=== PATIENT | female | born 1960 ===

== ENCOUNTER 2016-07-25 13:39 | Emergency (ER) | payer MEDICAID ==
[2016-07-25 13:39] VITALS: BMI 49.0
[2016-07-25 13:49] VITALS: BP 131/86; PULSE 85; RESP 24; TEMP 97.7
[2016-07-25] MEDS ORDERED: Albuterol-Ipratrop 3 mg / 0.5 (3 ml) UD INH STA ×3 (14:03→14:06)
--- NOTE | 2016-07-25 14:08 | ED PDOC ---
HPI: SOB/CHF/COPD Time Seen by Provider: 07/25/16 13:51 Chief Complaint (Nursing): Shortness Of Breath Chief Complaint (Provider): Shortness Of Breath History Per: Patient History/Exam Limitations: no limitations Onset/Duration Of Symptoms: Days (2), Worse Since (this morning) Current Symptoms Are (Timing): Still Present Initiating Event: Other (exposure to chemicals) Exacerbating Factor(s): Laying Flat Current Respiratory Medications: Albuterol, Steroid Inhaler Associated Symptoms: denies: Fever, Chills, Sweating, Chest Pain, Bloody Cough, Productive Cough, Heart Racing, Leg/Calf Pain, Ankle/Leg Swelling, Dizziness, Light-headedness, Anxiety, Tingling In Hands Or Face, Musle Spasms In Hands Or Feet Similar Symptoms Previously: Yes Additional Complaint(s): 56 year old morbid obese female with medical history of COPD, IDDM with shortness of breath x 2 days, worsened this AM. Patient states has been doing very well with her COPD management, without an ED visit in approx 1 year. Patient states that however she was exposed to some chemical 2 days ago that began to worsen her breathing with increasingly dyspnea which prompted ED visit today. Patient denies cough, fever, headache, palpitations, chest tightness, chest pain, numbness, tingling, recent travel, calf tenderness, or chills. PMD: [facility] Past Medical History Reviewed: Historical Data, Nursing Documentation, Vital Signs Vital Signs: Last Vital Signs Temp 97.7 F 07/25/16 13:47 Pulse 85 07/25/16 13:47 Resp 24 07/25/16 13:47 BP 131/86 07/25/16 13:47 Pulse Ox 94 L 07/25/16 15:30 - Medical History PMH: Arthritis, COPD, Diabetes, Fractures (ribs), HTN, Hypercholesterolemia Denies: HIV, Chronic Kidney Disease - Surgical History Surgical History: Hernia Repair, Tonsillectomy - Family History Family History: States: Unknown Family Hx, Diabetes, Hypertension - Social History Current smoker - smoking cessation education provided: No Ex-Smoker (has not smoked in the last 12 months): Yes Alcohol: None Drugs: Denies - Immunization History Hx Tetanus Toxoid Vaccination: No Hx Influenza Vaccination: No Hx Pneumococcal Vaccination: No - Home Medications Home Medications: Ambulatory Orders Medication Instructions Recorded Losartan [Cozaar] 100 mg PO DAILY #0 tab 12/28/15 Aspirin [Ecotrin] 81 mg PO DAILY 01/14/16 Insulin Human (NPH)/Regular 50 units SC BID 02/20/16 [Novolin 70/30 (70/30 units/ml) 10 ml] Ciprofloxacin [Cipro] 500 mg PO BID #16 tab 02/22/16 Metronidazole [Flagyl] 500 mg PO Q8H #36 tablet 02/22/16 Albuterol 0.083% [Albuterol 0.083% 2.5 mg IH Q4H PRN #1 neb 07/25/16 Inhal Katrina (2.5 mg/3 ml) UD] Prednisone 50 mg PO DAILY #4 tablet 07/25/16 - Allergies Allergies/Adverse Reactions: Allergies Allergy/AdvReac Type Severity Reaction Status Date / Time crab Allergy ANGIOEDEMA Verified 04/29/16 08:14 zolpidem tartrate Allergy RASH Verified 04/29/16 08:14 [From Jessi] Wells Criteria for PE - Wells Criteria for Pulmonary Embolism Clinical Signs and Symptoms of DVT: No P.E is #1 Diagnosis, or Equally Likely: No Heart Rate >100: No Immobilization at least 3 days;Surgery previous 4 weeks: No Previous, objectively diagnosed PE or DVT: No Hemoptysis: No Malignancy w/treatment within 6 months, or palliative: No Total Score: 0 Review of Systems ROS Statement: Except As Marked, All Systems Reviewed And Found Negative Respiratory: Positive for: Shortness of Breath, Wheezing Physical Exam - Reviewed Nursing Documentation Reviewed: Yes Vital Signs Reviewed: Yes - Physical Exam Appears: Positive for: Well, Non-toxic Head Exam: Positive for: ATRAUMATIC, NORMAL INSPECTION, NORMOCEPHALIC Skin: Positive for: Normal Color, Warm, Dry Eye Exam: Positive for: Normal appearance, EOMI ENT: Positive for: Normal ENT Inspection Neck: Positive for: Normal, Painless ROM, Supple Cardiovascular/Chest: Positive for: Regular Rate, Rhythm Respiratory: Positive for: Decreased Breath Sounds (bilateral bases), Wheezing ( diffuse). Negative for: Accessory Muscle Use, Rales, Rhonchi, Respiratory Distress Gastrointestinal/Abdominal: Positive for: Normal Exam, Bowel Sounds (present), Soft, Other (morbid obesity). Negative for: Tenderness Back: Positive for: Normal Inspection Extremity: Positive for: Normal ROM. Negative for: Tenderness, Pedal Edema, Calf Tenderness Neurologic/Psych: Positive for: Alert, dredge or barge shore hand II-XII, Oriented - ECG O2 Sat by Pulse Oximetry: 97 Pulse Ox Interpretation: Normal - Radiology X-Ray: Interpreted by Me, Viewed By Me, Read By Radiologist X-Ray Interpretation: No Acute Disease - Progress ED Course And Treament: Time: 1400 Initial impression: 56 year old morbid obese female with medical history of COPD , IDDM with shortness of breath x 2 days, worsened this AM. VSS. Pulse ox 94-95% . Afebrile. Likely COPD exacerbation 2ndary to chemical exposure Plan: * DUONEBS X 3 * SOLUMEDROL 125MG IVP * CXR * EKG * CONTINUOUS MONITORING * REEVAL Time: 1530 Patient re-examined, improved symptoms. CXR: NAD Patient eager to go home. Breath sounds improved bilaterally. Patient to be discharged home with Prednisone and Albuterol. ED precautions and information regarding discharge discussed. Disposition - Clinical Impression Clinical Impression: COPD (chronic obstructive pulmonary disease) - Disposition Referrals: Mario Dey MD [Staff Provider] - Disposition: Routine/Home Disposition Time: 16:00 Condition: IMPROVED Additional Instructions: Follow up with PMD within 7 days. Take medications as prescribed. Return to ED for worsening symptoms. Prescriptions: Albuterol 0.083% [Albuterol 0.083% Inhal Katrina (2.5 mg/3 ml) UD] 2.5 mg IH Q4H PRN #1 neb PRN Reason: Shortness Of Breath Prednisone 50 mg PO DAILY #4 tablet Instructions: COPD (Chronic Obstructive Pulmonary Disease) (ED) Print Language: MARSHALLESE
--- NOTE | 2016-07-25 14:56 | RAD ---
HISTORY: Shortness of breath. COMPARISON: 02/20/2016 TECHNIQUE: Chest PA and lateral FINDINGS: LUNGS: No active pulmonary disease. PLEURA: No significant pleural effusion identified. No pneumothorax apparent. CARDIOVASCULAR: No radiographic findings to suggest acute or significant cardiovascular disease. OSSEOUS STRUCTURES: No significant abnormalities. VISUALIZED UPPER ABDOMEN: Normal. OTHER FINDINGS: None. IMPRESSION: No active disease. No significant interval change compared to the prior examination(s).
[2016-07-25 16:29] VITALS: O2SAT 97
--- NOTE | 2016-07-26 11:36 | CARD ---
APPROVED REPORT EKG Measurement Heart [id number] VT [id number] <Conclusion> Normal sinus rhythm Normal ECG
== END 2016-07-25 16:27 | disposition home or self-care (01) ==
LOC: H.ER 13:39
DX: J44.9 Chronic obstructive pulmonary disease, unspecified (principal); E11.9 Type 2 diabetes mellitus without complications; E66.01 Morbid (severe) obesity due to excess calories; E78.00 Pure hypercholesterolemia, unspecified; I10 Essential (primary) hypertension; R06.02 Shortness of breath; Z79.4 Long term (current) use of insulin; Z79.82 Long term (current) use of aspirin

== ENCOUNTER 2016-08-06 12:26 | Inpatient (IN) | payer MEDICAID ==
--- NOTE | 2016-08-06 12:55 | ED PDOC ---
HPI: SOB/CHF/COPD Time Seen by Provider: 08/06/16 12:50 Chief Complaint (Nursing): Shortness Of Breath Chief Complaint (Provider): SOB History Per: Patient Additional Complaint(s): 56-year-old female with history of hypertension, diabetes and COPD presents to emergency department with shortness of breath that started 2 days ago. Patient thinks SOB was triggered by being out in the rain 2 days ago. Advair and albuterol have not helped her symptoms. Patient denies recent travel, no coughing, no sick contacts. She denies any fever or chills, no associated throat discomfort or difficulty swallowing. She also denies any chest pain. Past Medical History Reviewed: Historical Data, Nursing Documentation, Vital Signs Vital Signs: Last Vital Signs Temp 98.0 F 08/06/16 16:49 Pulse 120 H 08/06/16 16:49 Resp 20 08/06/16 16:49 BP 150/82 08/06/16 16:49 Pulse Ox 98 08/06/16 16:49 - Medical History PMH: Arthritis, COPD, Diabetes, Fractures (ribs), HTN, Hypercholesterolemia - Surgical History Surgical History: Hernia Repair, Tonsillectomy - Family History Family History: States: Unknown Family Hx, Diabetes, Hypertension - Living Arrangements Living Arrangements: With Family - Social History Current smoker - smoking cessation education provided: No Ex-Smoker (has not smoked in the last 12 months): Yes (quit 6 years ago) Alcohol: None Drugs: Denies - Home Medications Home Medications: Ambulatory Orders Medication Instructions Recorded Losartan [Cozaar] 100 mg PO DAILY #0 tab 12/28/15 Aspirin [Ecotrin] 81 mg PO DAILY 01/14/16 Insulin Human (NPH)/Regular 50 units SC BID 02/20/16 [Novolin 70/30 (70/30 units/ml) 10 ml] Albuterol 0.083% [Albuterol 0.083% 2.5 mg IH Q4H PRN #1 neb 07/25/16 Inhal Katrina (2.5 mg/3 ml) UD] Ascorbic Acid [Vitamin C] 1,500 mg PO DAILY 08/06/16 Folic Acid [Folic Acid] 400 mcg PO DAILY 08/06/16 Milk Thistle Seed Extract [Milk 1 cap PO DAILY 08/06/16 Thistle] Deale-3 Fatty Acids [Deale-3] 1,000 mg PO DAILY 08/06/16 Vitamin E [Vitamin E 400 Units Cap] 400 unit PO DAILY 08/06/16 - Allergies Allergies/Adverse Reactions: Allergies Allergy/AdvReac Type Severity Reaction Status Date / Time crab Allergy ANGIOEDEMA Verified 08/06/16 12:34 zolpidem tartrate Allergy RASH Verified 08/06/16 12:34 [From Rudolphien] Curb-65 Severity Score - CURB-65 Severity Score Confusion: No Respiratory Rate greater than/equal to 30: No Systolic BP <90 or Diastolic BP less than/equal 60mmHg: No Age >64: No Curb-65 Score: 0 Percentage 30-day mortality: 0.6% Wells Criteria for PE - Wells Criteria for Pulmonary Embolism Clinical Signs and Symptoms of DVT: No P.E is #1 Diagnosis, or Equally Likely: No Heart Rate >100: No Immobilization at least 3 days;Surgery previous 4 weeks: No Previous, objectively diagnosed PE or DVT: No Hemoptysis: No Malignancy w/treatment within 6 months, or palliative: No Total Score: 0 Review of Systems ROS Statement: Except As Marked, All Systems Reviewed And Found Negative Constitutional: Negative for: Fever, Chills Cardiovascular: Negative for: Chest Pain Respiratory: Positive for: Shortness of Breath, SOB with Exertion, Wheezing Gastrointestinal: Negative for: Nausea, Vomiting Neurological: Negative for: Headache, Dizziness Physical Exam - Reviewed Nursing Documentation Reviewed: Yes Vital Signs Reviewed: Yes - Physical Exam Appears: Positive for: Well, Non-toxic, No Acute Distress Head Exam: Positive for: ATRAUMATIC, NORMAL INSPECTION Skin: Negative for: Rash Eye Exam: Positive for: Normal appearance, EOMI, PERRL ENT: Negative for: Pharyngeal Erythema, Tonsillar Exudate, Tonsillar Swelling Cardiovascular/Chest: Positive for: Regular Rate, Rhythm Respiratory: Positive for: Decreased Breath Sounds, Accessory Muscle Use, Respiratory Distress (mild) Gastrointestinal/Abdominal: Positive for: Other (morbidly obese non-tender abdomen). Negative for: Tenderness Extremity: Negative for: Calf Tenderness Neurologic/Psych: Positive for: Alert, Oriented - Laboratory Results Result Diagrams: 08/06/16 13:38 08/06/16 14:50 - ECG Interpretation Of ECG: A fib 105 bpm, reviewed by PA and ED attending. O2 Sat by Pulse Oximetry: 97 Pulse Ox Interpretation: Normal - Other Rad Bedside chest X-Ray: Interpreted by Me, Viewed By Me X-Ray Interpretation: poor inspiratory effort, no acute finding Medical Decision Making Medical Decision Makin56 year old with shortness of breath, history of COPD. Plan: CBC CMP Trop CXR EKG IVF IV solumedrol Duoneb x 3 EKG shows A-fib at 105 bpm. Patient denies any known history of A-fib. Dr. Barnes aware, cardizem 10 mg IV ordered along with 30 mg PO tab. PMD is Dr. Jewell at [facility]. Case was d/w Dr. Bliss, [facility] resident. Patient will be admitted to obs-tele Dr. Barnes spoke with Dr. South for cardiology consult. Patient is aware of and agrees with admission. K is elevated, sample hemolyzed, repeat CMP ordered. Repeat K is normal. Disposition - Clinical Impression Clinical Impression: COPD (chronic obstructive pulmonary disease), Atrial fibrillation, Shortness of breath - Patient ED Disposition Is Patient to be Admitted: Yes - Disposition Disposition Time: 13:57 Condition: FAIR - Pt Status Changed To: Hospital Disposition Of: Observation - POA Present On Arrival: None Results - Lab Results Lab Results: 08/06/16 08/06/16 13:38 13:38 WBC 6.2 RBC 4.43 Hgb 12.6 Hct 39.1 MCV 88.4 D MCH 28.4 MCHC 32.2 L RDW 15.3 H Plt Count 73 L MPV 9.9 Neut % (Auto) 75.5 H Lymph % (Auto) 13.0 L [place] % (Auto) 9.6 Eos % (Auto) 1.5 Baso % (Auto) 0.4 Neut # 4.7 Lymph # 0.8 L [place] # 0.6 Eos # 0.1 Baso # 0.0 Sodium 138 Potassium 5.2 H Chloride 104 Carbon Dioxide 24 Anion Gap 15 BUN 19 H Creatinine 0.6 L Est GFR ( Amer) > 60 Est GFR (Non-Af Amer) > 60 Random Glucose 235 H Calcium 9.3 Total Bilirubin 1.4 H AST 107 H D ALT 84 H Alkaline Phosphatase 278 H D Troponin I 0.0290 Total Protein 7.8 Albumin 4.2 Globulin 3.6 Albumin/Globulin Ratio 1.2 TSH 3rd Generation 0.76
[2016-08-06] MEDS ORDERED: Albuterol-Ipratrop 3 mg / 0.5 (3 ml) UD INH STA (13:00)
[2016-08-06] MEDS ORDERED: Sodium Chloride 0.9% 1,000 ML IV STA (13:00)
--- NOTE | 2016-08-06 13:25 | RAD ---
HISTORY: sob COMPARISON: Comparison chest 07/25/2016. FINDINGS: LUNGS: Poor inspiration with low lung volumes, mild crowded bronchovascular markings and mild bibasilar atelectasis. PLEURA: No significant pleural effusion identified, no pneumothorax apparent. CARDIOVASCULAR: Cardiomegaly. OSSEOUS STRUCTURES: No significant abnormalities. VISUALIZED UPPER ABDOMEN: Normal. OTHER FINDINGS: None. IMPRESSION: Poor inspiration with low lung volumes, mild crowded bronchovascular markings and mild bibasilar atelectasis. Cardiomegaly. It could
[2016-08-06 13:50] LABS: BASO % 0.4 % (0.0-2.0); EOS # 0.1 K/uL (0.0-0.7); EOS % 1.5 % (0.0-4.0); HEMATOCRIT 39.1 % (34.0-47.0); LYMPH # 0.8 K/uL (1.0-4.3); MEAN CELL VOLUME 88.4 fl (81.0-99.0); MEAN CORPUSCULAR HEMOGLOBIN 28.4 pg (27.0-31.0); MEAN CORPUSCULAR HGB CONC 32.2 g/dL (33.0-37.0); MEAN PLATELET VOLUME 9.9 fl (7.2-11.7); MONO # 0.6 K/uL (0.0-0.8); MONO % 9.6 % (0.0-10.0); NEUT # 4.7 K/uL (1.8-7.0); NEUT % 75.5 % (50.0-75.0); NRBC % 0.1 % (0.0-0.0); RED CELL DISTRIBUTION WIDTH 15.3 % (11.5-14.5); WHITE BLOOD COUNT 6.2 K/uL (4.8-10.8)
[2016-08-06 14:06] LABS: ALB/GLOB RATIO 1.2 (1.0-2.1); ALKALINE PHOSPHATASE 278 U/L (38-126); ALT/SGPT 84 U/L (9-52); AST/SGOT 107 U/L (14-36); BILIRUBIN,TOTAL 1.4 mg/dl (0.2-1.3); BLOOD UREA NITROGEN 19 mg/dl (7-17); CALCIUM 9.3 mg/dL (8.4-10.2); CARBON DIOXIDE 24 mmol/L (22-30); CHLORIDE 104 mmol/L (98-107); GFR AFRICAN-AMERICAN > 60; GLUCOSE,RANDOM 235 mg/dL (65-105); SODIUM 138 mmol/l (132-148); TOTAL PROTEIN 7.8 G/DL (6.3-8.2)
[2016-08-06 14:14] LABS: POTASSIUM 5.2 MMOL/L (3.6-5.0)
[2016-08-06 15:33] LABS: ALB/GLOB RATIO 1.2 (1.0-2.1); ALKALINE PHOSPHATASE 264 U/L (38-126); ALT/SGPT 96 U/L (9-52); AST/SGOT 78 U/L (14-36); BILIRUBIN,TOTAL 1.1 mg/dl (0.2-1.3); BLOOD UREA NITROGEN 18 mg/dl (7-17); CALCIUM 9.2 mg/dL (8.4-10.2); CARBON DIOXIDE 23 mmol/L (22-30); CHLORIDE 105 mmol/L (98-107); GFR AFRICAN-AMERICAN > 60; GLUCOSE,RANDOM 218 mg/dL (65-105); POTASSIUM 4.2 MMOL/L (3.6-5.0); SODIUM 139 mmol/l (132-148); TOTAL PROTEIN 7.5 G/DL (6.3-8.2)
--- NOTE | 2016-08-06 16:10 | CP.PCM.HP ---
History of Present Illness - History of Present Illness History of Present Illness: This is a 56 year old Morbid obese female with medical history of COPD, DM, HTN presenting to ED with a history of increasing shortness of breath since yesterday, and not getting relieved with her usual albuterol treatment, and associated with chest tightness, and morning wheezing. Patient had a recent visit to ED on 07/25/16 because worsened SOB for 2 days and was sent home in PO prednisone x 4 days. Patient states that when she is exposed to some chemical that began to worsen her breathing with increasingly dyspnea which prompted ED visit today. Patient denies cough, fever, headache, palpitations, chest pain, chills. PMD: [facility] PMHx: COPD, DM type II, HTN FHx: Father: Milka SHx: Umbilical hernia, Tonsillectomy Allergies: Ambien/Rash SocialHx: Former smoker x 30 years, stopped 6 years ago. ETOH: socially, Denies recreational drugs ED course: Present on Admission - Present on Admission Any Indicators Present on Admission: No History of DVT/PE: No History of Uncontrolled Diabetes: No Urinary Catheter: No Decubitus Ulcer Present: No Review of Systems - Constitutional Constitutional: As Per HPI - Cardiovascular Cardiovascular: As Per HPI - Respiratory Respiratory: As Per HPI - Gastrointestinal Gastrointestinal: As Per HPI Past Patient History - Infectious Disease Hx of Infectious Diseases: None - Past Medical History & Family History Past Medical History?: Yes - Past Social History Alcohol: None Drugs: Denies - CARDIAC Hx Hypercholesterolemia: Yes Hx Hypertension: Yes - PULMONARY Hx Chronic Obstructive Pulmonary Disease (COPD): Yes - NEUROLOGICAL Hx Neurological Disorder: No - HEENT Hx HEENT Problems: No - RENAL Hx Chronic Kidney Disease: No - ENDOCRINE/METABOLIC Hx Endocrine Disorders: Yes Hx Diabetes Mellitus Type 1: Yes - HEMATOLOGICAL/ONCOLOGICAL Hx Human Immunodeficiency Virus (HIV): No - INTEGUMENTARY Hx Dermatological Problems: No - MUSCULOSKELETAL/RHEUMATOLOGICAL Hx Arthritis: Yes Hx Fractures: Yes (ribs) - GASTROINTESTINAL Hx Gastrointestinal Disorders: Yes (Hernia) - GENITOURINARY/GYNECOLOGICAL Hx Urinary Tract Infection: Yes - PSYCHIATRIC Hx Psychophysiologic Disorder: No Hx Substance Use: No - SURGICAL HISTORY Hx Tonsillectomy: Yes - ANESTHESIA Hx Anesthesia: Yes Hx Anesthesia Reactions: No Hx Malignant Hyperthermia: No Meds Allergies/Adverse Reactions: Allergies Allergy/AdvReac Type Severity Reaction Status Date / Time crab Allergy ANGIOEDEMA Verified 08/06/16 12:34 zolpidem tartrate Allergy RASH Verified 08/06/16 12:34 [From Ambien] Physical Exam - Constitutional Appears: Non-toxic, No Acute Distress - Eye Exam Eye Exam: Normal appearance - ENT Exam ENT Exam: Mucous Membranes Moist - Respiratory Exam Respiratory Exam: Clear to Auscultation Bilateral, NORMAL BREATHING PATTERN. absent: Rales, Rhonchi, Wheezes, Respiratory Distress - Cardiovascular Exam Cardiovascular Exam: Irregular Rhythm, +S1, +S2. absent: Systolic Murmur - GI/Abdominal Exam GI & Abdominal Exam: Normal Bowel Sounds, Soft. absent: Rebound, Rigid, Tenderness - Extremities Exam Extremities exam: Positive for: normal inspection. Negative for: calf tenderness, pedal edema Additional comments: No edema in lower extremities. No calf tenderness, No's sign negative bilateral. - Back Exam Back exam: NORMAL INSPECTION. absent: CVA tenderness (L), CVA tenderness (R) - Neurological Exam Neurological exam: Alert, Oriented x3 - Psychiatric Exam Psychiatric exam: Normal Affect, Normal Mood - Skin Skin Exam: Dry, Intact, Normal Color - Additional Findings Additional findings: Mild tenderness to palpation of right trapezius muscle Results - Vital Signs Recent Vital Signs: Last Vital Signs Temp 98.1 F 08/06/16 14:47 Pulse 112 H 08/06/16 14:47 Resp 19 08/06/16 14:47 BP 100/57 L 08/06/16 14:47 Pulse Ox 97 08/06/16 15:16 - Labs Result Diagrams: 08/06/16 13:38 08/06/16 14:50 Assessment & Plan - Assessment and Plan (Free Text) Assessment: 56 year old Morbid obese female with medical history of COPD, HTN, DM, admitted for management of new onset Atrial Fibrillation. Plan: New onset Atrial Fibrillation -With rapid ventricular response -EKG at ED showed Atrial fibrillation with rapid ventricular response, and premature ventricular contraction -Cardizem 10 mg IVP once given at ED -Cardizem 30 mg PO once at ED -Troponin I: 0.0290 -F/U TSH pending -F/U troponin I x 3 -Consider Echocardiogram -Cardiology consult appreciated. Dr. Persaud on board. F/U recommendations Short of Breath Most likely due to A fib, but patient has H/O COPD -No wheezing , rhonchi or crackles -S/p Duoneb inh STAT once -Methylprednisolone 125 IV once STAT -Chest x ray showed poor inspiration with low lung volumes, mild croweded bronchovascular markings and mild bibasilar atelectasis. -Will continue monitoring Diabetes Mellitus type II -Being treated with insulin -Accu-chek ACHS -Corrective high dose insulin regimen -Hypoglycemic protocol -F/U HgbA1C -F/U Lipid profile -Heart health with moderate carbohydrate diet Hypertension c/w home medications Elevated liver enzymes -H/O elevated LFTs in previous CMP -Hepatitis panel was negative on 01/16/16 -Pelvic CT scan on 02/20/16 showed portal hypertension due to chronic liver disease/cirrhosis Morbid Obese BMI: 50.8 kg/m2 DVT prophylaxis -SCDs for now - Date & Time Date: 08/06/16 Time: 15:30
[2016-08-06 16:56] LABS: THYROID STIMULATING HORMONE 0.76 mIU/ML (0.46-4.68)
[2016-08-06] MEDS ORDERED: Dextrose 50% SYRINGE Inj (50 ml) IV PRN (16:59)
[2016-08-06] MEDS ORDERED: Glucagon Recombinant 1 mg Inj IM PRN (16:59)
[2016-08-06] MEDS ORDERED: Digoxin 500 mcg/2ml (0.5 mg/2ml) Inj IVP ONE (17:02)
[2016-08-06 17:32] VITALS: BMI 54.3
[2016-08-06 18:33] VITALS: PULSE 142
[2016-08-06] MEDS: Albuterol 0.083% Inhal Sol (2.5 mg/3 mL) UD IH PRN ×2 (19:05→23:34)
--- NOTE | 2016-08-06 20:31 | CON ---
DATE: 08/06/2016 CARDIOLOGY CONSULTATION REASON FOR CONSULTATION: New onset atrial fibrillation. HISTORY OF PRESENT ILLNESS: The patient is a 56-year-old female who has a history of chroni c obstructive lung disease, on nasal O2 at home, as well as home nebulizer therapy. The patient has multiple admissions for exacerbation of chronic obstructive lung disease. The most recent one was in early July. At that time, the patient's EKG on 07/25 revealed normal sinus rhythm at a rate of 84. The patient presented because of shortness of breath and palpitation and was found to be in rapid atr ial fibrillation. The patient did receive 10 mg of Cardizem IV in the Emergency Room, as well as 30 mg p.o. beside methylprednisolone. The patient has no history of being on prednisone at home; jose luisevalisson r, she has frequent steroid intravenously given during her past hospitalization. The patient denies any history of DVT or pulmonary embolism in the past. SOCIAL HISTORY: The patient is a former smoker, nondrinker. CURRENT MEDICATIONS: Albuterol inhaler 2.5 mg q. 6 hours, Cozaar 100 mg once a day, aspirin 81 mg on ce a day, normal saline at 125 mL an hour. REVIEW OF SYSTEMS: No fever or chills. No productive cough. There is mild leg swelling. PHYSICAL EXAMINATION: GENERAL: The patient is a middle-aged female who is morbidly obese and mildly tachypneic. VITAL SIGNS: Blood pressure 150/ , heart rate 120, temperature 98, respirations 20. HEENT: Normocephalic. NECK: No JVD. CHEST: Bilateral rhonchi. HEART: S1, S2 regular. ABDOMEN: Soft. There is truncal obesity. EXTREMITIES: 2+ pitting edema. LABORATORY DATA: CBC: WBC 6.2, hemoglobin 12.6, hematocrit 39.1, platelet count 73,000. SMA-7: So dium 139, potassium 4.2, chloride 105, CO2 of 23, glucose 218, BUN 18, creatinine 0.6. Initial EKG i n the Emergency Room revealed atrial fibrillation with rapid ventricular response at a rate of 135. PVC versus aberrancy. ASSESSMENT: 1. New onset atrial fibrillation. 2. Exacerbation of chronic obstructive lung disease. 3. Rule out underlying congestive heart failure as the x-ray revealed mild cardiomegaly with promine nt bronchovascular markings. 4. Thrombocytopenia. RECOMMENDATIONS: Continue Cozaar at 100 mg once a day, aspirin 81 mg once a day. Start Lasix at 40 mg intravenously daily. I will administer 1 dose of digoxin 0.25 mg IV now. Obtain an echocardiogra m, TSH level and start therapeutic subcutaneous Lovenox. Obtain venous Doppler of the lower extremit ies. Mick Pena MD cc: [id number] TT: 08/06/2016 20:30:42 Confirmation # [id number] Dictation # [id number] mn
[2016-08-06] MEDS: Enoxaparin 80 mg Syringe SC SCH (21:52)
[2016-08-06] MEDS: Insulin Regular 100 units/ml SC SCH (21:54)
[2016-08-06] MEDS: Naproxen 500 MG TAB PO SCH (23:34)
[2016-08-07] MEDS: Albuterol 0.083% Inhal Sol (2.5 mg/3 mL) UD IH PRN ×3 (05:16→23:35)
[2016-08-07 06:49] LABS: MEAN CELL VOLUME 87.6 fl (81.0-99.0); MEAN CORPUSCULAR HEMOGLOBIN 28.6 pg (27.0-31.0); MEAN CORPUSCULAR HGB CONC 32.6 g/dL (33.0-37.0); RED CELL DISTRIBUTION WIDTH 15.3 % (11.5-14.5)
[2016-08-07 07:03] LABS: ALB/GLOB RATIO 1.2 (1.0-2.1); ALKALINE PHOSPHATASE 241 U/L (38-126); ALT/SGPT 106 U/L (9-52); AST/SGOT 76 U/L (14-36); BILIRUBIN,TOTAL 1.9 mg/dl (0.2-1.3); BLOOD UREA NITROGEN 22 mg/dl (7-17); CALCIUM 9.9 mg/dL (8.4-10.2); CARBON DIOXIDE 25 mmol/L (22-30); CHLORIDE 99 mmol/L (98-107); CHOLESTEROL 235 mg/dL (0-199); GFR AFRICAN-AMERICAN > 60; GLUCOSE,RANDOM 379 mg/dL (65-105); POTASSIUM 5.2 MMOL/L (3.6-5.0); SODIUM 136 mmol/l (132-148); TOTAL PROTEIN 7.9 G/DL (6.3-8.2)
[2016-08-07] MEDS ORDERED: Potassium Chloride 20 mEq ER Tab PO SCH (09:00)
[2016-08-07] MEDS: Insulin Lispro Mix 75/25 100 units/ml (HumaLog) 10ml SC SCH ×2 (09:11→17:01)
[2016-08-07] MEDS: Insulin Regular 100 units/ml SC SCH ×4 (09:12→21:35)
[2016-08-07] MEDS: Enoxaparin 80 mg Syringe SC SCH ×2 (09:16→21:33)
[2016-08-07] MEDS: Naproxen 500 MG TAB PO SCH (09:16)
--- NOTE | 2016-08-07 10:18 | CP.PCM.PN ---
Subjective - Date & Time of Evaluation Date of Evaluation: 08/07/16 Time of Evaluation: 07:10 - Subjective Subjective: Patient was seen and examined at bedside. Patient still complaining of SOB when walking more than 20 feet. Denies cough, sputum production, chest pain, abdominal pain, N/V or other complains at this evaluation. Objective - Vital Signs/Intake and Output Vital Signs (last 24 hours): Temp Pulse Resp BP Pulse Ox 97.8 F 109 H 20 144/91 H 95 08/07/16 05:00 08/07/16 09:09 08/07/16 05:00 08/07/16 09:14 08/07/16 05:00 - Medications Medications: Current Medications Albuterol Sulfate (Albuterol 0.083% Inhal Katrina (2.5 Mg/3 Ml) Ud) 2.5 mg IH Q4H PRN PRN Reason: Shortness of Breath Last Admin: 08/07/16 05:16 Dose: 2.5 mg Aspirin (Ecotrin) 81 mg PO DAILY [facility] Last Admin: 08/07/16 09:10 Dose: 81 mg Dextrose (Dextrose 50% Inj) 0 ml IV STAT PRN; Protocol PRN Reason: Hyglycemia Protocol Dextrose (Glutose 15) 0 gm PO ONCE PRN; Protocol PRN Reason: Hypoglycemia Protocol Enoxaparin Sodium (Lovenox) 80 mg SC Q12 ELISHA PRN Reason: Protocol Last Admin: 08/07/16 09:16 Dose: 80 mg Furosemide (Lasix) 60 mg IV DAILY [facility] Last Admin: 08/07/16 09:14 Dose: 60 mg Glucagon (Glucagen Diagnostic Kit) 0 mg IM STAT PRN; Protocol PRN Reason: Hypoglycemia Protocol Insulin Human Regular (Humulin R) 0 units SC ACHS [facility] PRN Reason: Protocol Last Admin: 08/07/16 09:12 Dose: 8 units Insulin Lispro Protam/Lispro Human (Humalog Mix 75/25) 50 units SC BID [facility] Last Admin: 08/07/16 09:11 Dose: 50 units Losartan Potassium (Cozaar) 100 mg PO DAILY [facility] Last Admin: 08/07/16 09:09 Dose: 100 mg Naproxen (Naproxen) 500 mg PO Q12 [facility] Last Admin: 08/07/16 09:16 Dose: 500 mg Potassium Chloride (K-Dur 20 Meq Er Tab) 20 meq PO DAILY [facility] Last Admin: 08/07/16 09:13 Dose: 20 meq - Labs Labs: 08/07/16 06:00 08/07/16 06:00 PT 11.9 SECONDS (9.6-11.2) H 08/07/16 06:00 INR 1.14 (0.92-1.08) H 08/07/16 06:00 APTT 30.0 SECONDS (23.3-32.5) 08/07/16 06:00 - Additional Findings Additional findings: Constitutional Appears: Non-toxic, No Acute Distress - Eye Exam Eye Exam: Normal appearance - ENT Exam ENT Exam: Mucous Membranes Moist - Respiratory Exam Respiratory Exam: Clear to Auscultation Bilateral, NORMAL BREATHING PATTERN. absent: Rales, Rhonchi, Wheezes, Respiratory Distress - Cardiovascular Exam Cardiovascular Exam: Irregular Rhythm, +S1, +S2. absent: Systolic Murmur - GI/Abdominal Exam GI & Abdominal Exam: Normal Bowel Sounds, Soft. absent: Rebound, Rigid, Tenderness - Extremities Exam Extremities exam: mild lower extremities edema pitting 1 +, no calf tenderness noted, No's sign negative bilateral Additional comments: No edema in lower extremities. No calf tenderness, No's sign negative bilateral. - Back Exam Back exam: NORMAL INSPECTION. absent: CVA tenderness (L), CVA tenderness (R) - Neurological Exam Neurological exam: Alert, Oriented x3 - Psychiatric Exam Psychiatric exam: Normal Affect, Normal Mood - Skin Skin Exam: Dry, Intact, Normal Color - Additional Findings Additional findings: Mild tenderness to palpation of right trapezius muscle Assessment and Plan - Assessment and Plan (Free Text) Assessment: 56 year old Morbid obese female with medical history of COPD, HTN, DM, admitted for management of new onset Atrial Fibrillation, with mild Congestion Heart Failure. Plan: New onset Atrial Fibrillation -With rapid ventricular response -EKG at ED showed Atrial fibrillation with rapid ventricular response, and premature ventricular contraction -Cardizem 10 mg IVP once given at ED -Cardizem 30 mg PO once at ED -Troponin I: 0.0290 -F/U TSH pending -F/U troponin I x 3 -F/U Echocardiogram -Cardiology consult appreciated. Dr. Persaud on board. F/U recommendations Congestion Heart Failure Mild, SOB and mild LE edema Most likely due to A fib, but patient has H/O COPD -c/w Furosemide 60 mg IV daily as per Cardio recommendation -c/w Losartan 100 mg PO daily -F/U Echocardiogram -Cardiology consult appreciated. Dr. Persaud on board. F/U recommendations COPD in no exacerbation No wheezing , rhonchi or crackles -c/w Albuterol 0.083 % Q4 PRN -Chest x ray showed poor inspiration with low lung volumes, mild croweded bronchovascular markings and mild bibasilar atelectasis. Diabetes Mellitus type II -Being treated with insulin -Accu-chek ACHS -Corrective high dose insulin regimen -Hypoglycemic protocol -F/U HgbA1C -F/U Lipid profile -Heart health with moderate carbohydrate diet Hypertension c/w home medications Elevated liver enzymes -H/O elevated LFTs in previous CMP -Hepatitis panel was negative on 01/16/16 -Pelvic CT scan on 02/20/16 showed portal hypertension due to chronic liver disease/cirrhosis Morbid Obese BMI: 50.8 kg/m2 DVT prophylaxis -SCDs for now
--- NOTE | 2016-08-07 15:32 | US ---
PROCEDURE: Bilateral lower extremity venous duplex Doppler. HISTORY: r/o DVT COMPARISON: None available. TECHNIQUE: Bilateral common femoral, superficial femoral, popliteal and posterior tibial veins were evaluated. Flow was assessed with color Doppler, compressibility, assessment of phasic flow and augmentation response. FINDINGS: COMMON FEMORAL VEIN: Right CFV: Unremarkable. Left CFV: Unremarkable. SUPERFICIAL FEMORAL VEIN: Right SFV: Unremarkable. Left SFV: Unremarkable. POPLITEAL VEIN: Right Popliteal: Unremarkable. Left Popliteal: Unremarkable. POSTERIOR TIBIAL VEIN: Right PTV: Unremarkable. Left PTV: Unremarkable. OTHER FINDINGS: None. IMPRESSION: No evidence of deep venous thrombosis.
--- NOTE | 2016-08-07 17:01 | PN ---
DATE: 08/07/2016 SUBJECTIVE: The patient is experiencing sharp retrosternal chest pain. Shortness of breath slightly improved. PHYSICAL EXAMINATION: VITAL SIGNS: Blood pressure 136/70, heart rate 90, temperature 98.3. The heart rate was ranging fro m 103-109. HEENT: Normocephalic. NECK: No JVD. CHEST: Minimal rhonchi and scattered wheezing. HEART: S1, S2 regular. ABDOMEN: Soft. EXTREMITIES: 2+ pitting edema. LABORATORIES: Today's white count is 73,000, exactly as yesterday. White count, hemoglobin, and hem atocrit are within normal limits. Today's SMA-7: Sodium 136, potassium 5.2, chloride 99, CO2 25, gl ucose 379, BUN 22, creatinine 0.7. Total cholesterol is 235, LDL cholesterol is 138, HDL cholesterol 76. All are elevated. Two troponins are negative. Venous Doppler of lower extremities: No eviden ce of DVT. ASSESSMENT: 1. New onset atrial fibrillation. 2. Exacerbation of chronic obstructive lung disease. 3. Morbid obesity. 4. Hypertension. 5. Diabetes mellitus. 6. Thrombocytopenia. RECOMMENDATIONS: Continue subcutaneous Lovenox at 80 mg twice a day. Continue Lasix at 40 mg intrav enous once a day, K-Dur 20 mEq once a day, aspirin 81 mg once a day, Cozaar 100 mg once a day. I rec ommended to the team a Hematology consult to evaluate the patient's thrombocytopenia and for lo ngterm anticoagulation therapy. From the patient's history, she has history of fatty liver. However , the patient admits to using alcohol in the past. I recommend performing a hepatitis profile in the meantime. Mick Pena MD cc: [id number] TT: 08/07/2016 17:00:10 Confirmation # [id number] Dictation # [id number]
[2016-08-08 06:27] LABS: HEMATOCRIT 40.1 % (34.0-47.0); MEAN CELL VOLUME 88.1 fl (81.0-99.0); MEAN CORPUSCULAR HEMOGLOBIN 28.5 pg (27.0-31.0); MEAN CORPUSCULAR HGB CONC 32.4 g/dL (33.0-37.0); RED CELL DISTRIBUTION WIDTH 14.9 % (11.5-14.5); WHITE BLOOD COUNT 5.9 K/uL (4.8-10.8)
[2016-08-08 06:51] LABS: ALB/GLOB RATIO 1.1 (1.0-2.1); ALKALINE PHOSPHATASE 195 U/L (38-126); ALT/SGPT 91 U/L (9-52); AST/SGOT 69 U/L (14-36); BLOOD UREA NITROGEN 28 mg/dl (7-17); CALCIUM 9.4 mg/dL (8.4-10.2); CARBON DIOXIDE 25 mmol/L (22-30); CHLORIDE 100 mmol/L (98-107); GFR AFRICAN-AMERICAN > 60; GLUCOSE,RANDOM 178 mg/dL (65-105); POTASSIUM 3.9 MMOL/L (3.6-5.0); SODIUM 136 mmol/l (132-148); TOTAL PROTEIN 7.2 G/DL (6.3-8.2)
[2016-08-08] MEDS: Albuterol 0.083% Inhal Sol (2.5 mg/3 mL) UD IH PRN ×4 (08:06→22:04)
[2016-08-08] MEDS: Enoxaparin 80 mg Syringe SC SCH ×2 (08:31→21:42)
[2016-08-08] MEDS: Insulin Lispro Mix 75/25 100 units/ml (HumaLog) 10ml SC SCH ×2 (08:33→16:33)
[2016-08-08] MEDS: Insulin Regular 100 units/ml SC SCH ×4 (08:34→21:44)
--- NOTE | 2016-08-08 08:38 | CP.PCM.PN ---
Subjective - Date & Time of Evaluation Date of Evaluation: 08/08/16 Time of Evaluation: 07:10 - Subjective Subjective: 56 y/o F with PMHx of COPD, HTN, DM admitted with new onset of atrial fibrillation being f/u today for SOB and heart rate control. Patient was seen and examined at bedside this morning. Patient is reporting that her SOB has improved, and denies chest pain, nausea, vomiting, abdominal pain, diarrheas, dizziness, or other complains. Objective - Vital Signs/Intake and Output Vital Signs (last 24 hours): Temp Pulse Resp BP Pulse Ox 97.5 F L 104 H 18 115/78 99 08/08/16 08:11 08/08/16 08:32 08/08/16 08:11 08/08/16 08:33 08/08/16 08:11 - Medications Medications: Current Medications Acetaminophen (Tylenol 325mg Tab) 650 mg PO Q8 PRN PRN Reason: Pain, moderate (4-7) Albuterol Sulfate (Albuterol 0.083% Inhal Katrina (2.5 Mg/3 Ml) Ud) 2.5 mg IH Q4H PRN PRN Reason: Shortness of Breath Last Admin: 08/08/16 08:06 Dose: 2.5 mg Aspirin (Ecotrin) 81 mg PO DAILY [facility] Last Admin: 08/08/16 08:32 Dose: 81 mg Dextrose (Dextrose 50% Inj) 0 ml IV STAT PRN; Protocol PRN Reason: Hyglycemia Protocol Dextrose (Glutose 15) 0 gm PO ONCE PRN; Protocol PRN Reason: Hypoglycemia Protocol Diltiazem HCl (Cardizem) 30 mg PO TID [facility] Last Admin: 08/08/16 08:32 Dose: 30 mg Enoxaparin Sodium (Lovenox) 80 mg SC Q12 ELISHA PRN Reason: Protocol Last Admin: 08/08/16 08:31 Dose: 80 mg Furosemide (Lasix) 40 mg IV DAILY [facility] Last Admin: 08/08/16 08:33 Dose: 40 mg Glucagon (Glucagen Diagnostic Kit) 0 mg IM STAT PRN; Protocol PRN Reason: Hypoglycemia Protocol Insulin Human Regular (Humulin R) 0 units SC ACHS ELISHA PRN Reason: Protocol Last Admin: 08/08/16 08:34 Dose: 2 units Insulin Lispro Protam/Lispro Human (Humalog Mix 75/25) 50 units SC BID [facility] Last Admin: 08/08/16 08:33 Dose: 50 units Losartan Potassium (Cozaar) 100 mg PO DAILY [facility] Last Admin: 08/08/16 08:32 Dose: 100 mg Potassium Chloride (K-Dur 20 Meq Er Tab) 20 meq PO DAILY [facility] Last Admin: 08/07/16 09:13 Dose: 20 meq - Labs Labs: 08/08/16 06:00 08/08/16 06:00 PT 11.9 SECONDS (9.6-11.2) H 08/07/16 06:00 INR 1.14 (0.92-1.08) H 08/07/16 06:00 APTT 30.0 SECONDS (23.3-32.5) 08/07/16 06:00 - Constitutional Appears: Non-toxic, No Acute Distress - ENT Exam ENT Exam: Mucous Membranes Moist - Respiratory Exam Respiratory Exam: Clear to Ausculation Bilateral, NORMAL BREATHING PATTERN. absent: Rales, Rhonchi, Wheezes - Cardiovascular Exam Cardiovascular Exam: Irregular Rhythm, +S1, +S2 - GI/Abdominal Exam GI & Abdominal Exam: Soft, Normal Bowel Sounds. absent: Tenderness Additional comments: Protuberant abdomen secondary to obesity. - Extremities Exam Extremities Exam: absent: Calf Tenderness Additional comments: Very mild bilateral edema, pitting 1 +, improving - Neurological Exam Neurological Exam: Alert, Awake, Oriented x3 - Skin Skin Exam: Dry, Intact, Normal Color Assessment and Plan - Assessment and Plan (Free Text) Assessment: 56 year old Morbid obese female with medical history of COPD, HTN, DM, admitted for management of new onset Atrial Fibrillation, with improving SOB. Plan: New onset Atrial Fibrillation -Consider start Cardizem long acting dose 120 mg -C/w with anticoagulation therapy. Lovenox 80 mg SC Q12. -Consider to change to another anticoagulant due to low platelets -TSH 0.76/WNL -F/U Echocardiogram, f/u EF . Consider discontinue furosemide -Cardiology consult appreciated. Dr. Persaud on board. F/U recommendations Congestion Heart Failure ? Mild, SOB and mild LE edema Patient has H/O COPD, but possible some cardio component -Decreased Furosemide 40 mg IV daily as per Cardio recommendation. Consider stop furosemide after echocardiogram results -c/w Losartan 100 mg PO daily -F/U Echocardiogram -F/U BMP tomorrow: check potassium -Cardiology consult appreciated. Dr. Persaud on board. F/U recommendations H/O of COPD? in no exacerbation No wheezing , rhonchi or crackles -c/w Albuterol 0.083 % Q4 PRN -Consider PFTs as outpatient to confirm diagnosis. Diabetes Mellitus type II -Being treated with insulin -Accu-chek ACHS -Corrective high dose insulin regimen -Hypoglycemic protocol -HgbA1C: 8 -Lipid profile: Cho: 235, LDL: 138 -Heart health with moderate carbohydrate diet -Consider Statin treatment discussion as outpatient with patient's GI doctor, Dr. Torrez, due chronic liver disease/cirrhosis. Hypertension c/w home medications Elevated liver enzymes -H/O elevated LFTs in previous CMP -Hepatitis panel was negative on 01/16/16 -Pelvic CT scan on 02/20/16 showed portal hypertension due to chronic liver disease/cirrhosis Morbid Obese BMI: 50.8 kg/m2 DVT prophylaxis -SCDs -Anticoagulation therapy due A-fib with risk for stroke
--- NOTE | 2016-08-08 10:11 | PQF CHF ---
This form is a permanent part of the medical record 08/08/16 Dr. Zeb Milner, After workup please clarify the type of CHF. Admitted with sob. Noted to be in atrial fibrillation of new onset. Documentation of mild heart failure. Treated with Lasix IV and Losartan. Awaiting Echo results. Clarification of your documentation is requested to better reflect the severity of illness and intensity of treatment of your patient. PHYSICIAN'S RESPONSE Based on your medical judgment of the clinical indicators outlined above, are you treating this patient for a known or suspected: [] Acute CHF [] Systolic [] Diastolic [] Combined [] Chronic CHF [] Systolic [] Diastolic [] Combined [] Acute on Chronic CHF []Systolic [] Diastolic [] Combined [] CHF due hypertension [] Acute systolic []Chronic systolic [] Acute/ chronic systolic [] Other, please indicate: [] [] If Unable to Determine, please check the box, sign and date. Present On Admission (POA) Indicator: [] Present at the time of admission [] Not present at the time of admission [] Clinically Undetermined In responding to this query, please exercise your independent professional judgment. The fact that a question is asked does not imply that any particular answer is desired or expected. Thank you for your clarification on this documentation. If you have any questions please call:extension [phone] Medical Records Dept * Thank you, Pricilla Green RN CDMP [facility]
--- NOTE | 2016-08-08 16:21 | PN ---
DATE: 08/08/2016 SUBJECTIVE: The patient noted to be tachycardic as she goes to the bathroom. She denies any chest p ain. Shortness of breath has improved. PHYSICAL EXAMINATION: VITAL SIGNS: Blood pressure 113/57, heart rate 96, temperature 98.5, respirations 18. HEENT: Normocephalic. NECK: No JVD. CHEST: Bilateral rhonchi. HEART: S1, S2 regular. EXTREMITIES: 1+ pitting edema. LABORATORIES: Hemoglobin and hematocrit 13 and 40.1, white count and platelet count 5.9 and 67,000 r espectively. Today's BUN and creatinine are 28 and 0.7 respectively. Glucose 178. Lower extremity ultrasound: No evidence of DVT. ASSESSMENT: 1. New onset atrial fibrillation. 2. Chronic obstructive lung disease. 3. Hypertension and diabetes mellitus. 4. Thrombocytopenia. RECOMMENDATIONS: Case was discussed with Dr. Chapman. Continue current bronchodilator. It is okay to initiate Cardizem-CD at 180 mg once a day. Continue Cozaar at 100 mg once a day, aspirin 81 mg once a day, K-Dur 20 mEq once a day, Lasix 40 mg intravenous once a day, subcutaneous Lovenox at 80 mg on ce a day. I will follow up echocardiographic study report. Mick Pena MD cc: [id number] TT: 08/08/2016 16:20:47 Confirmation # [id number] Dictation # [id number] ln
[2016-08-08] MEDS: diltiaZEM 180 mg/24 Hours CD Cap PO SCH (16:33)
--- NOTE | 2016-08-08 18:37 | CARD ---
APPROVED REPORT EXAM: Two-dimensional and M-mode echocardiogram with Doppler and color Doppler. Other Information Quality : AverageRhythm : Atrial Fibrillation Technically limited study due to body habitus. INDICATION Atrial Fibrillation 2D DIMENSIONS IVSd1.47 (0.7-1.1cm)LVDd4.64 (3.9-5.9cm) LVOT Diameter2.07 (1.8-2.4cm)PWd1.39 (0.7-1.1cm) IVSs1.72 (0.8-1.2cm)LVDs3.70 (2.5-4.0cm) FS (%) 20.3 %PWs1.45 (0.8-1.2cm) M-Mode DIMENSIONS Left Atrium (MM)5.13 (2.5-4.0cm)IVSd1.29 (0.7-1.1cm) Aortic Root2.88 (2.2-3.7cm)LVDd5.23 (4.0-5.6cm) Aortic Cusp Exc.1.82 (1.5-2.0cm)PWd1.56 (0.7-1.1cm) IVSs1.65 cmFS (%) 36 % LVDs3.34 (2.0-3.8cm)PWs1.39 cm Mitral Valve E/A ratio0.0 TDI E/Lateral E'0.0E/Medial E'0.0 LEFT VENTRICLE The left ventricle is normal size. There is moderate concentric left ventricular hypertrophy. The left ventricular function is normal. The left ventricular ejection fraction is 55% There is normal LV segmental wall motion. pt in AF no tissue Doppler performed No left ventricle thrombus noted on this study. There is no ventricular septal defect visualized. There is no left ventricular aneurysm. There is no mass noted in the left ventricle. RIGHT VENTRICLE The right ventricle is normal size. There is normal right ventricular wall thickness. The right ventricular systolic function is normal. ATRIA The left atrium is moderately dilated. The right atrium is mildly dilated. The interatrial septum is intact with no evidence for an atrial septal defect. AORTIC VALVE The aortic valve is normal in structure and function. No aortic regurgitation is present. There is no aortic valvular stenosis. There is no aortic valvular vegetation. MITRAL VALVE Mitral annular calcification is severe. The mitral valve leaflets are calcified. There is no evidence of mitral valve prolapse. There is no mitral valve stenosis. Mitral regurgitation is mild.However, severity may be underestimated due to mitral annular calcification TRICUSPID VALVE The tricuspid valve is normal in structure and function. There is no tricuspid valve regurgitation noted. There is no tricuspid valve prolapse or vegetation. There is no tricuspid valve stenosis. PULMONIC VALVE The pulmonary valve is normal in structure and function. There is no pulmonic valvular regurgitation. There is no pulmonic valvular stenosis. GREAT VESSELS The aortic root is normal in size. The ascending aorta is normal in size. The IVC is normal in size and collapses >50% with inspiration. PERICARDIAL EFFUSION The pericardium appears normal. There is no pleural effusion. <Conclusion> Normal LV systolic function Concentric LVH Mild Denise Regurgitation ( see report) Mitral Annular Calcification Left Atrial Enlargement
--- NOTE | 2016-08-08 18:59 | CARD ---
APPROVED REPORT EKG Measurement Heart [id number] <Conclusion> Atrial fibrillation with rapid ventricular response with premature ventricular or aberrantly conducted complexes Nonspecific T wave abnormality Abnormal ECG
[2016-08-09] MEDS: Insulin Regular 100 units/ml SC SCH ×3 (06:44→16:20)
[2016-08-09 07:45] LABS: HEMATOCRIT 42.3 % (34.0-47.0); MEAN CELL VOLUME 89.3 fl (81.0-99.0); MEAN CORPUSCULAR HEMOGLOBIN 28.4 pg (27.0-31.0); MEAN CORPUSCULAR HGB CONC 31.8 g/dL (33.0-37.0); RED CELL DISTRIBUTION WIDTH 15.4 % (11.5-14.5); WHITE BLOOD COUNT 5.9 K/uL (4.8-10.8)
[2016-08-09] MEDS: Albuterol 0.083% Inhal Sol (2.5 mg/3 mL) UD IH PRN ×2 (08:20→13:23)
[2016-08-09 08:25] LABS: ALB/GLOB RATIO 1.1 (1.0-2.1); ALKALINE PHOSPHATASE 207 U/L (38-126); ALT/SGPT 127 U/L (9-52); AST/SGOT 89 U/L (14-36); BILIRUBIN,TOTAL 0.8 mg/dl (0.2-1.3); BLOOD UREA NITROGEN 32 mg/dl (7-17); CALCIUM 9.3 mg/dL (8.4-10.2); CARBON DIOXIDE 32 mmol/L (22-30); CHLORIDE 97 mmol/L (98-107); GFR AFRICAN-AMERICAN > 60; GLUCOSE,RANDOM 197 mg/dL (65-105); POTASSIUM 4.2 MMOL/L (3.6-5.0); SODIUM 135 mmol/l (132-148); TOTAL PROTEIN 7.1 G/DL (6.3-8.2)
[2016-08-09] MEDS: diltiaZEM 180 mg/24 Hours CD Cap PO SCH (09:03)
[2016-08-09] MEDS: Insulin Lispro Mix 75/25 100 units/ml (HumaLog) 10ml SC SCH ×2 (09:05→16:19)
[2016-08-09] MEDS: Enoxaparin 80 mg Syringe SC SCH (09:05)
--- NOTE | 2016-08-09 11:31 | CP.PCM.DIS ---
Provider - Provider Date of Admission: 08/06/16 14:00 Attending physician: Shakira Robles MD Time Spent in preparation of Discharge (in minutes): 30 Diagnosis - Discharge Diagnosis (1) New onset atrial fibrillation Status: Acute Priority: High Comment: rate control: CardizemER 180 mg PO daily. [id number] score: 3 anticoag: Coumadin 5 mg PO daily. PT/INR in 3 days. diet discussed w/ pt, avoid green vegetables. bleeding precautions. F/U with PMD at [facility] within 1 week. B/P and HR monitoring at home. (2) COPD (chronic obstructive pulmonary disease) Status: Chronic Priority: Medium Comment: c/w Albuterol PRN. consider PFT as outpatient. F/U with PMD Hospital Course - Lab Results Lab Results: Most Recent Lab Values WBC 5.9 K/uL (4.8-10.8) 08/09/16 06:30 RBC 4.74 Mil/uL (3.80-5.20) 08/09/16 06:30 Hgb 13.4 g/dL (12.0-16.0) 08/09/16 06:30 Hct 42.3 % (34.0-47.0) 08/09/16 06:30 MCV 89.3 fl (81.0-99.0) 08/09/16 06:30 MCH 28.4 pg (27.0-31.0) 08/09/16 06:30 MCHC 31.8 g/dL (33.0-37.0) L 08/09/16 06:30 RDW 15.4 % (11.5-14.5) H 08/09/16 06:30 Plt Count 71 K/uL (130-400) L 08/09/16 06:30 MPV 9.9 fl (7.2-11.7) 08/06/16 13:38 Neut % (Auto) 75.5 % (50.0-75.0) H 08/06/16 13:38 Lymph % (Auto) 13.0 % (20.0-40.0) L 08/06/16 13:38 Brooke % (Auto) 9.6 % (0.0-10.0) 08/06/16 13:38 Eos % (Auto) 1.5 % (0.0-4.0) 08/06/16 13:38 Baso % (Auto) 0.4 % (0.0-2.0) 08/06/16 13:38 Neut # 4.7 K/uL (1.8-7.0) 08/06/16 13:38 Lymph # 0.8 K/uL (1.0-4.3) L 08/06/16 13:38 Brooke # 0.6 K/uL (0.0-0.8) 08/06/16 13:38 Eos # 0.1 K/uL (0.0-0.7) 08/06/16 13:38 Baso # 0.0 K/uL (0.0-0.2) 08/06/16 13:38 PT 11.9 SECONDS (9.6-11.2) H 08/07/16 06:00 INR 1.14 (0.92-1.08) H 08/07/16 06:00 APTT 30.0 SECONDS (23.3-32.5) 08/07/16 06:00 Sodium 135 mmol/l (132-148) 08/09/16 06:30 Potassium 4.2 MMOL/L (3.6-5.0) 08/09/16 06:30 Chloride 97 mmol/L (98-107) L 08/09/16 06:30 Carbon Dioxide 32 mmol/L (22-30) H 08/09/16 06:30 Anion Gap 10 (10-20) 08/09/16 06:30 BUN 32 mg/dl (7-17) H 08/09/16 06:30 Creatinine 0.9 mg/dL (0.7-1.2) 08/09/16 06:30 Est GFR ( Amer) > 60 08/09/16 06:30 Est GFR (Non-Af Amer) > 60 08/09/16 06:30 POC Glucose (mg/dL) 205 mg/dL (65-110) H 08/09/16 05:45 Random Glucose 197 mg/dL (65-105) H 08/09/16 06:30 Hemoglobin A1c 8.0 % (4.2-6.5) H 08/07/16 06:00 Calcium 9.3 mg/dL (8.4-10.2) 08/09/16 06:30 Total Bilirubin 0.8 mg/dl (0.2-1.3) 08/09/16 06:30 AST 89 U/L (14-36) H D 08/09/16 06:30 ALT 127 U/L (9-52) H D 08/09/16 06:30 Alkaline Phosphatase 207 U/L (38-126) H 08/09/16 06:30 Troponin I 0.0200 ng/mL (0.00-0.120) 08/07/16 06:00 Total Protein 7.1 G/DL (6.3-8.2) 08/09/16 06:30 Albumin 3.8 g/dL (3.5-5.0) 08/09/16 06:30 Globulin 3.4 gm/dL (2.2-3.9) 08/09/16 06:30 Albumin/Globulin Ratio 1.1 (1.0-2.1) 08/09/16 06:30 Triglycerides 98 mg/DL (0-149) 08/07/16 06:00 Cholesterol 235 mg/dL (0-199) H 08/07/16 06:00 LDL Cholesterol Direct 138 mg/dL (0-129) H 08/07/16 06:00 HDL Cholesterol 76 MG/DL (30-70) H 08/07/16 06:00 TSH 3rd Generation 0.76 mIU/ML (0.46-4.68) 08/06/16 13:38 - Hospital Course Hospital Course: 56 year old Morbid obese female with medical history of COPD, DM, HTN admitted to Hospital with New onset of A.Fib. Uneventful hospitalization. Treated w/ Cardizem and lovenox while in hospital. Echocardiography done: normal left ventricular function. venous doppler: negative for DVT. Cardiology consulted who agrees w/ plan. Patient is feeling better, heart rate well controlled at this time, stable to be d/c home with F/U by PMD. Discharge Exam - Head Exam Head Exam: NORMAL INSPECTION Additional comments: Constitutional Appears: Non-toxic, No Acute Distress - ENT Exam ENT Exam: Mucous Membranes Moist - Respiratory Exam Respiratory Exam: Clear to Ausculation Bilateral, NORMAL BREATHING PATTERN. absent: Rales, Rhonchi, Wheezes - Cardiovascular Exam Cardiovascular Exam: Irregular Rhythm, +S1, +S2 - GI/Abdominal Exam GI & Abdominal Exam: Soft, Normal Bowel Sounds. absent: Tenderness Additional comments: Protuberant abdomen secondary to obesity. - Extremities Exam Extremities Exam: absent: Calf Tenderness, pedal edema Additional comments: - Neurological Exam Neurological Exam: Alert, Awake, Oriented x3 - Skin Skin Exam: Dry, Intact, Normal Color Discharge Plan - Discharge Medications Prescriptions: Albuterol 0.083% [Albuterol 0.083% Inhal Katrina (2.5 mg/3 ml) UD] 2.5 mg IH Q4H PRN #1 neb PRN Reason: Shortness Of Breath diltiaZEM CD [Cardizem CD] 180 mg PO DAILY #30 c24 Losartan [Cozaar] 50 mg PO DAILY #30 tab Warfarin [Coumadin] 5 mg PO 1800 #30 tab - Follow Up Plan Condition: FAIR Disposition: HOME/ ROUTINE Instructions: Atrial Fibrillation (DC), COPD (Chronic Obstructive Pulmonary Disease) (DC) Additional Instructions: F/U with primary doctor at [facility] within 1 week. ER precautions given to patient ( dyspnea, chest pain, palpitations, dizziness) Encouraged to monitor blood pressure and heart rate at home.
[2016-08-09 15:57] VITALS: RESP 20
[2016-08-09 15:58] VITALS: BP 110/72; PULSE 75; TEMP 98.4; O2SAT 97
--- NOTE | 2016-08-09 16:55 | PN ---
DATE: 08/09/2016 The patient's shortness of breath has improved. PHYSICAL EXAMINATION: VITAL SIGNS: Blood pressure 136/71, heart rate 82, temperature 98.2, respirations 18. HEENT: Normocephalic. EXTREMITIES: 1+ pitting edema. LABORATORIES: Today's SMA-7: Sodium 135, potassium 4.2, chloride 97, CO2 32, glucose 197, BUN 32, c reatinine 0.9. Today's platelet count 71,000. Official echo report: Concentric LVH, mild mitral in sufficiency, mitral annular calcification, left atrial enlargement. ASSESSMENT: 1. New onset atrial fibrillation. 2. Chronic obstructive lung disease. 3. Thrombocytopenia. 4. Diabetes mellitus. RECOMMENDATIONS: Continue Cardizem-CD at 180 mg once a day, Cozaar 100 mg daily, aspirin 81 mg once a day. We will review with the patient's pharmacist the anticoagulation choice that the patient's in surance will approve as I was informed by the patient that the pharmacy could not dispense the anticoagulant medication that was prescribed by the medical team because of insurance issue. Mick Pena MD cc: [id number] TT: 08/09/2016 16:54:26 Confirmation # [id number] Dictation # [id number] mn
== END 2016-08-09 17:18 | disposition home or self-care (01) | DRG 138 ==
LOC: H.ER 12:26 → H.ERHOLD 14:00 → H.TEL 16:33
PROVIDERS: ADMIT Family Medicine Geriatric Medicine; ATTEND Family Medicine Geriatric Medicine
DX: I48.91 Unspecified atrial fibrillation (principal); J44.9 Chronic obstructive pulmonary disease, unspecified; D69.6 Thrombocytopenia, unspecified; Z99.81 Dependence on supplemental oxygen; Z68.43 Body mass index [BMI] 50.0-59.9, adult; E66.01 Morbid (severe) obesity due to excess calories; E11.9 Type 2 diabetes mellitus without complications; E78.00 Pure hypercholesterolemia, unspecified; I10 Essential (primary) hypertension; Z91.018 Allergy to other foods; M19.90 Unspecified osteoarthritis, unspecified site; Z87.891 Personal history of nicotine dependence; R74.8 Abnormal levels of other serum enzymes

== ENCOUNTER 2016-08-25 14:16 | Emergency (ER) | payer MEDICAID ==
[2016-08-25 14:17] VITALS: PULSE 142; BMI 54.3
[2016-08-25 14:27] VITALS: BP 118/85; PULSE 77; RESP 19; O2SAT 98
[2016-08-25 14:30] VITALS: TEMP 98
[2016-08-25] MEDS ORDERED: Albuterol-Ipratrop 3 mg / 0.5 (3 ml) UD INH STA ×2 (15:01→18:20)
[2016-08-25] MEDS ORDERED: Albuterol-Ipratrop 3 mg / 0.5 (3 ml) UD ONE ×2 (15:28→18:32)
[2016-08-25] MEDS ORDERED: MethylPREDNISolone 40 mg Vial IM ONE (15:41)
--- NOTE | 2016-08-25 16:02 | ED PDOC ---
HPI: SOB/CHF/COPD Chief Complaint (Provider): Shortness of Breath History Per: Patient History/Exam Limitations: no limitations Onset/Duration Of Symptoms: Days (2) Current Symptoms Are (Timing): Still Present Exacerbating Factor(s): Exertion, Laying Flat, Coughing Current Respiratory Medications: Albuterol Severity: Severe Associated Symptoms: denies: Fever, Chills, Sweating, Chest Pain, Bloody Cough, Productive Cough, Heart Racing, Ankle/Leg Swelling, Dizziness, Light-headedness <Garo Stafford - Last Filed: 08/25/16 19:09> <Hermila Rios - Last Filed: 08/25/16 20:22> <Karen Horan - Last Filed: 08/26/16 13:40> Time Seen by Provider: 08/25/16 15:00 Chief Complaint (Nursing): Shortness Of Breath Additional Complaint(s): 56 y.o. morbidly obese diabetic Patient, A-fib, and with a reported history of COPD on Albuterol inhaler and Albuterol Nebulizer treatments at home comes to the emergency department complaining of shortness of breath worse from her baseline. Pt. reports starting 2 days ago she has been progressively getting short of breath. Pt. states just getting out of bed to do simple day to day activities causes her to get short of breath which is a new finding. Pt. also states that she also can not lie down supine because of shortness of breath, although this is not a new finding, that since yesterday it has been worse. Pt. states that despite taking Albuterol inhaler treatment at home at 11a.m. there was no relief so asked her father to drive her to the emergency room for evaluation. On ROS, pt. denies any headache, syncope, lightheadedness, palpitations, nausea, vomiting, diarrhea, fever, chills, productive cough, abdominal pain, joint pain, limb pain, or dysuria. (Garo Stafford) Supervising Attending Note - Supervising Attending Note The Documented history was done by the: Physician Pari Mutuel Ticket Seller, Attending Physician The documented physical exam was done by the: Physician Pari Mutuel Ticket Seller, Attending Physician - Attestation: I have personally seen and examined this patient.: Yes I have fully participated in the care of the patient.: Yes I have reviewed all pertinent clinical information, including history, physical exam and plan: Yes <Hermila Rios - Last Filed: 08/25/16 20:22> Past Medical History - Medical History PMH: Arthritis, Atrial Fibrillation, COPD, Diabetes, Fractures (ribs), HTN, Hypercholesterolemia Denies: HIV, Chronic Kidney Disease - Surgical History Surgical History: Carotid Endarterectomy, Hernia Repair, Tonsillectomy - Family History Family History: States: Unknown Family Hx, Diabetes, Hypertension - Social History Current smoker - smoking cessation education provided: No Ex-Smoker (has not smoked in the last 12 months): No Alcohol: None Drugs: Denies - Immunization History Hx Tetanus Toxoid Vaccination: No Hx Influenza Vaccination: No Hx Pneumococcal Vaccination: No <Garo Stafford - Last Filed: 08/25/16 19:09> <Hermila Rios J - Last Filed: 08/25/16 20:22> <Karen Horan - Last Filed: 08/26/16 13:40> Vital Signs: Last Vital Signs Temp 98 F 08/25/16 14:29 Pulse 77 08/25/16 14:22 Resp 19 08/25/16 15:38 BP 118/85 08/25/16 14:22 Pulse Ox 98 08/25/16 20:23 - Home Medications Home Medications: Ambulatory Orders Medication Instructions Recorded Aspirin [Ecotrin] 81 mg PO DAILY 01/14/16 Insulin Human (NPH)/Regular 50 units SC BID 02/20/16 [Novolin 70/30 (70/30 units/ml) 10 ml] Ascorbic Acid [Vitamin C] 1,500 mg PO DAILY 08/06/16 Folic Acid [Folic Acid] 400 mcg PO DAILY 08/06/16 Greer-3 Fatty Acids [Greer-3] 1,000 mg PO DAILY 08/06/16 Albuterol 0.083% [Albuterol 0.083% 2.5 mg IH Q4H PRN #1 neb 08/09/16 Inhal Katrina (2.5 mg/3 ml) UD] Losartan [Cozaar] 50 mg PO DAILY #30 tab 08/09/16 Warfarin [Coumadin] 5 mg PO 1800 #30 tab 08/09/16 diltiaZEM CD [Cardizem CD] 180 mg PO DAILY #30 c24 08/09/16 Albuterol 0.083% [Albuterol 3 ml IH Q4 PRN #50 neb 08/25/16 Sulfate 3 Ml] Prednisone 50 mg PO DAILY #4 tablet 08/25/16 diltiaZEM CD [Cardizem CD] 180 mg PO DAILY #10 c24 08/25/16 - Allergies Allergies/Adverse Reactions: Allergies Allergy/AdvReac Type Severity Reaction Status Date / Time crab Allergy ANGIOEDEMA Verified 08/06/16 12:34 zolpidem tartrate Allergy RASH Verified 08/06/16 12:34 [From Ambien] Curb-65 Severity Score - CURB-65 Severity Score Confusion: No Bun >19mg/dl (>7mmol/L): No Respiratory Rate greater than/equal to 30: No Systolic BP <90 or Diastolic BP less than/equal 60mmHg: No Age >64: No Curb-65 Score: 0 Percentage 30-day mortality: 0.6% <Garo Stafford - Last Filed: 08/25/16 19:09> Wells Criteria for PE - Wells Criteria for Pulmonary Embolism Clinical Signs and Symptoms of DVT: Yes (Tachypnea, Acute dyspnea, A-fib) P.E is #1 Diagnosis, or Equally Likely: No Heart Rate >100: No Immobilization at least 3 days;Surgery previous 4 weeks: No Previous, objectively diagnosed PE or DVT: No Hemoptysis: No Malignancy w/treatment within 6 months, or palliative: No Total Score: 3 <Garo Stafford - Last Filed: 08/25/16 19:09> Review of Systems Respiratory: Positive for: Shortness of Breath (See HPI above) <Garo Stafford - Last Filed: 08/25/16 19:09> Physical Exam - Reviewed Vital Signs Reviewed: Yes - Physical Exam Appears: Positive for: Non-toxic, Uncomfortable (Morbidly Obese) Neck: Positive for: Painless ROM, Supple Cardiovascular/Chest: Positive for: Regular Rate, Rhythm. Negative for: Murmur Respiratory: Positive for: Decreased Breath Sounds, Rhonchi (greater on the left than right), Wheezing (scattered wheezing bilaterally) Extremity: Positive for: Pedal Edema. Negative for: Calf Tenderness Neurologic/Psych: Positive for: Alert, Oriented (able to complete full sentences but appearrs tachypnic ) <Garo Stafford - Last Filed: 08/25/16 19:09> - Laboratory Results Result Diagrams: 08/25/16 16:37 08/25/16 16:37 - ECG ECG: Positive for: Viewed By Me (Afib with HR of 98) ECG Rhythm: Positive for: Atrial Fibrillation O2 Sat by Pulse Oximetry: 98 - Progress Re-evaluation Time: 19:09 Condition: Improved <Garo Stafford - Last Filed: 08/25/16 19:09> - Laboratory Results Result Diagrams: 08/25/16 16:37 08/25/16 16:37 <Hermila Rios - Last Filed: 08/25/16 20:22> - Laboratory Results Result Diagrams: 08/25/16 16:37 08/25/16 16:37 <Karen Horan - Last Filed: 08/26/16 13:40> - Progress ED Course And Treament: CBC, CMP I.V. Methylprednisolone 125mg Duoneb x 1 CT PE protocol chest (Garo Stafford) Medical Decision Making <Garo Stafford - Last Filed: 08/25/16 19:09> <Hermila Rios - Last Filed: 08/25/16 20:22> <Karen Hoarn - Last Filed: 08/26/16 13:40> Medical Decision Making: Pt. is a 56 y.o. morbidly obese female evaluated for shortness of breath treated for COPD exacerbation with significant improvement of symptoms found to have CT scan not consistent with Pulmonary Embolism. Patient given E.R. precautions and to be discharged with Solumedrol and Albuterol subsequently to follow up with PMD within 2 to 3 days. CTA chest PE protocol Indication: Tachypnea, SOB, Acute in onset Technique: Contiguous axial images were obtained through the chest with intravenous contrast enhancement. Sagittal and coronal reconstructions were generated and reviewed. This CT exam was performed using 1 or more of the falling dose reduction techniques: Automated exposure control, adjustment of the MAA and/or kV according to patient size, and/or use of iterative reconstruction technique. IV Contrast: 99 cc Visipaque 320 Radiation dose (DLP): 465.99 MGy-cm. Comparison: Chest x-ray performed 08/06/16 Findings: Examination limited by habitus. Visualized portions of the inferior thyroid gland appear unremarkable. The mediastinal and hilar vascular structures appear within normal limits. Cardiomegaly. Atherosclerotic calcifications of the aorta. Dense mitral annulus calcification. Sub cm prevascular and mediastinal lymph nodes, nonspecific. There is suboptimal opacification of the pulmonary arteries limiting evaluation for pulmonary embolus. Given this limitation, there are no visible intraluminal filling defects within the central pulmonary arteries to suggest central pulmonary embolism. Mild patchy nodular opacities lung base suspected infectious or inflammatory. Lingula and right lower lobe mild atelectasis. No pleural effusion. No pneumothorax. Small hiatal hernia. Limited visualized portions of the upper abdomen appear grossly unremarkable. Degenerative changes of the spine. Impression: Examination limited by habitus. There is suboptimal opacification of the pulmonary arteries limiting evaluation for pulmonary embolus. Given this limitation, there are no visible intraluminal filling defects within the central pulmonary arteries to suggest central pulmonary embolism. Cardiomegaly. Dense mitral annulus calcification. Mild patchy nodular opacities right lung base suspected infectious or inflammatory. Recommend follow-up upon completion of treatment for acute symptoms in order to exclude possibility of pulmonary nodule. Mild atelectasis involving the lingula and right lower lobe. Small hiatal hernia. Additional findings as above. (Garo Stafford) Disposition - Patient ED Disposition Is Patient to be Admitted: No Discussed With : Hermila Rios - Disposition Disposition: Routine/Home Disposition Time: 19:07 <Garo Stafford - Last Filed: 08/25/16 19:09> <Hermila Rios - Last Filed: 08/25/16 20:22> - Disposition Disposition: Transfer of Care Disposition Time: 17:00 Patient Signed Over To: Hermila Rios Handoff Comments: Pending CT. <Karen Horan - Last Filed: 08/26/16 13:40> - Clinical Impression Clinical Impression: COPD exacerbation, Dyspnea - Disposition Referrals: Frida Bonds MD [Resident] - [facility] [Outside] Condition: STABLE Prescriptions: Albuterol 0.083% [Albuterol Sulfate 3 Ml] 3 ml IH Q4 PRN #50 neb PRN Reason: asthma diltiaZEM CD [Cardizem CD] 180 mg PO DAILY #10 c24 Prednisone 50 mg PO DAILY #4 tablet Instructions: COPD (Chronic Obstructive Pulmonary Disease) (ED) Print Language: EMIRATI
[2016-08-25 16:42] LABS: BASO % 0.6 % (0.0-2.0); EOS # 0.2 K/uL (0.0-0.7); EOS % 2.5 % (0.0-4.0); HEMATOCRIT 42.6 % (34.0-47.0); LYMPH # 1.1 K/uL (1.0-4.3); LYMPH % 16.1 % (20.0-40.0); MEAN CELL VOLUME 85.9 fl (81.0-99.0); MEAN CORPUSCULAR HEMOGLOBIN 27.6 pg (27.0-31.0); MEAN CORPUSCULAR HGB CONC 32.1 g/dL (33.0-37.0); MEAN PLATELET VOLUME 9.6 fl (7.2-11.7); MONO # 0.5 K/uL (0.0-0.8); MONO % 6.9 % (0.0-10.0); NEUT % 73.9 % (50.0-75.0); NRBC % 0.1 % (0.0-0.0); RED CELL DISTRIBUTION WIDTH 14.6 % (11.5-14.5); WHITE BLOOD COUNT 6.8 K/uL (4.8-10.8)
[2016-08-25 16:57] LABS: PARTIAL THROMBOPLASTIN TIME 38.4 Seconds (25.6-37.1)
[2016-08-25 17:00] LABS: ALB/GLOB RATIO 1.1 (1.0-2.1); ALKALINE PHOSPHATASE 240 U/L (38-126); ALT/SGPT 89 U/L (9-52); AST/SGOT 45 U/L (14-36); BILIRUBIN,TOTAL 1.1 mg/dl (0.2-1.3); BLOOD UREA NITROGEN 19 mg/dl (7-17); CALCIUM 9.4 mg/dL (8.4-10.2); CARBON DIOXIDE 29 mmol/L (22-30); CHLORIDE 99 mmol/L (98-107); GFR AFRICAN-AMERICAN > 60; GLUCOSE,RANDOM 264 mg/dL (65-105); POTASSIUM 4.7 MMOL/L (3.6-5.0); SODIUM 137 mmol/l (132-148); TOTAL PROTEIN 8.1 G/DL (6.3-8.2)
--- NOTE | 2016-08-25 17:16 | ED PDOC ---
- Laboratory Results Result Diagrams: 08/25/16 16:37 08/25/16 16:37 - ECG O2 Sat by Pulse Oximetry: 98 Medical Decision Making Medical Decision Makin:00 Pt was evaluated by the resident. Pt signed out to me by Dr. Marline MD. Pending CT Chest Documented by Abdulaziz Hernandez, acting as a scribe for Hermila Rios MD. All medical record entries made by the Scribe were at my direction and personally dictated by me. I have reviewed the chart and agree that the record accurately reflects my personal performance of the history, physical exam, medical decision making, and the department course for this patient. I have also personally directed, reviewed, and agree with the discharge instructions and disposition. Disposition - Clinical Impression Clinical Impression: COPD exacerbation - POA Present On Arrival: None - Disposition Referrals: [facility] [Outside] Frida Bonds MD [Resident] - Disposition: Routine/Home Disposition Time: 18:00 Condition: IMPROVED Prescriptions: Albuterol 0.083% [Albuterol Sulfate 3 Ml] 3 ml IH Q4 PRN #50 neb PRN Reason: asthma diltiaZEM CD [Cardizem CD] 180 mg PO DAILY #10 c24 Prednisone 50 mg PO DAILY #4 tablet Instructions: COPD (Chronic Obstructive Pulmonary Disease) (ED) Print Language: ALBANIAN
[2016-08-25] MEDS ORDERED: Sodium Chloride 0.9% 50 ML IV ONE (17:28)
[2016-08-25] MEDS ORDERED: Iodixanol 320 MG/ML 100 ML BOTTLE IV ONE (17:29)
--- NOTE | 2016-08-25 18:43 | CT ---
CTA chest PE protocol Indication: Tachypnea, SOB, Acute in onset Technique: Contiguous axial images were obtained through the chest with intravenous contrast enhancement. Sagittal and coronal reconstructions were generated and reviewed. This CT exam was performed using 1 or more of the falling dose reduction techniques: Automated exposure control, adjustment of the MAA and/or kV according to patient size, and/or use of iterative reconstruction technique. IV Contrast: 99 cc Visipaque 320 Radiation dose (DLP): 465.99 MGy-cm. Comparison: Chest x-ray performed 08/06/16 Findings: Examination limited by habitus. Visualized portions of the inferior thyroid gland appear unremarkable. The mediastinal and hilar vascular structures appear within normal limits. Cardiomegaly. Atherosclerotic calcifications of the aorta. Dense mitral annulus calcification. Sub cm prevascular and mediastinal lymph nodes, nonspecific. There is suboptimal opacification of the pulmonary arteries limiting evaluation for pulmonary embolus. Given this limitation, there are no visible intraluminal filling defects within the central pulmonary arteries to suggest central pulmonary embolism. Mild patchy nodular opacities lung base suspected infectious or inflammatory. Lingula and right lower lobe mild atelectasis. No pleural effusion. No pneumothorax. Small hiatal hernia. Limited visualized portions of the upper abdomen appear grossly unremarkable. Degenerative changes of the spine. Impression: Examination limited by habitus. There is suboptimal opacification of the pulmonary arteries limiting evaluation for pulmonary embolus. Given this limitation, there are no visible intraluminal filling defects within the central pulmonary arteries to suggest central pulmonary embolism. Cardiomegaly. Dense mitral annulus calcification. Mild patchy nodular opacities right lung base suspected infectious or inflammatory. Recommend follow-up upon completion of treatment for acute symptoms in order to exclude possibility of pulmonary nodule. Mild atelectasis involving the lingula and right lower lobe. Small hiatal hernia. Additional findings as above.
== END 2016-08-25 19:49 | disposition home or self-care (01) ==
LOC: H.ER 14:16
DX: J44.9 Chronic obstructive pulmonary disease, unspecified (principal); R06.00 Dyspnea, unspecified; E11.9 Type 2 diabetes mellitus without complications

== ENCOUNTER 2016-09-04 14:26 | Emergency (ER) | payer MEDICAID ==
[2016-09-04 14:26] VITALS: PULSE 142
[2016-09-04 14:40] VITALS: BMI 29.3
--- NOTE | 2016-09-04 14:57 | ED PDOC ---
HPI: CCC, URI, Sore Throat Time Seen by Provider: 09/04/16 14:56 Chief Complaint (Nursing): Cough, Cold, Congestion Chief Complaint (Provider): cough, congestion and shortness of breath History Per: Patient Additional Complaint(s): 56 year old with history of COPD and A-fib presents to ED with cough and chest congestion for the past 2 days. She denies any fever or chills. Patient states , "I think I have bronchitis." Patient is short of breath but she denies any chest pain. Past Medical History Reviewed: Historical Data, Nursing Documentation, Vital Signs Vital Signs: Last Vital Signs Temp 97.9 F 09/04/16 18:32 Pulse 91 H 09/04/16 18:32 Resp 16 09/04/16 18:32 BP 132/69 09/04/16 18:32 Pulse Ox 96 09/04/16 18:32 - Medical History PMH: Arthritis, Atrial Fibrillation (dx first week of august), COPD, Diabetes, Fractures (ribs), HTN, Hypercholesterolemia - Surgical History Surgical History: Carotid Endarterectomy, Hernia Repair, Tonsillectomy - Family History Family History: States: Diabetes, Hypertension - Living Arrangements Living Arrangements: With Family - Social History Current smoker - smoking cessation education provided: No Alcohol: None Drugs: Denies - Home Medications Home Medications: Ambulatory Orders Medication Instructions Recorded Ascorbic Acid [Vitamin C] 1,500 mg PO DAILY 08/06/16 Losartan [Cozaar] 50 mg PO DAILY #30 tab 08/09/16 Albuterol 0.083% [Albuterol 3 ml IH Q4 PRN #50 neb 08/25/16 Sulfate 3 Ml] Prednisone [Deltasone] 20 mg PO DAILY #5 tablet 09/02/16 diltiaZEM CD [Cardizem CD] 180 mg PO DAILY #90 c24 09/02/16 Albuterol/Ipratropium [Duoneb 3 3 ml IH Q6 PRN #60 ml 09/04/16 MG/3 Ml-0.5 MG/3 Ml 3 Ml] Azithromycin [Zithromax] 250 mg PO DAILY #6 tab 09/04/16 Insulin Lispro Protamin/Lispro 50 unit SC BID 09/04/16 [Humalog Mix 75-25 Kwikpen] Milk Thistle [Milk Thistle] 1 cap PO DAILY 09/04/16 Warfarin [Coumadin] 5 mg PO DAILY 09/04/16 - Allergies Allergies/Adverse Reactions: Allergies Allergy/AdvReac Type Severity Reaction Status Date / Time zolpidem tartrate Allergy Mild RASH Verified 09/02/16 03:55 [From Ambien] crab Allergy ANGIOEDEMA Verified 09/02/16 03:55 Curb-65 Severity Score - CURB-65 Severity Score Confusion: No Bun >19mg/dl (>7mmol/L): Yes Respiratory Rate greater than/equal to 30: No Systolic BP <90 or Diastolic BP less than/equal 60mmHg: No Age >64: No Curb-65 Score: 1 Percentage 30-day mortality: 2.7% Review of Systems ROS Statement: Except As Marked, All Systems Reviewed And Found Negative Constitutional: Negative for: Fever, Chills Cardiovascular: Negative for: Chest Pain, Palpitations Respiratory: Positive for: Cough, Shortness of Breath, SOB with Exertion, Wheezing. Negative for: Hemoptysis Gastrointestinal: Negative for: Nausea, Vomiting Neurological: Negative for: Headache, Dizziness Physical Exam - Reviewed Nursing Documentation Reviewed: Yes Vital Signs Reviewed: Yes - Physical Exam Appears: Positive for: Uncomfortable Head Exam: Positive for: ATRAUMATIC, NORMAL INSPECTION Skin: Positive for: Normal Color. Negative for: Rash Eye Exam: Positive for: Normal appearance, EOMI, PERRL ENT: Positive for: Normal ENT Inspection Cardiovascular/Chest: Positive for: Regular Rate, Rhythm Respiratory: Positive for: Decreased Breath Sounds, Accessory Muscle Use, Wheezing Gastrointestinal/Abdominal: Positive for: Other (Morbidly obese nontender abdomen) Back: Negative for: L CVA Tenderness, R CVA Tenderness Extremity: Positive for: Pedal Edema Neurologic/Psych: Positive for: Alert, Oriented, Gait (steady) - Laboratory Results Result Diagrams: 09/04/16 15:44 09/04/16 15:44 - ECG Interpretation Of ECG: A fib 93 bpm, reviewed by PA and ED attending O2 Sat by Pulse Oximetry: 96 Pulse Ox Interpretation: Normal - Other Rad CXR X-Ray: Interpreted by Me, Viewed By Me X-Ray Interpretation: Atelectasis, no infiltrate Nebulizer Treatments/Peak Flow - Duonebs Number of Bronchodilator Doses given?: 1 (duoneb) - Steroid Treatment Steroid: IV (125 solumedrol) - Clinical Response Clinical Response: Improved Medical Decision Making Medical Decision Makin56 year old with shortness of breath Plan: CXR EKG Labs IVF IV solumedrol Duoneb x 1 Glucose 340, 6 units insulin SQ administered in ED Patient feels much better after medications were given in ED. respirations are less labored and patient no longer has shortness of breath. EKG demonstrates A. fib with controlled rate, which was diagnosed about one month ago. Patient has been compliant with Cardizem. Patient has rx or five- day course of prednisone that she will start today. Prescriptions given for Ventolin inhaler and Zithromax. Patient was advised to follow-up in one to 2 days with clinic and is aware she can return to ED if acutely worse at any time. Disposition - Clinical Impression Clinical Impression: COPD exacerbation, Bronchitis - Patient ED Disposition Is Patient to be Admitted: No Counseled Patient/Family Regarding: Studies Performed, Diagnosis, Need For Followup, Rx Given - Disposition Referrals: Berry Jewell MD [Staff Provider] - Disposition: Routine/Home Disposition Time: 17:35 Condition: IMPROVED Additional Instructions: Continue with prednisone as prescribed. Administer breathing treatments as directed as needed. Follow-up in one to 2 days with primary doctor or return any time if acutely worse. Prescriptions: Albuterol/Ipratropium [Duoneb 3 MG/3 Ml-0.5 MG/3 Ml 3 Ml] 3 ml IH Q6 PRN #60 ml PRN Reason: Wheezing Azithromycin [Zithromax] 250 mg PO DAILY #6 tab Instructions: Acute Bronchitis (ED), COPD (Chronic Obstructive Pulmonary Disease) (ED) Results - Lab Results Lab Results: 09/04/16 09/04/16 09/04/16 16:50 15:44 15:44 WBC 8.0 RBC 4.69 Hgb 12.9 Hct 40.4 MCV 86.1 MCH 27.6 MCHC 32.1 L RDW 15.3 H Plt Count 86 L MPV 9.5 Neut % (Auto) 82.5 H Lymph % (Auto) 10.3 L Borden % (Auto) 6.9 Eos % (Auto) 0.0 Baso % (Auto) 0.3 Neut # 6.6 Lymph # 0.8 L Borden # 0.6 Eos # 0.0 Baso # 0.0 Sodium 139 Potassium 4.3 Chloride 100 Carbon Dioxide 28 Anion Gap 15 BUN 30 H Creatinine 0.7 Est GFR ( Amer) > 60 Est GFR (Non-Af Amer) > 60 Random Glucose 340 H Calcium 9.4 Total Bilirubin 0.9 AST 50 H ALT 89 H Alkaline Phosphatase 231 H Troponin I 0.0310 NT-Pro-B Natriuret Pep 802 Cancelled Total Protein 7.8 Albumin 4.2 Globulin 3.6 Albumin/Globulin Ratio 1.2
[2016-09-04] MEDS ORDERED: Albuterol-Ipratrop 3 mg / 0.5 (3 ml) UD INH STA (15:33)
[2016-09-04 15:56] LABS: BASO % 0.3 % (0.0-2.0); HEMATOCRIT 40.4 % (34.0-47.0); LYMPH # 0.8 K/uL (1.0-4.3); LYMPH % 10.3 % (20.0-40.0); MEAN CELL VOLUME 86.1 fl (81.0-99.0); MEAN CORPUSCULAR HEMOGLOBIN 27.6 pg (27.0-31.0); MEAN CORPUSCULAR HGB CONC 32.1 g/dL (33.0-37.0); MEAN PLATELET VOLUME 9.5 fl (7.2-11.7); MONO # 0.6 K/uL (0.0-0.8); MONO % 6.9 % (0.0-10.0); NEUT # 6.6 K/uL (1.8-7.0); NEUT % 82.5 % (50.0-75.0); NRBC % 0.1 % (0.0-0.0); RED CELL DISTRIBUTION WIDTH 15.3 % (11.5-14.5)
--- NOTE | 2016-09-04 16:03 | RAD ---
HISTORY: shortness of breath COMPARISON: Chest x-ray performed 08/06/16 TECHNIQUE: Chest, one view. FINDINGS: Examination markedly limited by habitus. LUNGS: Bibasilar atelectasis. Linear atelectasis left mid lung zone. Please note that chest x-ray has limited sensitivity for the detection of pulmonary masses. PLEURA: No significant pleural effusion identified. No definite pneumothorax . CARDIOVASCULAR: Cardiomegaly. OSSEOUS STRUCTURES: No acute osseous abnormality identified. VISUALIZED UPPER ABDOMEN: Elevation of the right hemidiaphragm. OTHER FINDINGS: None. IMPRESSION: Examination markedly limited by habitus. Cardiomegaly. Bibasilar atelectasis. Linear atelectasis left mid lung zone.
[2016-09-04 16:11] LABS: ALB/GLOB RATIO 1.2 (1.0-2.1); ALKALINE PHOSPHATASE 231 U/L (38-126); ALT/SGPT 89 U/L (9-52); AST/SGOT 50 U/L (14-36); BILIRUBIN,TOTAL 0.9 mg/dl (0.2-1.3); BLOOD UREA NITROGEN 30 mg/dl (7-17); CALCIUM 9.4 mg/dL (8.4-10.2); CARBON DIOXIDE 28 mmol/L (22-30); CHLORIDE 100 mmol/L (98-107); GFR AFRICAN-AMERICAN > 60; GLUCOSE,RANDOM 340 mg/dL (65-105); POTASSIUM 4.3 MMOL/L (3.6-5.0); SODIUM 139 mmol/l (132-148); TOTAL PROTEIN 7.8 G/DL (6.3-8.2)
[2016-09-04] MEDS ORDERED: Insulin Regular 100 units/ml SC STA (17:24)
[2016-09-04 18:33] VITALS: BP 132/69; PULSE 91; RESP 16; TEMP 97.9; O2SAT 96
== END 2016-09-04 18:33 | disposition home or self-care (01) ==
LOC: H.ER 14:26
DX: J44.9 Chronic obstructive pulmonary disease, unspecified (principal); J20.9 Acute bronchitis, unspecified

== ENCOUNTER 2016-09-07 05:11 | Inpatient (IN) | payer MEDICAID ==
[2016-09-07] MEDS ORDERED: Albuterol-Ipratrop 3 mg / 0.5 (3 ml) UD INH STA ×2 (05:49→07:28)
[2016-09-07 06:17] LABS: BASO % 0.3 % (0.0-2.0); EOS # 0.1 K/uL (0.0-0.7); EOS % 0.7 % (0.0-4.0); HEMOGLOBIN 13.1 g/dL (12.0-16.0); LYMPH # 1.7 K/uL (1.0-4.3); LYMPH % 19.2 % (20.0-40.0); MEAN CELL VOLUME 86.5 fl (81.0-99.0); MEAN CORPUSCULAR HEMOGLOBIN 27.5 pg (27.0-31.0); MEAN CORPUSCULAR HGB CONC 31.8 g/dL (33.0-37.0); MEAN PLATELET VOLUME 9.1 fl (7.2-11.7); MONO # 0.7 K/uL (0.0-0.8); MONO % 7.6 % (0.0-10.0); NEUT # 6.5 K/uL (1.8-7.0); NEUT % 72.2 % (50.0-75.0); NRBC % 0.1 % (0.0-0.0); RBC 4.74 Mil/uL (3.80-5.20); RED CELL DISTRIBUTION WIDTH 15.5 % (11.5-14.5)
--- NOTE | 2016-09-07 06:18 | ED PDOC ---
HPI: SOB/CHF/COPD Time Seen by Provider: 09/07/16 05:24 Chief Complaint (Nursing): Cough, Cold, Congestion Chief Complaint (Provider): Shortness of Breath History Per: Patient History/Exam Limitations: no limitations Onset/Duration Of Symptoms: Days (1x week: on and off) Current Symptoms Are (Timing): Still Present Current Respiratory Medications: See Home Med List, Albuterol Severity: Moderate Associated Symptoms: Chest Pain (pleuritic chest pain, and congestion in chest) , Other (non productive cough). denies: Fever, Ankle/Leg Swelling Additional Complaint(s): 56 year old female presents to the ED with complaints of shortness of breath that has been on and off for the past 1x week accompanied by pleuritic chest pain, chest congestion, and a non-productive cough. She has been seen in the ED several times this week for the same complaint. She reports that she is being compliant with her albuterol pump and medications. She denies having leg swelling, fever, and chills. PMD: [facility] Past Medical History Reviewed: Historical Data, Nursing Documentation, Vital Signs Vital Signs: Last Vital Signs Temp 98.6 F 09/13/16 23:43 Pulse 107 H 09/13/16 23:43 Resp 21 09/13/16 23:43 BP 147/75 09/13/16 23:43 Pulse Ox 93 L 09/13/16 23:43 - Medical History PMH: Arthritis, Atrial Fibrillation (dx first week of august), COPD, Diabetes, Fractures (ribs), HTN, Hypercholesterolemia Denies: HIV, Chronic Kidney Disease - Surgical History Surgical History: Carotid Endarterectomy, Hernia Repair, Tonsillectomy - Family History Family History: States: Unknown Family Hx, Diabetes, Hypertension - Social History Alcohol: Other (yes) Drugs: Denies - Immunization History Hx Tetanus Toxoid Vaccination: No Hx Influenza Vaccination: No Hx Pneumococcal Vaccination: No - Home Medications Home Medications: Ambulatory Orders Medication Instructions Recorded Ascorbic Acid [Vitamin C] 1,500 mg PO DAILY 08/06/16 Losartan [Cozaar] 50 mg PO DAILY #30 tab 08/09/16 Albuterol 0.083% [Albuterol 3 ml IH Q4 PRN #50 neb 08/25/16 Sulfate 3 Ml] diltiaZEM CD [Cardizem CD] 180 mg PO DAILY #90 c24 09/02/16 Albuterol/Ipratropium [Duoneb 3 3 ml IH Q6 PRN #60 ml 09/04/16 MG/3 Ml-0.5 MG/3 Ml 3 Ml] Azithromycin [Zithromax] 250 mg PO DAILY #6 tab 09/04/16 Insulin Lispro Protamin/Lispro 50 unit SC BID 09/04/16 [Humalog Mix 75-25 Kwikpen] Milk Thistle [Milk Thistle] 1 cap PO DAILY 09/04/16 Warfarin [Coumadin] 5 mg PO DAILY 09/04/16 Budesonide/Formoterol Fumarate 1 aer IH DAILY PRN 09/07/16 [Symbicort] [id number] Ethyl Esters 1 GM 1 gm PO DAILY 09/07/16 [Lovaza] - Allergies Allergies/Adverse Reactions: Allergies Allergy/AdvReac Type Severity Reaction Status Date / Time zolpidem tartrate Allergy Mild RASH Verified 09/02/16 03:55 [From Jessi] crab Allergy ANGIOEDEMA Verified 09/02/16 03:55 Review of Systems ROS Statement: Except As Marked, All Systems Reviewed And Found Negative Constitutional: Negative for: Fever, Chills Cardiovascular: Positive for: Chest Pain (pleuritic chest pain, chest congestion ) Respiratory: Positive for: Cough (dry, non productive), Shortness of Breath Musculoskeletal: Negative for: Leg Pain (no leg swelling) Physical Exam - Reviewed Nursing Documentation Reviewed: Yes Vital Signs Reviewed: Yes - Physical Exam Appears: Positive for: Well, Non-toxic, In Acute Distress (moderate respiratory distress) Head Exam: Positive for: ATRAUMATIC, NORMOCEPHALIC Skin: Positive for: Normal Color, Warm, Dry Eye Exam: Positive for: Normal appearance, PERRL Neck: Positive for: Normal, Supple Cardiovascular/Chest: Positive for: Tachycardia, Irregularly Irregular. Negative for: Murmur Respiratory: Positive for: Accessory Muscle Use (subtle), Wheezing (expiratory wheeze), Respiratory Distress (moderate) Extremity: Positive for: Swelling (trace bilateral lower leg edema) - Laboratory Results Result Diagrams: 09/11/16 05:00 09/11/16 05:00 - ECG ECG: Positive for: Interpreted By Me, Viewed By Me ECG Rhythm: Positive for: Sinus Rhythm (rate of 116), Atrial Fibrillation (with rapid ventricular response) O2 Sat by Pulse Oximetry: 97 (RA) Pulse Ox Interpretation: Normal - Progress Re-evaluation Time: 07:00 Condition: Unchanged Nebulizer Treatments/Peak Flow - Duonebs Number of Bronchodilator Doses given?: 1 - Pre/Post Peak Flow Pre Treatment Peak Flow: 1 Post treatment Peak Flow: 1 - Clinical Response Clinical Response: Improved Medical Decision Making Medical Decision Makin:24 Initial impression: 56 year old female with COPD exacerbation Initial plan: * EKG * b type natriuretic peptide * CMP * magnesium * phosphorous * troponin I * troponin I Q8H * troponin I Q8H * udip * CBC * PT/PTT * XRay chest portable * cardizem 20mg IVP * duoneb 3ml INH * blood culture * peak flow pre post treatment * reevaluation Patient will be hospitalized pending ED workup. Scribe Attestation: Documented by Maricel Mcwilliams, acting as a scribe for Hermila Rios MD. Provider Scribe Attestation: All medical record entries made by the Scribe were at my direction and personally dictated by me. I have reviewed the chart and agree that the record accurately reflects my personal performance of the history, physical exam, medical decision making, and the department course for this patient. I have also personally directed, reviewed, and agree with the discharge instructions and disposition. Disposition - Clinical Impression Clinical Impression: COPD exacerbation, CHF (congestive heart failure) Discussed With DrViktoria: Veena Rob Comment: ALYCIA CRAWFORD resident for hospitalization Counseled Patient/Family Regarding: Studies Performed, Diagnosis - Disposition Disposition Time: 05:25 Condition: FAIR - Pt Status Changed To: Hospital Disposition Of: Observation - POA Present On Arrival: None
[2016-09-07 06:38] LABS: ALB/GLOB RATIO 1.2 (1.0-2.1); ALT/SGPT 102 U/L (9-52); AST/SGOT 56 U/L (14-36); BLOOD UREA NITROGEN 28 mg/dl (7-17); GFR AFRICAN-AMERICAN > 60; GFR NON-AFRICAN AMERICAN > 60; MAGNESIUM 2.1 MG/DL (1.6-2.3)
[2016-09-07 06:49] LABS: B-TYPE NATRIURETIC PEPTIDE 557 pg/ml (0-900); INR 2.7 (0.9-1.2); PROTHROMBIN TIME 31.4 Seconds (9.8-13.1)
[2016-09-07 06:50] LABS: PARTIAL THROMBOPLASTIN TIME 44.6 Seconds (25.6-37.1)
[2016-09-07] MEDS ORDERED: Albuterol-Ipratrop 3 mg / 0.5 (3 ml) UD ONE ×2 (07:23→07:27)
[2016-09-07] MEDS ORDERED: Glucagon Recombinant 1 mg Inj IM PRN (10:01)
[2016-09-07] MEDS ORDERED: Dextrose 50% SYRINGE Inj (50 ml) IVP PRN (10:01)
--- NOTE | 2016-09-07 10:21 | RAD ---
HISTORY: sob COMPARISON: Comparison made with prior study 09/04/2016 as well as CTA chest dated 08/25/2016. FINDINGS: LUNGS: Mild bibasilar atelectasis. PLEURA: No significant pleural effusion identified, no pneumothorax apparent. CARDIOVASCULAR: Cardiomegaly. OSSEOUS STRUCTURES: No significant abnormalities. VISUALIZED UPPER ABDOMEN: Normal. OTHER FINDINGS: None. IMPRESSION: No mild bibasilar atelectasis.
--- NOTE | 2016-09-07 12:26 | CP.PCM.HP ---
History of Present Illness - History of Present Illness History of Present Illness: 56 year old female with pmh of HTN, A fib, COPD, tobacco abuse admitted for complaints of worsened shortness of breath associated with pleuritic chest pain , chest congestion, and a non-productive cough. 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 Patient states she can walk in the house and likes to clean. Cannot quantify amount of blocks. Continues to sleep on 3 pillows at night. PMD: [facility] PMHx: COPD, DM type II, HTN, A fib FHx: Father: A-fib SHx: Umbilical hernia, Tonsillectomy Allergies: Ambien/Rash SocialHx: Former smoker x 30 years, stopped 6 years ago. ETOH: socially, Denies recreational drugs ED course: EKG * b type natriuretic peptide * CMP * magnesium * phosphorous * troponin I * troponin I Q8H * troponin I Q8H * udip * CBC * PT/PTT * cardizem 20mg IVP * duoneb 3ml INH x3 * blood culture * CXR: mild bibasilar atelactasis * soluimedrol 125 mg Present on Admission - Present on Admission Any Indicators Present on Admission: No Review of Systems - Review of Systems Review of Systems: as per hpi Past Patient History - Infectious Disease Hx of Infectious Diseases: None - Past Medical History & Family History Past Medical History?: Yes - Past Social History Smoking Status: Former Smoker - CARDIAC Hx Cardiac Disorders: Yes Hx Cardia Arrhythmia: Yes (afib) Hx Congestive Heart Failure: Yes Hx Hypertension: Yes - PULMONARY Hx Respiratory Disorders: Yes Hx Chronic Obstructive Pulmonary Disease (COPD): Yes Other/Comment: home o2 - NEUROLOGICAL Hx Neurological Disorder: No - HEENT Hx HEENT Problems: Yes Other/Comment: wears glasses - RENAL Hx Chronic Kidney Disease: No - ENDOCRINE/METABOLIC Hx Endocrine Disorders: Yes Hx Diabetes Mellitus Type 2: Yes - HEMATOLOGICAL/ONCOLOGICAL Hx Blood Disorders: No Hx Human Immunodeficiency Virus (HIV): No - INTEGUMENTARY Hx Dermatological Problems: No - MUSCULOSKELETAL/RHEUMATOLOGICAL Hx Musculoskeletal Disorders: No Hx Falls: No - GASTROINTESTINAL Hx Gastrointestinal Disorders: Yes (Hernia) - GENITOURINARY/GYNECOLOGICAL Hx Genitourinary Disorders: No - PSYCHIATRIC Hx Psychophysiologic Disorder: No Hx Substance Use: No - SURGICAL HISTORY Hx Surgeries: Yes Hx Tonsillectomy: Yes Other/Comment: hernia repair - ANESTHESIA Hx Anesthesia: Yes Hx Anesthesia Reactions: No Hx Malignant Hyperthermia: No Has any member of the family had a problem w/ anesthesia?: No Meds Allergies/Adverse Reactions: Allergies Allergy/AdvReac Type Severity Reaction Status Date / Time zolpidem tartrate Allergy Mild RASH Verified 09/02/16 03:55 [From Ambien] crab Allergy ANGIOEDEMA Verified 09/02/16 03:55 Physical Exam - Constitutional Appears: No Acute Distress - Head Exam Head Exam: ATRAUMATIC - ENT Exam ENT Exam: Mucous Membranes Moist - Neck Exam Neck exam: Positive for: Full Rom. Negative for: Lymphadenopathy, Tenderness, Thyromegaly - Respiratory Exam Respiratory Exam: Prolonged Expiratory Phase, Wheezes. absent: Accessory Muscle Use, Chest Wall Tenderness, Decreased Breath Sounds, Respiratory Distress Additional comments: diffuse expiratory wheezes - Cardiovascular Exam Cardiovascular Exam: Irregular Rhythm, +S1, +S2 - GI/Abdominal Exam GI & Abdominal Exam: Normal Bowel Sounds, Soft. absent: Guarding, Tenderness - Extremities Exam Extremities exam: Positive for: normal inspection. Negative for: calf tenderness, joint swelling, pedal edema, tenderness Results - Vital Signs Recent Vital Signs: Last Vital Signs Temp 97.5 F L 09/07/16 08:05 Pulse 106 H 09/07/16 11:57 Resp 20 09/07/16 09:35 BP 118/67 09/07/16 08:05 Pulse Ox 7 L 09/07/16 09:35 - Labs Result Diagrams: 09/07/16 05:30 09/07/16 05:30 Labs: Laboratory Results - last 24 hr 09/07/16 11:30 POC Glucose (mg/dL) 311 H Assessment & Plan - Assessment and Plan (Free Text) Assessment: 56 year old Morbid obese female with medical history of COPD, HTN, DM, admitted for management of Atrial Fibrillation and COPD exacerbation. Plan: A fib with RVR -cardizem 20 mg IVP given in ED -C/w with warfarin 5 mg. monitor INR -continue current management of home medication -consider cardiology consult if no improvement -TSH WNL COPD in no exacerbation -duonebs PRN -solumedrol 125 mg given in ED -duonebs 60 mg PRN -continue azithromycin Po regimen given in ED -Consider PFTs as outpatient to confirm diagnosis. Diabetes Mellitus type II -MDDS -Accu-chek ACHS -Hypoglycemic protocol -HgbA1C: 8 -Lipid profile: Cho: 235, LDL: 138 -Heart health with moderate carbohydrate diet -Consider Statin treatment discussion as outpatient with patient's GI doctor, Dr. Torrez, due chronic liver disease/cirrhosis. Hypertension c/w home medications Elevated liver enzymes -H/O elevated LFTs in previous visit -Hepatitis panel was negative on 01/16/16 -Pelvic CT scan on 02/20/16 showed portal hypertension due to chronic liver disease/cirrhosis Morbid Obese BMI: 50.8 kg/m2 DVT prophylaxis -SCDs -Anticoagulation therapy due A-fib with risk for stroke Decision To Admit - Pt Status Changed To: Hospital Disposition Of: Inpatient - Admit Certification Admit to Inpatient:: After my assessment, the patient will require hospitalization for at least two midnights. This is because of the severity of symptoms shown, intensity of services needed, and/or the medical risk in this patient being treated as an outpatient. - . Bed Request Type: Telemetry Admitting Physician: Yessi So
[2016-09-07] MEDS: Albuterol-Ipratrop 3 mg / 0.5 (3 ml) UD INH PRN ×3 (12:45→22:36)
[2016-09-07 12:59] LABS: SQUAMOUS EPITHIAL 3 /hpf (0-5); URINE BILIRUBIN NEGATIVE (NEGATIVE); URINE BLOOD NEGATIVE (NEGATIVE); URINE CLARITY CLEAR (Clear); URINE COLOR YELLOW (YELLOW); URINE GLUCOSE (UA) >=500 mg/dL (Normal); URINE LEUKOCYTE ESTERASE NEG Leu/uL (Negative); URINE NITRATE NEGATIVE (NEGATIVE); URINE PROTEIN 30 mg/dL (NEGATIVE)
[2016-09-07] MEDS: Insulin Regular 100 units/ml SC SCH ×3 (13:10→22:52)
[2016-09-08] MEDS ORDERED: Insulin Regular 100 units/ml SC ONE (01:04)
--- NOTE | 2016-09-08 01:13 | CARD ---
APPROVED REPORT EKG Measurement Heart [id number] <Conclusion> Atrial fibrillation with rapid ventricular response Cannot rule out Anterior infarct, age undetermined Abnormal ECG
[2016-09-08] MEDS: Albuterol-Ipratrop 3 mg / 0.5 (3 ml) UD INH PRN (05:43)
[2016-09-08 06:10] LABS: INR 2.2 (0.9-1.2); PROTHROMBIN TIME 25.3 Seconds (9.8-13.1)
[2016-09-08] MEDS: Insulin Regular 100 units/ml SC SCH ×4 (06:44→22:01)
--- NOTE | 2016-09-08 07:27 | CP.PCM.PN ---
Subjective - Date & Time of Evaluation Date of Evaluation: 09/08/16 Time of Evaluation: 09:15 - Subjective Subjective: Patient seen and examined bedside. Labored breathing, unable to speak in full sentences. Breathing treatments are mildly improving pts dyspnea but symptoms persist. She feels fatigued, even with walking to the bathroom, she must catch her breath before returning to bed. Patient still tachycardic this AM, will change duonebs to xopenex alan. Objective - Vital Signs/Intake and Output Vital Signs (last 24 hours): Temp Pulse Resp BP Pulse Ox 97.3 F L 85 20 107/72 97 09/08/16 05:00 09/08/16 05:00 09/08/16 05:00 09/08/16 05:00 09/08/16 05:00 - Medications Medications: Current Medications Albuterol/Ipratropium (Duoneb 3 Mg/0.5 Mg (3 Ml) Ud) 3 ml INH RQ4 PRN PRN Reason: Shortness of Breath Last Admin: 09/08/16 05:43 Dose: 3 ml Azithromycin (Zithromax) 250 mg PO DAILY [facility] Stop: 09/10/16 09:01 Last Admin: 09/07/16 13:09 Dose: 250 mg Dextrose (Dextrose 50% Inj) 0 ml IVP STAT PRN; Protocol PRN Reason: Hypoglycemia Protocol Diltiazem HCl (Cardizem) 180 mg PO DAILY [facility] Last Admin: 09/07/16 13:08 Dose: 180 mg Glucagon (Glucagen Diagnostic Kit) 0 mg IM STAT PRN; Protocol PRN Reason: Hypoglycemia Protocol Methylprednisolone 60 mg/ (Sodium Chloride) 50 mls @ 100 mls/hr IVPB Q12 [facility] Insulin Human Regular (Humulin R) 0 units SC ACHS ALAN PRN Reason: Protocol Last Admin: 09/08/16 06:44 Dose: 6 units Losartan Potassium (Cozaar) 50 mg PO DAILY [facility] - Labs Labs: PT 25.3 Seconds (9.8-13.1) H D 09/08/16 05:30 INR 2.2 (0.9-1.2) H D 09/08/16 05:30 APTT 44.6 Seconds (25.6-37.1) H 09/07/16 05:30 - Constitutional Appears: Non-toxic, In Acute Distress (respiratory ) - Eye Exam Eye Exam: EOMI - ENT Exam ENT Exam: Mucous Membranes Moist - Respiratory Exam Respiratory Exam: Decreased Breath Sounds, Wheezes (expiratory ), Respiratory Distress. absent: Rales, Rhonchi Additional comments: labored breathing, poor air entry - GI/Abdominal Exam GI & Abdominal Exam: Soft, Normal Bowel Sounds. absent: Distended, Tenderness - Extremities Exam Extremities Exam: absent: Calf Tenderness, Pedal Edema - Neurological Exam Neurological Exam: Alert, Awake, CN II-XII Intact - Psychiatric Exam Psychiatric exam: Normal Affect, Normal Mood - Skin Skin Exam: Dry, Intact, Normal Color Assessment and Plan - Assessment and Plan (Free Text) Assessment: 56 year old Morbid obese female with medical history of COPD, HTN, DM, admitted for management of Atrial Fibrillation and COPD exacerbation. Plan: A fib with RVR -C/w with warfarin 5 mg. monitor INR -cardizem 180mg CD -will consider cardiology consult if no improvement -TSH WNL COPD in no exacerbation -change duonebs to xopenex given pt still tachycardic -duonebs 60 mg q8 PRN -continue azithromycin Po -Consider PFTs as outpatient to confirm diagnosis. Diabetes Mellitus type II -resume home medication: Humalog 75/25; 40 unit SC BID -MDDS -Accu-chek ACHS -Hypoglycemic protocol -HgbA1C: 8 -Lipid profile: Cho: 235, LDL: 138 -Heart health with moderate carbohydrate diet -Consider Statin treatment discussion as outpatient with patient's GI doctor, Dr. Torrez, due chronic liver disease/cirrhosis. Hypertension c/w home medications Elevated liver enzymes -H/O elevated LFTs in previous visit -Hepatitis panel was negative on 01/16/16 -Pelvic CT scan on 02/20/16 showed portal hypertension due to chronic liver disease/cirrhosis Morbid Obese BMI: 50.8 kg/m2 DVT prophylaxis -SCDs -Anticoagulation therapy due A-fib with risk for stroke
[2016-09-08 08:05] LABS: LYMPH # 0.6 K/uL (1.0-4.3); LYMPH % 6.6 % (20.0-40.0); MEAN CELL VOLUME 87.6 fl (81.0-99.0); MEAN CORPUSCULAR HEMOGLOBIN 27.9 pg (27.0-31.0); MEAN CORPUSCULAR HGB CONC 31.9 g/dL (33.0-37.0); MEAN PLATELET VOLUME 9.7 fl (7.2-11.7); MONO # 0.4 K/uL (0.0-0.8); MONO % 4.4 % (0.0-10.0); NEUT # 7.6 K/uL (1.8-7.0); NRBC % 0.1 % (0.0-0.0); PLATELET COUNT 72 K/uL (130-400); RBC 4.65 Mil/uL (3.80-5.20); RED CELL DISTRIBUTION WIDTH 15.3 % (11.5-14.5); WHITE BLOOD COUNT 8.5 K/uL (4.8-10.8)
[2016-09-08 08:51] LABS: LYMPHOCYTE 7 % (20-50); MONOCYTE 3 % (0-10); NEUTROPHIL 90 % (42-75); TOTAL CELLS COUNTED 100
[2016-09-08 08:52] LABS: ANISOCYTOSIS SLIGHT; LARGE PLATELETS PRESENT; PLATELET ESTIMATE DECREASED (NORMAL)
[2016-09-08] MEDS ORDERED: methylPREDNISolone 60 MG in Sodium Chloride 0.9% 50 ML IVPB SCH (09:00)
[2016-09-08] MEDS ORDERED: diltiaZEM 180 mg/24 Hours CD Cap PO SCH (09:00)
[2016-09-08] MEDS ORDERED: Albuterol-Ipratrop 3 mg / 0.5 (3 ml) UD INH SCH (10:17)
[2016-09-08] MEDS ORDERED: Levalbuterol 1.25 MG/3 ML Inhal Soln UD INH PRN (10:44)
[2016-09-08] MEDS ORDERED: INSULIN LISPRO PROTAMIN SC SCH (10:45)
[2016-09-08] MEDS ORDERED: LISPRO SC SCH (10:45)
[2016-09-08] MEDS: Levalbuterol 1.25 MG/3 ML Inhal Soln UD INH SCH ×2 (13:21→17:11)
[2016-09-08] MEDS: methylPREDNISolone 60 MG in Sodium Chloride 0.9% 50 ML IVPB SCH (17:00)
[2016-09-08] MEDS: Insulin Lispro Mix 75/25 100 units/ml (HumaLog) 10ml SC SCH (17:58)
[2016-09-08] MEDS ORDERED: Albuterol-Ipratrop 3 mg / 0.5 (3 ml) UD INH STA (22:52)
[2016-09-09] MEDS: methylPREDNISolone 60 MG in Sodium Chloride 0.9% 50 ML IVPB SCH ×3 (00:35→16:55)
[2016-09-09] MEDS: Insulin Regular 100 units/ml SC SCH ×4 (06:45→21:22)
--- NOTE | 2016-09-09 07:12 | CP.PCM.PN ---
Subjective - Date & Time of Evaluation Date of Evaluation: 09/09/16 Time of Evaluation: 07:40 - Subjective Subjective: Overnight events: Pt started on CPAP overnight slept well with machine. Patient slept well with the CPAP machine. Patient continues to have shortness of breath, despite treatment with xopenex and O2 NC. She is speaking in full sentences, however feels short of breath even just going to the bathroom. Start atrovent, pulmicort, bipap. Objective - Vital Signs/Intake and Output Vital Signs (last 24 hours): Temp Pulse Resp BP Pulse Ox 96.6 F L 65 18 164/83 H 97 09/09/16 05:18 09/09/16 06:29 09/09/16 05:18 09/09/16 05:18 09/09/16 05:18 - Medications Medications: Current Medications Albuterol/Ipratropium (Duoneb 3 Mg/0.5 Mg (3 Ml) Ud) 3 ml INH Q4 PRN PRN Reason: Shortness of Breath Azithromycin (Zithromax) 250 mg PO DAILY [facility] Stop: 09/10/16 09:01 Last Admin: 09/08/16 08:48 Dose: 250 mg Dextrose (Dextrose 50% Inj) 0 ml IVP STAT PRN; Protocol PRN Reason: Hypoglycemia Protocol Diltiazem HCl (Cardizem Cd) 180 mg PO DAILY [facility] Glucagon (Glucagen Diagnostic Kit) 0 mg IM STAT PRN; Protocol PRN Reason: Hypoglycemia Protocol Methylprednisolone 60 mg/ (Sodium Chloride) 50 mls @ 100 mls/hr IVPB Q8 [facility] Last Admin: 09/09/16 00:35 Dose: 100 mls/hr Insulin Human Regular (Humulin R) 0 units SC ACHS ELISHA PRN Reason: Protocol Last Admin: 09/09/16 06:45 Dose: 6 units Insulin Lispro Protam/Lispro Human (Humalog Mix 75/25) 40 units SC BID [facility] Last Admin: 09/08/16 17:58 Dose: 40 units Levalbuterol HCl (Xopenex) 1.25 mg INH RQ8 [facility] Last Admin: 09/08/16 17:11 Dose: 1.25 mg Losartan Potassium (Cozaar) 50 mg PO DAILY [facility] Last Admin: 09/08/16 08:44 Dose: 50 mg - Labs Labs: PT 25.3 Seconds (9.8-13.1) H D 09/08/16 05:30 INR 2.2 (0.9-1.2) H D 09/08/16 05:30 APTT 44.6 Seconds (25.6-37.1) H 09/07/16 05:30 - Constitutional Appears: In Acute Distress (mild respiratory) - Eye Exam Eye Exam: EOMI - ENT Exam ENT Exam: Mucous Membranes Moist - Respiratory Exam Respiratory Exam: Decreased Breath Sounds, Wheezes. absent: Rales, Rhonchi, Stridor Additional comments: mildy tachypneic - Cardiovascular Exam Cardiovascular Exam: Irregular Rhythm, +S1, +S2. absent: Bradycardia Additional comments: afib - GI/Abdominal Exam GI & Abdominal Exam: Soft. absent: Distended, Tenderness - Extremities Exam Extremities Exam: Normal Inspection - Neurological Exam Neurological Exam: Alert, Awake - Psychiatric Exam Psychiatric exam: Normal Affect, Normal Mood - Skin Skin Exam: Dry, Intact. absent: Cyanosis, Pallor Assessment and Plan - Assessment and Plan (Free Text) Assessment: 56 year old Morbid obese female with medical history of COPD, HTN, DM, admitted for management of Atrial Fibrillation and COPD exacerbation. Plan: COPD exacerbation -change duonebs to xopenex -solumedrol 60mg q 8 -continue azithromycin Po -Consider PFTs as outpatient to confirm diagnosis. -pulmonology consult: abg ordered, atrovent and pulmicort started, recommend bipap A fib with RVR -C/w with warfarin 5 mg. monitor INR -cardizem 180mg CD -will consider cardiology consult if no improvement -TSH WNL Diabetes Mellitus type II -resume home medication: Humalog 75/25; d/c 40 unit SC BID; Start 50 units SC BID -MDDS -Accu-chek ACHS -Hypoglycemic protocol -HgbA1C: 8 -Lipid profile: Cho: 235, LDL: 138 -Heart health with moderate carbohydrate diet -Consider Statin treatment discussion as outpatient with patient's GI doctor, Dr. Torrez, due chronic liver disease/cirrhosis. Hypertension c/w home medications Increase losartan to 100mg Elevated liver enzymes -H/O elevated LFTs in previous visit -Hepatitis panel was negative on 01/16/16 -Pelvic CT scan on 02/20/16 showed portal hypertension due to chronic liver disease/cirrhosis Morbid Obese BMI: 50.8 kg/m2 DVT prophylaxis -SCDs -Anticoagulation therapy due A-fib with risk for stroke
[2016-09-09 07:29] LABS: INR 2.3 (0.9-1.2); PROTHROMBIN TIME 26.7 Seconds (9.8-13.1)
[2016-09-09] MEDS: Levalbuterol 1.25 MG/3 ML Inhal Soln UD INH SCH ×2 (07:37→15:27)
[2016-09-09] MEDS: diltiaZEM 180 mg/24 Hours CD Cap PO SCH (08:52)
[2016-09-09] MEDS: Insulin Lispro Mix 75/25 100 units/ml (HumaLog) 10ml SC SCH (08:53)
[2016-09-09] MEDS ORDERED: Insulin Lispro Mix 75/25 100 units/ml (HumaLog) 10ml SC SCH (09:06)
[2016-09-09 09:30] LABS: ABG ALLEN TEST YES; ARTERIAL BLOOD GAS HCO3 27.9 mmol/L (21-28); ARTERIAL BLOOD GAS HEMOGLOBIN 14.1 g/dL (11.7-17.4); ARTERIAL BLOOD GAS O2 CAPACITY 19.4 mL/dL (16-24); ARTERIAL BLOOD GAS O2 CONTENT 19.1 ML/dL (15-23); ARTERIAL BLOOD GAS O2 SAT 98.7 % (95-98); ARTERIAL BLOOD GAS PCO2 51 mm/Hg (35-45); ARTERIAL BLOOD GAS PH 7.38 (7.35-7.45); ARTERIAL BLOOD GAS PO2 111 mm/Hg (80-100); ARTERIAL BLOOD GAS TCO2 31.8 mmol/L (22-28)
[2016-09-09] MEDS: Albuterol-Ipratrop 3 mg / 0.5 (3 ml) UD INH PRN (11:22)
--- NOTE | 2016-09-09 11:45 | PQF GENQUE ---
Dr. So, Please clarify the type of atrial fibrillation: >> Chronic >> Paroxysmal >> Permanent >> Persistent >> Other (please specify type) OR : Unable to determine OR: Unknown H and P: history of Afib; addendum: Afib with RVR not rate or rhythm controlled , INR at goal, restart cardizem po if no improvement then drip, cardiology consult This form is a permanent part of the medical record Clarification of your documentation is requested to better reflect the severity of illness and intensity of treatment of your patient. Indicators present [] Specify: [] [] Specify: [] [] Specify: [] [] Specify: [] Location in the medical record that reflects the above clinical findings: [] Treatment Provided: [] PHYSICIAN'S RESPONSE Based on your medical judgment of the clinical indicators outlined above please clarify the following: [] Practitioner response : chronic afib [] If unable to determine, please check the box, sign and date. Present On Admission (POA) Indicator: [] Present at the time of admission Yes [] Not present at the time of admission [] Clinically Undetermined In responding to this query, please exercise your independent professional judgment. The fact that a question is asked does not imply that any particular answer is desired or expected. Thank you for your clarification on this documentation. If you have any questions please call. * Thank you, Stephanie Sommer RN BSN ext. #[phone] MTDD
[2016-09-09] MEDS: Ipratropium 0.02% Inhal Soln (0.5 mg/2.5 ml) UD IH SCH ×2 (13:29→19:26)
--- NOTE | 2016-09-09 14:29 | CP.PCM.CON ---
History of Present Illness - History of Present Illness History of Present Illness: Pulmonary consult for a 56 y/o F, came to [facility]. [place] on 09/07/16 c/o of moderate SOB on and off for a week [employer] worsening on DOA with no relief, associated to wheezing, cough, non productive, non bloody, chest congestion, Pleuritic chest larose, palpitation. Worsening symptoms: Pt found with A Fib RVR, Morbid Obesity ( BMI:49.4). Aggravated factor: Unable to speak in full sentences and fatigue when walking to the bathroom, Tobaccos abuse (smoker for 30 yrs) Pt denied: Fever, chills, bloody cough, n/v/d, abdominal pain, Chest pain, urinary symptoms, dizziness, syncope, numbness, LOC, sick contact, recent travel. PMHx: COPD, CHF, A Fib, HTN, DMII, Hernia, O/A, High Cholesterol, Thrombocytopenia, Ribs Fx, Hernia. EKG showed: A Fib with RVR, inferior infarct age undetermined. CXR: No infiltrate, no pulmonary effusion, no pneumothorax. Review of Systems - Constitutional Constitutional: Fatigue, Snoring - EENT Eyes: Requires Corrective Lenses Ears: Other (negative) Nose/Mouth/Throat: Other (negative) - Cardiovascular Cardiovascular: Irregular Heart Rhythm, Rapid Heart Rate - Respiratory Respiratory: Cough, Dyspnea, Dyspnea on Exertion, Snoring, Pain on Inspiration, Chest Congestion, Pain with Coughing - Gastrointestinal Gastrointestinal: Other (negative) - Genitourinary Genitourinary: Other (negative) - Musculoskeletal Musculoskeletal: Other (negative) - Integumentary Integumentary: Other (negative) - Neurological Neurological: Other (negative) - Psychiatric Psychiatric: Other (negative) - Endocrine Endocrine: Other (obese) - Hematologic/Lymphatic Hematologic: Other (negative) Past Patient History - Infectious Disease Hx of Infectious Diseases: None - Past Medical History & Family History Past Medical History?: Yes Pertinent Family History: Unknown - Past Social History Smoking Status: Former Smoker Alcohol: Social Drugs: Denies Home Situation {Lives}: With Family - CARDIAC Hx Cardiac Disorders: Yes Hx Cardia Arrhythmia: Yes (afib) Hx Congestive Heart Failure: Yes Hx Hypertension: Yes - PULMONARY Hx Respiratory Disorders: Yes Hx Chronic Obstructive Pulmonary Disease (COPD): Yes Other/Comment: home o2 - NEUROLOGICAL Hx Neurological Disorder: No - HEENT Hx HEENT Problems: Yes Other/Comment: wears glasses - RENAL Hx Chronic Kidney Disease: No - ENDOCRINE/METABOLIC Hx Endocrine Disorders: Yes Hx Diabetes Mellitus Type 2: Yes Other/Comment: Morbid Obesity - HEMATOLOGICAL/ONCOLOGICAL Hx Blood Disorders: No Hx Human Immunodeficiency Virus (HIV): No - INTEGUMENTARY Hx Dermatological Problems: No - MUSCULOSKELETAL/RHEUMATOLOGICAL Hx Musculoskeletal Disorders: No Hx Falls: No - GASTROINTESTINAL Hx Gastrointestinal Disorders: Yes (Hernia) - GENITOURINARY/GYNECOLOGICAL Hx Genitourinary Disorders: No - PSYCHIATRIC Hx Psychophysiologic Disorder: No Hx Substance Use: No - SURGICAL HISTORY Hx Surgeries: Yes Hx Tonsillectomy: Yes Other/Comment: hernia repair - ANESTHESIA Hx Anesthesia: Yes Hx Anesthesia Reactions: No Hx Malignant Hyperthermia: No Has any member of the family had a problem w/ anesthesia?: No Meds Allergies/Adverse Reactions: Allergies Allergy/AdvReac Type Severity Reaction Status Date / Time zolpidem tartrate Allergy Mild RASH Verified 09/02/16 03:55 [From Rudolphien] crab Allergy ANGIOEDEMA Verified 09/02/16 03:55 - Medications Medications: Current Medications Albuterol/Ipratropium (Duoneb 3 Mg/0.5 Mg (3 Ml) Ud) 3 ml INH Q4 PRN PRN Reason: Shortness of Breath Last Admin: 09/09/16 11:22 Dose: 3 ml Azithromycin (Zithromax) 250 mg PO DAILY [facility] Stop: 09/10/16 09:01 Last Admin: 09/09/16 08:53 Dose: 250 mg Budesonide (Pulmicort Respules) 0.25 mg INH RBID [facility] Dextrose (Dextrose 50% Inj) 0 ml IVP STAT PRN; Protocol PRN Reason: Hypoglycemia Protocol Diltiazem HCl (Cardizem Cd) 180 mg PO DAILY [facility] Last Admin: 09/09/16 08:52 Dose: 180 mg Glucagon (Glucagen Diagnostic Kit) 0 mg IM STAT PRN; Protocol PRN Reason: Hypoglycemia Protocol Methylprednisolone 60 mg/ (Sodium Chloride) 50 mls @ 100 mls/hr IVPB Q8 [facility] Last Admin: 09/09/16 08:54 Dose: 100 mls/hr Insulin Human Regular (Humulin R) 0 units SC ACHS [facility] PRN Reason: Protocol Last Admin: 09/09/16 11:12 Dose: 8 units Insulin Lispro Protam/Lispro Human (Humalog Mix 75/25) 50 units SC BID [facility] Ipratropium [place] (Atrovent) 0.5 mg IH RQ6 [facility] Last Admin: 09/09/16 13:29 Dose: 0.5 mg Levalbuterol HCl (Xopenex) 1.25 mg INH RQ8 [facility] Last Admin: 09/09/16 07:37 Dose: 1.25 mg Losartan Potassium (Cozaar) 50 mg PO DAILY [facility] Last Admin: 09/09/16 08:53 Dose: 50 mg Losartan Potassium (Cozaar) 100 mg PO DAILY [facility] Warfarin Sodium (Coumadin) 5 mg PO QD5 ONE PRN Reason: Protocol Stop: 09/09/16 17:01 Physical Exam - Constitutional Appears: No Acute Distress - Head Exam Head Exam: NORMAL INSPECTION - Eye Exam Eye Exam: PERRL - ENT Exam ENT Exam: Normal Oropharynx - Neck Exam Neck exam: Positive for: Normal Inspection - Respiratory Exam Respiratory Exam: Decreased Breath Sounds (at bases), Rhonchi (scattered) - Cardiovascular Exam Cardiovascular Exam: Irregular Rhythm - GI/Abdominal Exam GI & Abdominal Exam: Normal Bowel Sounds, Soft Additional comments: Obese - Extremities Exam Extremities exam: Positive for: normal inspection - Back Exam Back exam: NORMAL INSPECTION - Neurological Exam Neurological exam: Alert, Oriented x3 Additional comments: No motor sensory deficit. - Psychiatric Exam Psychiatric exam: Normal Mood - Skin Skin Exam: Warm Results - Vital Signs Recent Vital Signs: Last Vital Signs Temp 97.8 F 09/09/16 12:11 Pulse 117 H 09/09/16 12:11 Resp 18 09/09/16 12:11 BP 147/89 09/09/16 12:11 Pulse Ox 98 09/09/16 12:11 reviewed [email or web address] - Labs Result Diagrams: 09/11/16 05:00 09/11/16 05:00 Labs: Laboratory Results - last 24 hr 09/08/16 09/08/16 09/09/16 17:21 21:12 04:37 PT INR pCO2 pO2 HCO3 ABG pH ABG Total CO2 ABG O2 Saturation ABG O2 Content ABG Base Excess ABG Hemoglobin ABG Carboxyhemoglobin POC ABG HHb (Measured) ABG Methemoglobin ABG O2 Capacity Tuan Test A-a O2 Difference Hgb O2 Saturation FiO2 POC Glucose (mg/dL) 382 H 277 H 321 H 09/09/16 09/09/16 09/09/16 05:20 09:25 11:12 PT 26.7 H INR 2.3 H pCO2 51 H pO2 111 H HCO3 27.9 ABG pH 7.38 ABG Total CO2 31.8 H ABG O2 Saturation 98.7 H ABG O2 Content 19.1 ABG Base Excess 3.9 H ABG Hemoglobin 14.1 ABG Carboxyhemoglobin 1.9 H POC ABG HHb (Measured) 1.3 ABG Methemoglobin 1.2 ABG O2 Capacity 19.4 Tuan Test Yes A-a O2 Difference 25.0 Hgb O2 Saturation 95.7 FiO2 28.0 POC Glucose (mg/dL) 384 H obese J.P. - EKG Data EKG comments: Reviewed J.P. - Imaging and Cardiology Chest x-ray Status: Report reviewed by me ([email or web address].) Assessment & Plan (1) COPD exacerbation Status: Acute Priority: High Onset Date: 01/14/16 (2) KM (obstructive sleep apnea) Status: Acute Priority: High (3) Atrial fibrillation Status: Acute Priority: High - Assessment and Plan (Free Text) Plan: Continue O2 NC 2 L/M, BIPAP at bedtime, Zithromax, Solumedrol, Xopenex Tx, Pulmicort. - Date & Time Date: 09/09/16 Time: 12:25
[2016-09-09] MEDS: Budesonide 0.25 mg/2 ml Inhal Susp UD INH SCH (19:26)
[2016-09-09] MEDS: Benzocaine/Menthol (Cepacol) Lozenge PO PRN (21:21)
[2016-09-10] MEDS: methylPREDNISolone 60 MG in Sodium Chloride 0.9% 50 ML IVPB SCH (00:46)
[2016-09-10] MEDS: Levalbuterol 1.25 MG/3 ML Inhal Soln UD INH SCH ×3 (01:30→15:15)
[2016-09-10] MEDS: Ipratropium 0.02% Inhal Soln (0.5 mg/2.5 ml) UD IH SCH ×4 (01:30→19:05)
[2016-09-10] MEDS: Benzocaine/Menthol (Cepacol) Lozenge PO PRN (03:03)
[2016-09-10] MEDS: Insulin Regular 100 units/ml SC SCH ×4 (06:36→21:54)
--- NOTE | 2016-09-10 06:43 | CP.PCM.PN ---
Subjective - Date & Time of Evaluation Date of Evaluation: 09/10/16 Time of Evaluation: 08:16 - Subjective Subjective: No acute events overnight. Patient reports improvement of symptoms today. Continues to have non productive cough and shortness of breath, although improving. She is still short of breath with ambulating to the bathroom. Sleeping better with machine. Objective - Vital Signs/Intake and Output Vital Signs (last 24 hours): Temp Pulse Resp BP Pulse Ox 97.3 F L 90 20 135/71 97 09/10/16 05:23 09/10/16 05:23 09/10/16 05:23 09/10/16 05:23 09/10/16 05:23 Intake and Output: 09/09/16 09/10/16 18:59 06:59 Intake Total 600 Balance 600 - Medications Medications: Current Medications Albuterol/Ipratropium (Duoneb 3 Mg/0.5 Mg (3 Ml) Ud) 3 ml INH Q4 PRN PRN Reason: Shortness of Breath Last Admin: 09/09/16 11:22 Dose: 3 ml Azithromycin (Zithromax) 250 mg PO DAILY [facility] Stop: 09/10/16 09:01 Last Admin: 09/09/16 08:53 Dose: 250 mg Benzocaine/Menthol (Cepacol Sore Throat) 1 unruly PO Q2 PRN PRN Reason: Sore Throat Last Admin: 09/10/16 03:03 Dose: 1 unruly Budesonide (Pulmicort Respules) 0.25 mg INH RBID [facility] Last Admin: 09/09/16 19:26 Dose: 0.25 mg Dextrose (Dextrose 50% Inj) 0 ml IVP STAT PRN; Protocol PRN Reason: Hypoglycemia Protocol Diltiazem HCl (Cardizem Cd) 180 mg PO DAILY [facility] Last Admin: 09/09/16 08:52 Dose: 180 mg Glucagon (Glucagen Diagnostic Kit) 0 mg IM STAT PRN; Protocol PRN Reason: Hypoglycemia Protocol Methylprednisolone 60 mg/ (Sodium Chloride) 50 mls @ 100 mls/hr IVPB Q8 [facility] Last Admin: 09/10/16 00:46 Dose: 100 mls/hr Insulin Human Regular (Humulin R) 0 units SC ACHS [facility] PRN Reason: Protocol Last Admin: 09/10/16 06:36 Dose: 4 units Insulin Lispro Protam/Lispro Human (Humalog Mix 75/25) 50 units SC BID [facility] Last Admin: 09/09/16 16:54 Dose: 50 units Ipratropium [place] (Atrovent) 0.5 mg IH RQ6 [facility] Last Admin: 09/10/16 01:30 Dose: 0.5 mg Levalbuterol HCl (Xopenex) 1.25 mg INH RQ8 [facility] Last Admin: 09/10/16 01:30 Dose: 1.25 mg Losartan Potassium (Cozaar) 100 mg PO DAILY [facility] - Labs Labs: PT 26.7 Seconds (9.8-13.1) H 09/09/16 05:20 INR 2.3 (0.9-1.2) H 09/09/16 05:20 APTT 44.6 Seconds (25.6-37.1) H 09/07/16 05:30 - Constitutional Appears: Non-toxic, No Acute Distress (no respiratory distress, pleasant morbidly obese female) - Head Exam Head Exam: NORMAL INSPECTION - Eye Exam Eye Exam: EOMI - ENT Exam ENT Exam: Mucous Membranes Moist - Respiratory Exam Respiratory Exam: Decreased Breath Sounds. absent: Accessory Muscle Use, Wheezes, Respiratory Distress - Cardiovascular Exam Cardiovascular Exam: Irregular Rhythm, +S1, +S2. absent: Bradycardia, Tachycardia - GI/Abdominal Exam Additional comments: unremarkable - Extremities Exam Extremities Exam: Normal Inspection. absent: Tenderness - Neurological Exam Neurological Exam: Alert, Awake, CN II-XII Intact, Oriented x3 - Psychiatric Exam Psychiatric exam: Normal Affect, Normal Mood - Skin Skin Exam: Dry, Intact, Normal Color. absent: Cyanosis, Pallor Assessment and Plan - Assessment and Plan (Free Text) Assessment: 56 year old Morbid obese female with medical history of COPD, HTN, DM, admitted for management of Atrial Fibrillation and COPD exacerbation. Symptoms improving , continues to have shortness of breath. Patient is stable for med/surg transfer. PT evaluation pending. Plan: COPD exacerbation -improving -continue xopenex, atrovent, pulmicort -solumedrol 60mg q 8, will decrease to 40mg q8 -completed 5 days of Azithromycin -Consider PFTs as outpatient to confirm diagnosis, consider Sleep study as outpatient. -pulmonology consult appreciated: atrovent and pulmicort started, recommend bipap A fib with RVR -HR 90-110s. -consider increasing cardizem -C/w with warfarin 5 mg. monitor INR -cardizem 180mg CD -TSH WNL Diabetes Mellitus type II -Increase Insulin Lispro 75/25 mix: 54 units, monitor -MDDS -Accu-chek ACHS -Hypoglycemic protocol -HgbA1C: 8 -Lipid profile: Cho: 235, LDL: 138 -Heart health with moderate carbohydrate diet -Consider Statin treatment discussion as outpatient with patient's GI doctor, Dr. Torrez, due chronic liver disease/cirrhosis. Hypertension c/w home medications -Losartan 100mg -Dose increased on 09/09, will monitor Elevated liver enzymes -H/O elevated LFTs in previous visit -Hepatitis panel was negative on 01/16/16 -Pelvic CT scan on 02/20/16 showed portal hypertension due to chronic liver disease/cirrhosis Morbid Obesity BMI: 50.8 kg/m2 DVT prophylaxis -SCDs -on coumadin
[2016-09-10 07:08] LABS: INR 2.1 (0.9-1.2)
[2016-09-10] MEDS: Budesonide 0.25 mg/2 ml Inhal Susp UD INH SCH ×2 (07:23→19:05)
[2016-09-10] MEDS: diltiaZEM 180 mg/24 Hours CD Cap PO SCH (09:29)
[2016-09-10] MEDS: Insulin Lispro Mix 75/25 100 units/ml (HumaLog) 10ml SC SCH ×2 (09:30→20:52)
[2016-09-10] MEDS: methylPREDNISolone 40 MG in Sodium Chloride 0.9% 50 ML IVPB SCH ×2 (09:32→17:11)
[2016-09-10] MEDS: Albuterol-Ipratrop 3 mg / 0.5 (3 ml) UD INH PRN (12:24)
--- NOTE | 2016-09-10 16:25 | CP.PCM.PN ---
Subjective - Date & Time of Evaluation Date of Evaluation: 09/10/16 Time of Evaluation: 10:00 - Subjective Subjective: F/U COPD Exacerbation. Pt breathing better, occasional cough, no A/D. Objective - Vital Signs/Intake and Output Vital Signs (last 24 hours): Temp Pulse Resp BP Pulse Ox 98.1 F 110 H 18 146/79 97 09/10/16 15:46 09/10/16 15:46 09/10/16 15:46 09/10/16 15:46 09/10/16 15:46 - Medications Medications: Current Medications Albuterol/Ipratropium (Duoneb 3 Mg/0.5 Mg (3 Ml) Ud) 3 ml INH Q4 PRN PRN Reason: Shortness of Breath Last Admin: 09/10/16 12:24 Dose: 3 ml Benzocaine/Menthol (Cepacol Sore Throat) 1 unruly PO Q2 PRN PRN Reason: Sore Throat Last Admin: 09/10/16 03:03 Dose: 1 unruly Budesonide (Pulmicort Respules) 0.25 mg INH RBID [facility] Last Admin: 09/10/16 07:23 Dose: 0.25 mg Dextrose (Dextrose 50% Inj) 0 ml IVP STAT PRN; Protocol PRN Reason: Hypoglycemia Protocol Diltiazem HCl (Cardizem Cd) 180 mg PO DAILY [facility] Last Admin: 09/10/16 09:29 Dose: 180 mg Glucagon (Glucagen Diagnostic Kit) 0 mg IM STAT PRN; Protocol PRN Reason: Hypoglycemia Protocol Methylprednisolone 40 mg/ (Sodium Chloride) 50 mls @ 100 mls/hr IVPB Q8 [facility] Last Admin: 09/10/16 09:32 Dose: 100 mls/hr Insulin Human Regular (Humulin R) 0 units SC ACHS [facility] PRN Reason: Protocol Last Admin: 09/10/16 11:40 Dose: 10 units Insulin Lispro Protam/Lispro Human (Humalog Mix 75/25) 54 units SC Q12 [facility] Last Admin: 09/10/16 09:30 Dose: 54 units Ipratropium [place] (Atrovent) 0.5 mg IH RQ6 [facility] Last Admin: 09/10/16 15:15 Dose: 0.5 mg Levalbuterol HCl (Xopenex) 1.25 mg INH RQ8 [facility] Last Admin: 09/10/16 15:15 Dose: 1.25 mg Losartan Potassium (Cozaar) 100 mg PO DAILY [facility] Last Admin: 09/10/16 09:30 Dose: 100 mg Warfarin Sodium (Coumadin) 5 mg PO QD5 ONE PRN Reason: Protocol Stop: 09/10/16 17:01 - Labs Labs: PT 24.0 Seconds (9.8-13.1) H 09/10/16 05:20 INR 2.1 (0.9-1.2) H 09/10/16 05:20 APTT 44.6 Seconds (25.6-37.1) H 09/07/16 05:30 - Constitutional Appears: No Acute Distress - Head Exam Head Exam: NORMAL INSPECTION - Eye Exam Eye Exam: Normal appearance - ENT Exam ENT Exam: Normal Oropharynx - Neck Exam Neck Exam: Normal Inspection - Respiratory Exam Respiratory Exam: Decreased Breath Sounds (at bases), Rhonchi (scatterred) - Cardiovascular Exam Cardiovascular Exam: Irregular Rhythm - GI/Abdominal Exam GI & Abdominal Exam: Soft, Tenderness (mild epigastric), Normal Bowel Sounds Additional comments: Obese - Extremities Exam Extremities Exam: Normal Inspection - Back Exam Back Exam: NORMAL INSPECTION - Neurological Exam Neurological Exam: Alert, Oriented x3. absent: Motor Sensory Deficit - Psychiatric Exam Psychiatric exam: Normal Mood - Skin Skin Exam: Warm Assessment and Plan (1) COPD exacerbation Status: Acute (2) KM (obstructive sleep apnea) Status: Acute (3) Atrial fibrillation Status: Acute - Assessment and Plan (Free Text) Plan: Continue Atrovent, Solumedrol, Xopenex Tx.
[2016-09-10] MEDS ORDERED: Insulin Regular 100 units/ml SC ONE (23:38)
[2016-09-11] MEDS: methylPREDNISolone 40 MG in Sodium Chloride 0.9% 50 ML IVPB SCH ×4 (00:54→22:31)
[2016-09-11] MEDS: Levalbuterol 1.25 MG/3 ML Inhal Soln UD INH SCH ×3 (00:55→15:49)
[2016-09-11] MEDS: Ipratropium 0.02% Inhal Soln (0.5 mg/2.5 ml) UD IH SCH ×4 (01:23→19:32)
[2016-09-11] MEDS: Insulin Regular 100 units/ml SC SCH ×4 (06:38→22:30)
--- NOTE | 2016-09-11 06:41 | CP.PCM.PN ---
Subjective - Date & Time of Evaluation Date of Evaluation: 09/11/16 Time of Evaluation: 08:45 - Subjective Subjective: Overnight patient did not use BIPAP, unable to tolerate. Slept with oxygen via nasal cannula. Breathing is better but cough persists. Denies any chest pain or palpitations. Pt did not tolerate PT, very short of breath during and after. Mild respiratory distress. Objective - Vital Signs/Intake and Output Vital Signs (last 24 hours): Temp Pulse Resp BP Pulse Ox 97.2 F L 90 20 137/92 H 98 09/11/16 05:06 09/11/16 05:06 09/11/16 05:06 09/11/16 05:06 09/11/16 05:06 - Medications Medications: Current Medications Albuterol/Ipratropium (Duoneb 3 Mg/0.5 Mg (3 Ml) Ud) 3 ml INH Q4 PRN PRN Reason: Shortness of Breath Last Admin: 09/10/16 12:24 Dose: 3 ml Benzocaine/Menthol (Cepacol Sore Throat) 1 unruly PO Q2 PRN PRN Reason: Sore Throat Last Admin: 09/10/16 03:03 Dose: 1 unruly Budesonide (Pulmicort Respules) 0.25 mg INH RBID [facility] Last Admin: 09/10/16 19:05 Dose: 0.25 mg Dextrose (Dextrose 50% Inj) 0 ml IVP STAT PRN; Protocol PRN Reason: Hypoglycemia Protocol Diltiazem HCl (Cardizem Cd) 180 mg PO DAILY [facility] Last Admin: 09/10/16 09:29 Dose: 180 mg Glucagon (Glucagen Diagnostic Kit) 0 mg IM STAT PRN; Protocol PRN Reason: Hypoglycemia Protocol Methylprednisolone 40 mg/ (Sodium Chloride) 50 mls @ 100 mls/hr IVPB Q8 [facility] Last Admin: 09/11/16 00:54 Dose: 100 mls/hr Insulin Human Regular (Humulin R) 0 units SC ACHS [facility] PRN Reason: Protocol Last Admin: 09/11/16 06:38 Dose: 6 units Insulin Lispro Protam/Lispro Human (Humalog Mix 75/25) 54 units SC Q12 [facility] Last Admin: 09/10/16 20:52 Dose: 54 units Ipratropium [place] (Atrovent) 0.5 mg IH RQ6 [facility] Last Admin: 09/11/16 01:23 Dose: 0.5 mg Levalbuterol HCl (Xopenex) 1.25 mg INH RQ8 [facility] Last Admin: 09/11/16 00:55 Dose: 1.25 mg Losartan Potassium (Cozaar) 100 mg PO DAILY [facility] Last Admin: 09/10/16 09:30 Dose: 100 mg - Labs Labs: PT 24.0 Seconds (9.8-13.1) H 09/10/16 05:20 INR 2.1 (0.9-1.2) H 09/10/16 05:20 APTT 44.6 Seconds (25.6-37.1) H 09/07/16 05:30 - Constitutional Appears: In Acute Distress (respiratory distress) - ENT Exam ENT Exam: Mucous Membranes Moist - Respiratory Exam Respiratory Exam: Decreased Breath Sounds (bilaterally), Rhonchi (right middle lung field.), Respiratory Distress (mildly tachypneic). absent: Accessory Muscle Use, Chest Wall Tenderness, Rales, Wheezes - Cardiovascular Exam Cardiovascular Exam: Tachycardia (140s while speaking with patient, irregular rhythm, distant heart sounds), +S1, +S2 - GI/Abdominal Exam Additional comments: unremarkable - Extremities Exam Extremities Exam: absent: Pedal Edema, Tenderness - Neurological Exam Neurological Exam: Alert, Awake, CN II-XII Intact - Psychiatric Exam Psychiatric exam: Normal Affect, Normal Mood - Skin Skin Exam: Dry, Intact, Normal Color. absent: Pallor Assessment and Plan - Assessment and Plan (Free Text) Assessment: 56 year old Morbid obese female with medical history of COPD, HTN, DM, admitted for management of Atrial Fibrillation and COPD exacerbation. Symptoms improving. Patient remains tachycardic at times, will keep patient on telemetry. Plan: COPD exacerbation -improving -continue xopenex, atrovent, pulmicort -solumedrol 40mg q8, will decrease to q12 -completed 5 days of Azithromycin -Consider PFTs as outpatient to confirm diagnosis, consider Sleep study as outpatient. -pulmonology consult appreciated: atrovent and pulmicort started, recommend bipap A fib with RVR -HR 90-110s, episodes of HR 130-140s -d/c cardizem 180 CD -start cardizem 240mg CD -C/w with warfarin 5 mg. monitor INR -TSH WNL Diabetes Mellitus type II -Increase Insulin Lispro 75/25 mix: 54 units, monitor -MDDS -Accu-chek ACHS -Hypoglycemic protocol -HgbA1C: 8 -Lipid profile: Cho: 235, LDL: 138 -Heart health with moderate carbohydrate diet -Consider Statin treatment discussion as outpatient with patient's GI doctor, Dr. Torrez, due chronic liver disease/cirrhosis. Hypertension c/w home medications -Losartan 100mg -Dose increased on 09/09, will monitor Elevated liver enzymes -H/O elevated LFTs in previous visit -Hepatitis panel was negative on 01/16/16 -Pelvic CT scan on 02/20/16 showed portal hypertension due to chronic liver disease/cirrhosis Morbid Obesity BMI: 50.8 kg/m2 DVT prophylaxis -SCDs -on coumadin
[2016-09-11 06:59] LABS: HEMOGLOBIN 14.1 g/dL (12.0-16.0); MEAN CELL VOLUME 85.8 fl (81.0-99.0); MEAN CORPUSCULAR HEMOGLOBIN 27.6 pg (27.0-31.0); MEAN CORPUSCULAR HGB CONC 32.2 g/dL (33.0-37.0); RBC 5.1 Mil/uL (3.80-5.20); RED CELL DISTRIBUTION WIDTH 15.3 % (11.5-14.5); WHITE BLOOD COUNT 7.2 K/uL (4.8-10.8)
[2016-09-11 07:21] LABS: PROTHROMBIN TIME 26.1 Seconds (9.8-13.1)
[2016-09-11 07:22] LABS: BLOOD UREA NITROGEN 33 mg/dl (7-17); CALCIUM 9.7 mg/dL (8.4-10.2); GFR AFRICAN-AMERICAN > 60; GFR NON-AFRICAN AMERICAN > 60; INR 2.3 (0.9-1.2)
[2016-09-11] MEDS: Budesonide 0.25 mg/2 ml Inhal Susp UD INH SCH ×2 (08:23→19:32)
[2016-09-11] MEDS: diltiaZEM 180 mg/24 Hours CD Cap PO SCH (08:47)
[2016-09-11] MEDS: Insulin Lispro Mix 75/25 100 units/ml (HumaLog) 10ml SC SCH ×2 (08:50→21:25)
[2016-09-11] MEDS: Albuterol-Ipratrop 3 mg / 0.5 (3 ml) UD INH PRN (11:19)
--- NOTE | 2016-09-11 17:56 | CP.PCM.PN ---
Subjective - Date & Time of Evaluation Date of Evaluation: 09/11/16 Time of Evaluation: 09:20 - Subjective Subjective: F/U COPD Exacerbation. Pt appears depressed today due to SOB with O2 and has to stop walking with PT. Objective - Vital Signs/Intake and Output Vital Signs (last 24 hours): Temp Pulse Resp BP Pulse Ox 97.3 F L 89 18 122/74 99 09/11/16 15:38 09/11/16 15:38 09/11/16 15:38 09/11/16 15:38 09/11/16 15:38 Intake and Output: 09/11/16 09/11/16 06:59 18:59 Intake Total 1250 Balance 1250 - Medications Medications: Current Medications Albuterol/Ipratropium (Duoneb 3 Mg/0.5 Mg (3 Ml) Ud) 3 ml INH Q4 PRN PRN Reason: Shortness of Breath Last Admin: 09/11/16 11:19 Dose: 3 ml Benzocaine/Menthol (Cepacol Sore Throat) 1 unruly PO Q2 PRN PRN Reason: Sore Throat Last Admin: 09/10/16 03:03 Dose: 1 unruly Budesonide (Pulmicort Respules) 0.25 mg INH RBID [facility] Last Admin: 09/11/16 08:23 Dose: 0.25 mg Dextrose (Dextrose 50% Inj) 0 ml IVP STAT PRN; Protocol PRN Reason: Hypoglycemia Protocol Diltiazem HCl (Cardizem Cd) 240 mg PO DAILY [facility] Glucagon (Glucagen Diagnostic Kit) 0 mg IM STAT PRN; Protocol PRN Reason: Hypoglycemia Protocol Methylprednisolone 40 mg/ (Sodium Chloride) 50 mls @ 100 mls/hr IVPB Q12 [facility] Last Admin: 09/11/16 08:54 Dose: Not Given Insulin Human Regular (Humulin R) 0 units SC ACHS [facility] PRN Reason: Protocol Last Admin: 09/11/16 16:38 Dose: 8 units Insulin Lispro Protam/Lispro Human (Humalog Mix 75/25) 54 units SC Q12 [facility] Last Admin: 09/11/16 08:50 Dose: 54 units Ipratropium [place] (Atrovent) 0.5 mg IH RQ6 [facility] Last Admin: 09/11/16 13:12 Dose: 0.5 mg Levalbuterol HCl (Xopenex) 1.25 mg INH RQ8 [facility] Last Admin: 09/11/16 15:49 Dose: 1.25 mg Losartan Potassium (Cozaar) 50 mg PO DAILY [facility] - Labs Labs: 09/11/16 05:00 09/11/16 05:00 PT 26.1 Seconds (9.8-13.1) H 09/11/16 05:00 INR 2.3 (0.9-1.2) H 09/11/16 05:00 APTT 44.6 Seconds (25.6-37.1) H 09/07/16 05:30 - Constitutional Appears: No Acute Distress - Head Exam Head Exam: NORMAL INSPECTION - Eye Exam Eye Exam: PERRL - ENT Exam ENT Exam: Normal Oropharynx - Neck Exam Neck Exam: Normal Inspection - Respiratory Exam Respiratory Exam: Decreased Breath Sounds (at bases), Rhonchi (scattered), Wheezes - Cardiovascular Exam Cardiovascular Exam: Irregular Rhythm - GI/Abdominal Exam GI & Abdominal Exam: Soft, Normal Bowel Sounds Additional comments: Obese. - Extremities Exam Extremities Exam: Normal Inspection - Back Exam Back Exam: NORMAL INSPECTION - Neurological Exam Neurological Exam: Alert, Oriented x3. absent: Motor Sensory Deficit - Psychiatric Exam Psychiatric exam: Normal Mood - Skin Skin Exam: Warm Assessment and Plan (1) COPD exacerbation Status: Acute (2) KM (obstructive sleep apnea) Status: Acute (3) Atrial fibrillation Status: Acute - Assessment and Plan (Free Text) Plan: Continue Solu Medrol, Xopenex , and rest of Tx.
[2016-09-11] MEDS ORDERED: Insulin Regular 100 units/ml SC ONE (23:38)
[2016-09-12] MEDS: Levalbuterol 1.25 MG/3 ML Inhal Soln UD INH SCH ×3 (00:59→19:14)
[2016-09-12] MEDS: Ipratropium 0.02% Inhal Soln (0.5 mg/2.5 ml) UD IH SCH ×4 (01:00→19:14)
[2016-09-12] MEDS: Insulin Regular 100 units/ml SC SCH ×4 (06:49→21:39)
--- NOTE | 2016-09-12 06:49 | CP.PCM.PN ---
Subjective - Date & Time of Evaluation Date of Evaluation: 09/12/16 Time of Evaluation: 07:51 - Subjective Subjective: No acute events overnight. Patient reports she was unable to sleep well, did not use BIPAP/CPAP. Using oxygen at rest and during sleep. She does not feel symptoms have improved since yesterday. She was unable to tolerate physical therapy yesterday, HR increased to 140s. Dyspnea at rest and on exertion. Cardizem increased today. Monitor BP and HR. Objective - Vital Signs/Intake and Output Vital Signs (last 24 hours): Temp Pulse Resp BP Pulse Ox 97.3 F L 90 18 137/78 100 09/12/16 05:20 09/12/16 05:20 09/12/16 05:20 09/12/16 05:20 09/12/16 05:20 Intake and Output: 09/11/16 09/12/16 18:59 06:59 Intake Total 1250 Balance 1250 - Medications Medications: Current Medications Albuterol/Ipratropium (Duoneb 3 Mg/0.5 Mg (3 Ml) Ud) 3 ml INH Q4 PRN PRN Reason: Shortness of Breath Last Admin: 09/11/16 11:19 Dose: 3 ml Benzocaine/Menthol (Cepacol Sore Throat) 1 unruly PO Q2 PRN PRN Reason: Sore Throat Last Admin: 09/10/16 03:03 Dose: 1 unruly Budesonide (Pulmicort Respules) 0.25 mg INH RBID [facility] Last Admin: 09/11/16 19:32 Dose: 0.25 mg Dextrose (Dextrose 50% Inj) 0 ml IVP STAT PRN; Protocol PRN Reason: Hypoglycemia Protocol Diltiazem HCl (Cardizem Cd) 240 mg PO DAILY [facility] Glucagon (Glucagen Diagnostic Kit) 0 mg IM STAT PRN; Protocol PRN Reason: Hypoglycemia Protocol Methylprednisolone 40 mg/ (Sodium Chloride) 50 mls @ 100 mls/hr IVPB Q12 [facility] Last Admin: 09/11/16 22:31 Dose: 100 mls/hr Insulin Human Regular (Humulin R) 0 units SC ACHS [facility] PRN Reason: Protocol Last Admin: 09/11/16 22:30 Dose: 3 units Insulin Lispro Protam/Lispro Human (Humalog Mix 75/25) 54 units SC Q12 [facility] Last Admin: 09/11/16 21:25 Dose: 54 units Ipratropium [place] (Atrovent) 0.5 mg IH RQ6 [facility] Last Admin: 09/12/16 01:00 Dose: 0.5 mg Levalbuterol HCl (Xopenex) 1.25 mg INH RQ8 [facility] Last Admin: 09/12/16 00:59 Dose: 1.25 mg Losartan Potassium (Cozaar) 50 mg PO DAILY [facility] - Labs Labs: 09/11/16 05:00 09/11/16 05:00 PT 26.1 Seconds (9.8-13.1) H 09/11/16 05:00 INR 2.3 (0.9-1.2) H 09/11/16 05:00 APTT 44.6 Seconds (25.6-37.1) H 09/07/16 05:30 - Constitutional Appears: In Acute Distress (appears fatigued and uncomfortable. ), Other ( morbidly obese) - ENT Exam ENT Exam: Mucous Membranes Moist - Respiratory Exam Respiratory Exam: Decreased Breath Sounds (bilaterally), Rhonchi (mild, diffuse) , Respiratory Distress (mild). absent: Rales - Cardiovascular Exam Cardiovascular Exam: Tachycardia, Irregular Rhythm, +S1, +S2. absent: Bradycardia Additional comments: decreased heart sounds - GI/Abdominal Exam GI & Abdominal Exam: absent: Distended, Guarding, Tenderness - Extremities Exam Extremities Exam: absent: Pedal Edema, Tenderness - Neurological Exam Neurological Exam: Alert, Awake, CN II-XII Intact - Skin Skin Exam: Dry, Intact, Normal Color. absent: Cyanosis, Pallor Assessment and Plan - Assessment and Plan (Free Text) Assessment: 56 year old Morbid obese female with medical history of COPD, HTN, DM, admitted for management of Atrial Fibrillation and COPD exacerbation. Symptoms slowly improving, caontinues to have shortness of breath at rest and on exertion. Still tachycardic at times. Increased Cardizem, Losartan at home dose. Plan: COPD exacerbation -improving, f/u cxr -continue xopenex, atrovent, pulmicort -continue solumedrol 40 mg q12 -completed 5 days of Azithromycin -Consider PFTs as outpatient to confirm diagnosis, consider Sleep study as outpatient. -pulmonology consult appreciated: atrovent and pulmicort started, recommend bipap A fib with RVR -HR up to 120s -start cardizem 240mg CD -C/w with warfarin 5 mg. monitor INR, has been in therapeutic range -TSH WNL -cardio consult - dr. corona Diabetes Mellitus type II -Increase Insulin Lispro 75/25 mix: 54 units, monitor -MDDS -Accu-chek ACHS -Hypoglycemic protocol -HgbA1C: 8 -Lipid profile: Cho: 235, LDL: 138 -Heart health with moderate carbohydrate diet -Consider Statin treatment discussion as outpatient with patient's GI doctor, Dr. Torrez, due chronic liver disease/cirrhosis. Hypertension c/w home medications -Losartan 50mg - will monitor Elevated liver enzymes -H/O elevated LFTs in previous visit -Hepatitis panel was negative on 01/16/16 -Pelvic CT scan on 02/20/16 showed portal hypertension due to chronic liver disease/cirrhosis Morbid Obesity BMI: 50.8 kg/m2 DVT prophylaxis -SCDs -on coumadin
[2016-09-12 07:43] LABS: INR 2.5 (0.9-1.2); PROTHROMBIN TIME 29.3 Seconds (9.8-13.1)
[2016-09-12] MEDS: Budesonide 0.25 mg/2 ml Inhal Susp UD INH SCH ×2 (07:43→19:14)
[2016-09-12] MEDS: diltiaZEM 240 mg/24 Hours CD Cap PO SCH (08:33)
[2016-09-12] MEDS: methylPREDNISolone 40 MG in Sodium Chloride 0.9% 50 ML IVPB SCH ×2 (08:34→21:30)
[2016-09-12] MEDS: Insulin Lispro Mix 75/25 100 units/ml (HumaLog) 10ml SC SCH ×2 (08:34→21:33)
--- NOTE | 2016-09-12 09:58 | RAD ---
HISTORY: shortness of breath COMPARISON: 09/07/2016. TECHNIQUE: Chest PA and lateral FINDINGS: LUNGS: The lungs are well inflated and clear. PLEURA: No significant pleural effusion identified. No pneumothorax apparent. CARDIOVASCULAR: There is moderate cardiomegaly. OSSEOUS STRUCTURES: No significant abnormalities. VISUALIZED UPPER ABDOMEN: Normal. OTHER FINDINGS: None. IMPRESSION: No active pulmonary disease. Moderate cardiomegaly.
[2016-09-12] MEDS: Albuterol-Ipratrop 3 mg / 0.5 (3 ml) UD INH PRN ×2 (11:45→17:40)
[2016-09-13] MEDS: Levalbuterol 1.25 MG/3 ML Inhal Soln UD INH SCH ×3 (01:00→19:20)
[2016-09-13] MEDS: Ipratropium 0.02% Inhal Soln (0.5 mg/2.5 ml) UD IH SCH ×4 (01:00→19:20)
[2016-09-13] MEDS: Insulin Regular 100 units/ml SC SCH ×4 (06:35→23:50)
[2016-09-13] MEDS: Budesonide 0.25 mg/2 ml Inhal Susp UD INH SCH ×2 (07:18→19:20)
[2016-09-13] MEDS: diltiaZEM 240 mg/24 Hours CD Cap PO SCH (08:15)
[2016-09-13] MEDS: Insulin Lispro Mix 75/25 100 units/ml (HumaLog) 10ml SC SCH ×2 (08:16→21:50)
[2016-09-13] MEDS: methylPREDNISolone 40 MG in Sodium Chloride 0.9% 50 ML IVPB SCH (08:18)
[2016-09-13] MEDS ORDERED: Digoxin 250 mcg (0.25 mg) Tab ONE (09:00)
--- NOTE | 2016-09-13 10:00 | CP.PCM.PN ---
Subjective - Date & Time of Evaluation Date of Evaluation: 09/13/16 Time of Evaluation: 09:57 - Subjective Subjective: Patient looks improved, no complaints overnight. Patient refuses BIPAP, makes her uncomfortable. As per patient, she still feels SOB when she walks or get up to use bathroom. Overnight mildly Tachycardic (100-115), HR -in 60s now. Objective - Vital Signs/Intake and Output Vital Signs (last 24 hours): Temp Pulse Resp BP Pulse Ox 98.1 F 60 18 138/78 95 09/13/16 08:09 09/13/16 08:15 09/13/16 08:09 09/13/16 08:16 09/13/16 08:09 - Medications Medications: Current Medications Albuterol/Ipratropium (Duoneb 3 Mg/0.5 Mg (3 Ml) Ud) 3 ml INH Q4 PRN PRN Reason: Shortness of Breath Last Admin: 09/12/16 17:40 Dose: 3 ml Benzocaine/Menthol (Cepacol Sore Throat) 1 unruly PO Q2 PRN PRN Reason: Sore Throat Last Admin: 09/10/16 03:03 Dose: 1 unruly Benzonatate (Tessalon Perles) 100 mg PO TID PRN PRN Reason: Cough Budesonide (Pulmicort Respules) 0.25 mg INH RBID [facility] Last Admin: 09/13/16 07:18 Dose: 0.25 mg Dextrose (Dextrose 50% Inj) 0 ml IVP STAT PRN; Protocol PRN Reason: Hypoglycemia Protocol Diltiazem HCl (Cardizem Cd) 240 mg PO DAILY [facility] Last Admin: 09/13/16 08:15 Dose: 240 mg Furosemide (Lasix) 20 mg IVP DAILY [facility] Last Admin: 09/13/16 08:16 Dose: 20 mg Glucagon (Glucagen Diagnostic Kit) 0 mg IM STAT PRN; Protocol PRN Reason: Hypoglycemia Protocol Methylprednisolone 40 mg/ (Sodium Chloride) 50 mls @ 100 mls/hr IVPB Q12 [facility] Last Admin: 09/13/16 08:18 Dose: 100 mls/hr Insulin Human Regular (Humulin R) 0 units SC ACHS [facility] PRN Reason: Protocol Last Admin: 09/13/16 06:35 Dose: 8 units Insulin Lispro Protam/Lispro Human (Humalog Mix 75/25) 54 units SC Q12 [facility] Last Admin: 09/13/16 08:16 Dose: 54 units Ipratropium [place] (Atrovent) 0.5 mg IH RQ6 [facility] Last Admin: 09/13/16 07:18 Dose: 0.5 mg Levalbuterol HCl (Xopenex) 1.25 mg INH RQ8 [facility] Last Admin: 09/13/16 07:18 Dose: 1.25 mg Losartan Potassium (Cozaar) 50 mg PO DAILY [facility] Last Admin: 09/13/16 08:15 Dose: 50 mg - Labs Labs: 09/11/16 05:00 09/11/16 05:00 PT 29.3 Seconds (9.8-13.1) H 09/12/16 05:05 INR 2.5 (0.9-1.2) H 09/12/16 05:05 APTT 44.6 Seconds (25.6-37.1) H 09/07/16 05:30 - Constitutional Appears: Well, No Acute Distress - Head Exam Head Exam: ATRAUMATIC
[2016-09-13] MEDS ORDERED: Digoxin 0.05 mg/mL Elixir 5mL PO ONE (17:29)
[2016-09-13] MEDS: methylPREDNISolone 30 MG in Sodium Chloride 0.9% 50 ML IVPB SCH (21:30)
--- NOTE | 2016-09-13 21:51 | CP.PCM.PN ---
Subjective - Date & Time of Evaluation Date of Evaluation: 09/13/16 Time of Evaluation: 11:20 - Subjective Subjective: F/U COPD Exacerbation. Pt breathing better but still having cough with difficulty to bring up phlegms, able to walk to the bathroom without SOB but feels every 4 hrs gradually start to have chest congestion relieved with nebulizer Tx. Objective - Vital Signs/Intake and Output Vital Signs (last 24 hours): Temp Pulse Resp BP Pulse Ox 98.1 F 91 H 20 147/92 H 97 09/13/16 17:00 09/13/16 17:00 09/13/16 17:00 09/13/16 17:00 09/13/16 17:00 Intake and Output: 09/13/16 09/14/16 18:59 06:59 Intake Total 550 Balance 550 - Medications Medications: Current Medications Albuterol/Ipratropium (Duoneb 3 Mg/0.5 Mg (3 Ml) Ud) 3 ml INH Q4 PRN PRN Reason: Shortness of Breath Last Admin: 09/12/16 17:40 Dose: 3 ml Benzocaine/Menthol (Cepacol Sore Throat) 1 unruly PO Q2 PRN PRN Reason: Sore Throat Last Admin: 09/10/16 03:03 Dose: 1 unruly Benzonatate (Tessalon Perles) 100 mg PO TID PRN PRN Reason: Cough Budesonide (Pulmicort Respules) 0.25 mg INH RBID [facility] Last Admin: 09/13/16 19:20 Dose: 0.25 mg Dextrose (Dextrose 50% Inj) 0 ml IVP STAT PRN; Protocol PRN Reason: Hypoglycemia Protocol Diltiazem HCl (Cardizem Cd) 240 mg PO DAILY [facility] Last Admin: 09/13/16 08:15 Dose: 240 mg Furosemide (Lasix) 20 mg IVP DAILY [facility] Last Admin: 09/13/16 08:16 Dose: 20 mg Glucagon (Glucagen Diagnostic Kit) 0 mg IM STAT PRN; Protocol PRN Reason: Hypoglycemia Protocol Guaifenesin (Mucinex La) 600 mg PO Q12 [facility] Methylprednisolone 30 mg/ (Sodium Chloride) 50 mls @ 100 mls/hr IVPB Q12H [facility] Insulin Human Regular (Humulin R) 0 units SC ACHS [facility] PRN Reason: Protocol Last Admin: 09/13/16 16:30 Dose: 4 units Insulin Lispro Protam/Lispro Human (Humalog Mix 75/25) 54 units SC Q12 [facility] Last Admin: 09/13/16 08:16 Dose: 54 units Ipratropium [place] (Atrovent) 0.5 mg IH RQ6 [facility] Last Admin: 09/13/16 19:20 Dose: 0.5 mg Levalbuterol HCl (Xopenex) 1.25 mg INH RQ8 [facility] Last Admin: 09/13/16 19:20 Dose: 1.25 mg Losartan Potassium (Cozaar) 50 mg PO DAILY [facility] Last Admin: 09/13/16 08:15 Dose: 50 mg - Labs Labs: 09/11/16 05:00 09/11/16 05:00 PT 29.3 Seconds (9.8-13.1) H 09/12/16 05:05 INR 2.5 (0.9-1.2) H 09/12/16 05:05 APTT 44.6 Seconds (25.6-37.1) H 09/07/16 05:30 - Constitutional Appears: No Acute Distress - Head Exam Head Exam: NORMAL INSPECTION - Eye Exam Eye Exam: PERRL - ENT Exam ENT Exam: Normal Oropharynx - Neck Exam Neck Exam: Normal Inspection - Respiratory Exam Respiratory Exam: Decreased Breath Sounds (at bases) - Cardiovascular Exam Cardiovascular Exam: Irregular Rhythm - GI/Abdominal Exam GI & Abdominal Exam: Soft, Normal Bowel Sounds Additional comments: Obese - Extremities Exam Extremities Exam: Normal Inspection - Back Exam Back Exam: NORMAL INSPECTION - Neurological Exam Neurological Exam: Alert, Oriented x3 Additional comments: No motor sensory deficit. - Psychiatric Exam Psychiatric exam: Normal Mood - Skin Skin Exam: Warm Assessment and Plan (1) COPD exacerbation Status: Acute (2) KM (obstructive sleep apnea) Status: Acute (3) Atrial fibrillation Status: Acute - Assessment and Plan (Free Text) Plan: Taper Solumedrol, Xopenex and rest of current Tx.
[2016-09-13] MEDS: guaiFENesin 600 mg ER Tab PO SCH (23:00)
[2016-09-14] MEDS: Levalbuterol 1.25 MG/3 ML Inhal Soln UD INH SCH ×4 (00:40→23:42)
[2016-09-14] MEDS: Ipratropium 0.02% Inhal Soln (0.5 mg/2.5 ml) UD IH SCH ×5 (01:01→23:42)
[2016-09-14] MEDS: Budesonide 0.25 mg/2 ml Inhal Susp UD INH SCH ×2 (07:32→19:27)
[2016-09-14 08:44] LABS: INR 1.8 (0.9-1.2); PROTHROMBIN TIME 20.5 Seconds (9.8-13.1)
[2016-09-14] MEDS ORDERED: guaiFENesin 600 mg ER Tab PO SCH (09:00)
[2016-09-14] MEDS: diltiaZEM 240 mg/24 Hours CD Cap PO SCH (09:24)
[2016-09-14] MEDS: Insulin Lispro Mix 75/25 100 units/ml (HumaLog) 10ml SC SCH ×2 (09:26→21:48)
[2016-09-14] MEDS: Insulin Regular 100 units/ml SC SCH ×4 (09:29→21:49)
[2016-09-14] MEDS: guaiFENesin 600 mg ER Tab PO SCH ×2 (09:32→20:42)
[2016-09-14] MEDS: methylPREDNISolone 30 MG in Sodium Chloride 0.9% 50 ML IVPB SCH ×2 (09:40→20:40)
--- NOTE | 2016-09-14 10:20 | CP.PCM.PN ---
Subjective - Date & Time of Evaluation Date of Evaluation: 09/14/16 Time of Evaluation: 10:17 - Subjective Subjective: Patient was sitting comfortably on bed, complaints SOB when she starts walking but as per pt she is feeling much better than yesterday. As per Patient, Mucinex is helping with cough. denies fever, chills, headache, n/v. no headaches or palpitations. using O2 NC, o2 saturation 93 to 97, no Bipap use Objective - Vital Signs/Intake and Output Vital Signs (last 24 hours): Temp Pulse Resp BP Pulse Ox 97.6 F 106 H 18 162/86 H 97 09/14/16 08:00 09/14/16 09:25 09/14/16 08:00 09/14/16 09:40 09/14/16 08:00 - Medications Medications: Current Medications Albuterol/Ipratropium (Duoneb 3 Mg/0.5 Mg (3 Ml) Ud) 3 ml INH Q4 PRN PRN Reason: Shortness of Breath Last Admin: 09/12/16 17:40 Dose: 3 ml Benzocaine/Menthol (Cepacol Sore Throat) 1 unruly PO Q2 PRN PRN Reason: Sore Throat Last Admin: 09/10/16 03:03 Dose: 1 unruly Benzonatate (Tessalon Perles) 100 mg PO TID PRN PRN Reason: Cough Last Admin: 09/14/16 09:33 Dose: 100 mg Budesonide (Pulmicort Respules) 0.25 mg INH RBID [facility] Last Admin: 09/14/16 07:32 Dose: 0.25 mg Dextrose (Dextrose 50% Inj) 0 ml IVP STAT PRN; Protocol PRN Reason: Hypoglycemia Protocol Diltiazem HCl (Cardizem Cd) 240 mg PO DAILY [facility] Last Admin: 09/14/16 09:24 Dose: 240 mg Furosemide (Lasix) 20 mg IVP DAILY [facility] Last Admin: 09/14/16 09:40 Dose: 20 mg Glucagon (Glucagen Diagnostic Kit) 0 mg IM STAT PRN; Protocol PRN Reason: Hypoglycemia Protocol Guaifenesin (Mucinex [place]) 600 mg PO Q12 [facility] Last Admin: 09/14/16 09:32 Dose: 600 mg Methylprednisolone 30 mg/ (Sodium Chloride) 50 mls @ 100 mls/hr IVPB Q12H [facility] Last Admin: 09/14/16 09:40 Dose: 100 mls/hr Insulin Human Regular (Humulin R) 0 units SC ACHS [facility] PRN Reason: Protocol Last Admin: 09/14/16 09:29 Dose: 10 units Insulin Lispro Protam/Lispro Human (Humalog Mix 75/25) 54 units SC Q12 [facility] Last Admin: 09/14/16 09:26 Dose: 54 units Ipratropium [place] (Atrovent) 0.5 mg IH RQ6 [facility] Last Admin: 09/14/16 07:31 Dose: 0.5 mg Levalbuterol HCl (Xopenex) 1.25 mg INH RQ8 [facility] Last Admin: 09/14/16 07:32 Dose: 1.25 mg Losartan Potassium (Cozaar) 50 mg PO DAILY [facility] Last Admin: 09/14/16 09:25 Dose: 50 mg - Labs Labs: 09/11/16 05:00 09/11/16 05:00 PT 20.5 Seconds (9.8-13.1) H D 09/14/16 06:30 INR 1.8 (0.9-1.2) H D 09/14/16 06:30 APTT 44.6 Seconds (25.6-37.1) H 09/07/16 05:30 - Constitutional Appears: Well, No Acute Distress - Head Exam Head Exam: ATRAUMATIC - Neck Exam Neck Exam: Full ROM. absent: Lymphadenopathy - Respiratory Exam Respiratory Exam: Decreased Breath Sounds, Rhonchi (mild ). absent: Accessory Muscle Use, Chest Wall Tenderness, Wheezes - Cardiovascular Exam Cardiovascular Exam: Tachycardia (with activity ), Irregular Rhythm, +S1, +S2. absent: JVD, Rubs, Murmur - GI/Abdominal Exam GI & Abdominal Exam: Firm, Normal Bowel Sounds. absent: Bruit, Distended, Guarding, Tenderness - Back Exam Back Exam: absent: CVA tenderness (L), CVA tenderness (R) - Neurological Exam Neurological Exam: Alert, Awake, Oriented x3 - Skin Skin Exam: Normal Color Assessment and Plan - Assessment and Plan (Free Text) Assessment: 56 y/o old morbid obese female with PMH of COPD, HTN, DM, admitted for A-fib and COPD exacerbation. Symptoms slowly improving, continues to have SOB on exertion, Tachycardia with activity Plan: COPD exacerbation - Improving - continue Xopenex , Atrovent, and pulmicort - MethylPrednison 30 Q12H, will consider slowly tapering dose tomorrow A fib with RVR - resting HR stable but , tachy with activity - Cardiology consultation by Dr Pena appreciated - Will continue Lasix 20mg and Digoxin 0.25mg daily for rhythm control - continue Cardizem 240mg, - Will continue warfarin 5mg, daily for anticoagulation. INR 1.8 today subtherapeutic range but will recheck tomorrow and consider dose adjustment - TSH wnl DM type ll - Uncontrolled, likely exacerbated by current steroid treatments - Will increase Insulin Lispro 75/25 from 54 Units Q12h to 60 Units Q12h - Continue insuline sliding scale- high dose - ACCU check ACHS - Hypoglycemic protocol Hyperlipidemia - Lipid profile: Cho: 235, LDL: 138, continue Lipitor - Heart healthy with moderate carbohydrate diet HTN - Well controlled - c/w home meds - Losartan 50mg Elevated liver enzymes -H/O elevated LFTs in previous visit -Hepatitis panel was negative on 01/16/16 -Pelvic CT scan on 02/20/16 showed portal hypertension due to chronic liver disease/cirrhosis Morbid Obesity -BMI: 50.8 kg/m2 DVT prophylaxis -SCDs -on coumadin
[2016-09-14] MEDS ORDERED: Digoxin 0.05 mg/mL Elixir 5mL PO SCH (10:30)
[2016-09-14] MEDS: Digoxin 250 mcg (0.25 mg) Tab PO SCH (12:35)
--- NOTE | 2016-09-14 14:43 | CP.PCM.PN ---
Subjective - Date & Time of Evaluation Date of Evaluation: 09/14/16 Time of Evaluation: 14:41 - Subjective Subjective: No chest pain, still coughing Objective - Vital Signs/Intake and Output Vital Signs (last 24 hours): Temp Pulse Resp BP Pulse Ox 98.3 F 110 H 18 119/79 97 09/14/16 12:06 09/14/16 12:06 09/14/16 12:06 09/14/16 12:06 09/14/16 12:06 - Medications Medications: Current Medications Albuterol/Ipratropium (Duoneb 3 Mg/0.5 Mg (3 Ml) Ud) 3 ml INH Q4 PRN PRN Reason: Shortness of Breath Last Admin: 09/12/16 17:40 Dose: 3 ml Benzocaine/Menthol (Cepacol Sore Throat) 1 unruly PO Q2 PRN PRN Reason: Sore Throat Last Admin: 09/10/16 03:03 Dose: 1 unruly Benzonatate (Tessalon Perles) 100 mg PO TID PRN PRN Reason: Cough Last Admin: 09/14/16 09:33 Dose: 100 mg Budesonide (Pulmicort Respules) 0.25 mg INH RBID [facility] Last Admin: 09/14/16 07:32 Dose: 0.25 mg Dextrose (Dextrose 50% Inj) 0 ml IVP STAT PRN; Protocol PRN Reason: Hypoglycemia Protocol Digoxin (Lanoxin) 0.25 mg PO DAILY [facility] Last Admin: 09/14/16 12:35 Dose: 0.25 mg Diltiazem HCl (Cardizem Cd) 240 mg PO DAILY [facility] Last Admin: 09/14/16 09:24 Dose: 240 mg Furosemide (Lasix) 20 mg IVP DAILY [facility] Last Admin: 09/14/16 09:40 Dose: 20 mg Glucagon (Glucagen Diagnostic Kit) 0 mg IM STAT PRN; Protocol PRN Reason: Hypoglycemia Protocol Guaifenesin (Mucinex [place]) 600 mg PO Q12 [facility] Last Admin: 09/14/16 09:32 Dose: 600 mg Methylprednisolone 30 mg/ (Sodium Chloride) 50 mls @ 100 mls/hr IVPB Q12H [facility] Last Admin: 09/14/16 09:40 Dose: 100 mls/hr Insulin Human Regular (Humulin R) 0 units SC ACHS [facility] PRN Reason: Protocol Last Admin: 09/14/16 12:33 Dose: 12 units Insulin Lispro Protam/Lispro Human (Humalog Mix 75/25) 60 units SC Q12 [facility] Ipratropium [place] (Atrovent) 0.5 mg IH RQ6 [facility] Last Admin: 09/14/16 13:47 Dose: 0.5 mg Levalbuterol HCl (Xopenex) 1.25 mg INH RQ8 [facility] Last Admin: 09/14/16 07:32 Dose: 1.25 mg Losartan Potassium (Cozaar) 50 mg PO DAILY [facility] Last Admin: 09/14/16 09:25 Dose: 50 mg - Labs Labs: 09/11/16 05:00 09/11/16 05:00 PT 20.5 Seconds (9.8-13.1) H D 09/14/16 06:30 INR 1.8 (0.9-1.2) H D 09/14/16 06:30 APTT 44.6 Seconds (25.6-37.1) H 09/07/16 05:30 - Constitutional Appears: Well - Head Exam Head Exam: NORMAL INSPECTION - Eye Exam Eye Exam: Normal appearance - Neck Exam Neck Exam: Normal Inspection - Respiratory Exam Respiratory Exam: Rhonchi - Cardiovascular Exam Cardiovascular Exam: REGULAR RHYTHM - Extremities Exam Extremities Exam: Pedal Edema Assessment and Plan - Assessment and Plan (Free Text) Assessment: COPD A Fib Uncontrolled DM Plan: Cont. Albuterol/Ipratropium (Duoneb 3 Mg/0.5 Mg (3 Ml) Ud) 3 ml INH Q4 PRN PRN Reason: Shortness of Breath Last Admin: 09/12/16 17:40 Dose: 3 ml Benzocaine/Menthol (Cepacol Sore Throat) 1 unruly PO Q2 PRN PRN Reason: Sore Throat Last Admin: 09/10/16 03:03 Dose: 1 unruly Benzonatate (Tessalon Perles) 100 mg PO TID PRN PRN Reason: Cough Last Admin: 09/14/16 09:33 Dose: 100 mg Budesonide (Pulmicort Respules) 0.25 mg INH RBID [facility] Last Admin: 09/14/16 07:32 Dose: 0.25 mg Dextrose (Dextrose 50% Inj) 0 ml IVP STAT PRN; Protocol PRN Reason: Hypoglycemia Protocol Digoxin (Lanoxin) 0.25 mg PO DAILY [facility] Last Admin: 09/14/16 12:35 Dose: 0.25 mg Diltiazem HCl (Cardizem Cd) 240 mg PO DAILY [facility] Last Admin: 09/14/16 09:24 Dose: 240 mg Furosemide (Lasix) 20 mg IVP DAILY [facility] Last Admin: 09/14/16 09:40 Dose: 20 mg Glucagon (Glucagen Diagnostic Kit) 0 mg IM STAT PRN; Protocol PRN Reason: Hypoglycemia Protocol Guaifenesin (Mucinex [place]) 600 mg PO Q12 [facility] Last Admin: 09/14/16 09:32 Dose: 600 mg Methylprednisolone 30 mg/ (Sodium Chloride) 50 mls @ 100 mls/hr IVPB Q12H [facility] Last Admin: 09/14/16 09:40 Dose: 100 mls/hr Insulin Human Regular (Humulin R) 0 units SC ACHS [facility] PRN Reason: Protocol Last Admin: 09/14/16 12:33 Dose: 12 units Insulin Lispro Protam/Lispro Human (Humalog Mix 75/25) 60 units SC Q12 [facility] Ipratropium [place] (Atrovent) 0.5 mg IH RQ6 [facility] Last Admin: 09/14/16 13:47 Dose: 0.5 mg Levalbuterol HCl (Xopenex) 1.25 mg INH RQ8 [facility] Last Admin: 09/14/16 07:32 Dose: 1.25 mg Losartan Potassium (Cozaar) 50 mg PO DAILY [facility] Last Admin: 09/14/16 09:25 Dose: 50 mg Coumadin 5 mg today
--- NOTE | 2016-09-14 17:23 | CP.PCM.PN ---
Subjective - Date & Time of Evaluation Date of Evaluation: 09/14/16 Time of Evaluation: 10:20 - Subjective Subjective: No cough , no SOB , no BHATTI Objective - Vital Signs/Intake and Output Vital Signs (last 24 hours): Temp Pulse Resp BP Pulse Ox 98.4 F 108 H 20 117/76 95 09/14/16 15:52 09/14/16 15:52 09/14/16 15:52 09/14/16 15:52 09/14/16 15:52 - Medications Medications: Current Medications Albuterol/Ipratropium (Duoneb 3 Mg/0.5 Mg (3 Ml) Ud) 3 ml INH Q4 PRN PRN Reason: Shortness of Breath Last Admin: 09/12/16 17:40 Dose: 3 ml Benzocaine/Menthol (Cepacol Sore Throat) 1 unruly PO Q2 PRN PRN Reason: Sore Throat Last Admin: 09/10/16 03:03 Dose: 1 unruly Benzonatate (Tessalon Perles) 100 mg PO TID PRN PRN Reason: Cough Last Admin: 09/14/16 09:33 Dose: 100 mg Budesonide (Pulmicort Respules) 0.25 mg INH RBID [facility] Last Admin: 09/14/16 07:32 Dose: 0.25 mg Dextrose (Dextrose 50% Inj) 0 ml IVP STAT PRN; Protocol PRN Reason: Hypoglycemia Protocol Digoxin (Lanoxin) 0.25 mg PO DAILY [facility] Last Admin: 09/14/16 12:35 Dose: 0.25 mg Diltiazem HCl (Cardizem Cd) 240 mg PO DAILY [facility] Last Admin: 09/14/16 09:24 Dose: 240 mg Furosemide (Lasix) 20 mg IVP DAILY [facility] Last Admin: 09/14/16 09:40 Dose: 20 mg Glucagon (Glucagen Diagnostic Kit) 0 mg IM STAT PRN; Protocol PRN Reason: Hypoglycemia Protocol Guaifenesin (Mucinex La) 600 mg PO Q12 [facility] Last Admin: 09/14/16 09:32 Dose: 600 mg Methylprednisolone 30 mg/ (Sodium Chloride) 50 mls @ 100 mls/hr IVPB Q12H [facility] Last Admin: 09/14/16 09:40 Dose: 100 mls/hr Insulin Human Regular (Humulin R) 0 units SC ACHS [facility] PRN Reason: Protocol Last Admin: 09/14/16 17:08 Dose: 12 units Insulin Lispro Protam/Lispro Human (Humalog Mix 75/25) 60 units SC Q12 [facility] Ipratropium [place] (Atrovent) 0.5 mg IH RQ6 [facility] Last Admin: 09/14/16 13:47 Dose: 0.5 mg Levalbuterol HCl (Xopenex) 1.25 mg INH RQ8 [facility] Last Admin: 09/14/16 15:39 Dose: 1.25 mg Losartan Potassium (Cozaar) 50 mg PO DAILY [facility] Last Admin: 09/14/16 09:25 Dose: 50 mg - Labs Labs: 09/11/16 05:00 09/11/16 05:00 PT 20.5 Seconds (9.8-13.1) H D 09/14/16 06:30 INR 1.8 (0.9-1.2) H D 09/14/16 06:30 APTT 44.6 Seconds (25.6-37.1) H 09/07/16 05:30 - Constitutional Appears: No Acute Distress - Head Exam Head Exam: NORMAL INSPECTION - Eye Exam Eye Exam: PERRL - ENT Exam ENT Exam: Normal Exam - Neck Exam Neck Exam: Normal Inspection - Respiratory Exam Respiratory Exam: Decreased Breath Sounds - Cardiovascular Exam Cardiovascular Exam: Irregular Rhythm - GI/Abdominal Exam GI & Abdominal Exam: Soft, Normal Bowel Sounds - Extremities Exam Extremities Exam: Normal Inspection - Back Exam Back Exam: NORMAL INSPECTION - Neurological Exam Neurological Exam: Alert, Oriented x3. absent: Motor Sensory Deficit - Psychiatric Exam Psychiatric exam: Anxious - Skin Skin Exam: Warm Assessment and Plan (1) COPD exacerbation Status: Acute (2) KM (obstructive sleep apnea) Status: Acute (3) Atrial fibrillation Status: Acute - Assessment and Plan (Free Text) Plan: Continue Solu Medrol , Xopenex , Pulmicort , Mucinex and rest of treatment
[2016-09-15] MEDS: Benzocaine/Menthol (Cepacol) Lozenge PO PRN (00:23)
[2016-09-15 06:48] LABS: BLOOD UREA NITROGEN 37 mg/dl (7-17); CALCIUM 9.2 mg/dL (8.4-10.2); GFR AFRICAN-AMERICAN > 60; GFR NON-AFRICAN AMERICAN > 60
[2016-09-15 07:11] LABS: PROTHROMBIN TIME 22.8 Seconds (9.8-13.1)
[2016-09-15] MEDS: Ipratropium 0.02% Inhal Soln (0.5 mg/2.5 ml) UD IH SCH ×5 (07:56→23:51)
[2016-09-15] MEDS: Budesonide 0.25 mg/2 ml Inhal Susp UD INH SCH ×2 (07:56→19:12)
[2016-09-15] MEDS: Levalbuterol 1.25 MG/3 ML Inhal Soln UD INH SCH ×3 (07:57→23:51)
--- NOTE | 2016-09-15 08:04 | CP.PCM.PN ---
Subjective - Date & Time of Evaluation Date of Evaluation: 09/15/16 Time of Evaluation: 08:03 - Subjective Subjective: Patient seen and examined, sitting comfortably on bed, complaints SOB with exertion, but improved. Mucinex is helping with cough, still nothing comes up with cough. Denies fever, chills, headache, n/v. no headaches or palpitations. Patient didn't use O2 NC or Bipap overnight. Objective - Vital Signs/Intake and Output Vital Signs (last 24 hours): Temp Pulse Resp BP Pulse Ox 97.3 F L 103 H 21 144/86 96 09/15/16 05:00 09/15/16 05:00 09/15/16 05:00 09/15/16 05:00 09/15/16 05:00 - Medications Medications: Current Medications Albuterol/Ipratropium (Duoneb 3 Mg/0.5 Mg (3 Ml) Ud) 3 ml INH Q4 PRN PRN Reason: Shortness of Breath Last Admin: 09/12/16 17:40 Dose: 3 ml Benzocaine/Menthol (Cepacol Sore Throat) 1 unruly PO Q2 PRN PRN Reason: Sore Throat Last Admin: 09/15/16 00:23 Dose: 1 unruly Benzonatate (Tessalon Perles) 100 mg PO TID PRN PRN Reason: Cough Last Admin: 09/15/16 00:21 Dose: 100 mg Budesonide (Pulmicort Respules) 0.25 mg INH RBID [facility] Last Admin: 09/15/16 07:56 Dose: 0.25 mg Dextrose (Dextrose 50% Inj) 0 ml IVP STAT PRN; Protocol PRN Reason: Hypoglycemia Protocol Digoxin (Lanoxin) 0.25 mg PO DAILY [facility] Last Admin: 09/14/16 12:35 Dose: 0.25 mg Diltiazem HCl (Cardizem Cd) 240 mg PO DAILY [facility] Last Admin: 09/14/16 09:24 Dose: 240 mg Furosemide (Lasix) 20 mg IVP DAILY [facility] Last Admin: 09/14/16 09:40 Dose: 20 mg Glucagon (Glucagen Diagnostic Kit) 0 mg IM STAT PRN; Protocol PRN Reason: Hypoglycemia Protocol Guaifenesin (Mucinex La) 600 mg PO Q12 [facility] Last Admin: 09/14/16 20:42 Dose: 600 mg Methylprednisolone 30 mg/ (Sodium Chloride) 50 mls @ 100 mls/hr IVPB Q12H [facility] Last Admin: 09/14/16 20:40 Dose: 100 mls/hr Insulin Human Regular (Humulin R) 0 units SC ACHS [facility] PRN Reason: Protocol Last Admin: 09/14/16 21:49 Dose: 4 units Insulin Lispro Protam/Lispro Human (Humalog Mix 75/25) 60 units SC Q12 [facility] Last Admin: 09/14/16 21:48 Dose: 60 units Ipratropium [place] (Atrovent) 0.5 mg IH RQ6 [facility] Last Admin: 09/15/16 07:56 Dose: 0.5 mg Levalbuterol HCl (Xopenex) 1.25 mg INH RQ8 [facility] Last Admin: 09/15/16 07:57 Dose: 1.25 mg Losartan Potassium (Cozaar) 50 mg PO DAILY [facility] Last Admin: 09/14/16 09:25 Dose: 50 mg - Labs Labs: 09/11/16 05:00 09/15/16 05:00 PT 22.8 Seconds (9.8-13.1) H 09/15/16 05:00 INR 2.0 (0.9-1.2) H 09/15/16 05:00 APTT 44.6 Seconds (25.6-37.1) H 09/07/16 05:30 - Constitutional Appears: Well, No Acute Distress - Head Exam Head Exam: ATRAUMATIC, NORMAL INSPECTION, NORMOCEPHALIC - Eye Exam Eye Exam: Normal appearance - Neck Exam Neck Exam: Full ROM. absent: Lymphadenopathy - Respiratory Exam Respiratory Exam: Rhonchi. absent: Accessory Muscle Use, Chest Wall Tenderness - Cardiovascular Exam Cardiovascular Exam: Irregular Rhythm, +S1, +S2. absent: Bradycardia, Tachycardia, +S4, Murmur - GI/Abdominal Exam GI & Abdominal Exam: Soft, Normal Bowel Sounds - Extremities Exam Extremities Exam: Pedal Edema (+1). absent: Calf Tenderness - Back Exam Back Exam: NORMAL INSPECTION. absent: CVA tenderness (L), CVA tenderness (R) - Neurological Exam Neurological Exam: Alert, Awake, Oriented x3 - Psychiatric Exam Psychiatric exam: Normal Mood - Skin Skin Exam: Normal Color Assessment and Plan - Assessment and Plan (Free Text) Assessment: 56 y/o old morbid obese female with PMH of COPD, HTN, DM, admitted for A-fib and COPD exacerbation. Symptoms slowly improving, continues to have SOB on exertion, Tachycardia with activity Plan: COPD exacerbation - Improving - continue Xopenex , Atrovent, and pulmicort - MethylPrednison is changed to 60mg PO daily from 30mg IV Q12H A fib with RVR - resting HR stable but , tachy with activity - Cardiology consultation by Dr Pena appreciated - Will continue Lasix 20mg and Digoxin 0.25mg daily for rhythm control - continue Cardizem 240mg, - Will continue warfarin 5mg, daily for anticoagulation. INR is 2.0 today from 1.8 yesterday - TSH wnl DM type ll - likely exacerbated by current steroid treatments - Uncontrolled, however improved after insulin dose adjustment - Will continue Insulin Lispro 75/25: 60 Units Q12h - Continue insuline sliding scale- high dose - ACCU check ACHS - Hypoglycemic protocol Hyperlipidemia - Lipid profile: Cho: 235, LDL: 138, continue Lipitor - Heart healthy with moderate carbohydrate diet HTN - Well controlled - c/w home meds - Losartan 50mg Elevated liver enzymes -H/O elevated LFTs in previous visit -Hepatitis panel was negative on 01/16/16 -Pelvic CT scan on 02/20/16 showed portal hypertension due to chronic liver disease/cirrhosis Morbid Obesity -BMI: 50.8 kg/m2 DVT prophylaxis -SCDs -on coumadin
[2016-09-15] MEDS: diltiaZEM 240 mg/24 Hours CD Cap PO SCH (09:19)
[2016-09-15] MEDS: Insulin Lispro Mix 75/25 100 units/ml (HumaLog) 10ml SC SCH ×2 (09:20→21:49)
[2016-09-15] MEDS: Insulin Regular 100 units/ml SC SCH ×4 (09:23→21:51)
[2016-09-15] MEDS: Digoxin 250 mcg (0.25 mg) Tab PO SCH (09:25)
[2016-09-15] MEDS: methylPREDNISolone 30 MG in Sodium Chloride 0.9% 50 ML IVPB SCH ×2 (09:26→21:46)
[2016-09-15] MEDS: guaiFENesin 600 mg ER Tab PO SCH ×2 (09:26→21:45)
[2016-09-15] MEDS: Albuterol-Ipratrop 3 mg / 0.5 (3 ml) UD INH PRN (11:57)
--- NOTE | 2016-09-15 15:13 | CP.PCM.PN ---
Subjective - Date & Time of Evaluation Date of Evaluation: 09/15/16 Time of Evaluation: 15:12 - Subjective Subjective: still SOB and coughing Objective - Vital Signs/Intake and Output Vital Signs (last 24 hours): Temp Pulse Resp BP Pulse Ox 97.6 F 95 H 18 147/69 98 09/15/16 12:42 09/15/16 12:42 09/15/16 12:42 09/15/16 12:42 09/15/16 12:42 - Medications Medications: Current Medications Albuterol/Ipratropium (Duoneb 3 Mg/0.5 Mg (3 Ml) Ud) 3 ml INH Q4 PRN PRN Reason: Shortness of Breath Last Admin: 09/15/16 11:57 Dose: 3 ml Benzocaine/Menthol (Cepacol Sore Throat) 1 unruly PO Q2 PRN PRN Reason: Sore Throat Last Admin: 09/15/16 00:23 Dose: 1 unruly Benzonatate (Tessalon Perles) 100 mg PO TID PRN PRN Reason: Cough Last Admin: 09/15/16 09:27 Dose: 100 mg Budesonide (Pulmicort Respules) 0.25 mg INH RBID [facility] Last Admin: 09/15/16 07:56 Dose: 0.25 mg Dextrose (Dextrose 50% Inj) 0 ml IVP STAT PRN; Protocol PRN Reason: Hypoglycemia Protocol Digoxin (Lanoxin) 0.25 mg PO DAILY [facility] Last Admin: 09/15/16 09:25 Dose: 0.25 mg Diltiazem HCl (Cardizem Cd) 240 mg PO DAILY [facility] Last Admin: 09/15/16 09:19 Dose: 240 mg Furosemide (Lasix) 20 mg IVP DAILY [facility] Last Admin: 09/15/16 09:32 Dose: 20 mg Glucagon (Glucagen Diagnostic Kit) 0 mg IM STAT PRN; Protocol PRN Reason: Hypoglycemia Protocol Guaifenesin (Mucinex [place]) 600 mg PO Q12 [facility] Last Admin: 09/15/16 09:26 Dose: 600 mg Methylprednisolone 30 mg/ (Sodium Chloride) 50 mls @ 100 mls/hr IVPB Q12H [facility] Last Admin: 09/15/16 09:26 Dose: 100 mls/hr Insulin Human Regular (Humulin R) 0 units SC ACHS [facility] PRN Reason: Protocol Last Admin: 09/15/16 13:25 Dose: 10 units Insulin Lispro Protam/Lispro Human (Humalog Mix 75/25) 60 units SC Q12 [facility] Last Admin: 09/15/16 09:20 Dose: 60 units Ipratropium [place] (Atrovent) 0.5 mg IH RQ6 [facility] Last Admin: 09/15/16 13:40 Dose: 0.5 mg Levalbuterol HCl (Xopenex) 1.25 mg INH RQ8 [facility] Last Admin: 09/15/16 07:57 Dose: 1.25 mg Losartan Potassium (Cozaar) 50 mg PO DAILY [facility] Last Admin: 09/15/16 09:20 Dose: 50 mg - Labs Labs: 09/11/16 05:00 09/15/16 05:00 PT 22.8 Seconds (9.8-13.1) H 09/15/16 05:00 INR 2.0 (0.9-1.2) H 09/15/16 05:00 APTT 44.6 Seconds (25.6-37.1) H 09/07/16 05:30 - Head Exam Head Exam: NORMAL INSPECTION - Eye Exam Eye Exam: Normal appearance - Neck Exam Neck Exam: Normal Inspection - Respiratory Exam Respiratory Exam: Rhonchi - Extremities Exam Extremities Exam: Pedal Edema Assessment and Plan - Assessment and Plan (Free Text) Assessment: COPD A Fib HTN DM Obesity Plan: Cont Albuterol/Ipratropium (Duoneb 3 Mg/0.5 Mg (3 Ml) Ud) 3 ml INH Q4 PRN PRN Reason: Shortness of Breath Last Admin: 09/15/16 11:57 Dose: 3 ml Benzocaine/Menthol (Cepacol Sore Throat) 1 unruly PO Q2 PRN PRN Reason: Sore Throat Last Admin: 09/15/16 00:23 Dose: 1 unruly Benzonatate (Tessalon Perles) 100 mg PO TID PRN PRN Reason: Cough Last Admin: 09/15/16 09:27 Dose: 100 mg Budesonide (Pulmicort Respules) 0.25 mg INH RBID [facility] Last Admin: 09/15/16 07:56 Dose: 0.25 mg Dextrose (Dextrose 50% Inj) 0 ml IVP STAT PRN; Protocol PRN Reason: Hypoglycemia Protocol Digoxin (Lanoxin) 0.25 mg PO DAILY [facility] Last Admin: 09/15/16 09:25 Dose: 0.25 mg Diltiazem HCl (Cardizem Cd) 240 mg PO DAILY [facility] Last Admin: 09/15/16 09:19 Dose: 240 mg Furosemide (Lasix) 20 mg IVP DAILY [facility] Last Admin: 09/15/16 09:32 Dose: 20 mg Glucagon (Glucagen Diagnostic Kit) 0 mg IM STAT PRN; Protocol PRN Reason: Hypoglycemia Protocol Guaifenesin (Mucinex La) 600 mg PO Q12 [facility] Last Admin: 09/15/16 09:26 Dose: 600 mg Methylprednisolone 30 mg/ (Sodium Chloride) 50 mls @ 100 mls/hr IVPB Q12H [facility] Last Admin: 09/15/16 09:26 Dose: 100 mls/hr Insulin Human Regular (Humulin R) 0 units SC ACHS [facility] PRN Reason: Protocol Last Admin: 09/15/16 13:25 Dose: 10 units Insulin Lispro Protam/Lispro Human (Humalog Mix 75/25) 60 units SC Q12 [facility] Last Admin: 09/15/16 09:20 Dose: 60 units Ipratropium [place] (Atrovent) 0.5 mg IH RQ6 [facility] Last Admin: 09/15/16 13:40 Dose: 0.5 mg Levalbuterol HCl (Xopenex) 1.25 mg INH RQ8 [facility] Last Admin: 09/15/16 07:57 Dose: 1.25 mg Losartan Potassium (Cozaar) 50 mg PO DAILY [facility] Last Admin: 09/15/16 09:20 Dose: 50 mg
--- NOTE | 2016-09-15 16:57 | CP.PCM.PN ---
Subjective - Date & Time of Evaluation Date of Evaluation: 09/15/16 Time of Evaluation: 10:20 - Subjective Subjective: F/U COPD Exacerbation. Pt with occasional intermittent cough, no A/D, no SOB. Objective - Vital Signs/Intake and Output Vital Signs (last 24 hours): Temp Pulse Resp BP Pulse Ox 99.3 F 101 H 18 129/88 95 09/15/16 16:08 09/15/16 16:08 09/15/16 16:08 09/15/16 16:08 09/15/16 16:08 Intake and Output: 09/15/16 09/15/16 06:59 18:59 Intake Total 1050 Balance 1050 - Medications Medications: Current Medications Albuterol/Ipratropium (Duoneb 3 Mg/0.5 Mg (3 Ml) Ud) 3 ml INH Q4 PRN PRN Reason: Shortness of Breath Last Admin: 09/15/16 11:57 Dose: 3 ml Benzocaine/Menthol (Cepacol Sore Throat) 1 unruly PO Q2 PRN PRN Reason: Sore Throat Last Admin: 09/15/16 00:23 Dose: 1 unruly Benzonatate (Tessalon Perles) 100 mg PO TID PRN PRN Reason: Cough Last Admin: 09/15/16 09:27 Dose: 100 mg Budesonide (Pulmicort Respules) 0.25 mg INH RBID [facility] Last Admin: 09/15/16 07:56 Dose: 0.25 mg Dextrose (Dextrose 50% Inj) 0 ml IVP STAT PRN; Protocol PRN Reason: Hypoglycemia Protocol Digoxin (Lanoxin) 0.25 mg PO DAILY [facility] Last Admin: 09/15/16 09:25 Dose: 0.25 mg Diltiazem HCl (Cardizem Cd) 240 mg PO DAILY [facility] Last Admin: 09/15/16 09:19 Dose: 240 mg Furosemide (Lasix) 20 mg IVP DAILY [facility] Last Admin: 09/15/16 09:32 Dose: 20 mg Glucagon (Glucagen Diagnostic Kit) 0 mg IM STAT PRN; Protocol PRN Reason: Hypoglycemia Protocol Guaifenesin (Mucinex [place]) 600 mg PO Q12 [facility] Last Admin: 09/15/16 09:26 Dose: 600 mg Methylprednisolone 30 mg/ (Sodium Chloride) 50 mls @ 100 mls/hr IVPB Q12H [facility] Stop: 09/15/16 23:59 Last Admin: 09/15/16 09:26 Dose: 100 mls/hr Insulin Human Regular (Humulin R) 0 units SC ACHS [facility] PRN Reason: Protocol Last Admin: 09/15/16 16:33 Dose: 10 units Insulin Lispro Protam/Lispro Human (Humalog Mix 75/25) 60 units SC Q12 [facility] Last Admin: 09/15/16 09:20 Dose: 60 units Ipratropium [place] (Atrovent) 0.5 mg IH RQ6 [facility] Last Admin: 09/15/16 13:40 Dose: 0.5 mg Levalbuterol HCl (Xopenex) 1.25 mg INH RQ8 [facility] Last Admin: 09/15/16 16:04 Dose: 1.25 mg Losartan Potassium (Cozaar) 50 mg PO DAILY [facility] Last Admin: 09/15/16 09:20 Dose: 50 mg Prednisone (Prednisone Tab) 60 mg PO DAILY [facility] - Labs Labs: 09/11/16 05:00 09/15/16 05:00 PT 22.8 Seconds (9.8-13.1) H 09/15/16 05:00 INR 2.0 (0.9-1.2) H 09/15/16 05:00 APTT 44.6 Seconds (25.6-37.1) H 09/07/16 05:30 - Constitutional Appears: No Acute Distress - Head Exam Head Exam: NORMAL INSPECTION - Eye Exam Eye Exam: PERRL - ENT Exam ENT Exam: Normal Oropharynx - Neck Exam Neck Exam: Normal Inspection - Respiratory Exam Respiratory Exam: Decreased Breath Sounds - Cardiovascular Exam Cardiovascular Exam: Irregular Rhythm - GI/Abdominal Exam GI & Abdominal Exam: Soft, Normal Bowel Sounds - Extremities Exam Extremities Exam: Normal Inspection - Back Exam Back Exam: NORMAL INSPECTION - Neurological Exam Neurological Exam: Alert, Oriented x3. absent: Motor Sensory Deficit - Psychiatric Exam Psychiatric exam: Anxious - Skin Skin Exam: Warm Assessment and Plan (1) COPD exacerbation Status: Acute (2) KM (obstructive sleep apnea) Status: Acute (3) Atrial fibrillation Status: Acute - Assessment and Plan (Free Text) Plan: Continue Duoneb, Solumedrol and rest of Tx.
[2016-09-16] MEDS: Ipratropium 0.02% Inhal Soln (0.5 mg/2.5 ml) UD IH SCH ×3 (01:00→13:53)
[2016-09-16] MEDS: Albuterol-Ipratrop 3 mg / 0.5 (3 ml) UD INH PRN (04:23)
[2016-09-16 06:22] LABS: INR 2.1 (0.9-1.2); PROTHROMBIN TIME 23.5 Seconds (9.8-13.1)
[2016-09-16] MEDS: Insulin Regular 100 units/ml SC SCH ×3 (07:00→16:18)
[2016-09-16] MEDS: Budesonide 0.25 mg/2 ml Inhal Susp UD INH SCH (07:37)
[2016-09-16] MEDS: Levalbuterol 1.25 MG/3 ML Inhal Soln UD INH SCH ×2 (07:37→15:21)
[2016-09-16] MEDS: guaiFENesin 600 mg ER Tab PO SCH (08:20)
[2016-09-16] MEDS: diltiaZEM 240 mg/24 Hours CD Cap PO SCH (08:20)
[2016-09-16] MEDS: Digoxin 250 mcg (0.25 mg) Tab PO SCH (08:21)
[2016-09-16 08:22] VITALS: PULSE 88
[2016-09-16] MEDS: Insulin Lispro Mix 75/25 100 units/ml (HumaLog) 10ml SC SCH (08:22)
--- NOTE | 2016-09-16 09:00 | CP.PCM.PN ---
Subjective - Date & Time of Evaluation Date of Evaluation: 09/16/16 Time of Evaluation: 08:55 - Subjective Subjective: Patient seen and examined, comfortably on bed, complaints mild SOB with exertion , but improved, used O2 NC last night for few hours, saturating 95% on room air. No palpitations or headache but gets tachycardic, this morning HR up to 120s and 140s without any symptomes. Mucinex is helping with cough, still nothing comes up with cough. Denies fever, chills, headache, n/v. no headaches or palpitations. Objective - Vital Signs/Intake and Output Vital Signs (last 24 hours): Temp Pulse Resp BP Pulse Ox 97.6 F 88 20 135/81 99 09/16/16 08:15 09/16/16 08:21 09/16/16 08:15 09/16/16 08:26 09/16/16 08:15 Intake and Output: 09/16/16 09/16/16 06:59 18:59 Intake Total 650 Balance 650 - Medications Medications: Current Medications Albuterol/Ipratropium (Duoneb 3 Mg/0.5 Mg (3 Ml) Ud) 3 ml INH Q4 PRN PRN Reason: Shortness of Breath Last Admin: 09/16/16 04:23 Dose: 3 ml Benzocaine/Menthol (Cepacol Sore Throat) 1 unruly PO Q2 PRN PRN Reason: Sore Throat Last Admin: 09/15/16 00:23 Dose: 1 unruly Benzonatate (Tessalon Perles) 100 mg PO TID PRN PRN Reason: Cough Last Admin: 09/15/16 09:27 Dose: 100 mg Budesonide (Pulmicort Respules) 0.25 mg INH RBID [facility] Last Admin: 09/16/16 07:37 Dose: 0.25 mg Dextrose (Dextrose 50% Inj) 0 ml IVP STAT PRN; Protocol PRN Reason: Hypoglycemia Protocol Digoxin (Lanoxin) 0.25 mg PO DAILY [facility] Last Admin: 09/16/16 08:21 Dose: 0.25 mg Diltiazem HCl (Cardizem Cd) 240 mg PO DAILY [facility] Last Admin: 09/16/16 08:20 Dose: 240 mg Furosemide (Lasix) 20 mg IVP DAILY [facility] Last Admin: 09/16/16 08:26 Dose: 20 mg Glucagon (Glucagen Diagnostic Kit) 0 mg IM STAT PRN; Protocol PRN Reason: Hypoglycemia Protocol Guaifenesin (Mucinex [place]) 600 mg PO Q12 [facility] Last Admin: 09/16/16 08:20 Dose: 600 mg Insulin Human Regular (Humulin R) 0 units SC ACHS [facility] PRN Reason: Protocol Last Admin: 09/16/16 07:00 Dose: 8 units Insulin Lispro Protam/Lispro Human (Humalog Mix 75/25) 60 units SC Q12 [facility] Last Admin: 09/16/16 08:22 Dose: 60 units Ipratropium [place] (Atrovent) 0.5 mg IH RQ6 [facility] Last Admin: 09/16/16 07:38 Dose: 0.5 mg Levalbuterol HCl (Xopenex) 1.25 mg INH RQ8 [facility] Last Admin: 09/16/16 07:37 Dose: 1.25 mg Losartan Potassium (Cozaar) 50 mg PO DAILY [facility] Last Admin: 09/16/16 08:21 Dose: 50 mg Prednisone (Prednisone Tab) 60 mg PO DAILY [facility] Last Admin: 09/16/16 08:20 Dose: 60 mg - Labs Labs: 09/11/16 05:00 09/15/16 05:00 PT 23.5 Seconds (9.8-13.1) H 09/16/16 05:00 INR 2.1 (0.9-1.2) H 09/16/16 05:00 APTT 44.6 Seconds (25.6-37.1) H 09/07/16 05:30 - Constitutional Appears: Well, No Acute Distress - Head Exam Head Exam: ATRAUMATIC, NORMAL INSPECTION, NORMOCEPHALIC - Eye Exam Eye Exam: Normal appearance - Neck Exam Neck Exam: Full ROM. absent: Lymphadenopathy - Respiratory Exam Respiratory Exam: Decreased Breath Sounds (But improved air entery B/L), Rhonchi. absent: Accessory Muscle Use, Chest Wall Tenderness, Wheezes - Cardiovascular Exam Cardiovascular Exam: Irregular Rhythm, +S1, +S2. absent: Gallop, JVD, Rubs, +S4 , Murmur - GI/Abdominal Exam GI & Abdominal Exam: Soft, Normal Bowel Sounds - Extremities Exam Extremities Exam: Pedal Edema (+1). absent: Calf Tenderness, Joint Swelling - Back Exam Back Exam: absent: CVA tenderness (L), CVA tenderness (R) - Neurological Exam Neurological Exam: Alert, Awake, CN II-XII Intact, Oriented x3 - Skin Skin Exam: Normal Color Assessment and Plan - Assessment and Plan (Free Text) Assessment: 56 y/o old morbid obese female with PMH of COPD, HTN, DM, admitted for A-fib and COPD exacerbation. Symptoms slowly improving, continues to have SOB on exertion, Tachycardia with activity Plan: COPD exacerbation - Improving - continue Xopenex , Atrovent, and pulmicort - will get MethylPrednison 60mg PO today, will taper slowly A fib with RVR - resting HR ranging fron 100-110 today, gets more tachy with activities, will get input from cardiology - Cardiology consultation by Dr Pena appreciated - Will continue Lasix 20mg and Digoxin 0.25mg daily for rhythm control - continue Cardizem 240mg, - Will continue warfarin 5mg, daily for anticoagulation. INR is 2.1 today from 2.0 yesterday - TSH wnl DM type ll - Uncontrolled, likely exacerbated by current steroid treatments - Will change Insulin Lispro 75/25: 60 Units Q12h to 65 Units Q12h starting with evening dose today. - Continue insuline sliding scale- high dose - ACCU check ACHS - Hypoglycemic protocol Hyperlipidemia - Lipid profile: Cho: 235, LDL: 138, continue Lipitor - Heart healthy with moderate carbohydrate diet HTN - Well controlled - c/w home meds - Losartan 50mg Elevated liver enzymes -H/O elevated LFTs in previous visit -Hepatitis panel was negative on 01/16/16 -Pelvic CT scan on 02/20/16 showed portal hypertension due to chronic liver disease/cirrhosis Morbid Obesity -BMI: 50.8 kg/m2 DVT prophylaxis -SCDs -on coumadin
[2016-09-16] MEDS ORDERED: Insulin Lispro Mix 75/25 100 units/ml (HumaLog) 10ml SC SCH (11:07)
[2016-09-16 15:27] VITALS: BMI 49.4
--- NOTE | 2016-09-16 15:42 | CP.PCM.DIS ---
<She Padilla - Last Filed: 09/16/16 16:06> Provider - Provider Date of Admission: 09/08/16 10:32 Attending physician: Yessi So MD Diagnosis - Discharge Diagnosis (1) Acute exacerbation of chronic obstructive pulmonary disease (COPD) Status: Acute (2) Atrial fibrillation with RVR Status: Acute (3) HTN (hypertension) Status: Chronic (4) IDDM (insulin dependent diabetes mellitus) Status: Chronic (5) Morbid obesity with BMI of 45.0-49.9, adult Status: Chronic Hospital Course - Lab Results Lab Results: Most Recent Lab Values WBC 7.2 K/uL (4.8-10.8) 09/11/16 05:00 RBC 5.10 Mil/uL (3.80-5.20) 09/11/16 05:00 Hgb 14.1 g/dL (12.0-16.0) 09/11/16 05:00 Hct 43.7 % (34.0-47.0) 09/11/16 05:00 MCV 85.8 fl (81.0-99.0) 09/11/16 05:00 MCH 27.6 pg (27.0-31.0) 09/11/16 05:00 MCHC 32.2 g/dL (33.0-37.0) L 09/11/16 05:00 RDW 15.3 % (11.5-14.5) H 09/11/16 05:00 Plt Count 68 K/uL (130-400) L 09/11/16 05:00 MPV 9.7 fl (7.2-11.7) 09/08/16 07:45 Neut % (Auto) 89.0 % (50.0-75.0) H 09/08/16 07:45 Lymph % (Auto) 6.6 % (20.0-40.0) L 09/08/16 07:45 [place] % (Auto) 4.4 % (0.0-10.0) 09/08/16 07:45 Eos % (Auto) 0.0 % (0.0-4.0) 09/08/16 07:45 Baso % (Auto) 0.0 % (0.0-2.0) 09/08/16 07:45 Neut # 7.6 K/uL (1.8-7.0) H 09/08/16 07:45 Lymph # 0.6 K/uL (1.0-4.3) L 09/08/16 07:45 [place] # 0.4 K/uL (0.0-0.8) 09/08/16 07:45 Eos # 0.0 K/uL (0.0-0.7) 09/08/16 07:45 Baso # 0.0 K/uL (0.0-0.2) 09/08/16 07:45 Neutrophils % (Manual) 90 % (42-75) H 09/08/16 07:45 Lymphocytes % (Manual) 7 % (20-50) L 09/08/16 07:45 Monocytes % (Manual) 3 % (0-10) 09/08/16 07:45 Platelet Estimate Decreased (NORMAL) L 09/08/16 07:45 Large Platelets Present 09/08/16 07:45 Anisocytosis (manual) Slight 09/08/16 07:45 PT 23.5 Seconds (9.8-13.1) H 09/16/16 05:00 INR 2.1 (0.9-1.2) H 09/16/16 05:00 APTT 44.6 Seconds (25.6-37.1) H 09/07/16 05:30 pCO2 51 mm/Hg (35-45) H 09/09/16 09:25 pO2 111 mm/Hg (80-100) H 09/09/16 09:25 HCO3 27.9 mmol/L (21-28) 09/09/16 09:25 ABG pH 7.38 (7.35-7.45) 09/09/16 09:25 ABG Total CO2 31.8 mmol/L (22-28) H 09/09/16 09:25 ABG O2 Saturation 98.7 % (95-98) H 09/09/16 09:25 ABG O2 Content 19.1 ML/dL (15-23) 09/09/16 09:25 ABG Base Excess 3.9 mmol/L (-2.0-3.0) H 09/09/16 09:25 ABG Hemoglobin 14.1 g/dL (11.7-17.4) 09/09/16 09:25 ABG Carboxyhemoglobin 1.9 % (0.5-1.5) H 09/09/16 09:25 POC ABG HHb (Measured) 1.3 % (0.0-5.0) 09/09/16 09:25 ABG Methemoglobin 1.2 % (0.0-3.0) 09/09/16 09:25 ABG O2 Capacity 19.4 mL/dL (16-24) 09/09/16 09:25 Tuan Test Yes 09/09/16 09:25 A-a O2 Difference 25.0 mm/Hg 09/09/16 09:25 Hgb O2 Saturation 95.7 % (95.0-98.0) 09/09/16 09:25 FiO2 28.0 % 09/09/16 09:25 Sodium 134 mmol/l (132-148) 09/15/16 05:00 Potassium 4.9 MMOL/L (3.6-5.0) 09/15/16 05:00 Chloride 93 mmol/L (98-107) L 09/15/16 05:00 Carbon Dioxide 36 mmol/L (22-30) H 09/15/16 05:00 Anion Gap 10 (10-20) 09/15/16 05:00 BUN 37 mg/dl (7-17) H 09/15/16 05:00 Creatinine 0.8 mg/dL (0.7-1.2) 09/15/16 05:00 Est GFR ( Amer) > 60 09/15/16 05:00 Est GFR (Non-Af Amer) > 60 09/15/16 05:00 POC Glucose (mg/dL) 340 mg/dL (65-110) H 09/16/16 15:39 Random Glucose 235 mg/dL (65-105) H 09/15/16 05:00 Calcium 9.2 mg/dL (8.4-10.2) 09/15/16 05:00 Phosphorus 3.8 mg/dl (2.5-4.5) 09/07/16 05:30 Magnesium 2.1 MG/DL (1.6-2.3) 09/07/16 05:30 Total Bilirubin 0.8 mg/dl (0.2-1.3) 09/07/16 05:30 AST 56 U/L (14-36) H 09/07/16 05:30 ALT 102 U/L (9-52) H 09/07/16 05:30 Alkaline Phosphatase 209 U/L (38-126) H 09/07/16 05:30 Troponin I 0.0190 ng/mL (0.00-0.120) 09/07/16 21:28 NT-Pro-B Natriuret Pep 557 pg/ml (0-900) 09/07/16 05:30 Total Protein 7.2 G/DL (6.3-8.2) 09/07/16 05:30 Albumin 4.0 g/dL (3.5-5.0) 09/07/16 05:30 Globulin 3.3 gm/dL (2.2-3.9) 09/07/16 05:30 Albumin/Globulin Ratio 1.2 (1.0-2.1) 09/07/16 05:30 Urine Color Yellow (YELLOW) 09/07/16 12:30 Urine Clarity Clear (Clear) 09/07/16 12:30 Urine pH 6.0 (5.0-8.0) 09/07/16 12:30 Ur Specific [place] 1.025 (1.003-1.030) 09/07/16 12:30 Urine Protein 30 mg/dL (NEGATIVE) 09/07/16 12:30 Urine Glucose (UA) >=500 mg/dL (Normal) 09/07/16 12:30 Urine Ketones Negative mg/dL (NEGATIVE) 09/07/16 12:30 Urine Blood Negative (NEGATIVE) 09/07/16 12:30 Urine Nitrate Negative (NEGATIVE) 09/07/16 12:30 Urine Bilirubin Negative (NEGATIVE) 09/07/16 12:30 Urine Urobilinogen 2.0 mg/dL (0.2-1.0) H 09/07/16 12:30 Ur Leukocyte Esterase Neg Kirill/uL (Negative) 09/07/16 12:30 Urine RBC (Auto) 2 /hpf (0-3) 09/07/16 12:30 Urine Microscopic WBC 1 /hpf (0-5) 09/07/16 12:30 Ur Squamous Epith Cells 3 /hpf (0-5) 09/07/16 12:30 Discharge Plan - Discharge Medications Prescriptions: Digoxin [Lanoxin] 0.25 mg PO DAILY #30 tab diltiaZEM CD [Cardizem CD] 240 mg PO DAILY #30 cap predniSONE [predniSONE Tab] 20 mg PO DAILY #10 tab Warfarin [Coumadin] 5 mg PO DAILY #30 - Follow Up Plan Condition: FAIR Disposition: HOME/ ROUTINE Instructions: Atrial Fibrillation (DC), COPD (Chronic Obstructive Pulmonary Disease) (DC) Referrals: Hakan Velasco MD [Staff Provider] - Kiran Small MD [Medical Doctor] - <June Mcgee - Last Filed: 09/16/16 16:08> Provider - Provider Date of Admission: 09/08/16 10:32 Attending physician: Yessi So MD Consults: Cardiology, Dr. Pena Pulmonology, Dr. Dao Time Spent in preparation of Discharge (in minutes): 30 Hospital Course - Lab Results Lab Results: Most Recent Lab Values WBC 7.2 K/uL (4.8-10.8) 09/11/16 05:00 RBC 5.10 Mil/uL (3.80-5.20) 09/11/16 05:00 Hgb 14.1 g/dL (12.0-16.0) 09/11/16 05:00 Hct 43.7 % (34.0-47.0) 09/11/16 05:00 MCV 85.8 fl (81.0-99.0) 09/11/16 05:00 MCH 27.6 pg (27.0-31.0) 09/11/16 05:00 MCHC 32.2 g/dL (33.0-37.0) L 09/11/16 05:00 RDW 15.3 % (11.5-14.5) H 09/11/16 05:00 Plt Count 68 K/uL (130-400) L 09/11/16 05:00 MPV 9.7 fl (7.2-11.7) 09/08/16 07:45 Neut % (Auto) 89.0 % (50.0-75.0) H 09/08/16 07:45 Lymph % (Auto) 6.6 % (20.0-40.0) L 09/08/16 07:45 [place] % (Auto) 4.4 % (0.0-10.0) 09/08/16 07:45 Eos % (Auto) 0.0 % (0.0-4.0) 09/08/16 07:45 Baso % (Auto) 0.0 % (0.0-2.0) 09/08/16 07:45 Neut # 7.6 K/uL (1.8-7.0) H 09/08/16 07:45 Lymph # 0.6 K/uL (1.0-4.3) L 09/08/16 07:45 [place] # 0.4 K/uL (0.0-0.8) 09/08/16 07:45 Eos # 0.0 K/uL (0.0-0.7) 09/08/16 07:45 Baso # 0.0 K/uL (0.0-0.2) 09/08/16 07:45 Neutrophils % (Manual) 90 % (42-75) H 09/08/16 07:45 Lymphocytes % (Manual) 7 % (20-50) L 09/08/16 07:45 Monocytes % (Manual) 3 % (0-10) 09/08/16 07:45 Platelet Estimate Decreased (NORMAL) L 09/08/16 07:45 Large Platelets Present 09/08/16 07:45 Anisocytosis (manual) Slight 09/08/16 07:45 PT 23.5 Seconds (9.8-13.1) H 09/16/16 05:00 INR 2.1 (0.9-1.2) H 09/16/16 05:00 APTT 44.6 Seconds (25.6-37.1) H 09/07/16 05:30 pCO2 51 mm/Hg (35-45) H 09/09/16 09:25 pO2 111 mm/Hg (80-100) H 09/09/16 09:25 HCO3 27.9 mmol/L (21-28) 09/09/16 09:25 ABG pH 7.38 (7.35-7.45) 09/09/16 09:25 ABG Total CO2 31.8 mmol/L (22-28) H 09/09/16 09:25 ABG O2 Saturation 98.7 % (95-98) H 09/09/16 09:25 ABG O2 Content 19.1 ML/dL (15-23) 09/09/16 09:25 ABG Base Excess 3.9 mmol/L (-2.0-3.0) H 09/09/16 09:25 ABG Hemoglobin 14.1 g/dL (11.7-17.4) 09/09/16 09:25 ABG Carboxyhemoglobin 1.9 % (0.5-1.5) H 09/09/16 09:25 POC ABG HHb (Measured) 1.3 % (0.0-5.0) 09/09/16 09:25 ABG Methemoglobin 1.2 % (0.0-3.0) 09/09/16 09:25 ABG O2 Capacity 19.4 mL/dL (16-24) 09/09/16 09:25 Tuan Test Yes 09/09/16 09:25 A-a O2 Difference 25.0 mm/Hg 09/09/16 09:25 Hgb O2 Saturation 95.7 % (95.0-98.0) 09/09/16 09:25 FiO2 28.0 % 09/09/16 09:25 Sodium 134 mmol/l (132-148) 09/15/16 05:00 Potassium 4.9 MMOL/L (3.6-5.0) 09/15/16 05:00 Chloride 93 mmol/L (98-107) L 09/15/16 05:00 Carbon Dioxide 36 mmol/L (22-30) H 09/15/16 05:00 Anion Gap 10 (10-20) 09/15/16 05:00 BUN 37 mg/dl (7-17) H 09/15/16 05:00 Creatinine 0.8 mg/dL (0.7-1.2) 09/15/16 05:00 Est GFR ( Amer) > 60 09/15/16 05:00 Est GFR (Non-Af Amer) > 60 09/15/16 05:00 POC Glucose (mg/dL) 432 mg/dL (65-110) H* 09/16/16 10:51 Random Glucose 235 mg/dL (65-105) H 09/15/16 05:00 Calcium 9.2 mg/dL (8.4-10.2) 09/15/16 05:00 Phosphorus 3.8 mg/dl (2.5-4.5) 09/07/16 05:30 Magnesium 2.1 MG/DL (1.6-2.3) 09/07/16 05:30 Total Bilirubin 0.8 mg/dl (0.2-1.3) 09/07/16 05:30 AST 56 U/L (14-36) H 09/07/16 05:30 ALT 102 U/L (9-52) H 09/07/16 05:30 Alkaline Phosphatase 209 U/L (38-126) H 09/07/16 05:30 Troponin I 0.0190 ng/mL (0.00-0.120) 09/07/16 21:28 NT-Pro-B Natriuret Pep 557 pg/ml (0-900) 09/07/16 05:30 Total Protein 7.2 G/DL (6.3-8.2) 09/07/16 05:30 Albumin 4.0 g/dL (3.5-5.0) 09/07/16 05:30 Globulin 3.3 gm/dL (2.2-3.9) 09/07/16 05:30 Albumin/Globulin Ratio 1.2 (1.0-2.1) 09/07/16 05:30 Urine Color Yellow (YELLOW) 09/07/16 12:30 Urine Clarity Clear (Clear) 09/07/16 12:30 Urine pH 6.0 (5.0-8.0) 09/07/16 12:30 Ur Specific [place] 1.025 (1.003-1.030) 09/07/16 12:30 Urine Protein 30 mg/dL (NEGATIVE) 09/07/16 12:30 Urine Glucose (UA) >=500 mg/dL (Normal) 09/07/16 12:30 Urine Ketones Negative mg/dL (NEGATIVE) 09/07/16 12:30 Urine Blood Negative (NEGATIVE) 09/07/16 12:30 Urine Nitrate Negative (NEGATIVE) 09/07/16 12:30 Urine Bilirubin Negative (NEGATIVE) 09/07/16 12:30 Urine Urobilinogen 2.0 mg/dL (0.2-1.0) H 09/07/16 12:30 Ur Leukocyte Esterase Neg Kirill/uL (Negative) 09/07/16 12:30 Urine RBC (Auto) 2 /hpf (0-3) 09/07/16 12:30 Urine Microscopic WBC 1 /hpf (0-5) 09/07/16 12:30 Ur Squamous Epith Cells 3 /hpf (0-5) 09/07/16 12:30 - Hospital Course Hospital Course: 56 y/o old morbid obese female with PMH of COPD (on home O2), A-fib, HTN, IDDM2 , admitted for A-fib and COPD exacerbation. [facility] and [facility] were consulted. she received Azithromycin for 5 days while inpatient, IV steroids gradually tapered. she was also started on Advair. Her COPD symptoms slowly improved on steroids and patient was able to walk and move with out any SOB. Cardiology initiated Digoxin 0.25mg daily and her cardizem was increased from 180 to 240 daily. she received her regular dose of warfarin 5mg and remained in therapeutic INR. despite persistent heart rates in 120s, aggravated by exertion , patient denied any palpitations or heart racing. Patient remained stable and decision made to discharge with f/u to [facility] (Dr. Small)and [facility] (Dr. Vanegas) as outpatient after discharge. - Date & Time of H&P Date of H&P: 09/07/16 Time of H&P: 12:25 Discharge Exam - Head Exam Head Exam: ATRAUMATIC, NORMAL INSPECTION, NORMOCEPHALIC - Eye Exam Eye Exam: Normal appearance - Neck Exam Neck exam: Full Rom - Respiratory Exam Respiratory Exam: Decreased Breath Sounds. absent: Accessory Muscle Use, Chest Wall Tenderness Additional comments: but improved air entery b/l significantly - Cardiovascular Exam Cardiovascular Exam: Irregular Rhythm (A-fib), +S1, +S2. absent: +S4, Systolic Murmur - GI/Abdominal Exam GI & Abdominal Exam: Normal Bowel Sounds. absent: Bruit - Extremities Exam Extremities exam: full ROM (no tenderness, has mild pedal edema ), pedal edema ( +1) - Back Exam Back exam: absent: CVA tenderness (L), CVA tenderness (R), muscle spasm - Neurological Exam Neurological exam: Alert, CN II-XII Intact, Normal Gait, Oriented x3 - Psychiatric Exam Psychiatric exam: Normal Mood - Skin Skin Exam: Normal Color
[2016-09-16 16:02] VITALS: BP 145/79; PULSE 91; RESP 18; TEMP 98.2; O2SAT 98
--- NOTE | 2016-09-16 17:08 | CP.PCM.PN ---
Subjective - Date & Time of Evaluation Date of Evaluation: 09/16/16 Time of Evaluation: 11:00 - Subjective Subjective: F/U COPD Exacerbation. Pt with no SOB, no cough, no chest congestion. episode of HR in 140 while walking through the vora, Pt was seated and HR decreased to normal, eventually able to return to her room. Objective - Vital Signs/Intake and Output Vital Signs (last 24 hours): Temp Pulse Resp BP Pulse Ox 98.2 F 91 H 18 145/79 98 09/16/16 16:01 09/16/16 16:01 09/16/16 16:01 09/16/16 16:01 09/16/16 16:01 Intake and Output: 09/16/16 09/16/16 06:59 18:59 Intake Total 650 Balance 650 - Medications Medications: Current Medications Albuterol/Ipratropium (Duoneb 3 Mg/0.5 Mg (3 Ml) Ud) 3 ml INH Q4 PRN PRN Reason: Shortness of Breath Last Admin: 09/16/16 04:23 Dose: 3 ml Benzocaine/Menthol (Cepacol Sore Throat) 1 unruly PO Q2 PRN PRN Reason: Sore Throat Last Admin: 09/15/16 00:23 Dose: 1 unruly Benzonatate (Tessalon Perles) 100 mg PO TID PRN PRN Reason: Cough Last Admin: 09/16/16 09:05 Dose: 100 mg Budesonide (Pulmicort Respules) 0.25 mg INH RBID [facility] Last Admin: 09/16/16 07:37 Dose: 0.25 mg Dextrose (Dextrose 50% Inj) 0 ml IVP STAT PRN; Protocol PRN Reason: Hypoglycemia Protocol Digoxin (Lanoxin) 0.25 mg PO DAILY [facility] Last Admin: 09/16/16 08:21 Dose: 0.25 mg Diltiazem HCl (Cardizem Cd) 240 mg PO DAILY [facility] Last Admin: 09/16/16 08:20 Dose: 240 mg Furosemide (Lasix) 20 mg IVP DAILY [facility] Last Admin: 09/16/16 08:26 Dose: 20 mg Glucagon (Glucagen Diagnostic Kit) 0 mg IM STAT PRN; Protocol PRN Reason: Hypoglycemia Protocol Guaifenesin (Mucinex [place]) 600 mg PO Q12 [facility] Last Admin: 07/04/17 08:20 Dose: 600 mg Insulin Human Regular (Humulin R) 0 units SC ACHS [facility] PRN Reason: Protocol Last Admin: 09/16/16 16:18 Dose: 8 units Insulin Lispro Protam/Lispro Human (Humalog Mix 75/25) 65 units SC Q12 [facility] Ipratropium [place] (Atrovent) 0.5 mg IH RQ6 [facility] Last Admin: 09/16/16 13:53 Dose: 0.5 mg Levalbuterol HCl (Xopenex) 1.25 mg INH RQ8 [facility] Last Admin: 09/16/16 15:21 Dose: 1.25 mg Losartan Potassium (Cozaar) 50 mg PO DAILY [facility] Last Admin: 09/16/16 08:21 Dose: 50 mg Metformin HCl (Glucophage) 500 mg PO BIDWM [facility] Last Admin: 09/16/16 16:17 Dose: 500 mg Prednisone (Prednisone Tab) 50 mg PO DAILY [facility] Stop: 09/19/16 09:00 Prednisone (Prednisone Tab) 40 mg PO DAILY [facility] Stop: 09/22/16 09:00 Prednisone (Prednisone Tab) 30 mg PO DAILY [facility] Stop: 09/24/16 09:00 - Labs Labs: 09/11/16 05:00 09/15/16 05:00 PT 23.5 Seconds (9.8-13.1) H 09/16/16 05:00 INR 2.1 (0.9-1.2) H 09/16/16 05:00 APTT 44.6 Seconds (25.6-37.1) H 09/07/16 05:30 - Constitutional Appears: No Acute Distress - Head Exam Head Exam: NORMAL INSPECTION - Eye Exam Eye Exam: PERRL - ENT Exam ENT Exam: Normal Oropharynx - Neck Exam Neck Exam: Normal Inspection - Respiratory Exam Respiratory Exam: Decreased Breath Sounds - Cardiovascular Exam Cardiovascular Exam: Irregular Rhythm - GI/Abdominal Exam GI & Abdominal Exam: Soft, Normal Bowel Sounds - Extremities Exam Extremities Exam: Normal Inspection - Back Exam Back Exam: NORMAL INSPECTION - Neurological Exam Neurological Exam: Alert, Oriented x3. absent: Motor Sensory Deficit - Psychiatric Exam Psychiatric exam: Normal Mood - Skin Skin Exam: Warm Assessment and Plan (1) COPD exacerbation Status: Acute (2) KM (obstructive sleep apnea) Status: Acute (3) Atrial fibrillation Status: Acute - Assessment and Plan (Free Text) Plan: Pt improved, taper Prednisone
--- NOTE | 2016-09-16 17:36 | CP.PCM.PN ---
Subjective - Date & Time of Evaluation Date of Evaluation: 09/16/16 Time of Evaluation: 17:34 - Subjective Subjective: No chest pain Rapid A Fib upon exertion Objective - Vital Signs/Intake and Output Vital Signs (last 24 hours): Temp Pulse Resp BP Pulse Ox 98.2 F 91 H 18 145/79 98 09/16/16 16:01 09/16/16 16:01 09/16/16 16:01 09/16/16 16:01 09/16/16 16:01 Intake and Output: 09/16/16 09/16/16 06:59 18:59 Intake Total 650 Balance 650 - Medications Medications: Current Medications Albuterol/Ipratropium (Duoneb 3 Mg/0.5 Mg (3 Ml) Ud) 3 ml INH Q4 PRN PRN Reason: Shortness of Breath Last Admin: 09/16/16 04:23 Dose: 3 ml Benzocaine/Menthol (Cepacol Sore Throat) 1 unruly PO Q2 PRN PRN Reason: Sore Throat Last Admin: 09/15/16 00:23 Dose: 1 unruly Benzonatate (Tessalon Perles) 100 mg PO TID PRN PRN Reason: Cough Last Admin: 09/16/16 09:05 Dose: 100 mg Budesonide (Pulmicort Respules) 0.25 mg INH RBID [facility] Last Admin: 09/16/16 07:37 Dose: 0.25 mg Dextrose (Dextrose 50% Inj) 0 ml IVP STAT PRN; Protocol PRN Reason: Hypoglycemia Protocol Digoxin (Lanoxin) 0.25 mg PO DAILY [facility] Last Admin: 09/16/16 08:21 Dose: 0.25 mg Diltiazem HCl (Cardizem Cd) 240 mg PO DAILY [facility] Last Admin: 09/16/16 08:20 Dose: 240 mg Furosemide (Lasix) 20 mg IVP DAILY [facility] Last Admin: 09/16/16 08:26 Dose: 20 mg Glucagon (Glucagen Diagnostic Kit) 0 mg IM STAT PRN; Protocol PRN Reason: Hypoglycemia Protocol Guaifenesin (Mucinex La) 600 mg PO Q12 [facility] Last Admin: 09/16/16 08:20 Dose: 600 mg Insulin Human Regular (Humulin R) 0 units SC ACHS [facility] PRN Reason: Protocol Last Admin: 09/16/16 16:18 Dose: 8 units Insulin Lispro Protam/Lispro Human (Humalog Mix 75/25) 65 units SC Q12 [facility] Ipratropium [place] (Atrovent) 0.5 mg IH RQ6 [facility] Last Admin: 09/16/16 13:53 Dose: 0.5 mg Levalbuterol HCl (Xopenex) 1.25 mg INH RQ8 [facility] Last Admin: 09/16/16 15:21 Dose: 1.25 mg Losartan Potassium (Cozaar) 50 mg PO DAILY [facility] Last Admin: 09/16/16 08:21 Dose: 50 mg Metformin HCl (Glucophage) 500 mg PO BIDWM [facility] Last Admin: 09/16/16 16:17 Dose: 500 mg Prednisone (Prednisone Tab) 50 mg PO DAILY [facility] Stop: 09/19/16 09:00 Prednisone (Prednisone Tab) 40 mg PO DAILY [facility] Stop: 09/22/16 09:00 Prednisone (Prednisone Tab) 30 mg PO DAILY [facility] Stop: 09/24/16 09:00 - Labs Labs: 09/11/16 05:00 09/15/16 05:00 PT 23.5 Seconds (9.8-13.1) H 09/16/16 05:00 INR 2.1 (0.9-1.2) H 09/16/16 05:00 APTT 44.6 Seconds (25.6-37.1) H 09/07/16 05:30 - Head Exam Head Exam: NORMAL INSPECTION - Neck Exam Neck Exam: Normal Inspection - Respiratory Exam Respiratory Exam: Rhonchi - Extremities Exam Extremities Exam: Pedal Edema Assessment and Plan - Assessment and Plan (Free Text) Assessment: A Fib COPD Plan: Cont Albuterol/Ipratropium (Duoneb 3 Mg/0.5 Mg (3 Ml) Ud) 3 ml INH Q4 PRN PRN Reason: Shortness of Breath Last Admin: 09/16/16 04:23 Dose: 3 ml Benzocaine/Menthol (Cepacol Sore Throat) 1 unruly PO Q2 PRN PRN Reason: Sore Throat Last Admin: 09/15/16 00:23 Dose: 1 unruly Benzonatate (Tessalon Perles) 100 mg PO TID PRN PRN Reason: Cough Last Admin: 09/16/16 09:05 Dose: 100 mg Budesonide (Pulmicort Respules) 0.25 mg INH RBID [facility] Last Admin: 09/16/16 07:37 Dose: 0.25 mg Dextrose (Dextrose 50% Inj) 0 ml IVP STAT PRN; Protocol PRN Reason: Hypoglycemia Protocol Digoxin (Lanoxin) 0.25 mg PO DAILY [facility] Last Admin: 09/16/16 08:21 Dose: 0.25 mg Diltiazem HCl (Cardizem Cd) 240 mg PO DAILY [facility] Last Admin: 09/16/16 08:20 Dose: 240 mg Furosemide (Lasix) 20 mg IVP DAILY [facility] Last Admin: 09/16/16 08:26 Dose: 20 mg Glucagon (Glucagen Diagnostic Kit) 0 mg IM STAT PRN; Protocol PRN Reason: Hypoglycemia Protocol Guaifenesin (Mucinex La) 600 mg PO Q12 [facility] Last Admin: 09/16/16 08:20 Dose: 600 mg Insulin Human Regular (Humulin R) 0 units SC ACHS [facility] PRN Reason: Protocol Last Admin: 09/16/16 16:18 Dose: 8 units Insulin Lispro Protam/Lispro Human (Humalog Mix 75/25) 65 units SC Q12 [facility] Ipratropium [place] (Atrovent) 0.5 mg IH RQ6 [facility] Last Admin: 09/16/16 13:53 Dose: 0.5 mg Levalbuterol HCl (Xopenex) 1.25 mg INH RQ8 [facility] Last Admin: 09/16/16 15:21 Dose: 1.25 mg Losartan Potassium (Cozaar) 50 mg PO DAILY [facility] Last Admin: 09/16/16 08:21 Dose: 50 mg Metformin HCl (Glucophage) 500 mg PO BIDWM [facility] Last Admin: 09/16/16 16:17 Dose: 500 mg Prednisone (Prednisone Tab) 50 mg PO DAILY [facility] Stop: 09/19/16 09:00 Prednisone (Prednisone Tab) 40 mg PO DAILY [facility] Stop: 09/22/16 09:00 Prednisone (Prednisone Tab) 30 mg PO DAILY [facility] Stop: 09/24/16 09:00 Discussed with medical team may change Cardizem to 90 mg TID
[2016-09-17] MEDS: Ipratropium 0.02% Inhal Soln (0.5 mg/2.5 ml) UD IH SCH (01:04)
== END 2016-09-16 18:10 | disposition home or self-care (01) | DRG 138 ==
LOC: H.ER 05:11 → H.ERHOLD 07:10 → H.TEL 09:27 → OBSVTOIN 09-08 10:32
PROVIDERS: ADMIT Family Medicine; ATTEND Family Medicine
PROC: 3E0F73Z Introduction of Anti-inflammatory into Respiratory Tract, Via Natural or Artificial Opening (ICD-10-PCS; principal; 2016-09-08)
DX: I48.2 Chronic atrial fibrillation (principal); J44.1 Chronic obstructive pulmonary disease with (acute) exacerbation; Z99.81 Dependence on supplemental oxygen; E11.65 Type 2 diabetes mellitus with hyperglycemia; Z68.42 Body mass index [BMI] 45.0-49.9, adult; E66.01 Morbid (severe) obesity due to excess calories; I10 Essential (primary) hypertension; G47.33 Obstructive sleep apnea (adult) (pediatric); E78.00 Pure hypercholesterolemia, unspecified; M19.90 Unspecified osteoarthritis, unspecified site; Z79.01 Long term (current) use of anticoagulants; K42.9 Umbilical hernia without obstruction or gangrene; Z87.891 Personal history of nicotine dependence; Z79.4 Long term (current) use of insulin

== ENCOUNTER 2016-12-01 14:15 | Emergency (ER) | payer MEDICAID ==
[2016-12-01 14:15] VITALS: PULSE 88; BMI 49.4
[2016-12-01] MEDS ORDERED: Albuterol-Ipratrop 3 mg / 0.5 (3 ml) UD ONE (15:32)
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
[2016-12-01 16:16] LABS: BASO % 0.5 % (0.0-2.0); EOS # 0.2 K/uL (0.0-0.7); EOS % 2.9 % (0.0-4.0); HEMATOCRIT 43.1 % (34.0-47.0); LYMPH # 0.9 K/uL (1.0-4.3); LYMPH % 15.7 % (20.0-40.0); MEAN CELL VOLUME 83.5 fl (81.0-99.0); MEAN CORPUSCULAR HEMOGLOBIN 26.4 pg (27.0-31.0); MEAN CORPUSCULAR HGB CONC 31.6 g/dL (33.0-37.0); MEAN PLATELET VOLUME 10.5 fl (7.2-11.7); MONO # 0.4 K/uL (0.0-0.8); MONO % 7.2 % (0.0-10.0); NEUT # 4.2 K/uL (1.8-7.0); NEUT % 73.7 % (50.0-75.0); NRBC % 0.1 % (0.0-0.0); RED CELL DISTRIBUTION WIDTH 15.2 % (11.5-14.5); WHITE BLOOD COUNT 5.7 K/uL (4.8-10.8)
[2016-12-01] MEDS: Albuterol-Ipratrop 3 mg / 0.5 (3 ml) UD INH STA ×2 (16:16→18:43)
--- NOTE | 2016-12-01 16:19 | US ---
HISTORY: LLE swelling . PRIORS: Comparison made with prior bilateral lower extremity venous Doppler study dated 08/07/2016 FINDINGS: 2-D, color and duplex Doppler analysis of the lower extremity venous circulation using routine protocol from the femoral veins through the popliteal veins. Venous compressibility: Normal. Flow and augmentation patterns: Normal. Visualized veins upper third of calf: Normal. Gayle cyst: None. IMPRESSION: No sonographic or Doppler evidence for DVT in left lower extremity.
[2016-12-01 16:28] LABS: ALB/GLOB RATIO 1.1 (1.0-2.1); ALKALINE PHOSPHATASE 258 U/L (38-126); ALT/SGPT 54 U/L (9-52); AST/SGOT 46 U/L (14-36); BLOOD UREA NITROGEN 16 mg/dl (7-17); CALCIUM 9.7 mg/dL (8.4-10.2); CARBON DIOXIDE 26 mmol/L (22-30); CHLORIDE 99 mmol/L (98-107); GFR AFRICAN-AMERICAN > 60; GLUCOSE,RANDOM 352 mg/dL (65-105); POTASSIUM 4.3 MMOL/L (3.6-5.0); SODIUM 136 mmol/l (132-148)
[2016-12-01 16:52] LABS: RBC URINE 6 /hpf (0-3); URINE BACTERIA RARE (<OCC); URINE BILIRUBIN NEGATIVE (NEGATIVE); URINE BLOOD NEGATIVE (NEGATIVE); URINE COLOR YELLOW (YELLOW); URINE GLUCOSE (UA) >=500 mg/dL (Normal); URINE KETONE NEGATIVE (NEGATIVE); URINE LEUKOCYTE ESTERASE SMALL Leu/uL (Negative); URINE PROTEIN NEGATIVE (NEGATIVE); URINE UROBILINOGEN 0.2-1.0 mg/dL (0.2-1.0)
[2016-12-01 16:59] LABS: WBC URINE 15 /hpf (0-5)
[2016-12-01] MEDS: Sodium Chloride 0.9% 1,000 ML IV STA (17:14)
[2016-12-01] MEDS ORDERED: Iodixanol 320 MG/ML 100 ML BOTTLE IV ONE (17:27)
[2016-12-01] MEDS ORDERED: Sodium Chloride 0.9% 50 ML IV ONE (17:27)
[2016-12-01 17:31] LABS: VENOUS BLOOD GAS BASE EXCESS 6.7 mmol/L (0.0-2.0); VENOUS BLOOD GAS PCO2 59 mmHg (40-60); VENOUS BLOOD PH 7.37 (7.32-7.43)
[2016-12-01 18:36] VITALS: RESP 17; TEMP 98.1
[2016-12-01] MEDS: Insulin Regular 100 units/ml IV STA (19:21)
[2016-12-01 19:24] VITALS: O2SAT 93
--- NOTE | 2016-12-01 19:28 | ED PDOC ---
- Laboratory Results Result Diagrams: 12/01/16 15:30 12/01/16 16:00 - ECG O2 Sat by Pulse Oximetry: 93 (RA) Medical Decision Making Medical Decision Makin:00 Patient signed over to me by Dr. Karen Horan MD pending CT Scan. 823: IMPRESSION: Limited by patient motion, no aortic aneurysm or pulmonary embolus; mild cardiomegaly, atherosclerotic disease and dilated main pulmonary artery, unchanged; persistent/stable 3 mm peripheral right lower lobe nodule PT. states she's feeling much better, not wheezing anymore. Sitting in chair and speaking in full sentences, states she has followup with her her primary doctor and specialists soon. Scribe Attestation: Documented by Shelly Platt, acting as a scribe for Jelani Carmichael MD. Provider Scribe Attestation: All medical record entries made by the Scribe were at my direction and personally dictated by me. I have reviewed the chart and agree that the record accurately reflects my personal performance of the history, physical exam, medical decision making, and the department course for this patient. I have also personally directed, reviewed, and agree with the discharge instructions and disposition. Disposition - Clinical Impression Clinical Impression: COPD exacerbation - POA Present On Arrival: None - Disposition Disposition: Routine/Home Disposition Time: 20:30 Condition: FAIR Prescriptions: Prednisone 50 mg PO DAILY #4 tab Forms: [employer] (Turkish)
--- NOTE | 2016-12-01 19:48 | CT ---
EXAM: CT Angiography Chest With Intravenous Contrast EXAM DATE/TIME: 12/01/2016 5:05 PM CLINICAL HISTORY: 56 years old, female; Signs and symptoms; Shortness of breath; Additional info: SOB TECHNIQUE: Axial computed tomographic angiography images of the chest with intravenous contrast using pulmonary embolism protocol. All CT scans at this facility use one or more dose reduction techniques, viz.: automated exposure control; ma/kV adjustment per patient size (including targeted exams where dose is matched to indication; i.e. head); or iterative reconstruction technique. MIP reconstructed images were created and reviewed. Coronal and sagittal reformatted images were created and reviewed. CONTRAST: 90 mL of [id number] administered intravenously. COMPARISON: CT - ANGIO CHEST PE PROTOCOL 08/25/2016 5:14:42 PM FINDINGS: Artifacts: Motion artifact degrades image quality. Heart, aorta and Pulmonary arteries: The heart is mildly enlarged. There are coronary artery calcifications. There is calcification of mitral anulus.There is fluid in the pericardial recesses. Aorta is normal in caliber. There are vascular calcifications. Main pulmonary artery is dilated, 4 cm in diameter. There are no central pulmonary emboli. Allowing for patient motion, no peripheral emboli are identified. Lungs and pleural spaces: Trachea and main bronchi are patent. There is no focal consolidation. There is a 3.2 mm peripheral right lower lobe nodule, unchanged compared to the prior study. There is minimal atelectasis/scarring in the lingula and right middle lobe. There are no effusions. There is minimal nodular pleural thickening in the inferior right middle lobe. Mediastinum: Esophagus is unremarkable. There are shotty mediastinal nodes. There is no hilar adenopathy. Thyroid: Thyroid is not optimally demonstrated. Bones/joints: There are degenerative changes in the osseus structures. Soft tissues: unremarkable Upper abdomen: The spleen is enlarged. IMPRESSION: Limited by patient motion, no aortic aneurysm or pulmonary embolus; mild cardiomegaly, atherosclerotic disease and dilated main pulmonary artery, unchanged; persistent/stable 3 mm peripheral right lower lobe nodule Footer: As per Fleischner Society guidelines for follow-up and management of pulmonary nodules: For patients at low risk (minimal or absent history of smoking and of other known risk factors), no follow-up needed. For patient at high risk (history of smoking or of other known risk factors), recommend follow-up chest CT at 12 months; if unchanged, no further follow-up needed.
[2016-12-01 22:51] VITALS: BP 127/90; PULSE 89
--- NOTE | 2016-12-02 07:32 | CARD ---
APPROVED REPORT EKG Measurement Heart [id number] <Conclusion> Atrial fibrillation Nonspecific ST and T wave abnormality Abnormal ECG
--- NOTE | 2016-12-02 12:04 | RAD ---
HISTORY: Shortness of breath. COMPARISON: 09/12/2016 two-view chest. December 01, 2016. CT pulmonary angiogram. TECHNIQUE: Chest PA and lateral FINDINGS: LUNGS: Pulmonary vascular congestion similar to that seen previously. No discrete infiltrates.Hyperinflation, manifestations of COPD. No active pulmonary disease. PLEURA: No significant pleural effusion identified. No pneumothorax apparent. CARDIOVASCULAR: Cardiomegaly. No evidence of acute, significant cardiovascular disease. OSSEOUS STRUCTURES: No significant abnormalities. VISUALIZED UPPER ABDOMEN: Normal. OTHER FINDINGS: None. IMPRESSION: No active pulmonary disease. No significant interval change compared to the prior examination(s).
== END 2016-12-01 20:50 | disposition home or self-care (01) ==
LOC: H.ER 14:15
DX: J44.1 Chronic obstructive pulmonary disease with (acute) exacerbation (principal); I48.91 Unspecified atrial fibrillation
CPT/HCPCS: 71020; 71275; 80053; 81003; 82803; 85025; 85378; 93005; 93971; 94150; 94640; 96374; 99285; J2270; J2930; J7040; Q9967

== ENCOUNTER 2016-12-23 14:14 | Emergency (ER) | payer MEDICAID ==
[2016-12-23 14:14] VITALS: PULSE 88; BMI 49.4
[2016-12-23 14:29] VITALS: O2SAT 96
[2016-12-23] MEDS ORDERED: Albuterol-Ipratrop 3 mg / 0.5 (3 ml) UD INH STA (14:51)
--- NOTE | 2016-12-23 15:00 | ED PDOC ---
HPI: SOB/CHF/COPD Time Seen by Provider: 12/23/16 14:32 Chief Complaint (Nursing): Shortness Of Breath Chief Complaint (Provider): bilateral knee pain and shortness of breath History Per: Patient History/Exam Limitations: no limitations Onset/Duration Of Symptoms: Days (x2) Associated Symptoms: denies: Fever, Chills, Chest Pain, Ankle/Leg Swelling Additional Complaint(s): Desi Genao is a 56 year old female, with a past medical history of COPD, who presents to the emergency department complaining of chronic bilateral knee pain and shortness of breath onset 2 days ago. Patient reports she is supposed to get bilateral knee replacement but hasn't scheduled. She states that her shortness of breath is consistent with copd exacerbation and is requesting albuterol treatment and steroids. Patient denies any leg swelling, chest pain, fever or chills. No further medical complaints. PMD: Mario Dey Past Medical History Reviewed: Historical Data, Nursing Documentation, Vital Signs Vital Signs: Last Vital Signs Temp 98.1 F 12/23/16 16:19 Pulse 91 H 12/23/16 16:19 Resp 17 12/23/16 16:19 BP 154/78 H 12/23/16 16:19 Pulse Ox 96 12/23/16 16:19 - Medical History PMH: Arthritis, Atrial Fibrillation (dx first week of august), Cardia Arrhythmia ( afib), CHF, COPD, Diabetes, Fractures (ribs), HTN, Hypercholesterolemia Denies: HIV, Chronic Kidney Disease - Surgical History Surgical History: Carotid Endarterectomy, Hernia Repair, Tonsillectomy - Family History Family History: States: Unknown Family Hx, Diabetes, Hypertension - Immunization History Hx Tetanus Toxoid Vaccination: No Hx Influenza Vaccination: No Hx Pneumococcal Vaccination: No - Home Medications Home Medications: Ambulatory Orders Medication Instructions Recorded Ascorbic Acid [Vitamin C] 1,500 mg PO DAILY 08/06/16 Losartan [Cozaar] 50 mg PO DAILY #30 tab 08/09/16 Albuterol 0.083% [Albuterol 0.083% 3 ml IH Q4 PRN #50 neb 08/25/16 Inhal Katrina (2.5 mg/3 ml) UD] Albuterol/Ipratropium [Duoneb 3 3 ml IH Q6 PRN #60 ml 09/04/16 mg/0.5 mg (3 ml) UD] Insulin Lispro Protamin/Lispro 50 unit SC BID 09/04/16 [Humalog Mix 75-25 Kwikpen] Futkq-7-Wfom Ethyl Esters 1 GM 1 gm PO DAILY 09/07/16 [Lovaza] Digoxin [Lanoxin] 0.25 mg PO DAILY #30 tab 09/16/16 Losartan [Cozaar] 50 mg PO DAILY tab 09/16/16 Warfarin [Coumadin] 5 mg PO DAILY #30 09/16/16 diltiaZEM CD [Cardizem CD] 240 mg PO DAILY #30 cap 09/16/16 predniSONE [predniSONE Tab] 20 mg PO DAILY #10 tab 09/16/16 Albuterol 0.083% [Albuterol 3 ml IH PRN PRN #1 packet 12/01/16 Sulfate 3 Ml] Furosemide [Lasix] 40 mg PO DAILY #20 tab 12/01/16 Naproxen 500 mg PO TID #30 ect 12/01/16 predniSONE [predniSONE Tab] 20 mg PO DAILY 3 Days tab 12/01/16 Prednisone 50 mg PO DAILY #3 tablet 12/23/16 - Allergies Allergies/Adverse Reactions: Allergies Allergy/AdvReac Type Severity Reaction Status Date / Time zolpidem tartrate Allergy Mild RASH Verified 12/01/16 14:26 [From Jessi] Review of Systems ROS Statement: Except As Marked, All Systems Reviewed And Found Negative Constitutional: Negative for: Fever, Chills Cardiovascular: Negative for: Chest Pain Respiratory: Positive for: Shortness of Breath Musculoskeletal: Positive for: Leg Pain (Chronic bilateral knee pain. No swelling) Physical Exam - Reviewed Nursing Documentation Reviewed: Yes Vital Signs Reviewed: Yes - Physical Exam Appears: Positive for: Well, Non-toxic, No Acute Distress Head Exam: Positive for: ATRAUMATIC, NORMAL INSPECTION, NORMOCEPHALIC Skin: Positive for: Normal Color, Warm, Dry Eye Exam: Positive for: EOMI, Normal appearance, PERRL Neck: Positive for: Normal, Painless ROM, Supple Cardiovascular/Chest: Positive for: Irregularly Irregular. Negative for: Murmur Respiratory: Positive for: Wheezing. Negative for: Respiratory Distress Gastrointestinal/Abdominal: Positive for: Normal Exam, Bowel Sounds, Soft. Negative for: Tenderness, Guarding, Rebound Back: Positive for: Normal Inspection (No midline tenderness). Negative for: L CVA Tenderness, R CVA Tenderness Extremity: Positive for: Normal ROM (to lower extremities. ), Other ( Ambulating with walker. ). Negative for: Pedal Edema, Deformity, Swelling Neurologic/Psych: Positive for: Alert, Oriented. Negative for: Motor/Sensory Deficits - ECG O2 Sat by Pulse Oximetry: 96 (RA) Pulse Ox Interpretation: Normal Medical Decision Making Medical Decision Making: Initial Impression: Chronic knee pain and asthma exacerbation. Initial Plan: --Duoneb 3 ml INH --SOLU-medrol 125 mg IVP --Morphine 2 mg IVP --reevaluation Scribe Attestation: Documented by Clarence Hsieh, acting as a scribe for Petra Tavares MD Provider Scribe Attestation: All medical record entries made by the Scribe were at my direction and personally dictated by me. I have reviewed the chart and agree that the record accurately reflects my personal performance of the history, physical exam, medical decision making, and the department course for this patient. I have also personally directed, reviewed, and agree with the discharge instructions and disposition. EKG shows atrial fibrillation at 77bpm with normal intervals and no st change 4:08PM Pain resolved. Patient has no wheezing on reevaluation and wants to go home. Will dc Disposition - Clinical Impression Clinical Impression: Knee pain, COPD exacerbation - Disposition Disposition: Routine/Home Disposition Time: 16:09 Condition: GOOD Additional Instructions: Follow-up with PMD within 2 days. Return to ED if condition worsens. Use albuterol as needed. Follow-up with PMD for chronic knee pain. Take full course of steroids. Prescriptions: Prednisone 50 mg PO DAILY #3 tablet Instructions: COPD (Chronic Obstructive Pulmonary Disease) (ED), Knee Pain (ED) Forms: [employer] (Tajik)
[2016-12-23 16:21] VITALS: BP 154/78; PULSE 91; RESP 17; TEMP 98.1
== END 2016-12-23 16:21 | disposition home or self-care (01) ==
LOC: H.ER 14:14
DX: J44.1 Chronic obstructive pulmonary disease with (acute) exacerbation (principal); M25.569 Pain in unspecified knee; I10 Essential (primary) hypertension; Z96.651 Presence of right artificial knee joint
CPT/HCPCS: 94640; 96374; 96375; 99283; J2270; J2930

== ENCOUNTER 2017-02-19 14:20 | Emergency (ER) | payer MEDICAID ==
[2017-02-19 14:21] VITALS: PULSE 88; BMI 49.4
[2017-02-19 14:33] VITALS: BP 123/87; PULSE 87; TEMP 98.6; O2SAT 97
[2017-02-19] MEDS ORDERED: Albuterol-Ipratrop 3 mg / 0.5 (3 ml) UD IH STA (14:53)
--- NOTE | 2017-02-19 14:59 | ED PDOC ---
HPI: SOB/CHF/COPD Time Seen by Provider: 02/19/17 14:43 Chief Complaint (Nursing): Shortness Of Breath Chief Complaint (Provider): Shortness Of Breath History Per: Patient History/Exam Limitations: no limitations Onset/Duration Of Symptoms: Days (x 2) Current Symptoms Are (Timing): Still Present Additional Complaint(s): Desi Genao is a 56 year old female with a past medical history of COPD who presents complaining of shortness of breath, which is chronic but worsening over the past 2 days. Patient with scant non-productive cough. No fever or chest pain. Also complaining of left knee pain, scheduled for knee replacement. No trauma or injury associated. PMD: Dr. Mario Dey MD Past Medical History Reviewed: Historical Data, Nursing Documentation, Vital Signs Vital Signs: Last Vital Signs Temp 98.6 F 02/19/17 14:30 Pulse 87 02/19/17 14:30 Resp 16 02/19/17 14:30 BP 123/87 02/19/17 14:30 Pulse Ox 97 02/19/17 14:59 - Medical History PMH: Arthritis, Atrial Fibrillation (dx first week of august), Cardia Arrhythmia ( afib), CHF, COPD, Diabetes, Fractures (ribs), HTN, Hypercholesterolemia Denies: HIV, Chronic Kidney Disease - Surgical History Surgical History: Carotid Endarterectomy, Hernia Repair, Tonsillectomy - Family History Family History: States: Unknown Family Hx, Diabetes, Hypertension - Immunization History Hx Tetanus Toxoid Vaccination: No Hx Influenza Vaccination: No Hx Pneumococcal Vaccination: No - Home Medications Home Medications: Ambulatory Orders Medication Instructions Recorded Insulin Lispro Protamin/Lispro 60 unit SC BID 09/04/16 [Humalog Mix 75-25 Kwikpen] Arluo-7-Cpsy Ethyl Esters 1 GM 1 gm PO DAILY 09/07/16 [Lovaza] Digoxin [Lanoxin] 0.25 mg PO DAILY #30 tab 09/16/16 diltiaZEM CD [Cardizem CD] 240 mg PO DAILY #30 cap 09/16/16 Albuterol 0.083% [Albuterol 0.083% 2.5 mg IH Q8 #1 neb 02/19/17 Inhal Katrina (2.5 mg/3 ml) UD] Albuterol 0.083% [Albuterol 3 ml IH Q6H PRN 02/19/17 Sulfate 3 Ml] Furosemide [Lasix] 20 mg PO DAILY 02/19/17 Metoclopramide [Reglan] 10 mg PO DAILY 02/19/17 Milk Thistle [Milk Thistle] 1 cap PO DAILY 02/19/17 Warfarin [Coumadin] 5 mg PO QPM 02/19/17 - Allergies Allergies/Adverse Reactions: Allergies Allergy/AdvReac Type Severity Reaction Status Date / Time zolpidem tartrate Allergy Mild RASH Verified 02/19/17 14:29 [From Jessi] Review of Systems ROS Statement: Except As Marked, All Systems Reviewed And Found Negative Constitutional: Negative for: Fever Cardiovascular: Negative for: Chest Pain Respiratory: Positive for: Cough, Shortness of Breath. Negative for: Sputum Musculoskeletal: Positive for: Leg Pain (Left knee) Physical Exam - Reviewed Nursing Documentation Reviewed: Yes Vital Signs Reviewed: Yes - Physical Exam Appears: Positive for: Non-toxic, No Acute Distress Head Exam: Positive for: ATRAUMATIC, NORMOCEPHALIC Skin: Positive for: Normal Color, Warm, Dry Eye Exam: Positive for: EOMI, Normal appearance, PERRL Neck: Positive for: Normal, Painless ROM, Supple Cardiovascular/Chest: Positive for: Regular Rate, Rhythm. Negative for: Murmur Respiratory: Positive for: Decreased Breath Sounds. Negative for: Wheezing, Respiratory Distress Back: Positive for: Normal Inspection. Negative for: Vertebral Tenderness Extremity: Positive for: Capillary Refill (< 2 sec). Negative for: Deformity ( to left knee), Other (Crepitus) Neurologic/Psych: Positive for: Alert, Oriented (x 3). Negative for: Motor/ Sensory Deficits (focal) - ECG O2 Sat by Pulse Oximetry: 97 (RA) Pulse Ox Interpretation: Normal - Progress Re-evaluation Time: 16:27 Condition: Improved Medical Decision Making Medical Decision Making: Time: 14:53 Initial Plan: * Morphine 2 mg IV * Solu-medrol 125 mg IV * Duoneb 3 ml INH * Peak Flow pre/post treatment * Reevaluation Scribe Attestation: Documented by Sallie Song, acting as a scribe for Luisito Best MD Provider Scribe Attestation: All medical record entries made by the Scribe were at my direction and personally dictated by me. I have reviewed the chart and agree that the record accurately reflects my personal performance of the history, physical exam, medical decision making, and the department course for this patient. I have also personally directed, reviewed, and agree with the discharge instructions and disposition. Disposition - Clinical Impression Clinical Impression: COPD (chronic obstructive pulmonary disease) - Patient ED Disposition Is Patient to be Admitted: No - Disposition Disposition: Routine/Home Disposition Time: 16:28 Condition: FAIR Prescriptions: Albuterol 0.083% [Albuterol 0.083% Inhal Katrina (2.5 mg/3 ml) UD] 2.5 mg IH Q8 #1 neb Instructions: COPD (Chronic Obstructive Pulmonary Disease) (ED) Forms: [employer] (Belizean)
[2017-02-19] MEDS ORDERED: Albuterol-Ipratrop 3 mg / 0.5 (3 ml) UD ONE (15:42)
[2017-02-19 16:48] VITALS: RESP 21
--- NOTE | 2017-02-20 09:01 | CARD ---
APPROVED REPORT EKG Measurement Heart [id number] <Conclusion> Atrial fibrillation Possible septal infarct, age undetermined ST & T wave abnormality, consider inferior ischemia Abnormal ECG
== END 2017-02-19 16:49 | disposition home or self-care (01) ==
LOC: H.ER 14:20
DX: J44.9 Chronic obstructive pulmonary disease, unspecified (principal); E11.9 Type 2 diabetes mellitus without complications; E78.00 Pure hypercholesterolemia, unspecified; I11.0 Hypertensive heart disease with heart failure; I48.91 Unspecified atrial fibrillation; I50.9 Heart failure, unspecified; Z79.01 Long term (current) use of anticoagulants; Z79.4 Long term (current) use of insulin
CPT/HCPCS: 93005; 94640; 96374; 96375; 99283; J2270; J2930

== ENCOUNTER 2017-04-29 15:36 | Emergency (ER) | payer MEDICAID ==
[2017-04-29 15:36] VITALS: PULSE 88; BMI 49.4
[2017-04-29 15:49] VITALS: BP 158/70; PULSE 81; RESP 16; TEMP 98.3; O2SAT 96
[2017-04-29 18:15] LABS: BASO % 0.4 % (0.0-2.0); EOS # 0.1 K/uL (0.0-0.7); EOS % 1.2 % (0.0-4.0); HEMOGLOBIN 15.4 g/dL (12.0-16.0); LYMPH % 9.2 % (20.0-40.0); MEAN CELL VOLUME 85.1 fl (81.0-99.0); MEAN CORPUSCULAR HEMOGLOBIN 26.6 pg (27.0-31.0); MEAN CORPUSCULAR HGB CONC 31.3 g/dL (33.0-37.0); MEAN PLATELET VOLUME 9.6 fl (7.2-11.7); MONO # 0.8 K/uL (0.0-0.8); MONO % 7.7 % (0.0-10.0); NEUT # 8.5 K/uL (1.8-7.0); NEUT % 81.5 % (50.0-75.0); NRBC % 0.1 % (0.0-0.0); PLATELET COUNT 80 K/uL (130-400); RBC 5.78 Mil/uL (3.80-5.20); RED CELL DISTRIBUTION WIDTH 18.1 % (11.5-14.5); WHITE BLOOD COUNT 10.4 K/uL (4.8-10.8)
[2017-04-29 18:36] LABS: ALBUMIN 4.1 g/dL (3.5-5.0); ALT/SGPT 82 U/L (9-52); AST/SGOT 78 U/L (14-36); BLOOD UREA NITROGEN 15 mg/dl (7-17); CALCIUM 9.5 mg/dL (8.4-10.2); GFR AFRICAN-AMERICAN > 60; GFR NON-AFRICAN AMERICAN > 60
[2017-04-29 18:45] LABS: SQUAMOUS EPITHIAL 7 /hpf (0-5); URINE BACTERIA RARE (<OCC); URINE BILIRUBIN NEGATIVE (NEGATIVE); URINE BLOOD NEGATIVE (NEGATIVE); URINE CLARITY CLOUDY (Clear); URINE COLOR YELLOW (YELLOW); URINE GLUCOSE (UA) NEG (Normal); URINE LEUKOCYTE ESTERASE TRACE Leu/uL (Negative); URINE NITRATE NEGATIVE (NEGATIVE); URINE PROTEIN 100 mg/dL (NEGATIVE)
--- NOTE | 2017-04-29 18:45 | CT ---
PROCEDURE: CT Abdomen and Pelvis without intravenous contrast HISTORY: Right flank pain COMPARISON: 02/20/2016. TECHNIQUE: CT scan of the abdomen and pelvis was performed without administration of intravenous contrast. Oral contrast was not administered. Coronal and sagittal reformatted images were obtained. Radiation dose: Total exam DLP = 1003.01 mGy-cm. This CT exam was performed using one or more of the following dose reduction techniques: Automated exposure control, adjustment of the mA and/or kV according to patient size, and/or use of iterative reconstruction technique. FINDINGS: LOWER THORAX: The lung bases are clear. LIVER: The liver is enlarged and cirrhotic. No intrahepatic biliary ductal dilatation. GALLBLADDER AND BILE DUCTS: There are small gallstones. PANCREAS: Normal in size. No calcifications or ductal dilatation. SPLEEN: There is severe splenomegaly. ADRENALS: No discrete nodule. KIDNEYS AND URETERS: The kidneys are normal in size without hydronephrosis or nephrolithiasis. VASCULATURE: There are advanced atherosclerotic aortoiliac calcifications. No aortic aneurysm. BOWEL: The small bowel loops are normal in caliber. There is left colonic diverticulosis without CT evidence for acute diverticulitis. There is large amount of stool in the colon. No bowel dilatation or obstruction. APPENDIX: Normal appendix. PERITONEUM: No free fluid. No free air. LYMPH NODES: No enlarged lymph nodes. BLADDER: Unremarkable. REPRODUCTIVE: Fibroid uterus. BONES: No acute fracture. Multilevel degenerative changes. OTHER FINDINGS: None. IMPRESSION: 1. No nephrolithiasis, hydronephrosis or obstructive uropathy. 2.Cirrhosis of liver and severe splenomegaly. 3. Left colonic diverticulosis without CT evidence for acute diverticulitis.
[2017-04-29 18:50] LABS: BANDS 2 % (0-2); EOSINOPHIL 2 % (0-7); LYMPHOCYTE 11 % (20-50); MONOCYTE 7 % (0-10); NEUTROPHIL 78 % (42-75); TOTAL CELLS COUNTED 100
[2017-04-29 18:51] LABS: HYPOCHROMIC SLIGHT; LARGE PLATELETS PRESENT; PLATELET ESTIMATE DECREASED (NORMAL)
[2017-04-29] MEDS ORDERED: Albuterol 0.083% Inhal Sol (2.5 mg/3 mL) UD INH ONE (19:45)
--- NOTE | 2017-04-29 20:16 | ED PDOC ---
HPI: Abdomen Time Seen by Provider: 04/29/17 16:54 Chief Complaint (Nursing): Abdominal Pain Chief Complaint (Provider): right-side abdominal pain History Per: Patient History/Exam Limitations: no limitations Onset/Duration Of Symptoms: Days (04/29/17) Current Symptoms Are (Timing): Still Present Severity: Severe Quality Of Discomfort: "Pain" Associated Symptoms: denies: Fever, Vomiting, Diarrhea Additional Complaint(s): Desi Genao, a 57 year old female with a history of COPD, diabetes, asthma, atrial fibrillation, and hypertension presents to the ED complaining of severe abdominal pain on her right side onset today morning. Reports she also has urine infection but still has not started her antibiotics. States the pain radiates to her back and towards her lower extremities. Denies fever, diarrhea, vomiting, or problems urinating. PMD: Mario Dey Past Medical History Reviewed: Historical Data, Nursing Documentation, Vital Signs Vital Signs: Last Vital Signs Temp 98.3 F 04/29/17 15:44 Pulse 81 04/29/17 15:44 Resp 16 04/29/17 15:44 BP 158/70 H 04/29/17 15:44 Pulse Ox 96 05/05/17 11:25 - Medical History PMH: Arthritis, Atrial Fibrillation (dx first week of august), Cardia Arrhythmia ( afib), CHF, COPD, Diabetes, Fractures (ribs), HTN, Hypercholesterolemia Denies: HIV, Chronic Kidney Disease - Surgical History Surgical History: Carotid Endarterectomy, Hernia Repair, Tonsillectomy - Family History Family History: States: Unknown Family Hx, Diabetes, Hypertension - Social History Current smoker - smoking cessation education provided: No Alcohol: None Drugs: Denies - Immunization History Hx Tetanus Toxoid Vaccination: No Hx Influenza Vaccination: No Hx Pneumococcal Vaccination: No - Home Medications Home Medications: Ambulatory Orders Medication Instructions Recorded Insulin Lispro Protamin/Lispro 60 unit SC BID 09/04/16 [Humalog Mix 75-25 Kwikpen] Digoxin [Lanoxin] 0.25 mg PO DAILY #30 tab 09/16/16 diltiaZEM CD [Cardizem CD] 240 mg PO DAILY #30 cap 09/16/16 Albuterol 0.083% [Albuterol 0.083% 2.5 mg IH Q8 #1 neb 02/19/17 Inhal Katrina (2.5 mg/3 ml) UD] Furosemide [Lasix] 20 mg PO DAILY 02/19/17 Milk Thistle [Milk Thistle] 1 cap PO DAILY 02/19/17 Warfarin [Coumadin] 5 mg PO QPM 02/19/17 - Allergies Allergies/Adverse Reactions: Allergies Allergy/AdvReac Type Severity Reaction Status Date / Time zolpidem tartrate Allergy Mild RASH Verified 04/29/17 15:44 [From Jessi] Review of Systems ROS Statement: Except As Marked, All Systems Reviewed And Found Negative Constitutional: Negative for: Fever Gastrointestinal: Positive for: Abdominal Pain (right-side). Negative for: Vomiting, Diarrhea Physical Exam - Reviewed Nursing Documentation Reviewed: Yes Vital Signs Reviewed: Yes - Physical Exam Appears: Positive for: Well, Non-toxic, No Acute Distress Head Exam: Positive for: ATRAUMATIC, NORMAL INSPECTION, NORMOCEPHALIC Skin: Positive for: Normal Color, Warm, Dry Eye Exam: Positive for: EOMI, Normal appearance, PERRL ENT: Positive for: Normal ENT Inspection Neck: Positive for: Normal, Painless ROM, Supple. Negative for: Decreased ROM Cardiovascular/Chest: Positive for: Regular Rate, Rhythm. Negative for: Murmur , Bradycardia Respiratory: Positive for: Normal Breath Sounds. Negative for: Decreased Breath Sounds, Accessory Muscle Use, Respiratory Distress Gastrointestinal/Abdominal: Positive for: Tenderness (right flask and right lower quadrant) Back: Positive for: Normal Inspection. Negative for: L CVA Tenderness, R CVA Tenderness Extremity: Positive for: Normal ROM. Negative for: Tenderness, Pedal Edema, Deformity Neurologic/Psych: Positive for: Alert, Oriented (x3) - Laboratory Results Result Diagrams: 04/29/17 18:02 04/29/17 18:02 - ECG O2 Sat by Pulse Oximetry: 96 (RA) Pulse Ox Interpretation: Normal Medical Decision Making Medical Decision Making: Time: 17:45 Initial Plan: abdominal pain --CT Abdominal & Pelvis --CMP --CBC --Albuterol 0.083% 2.5mg --Urine C&S --Peak Flow Pre/Post treatment --urinalysis --Reevaluation pt reevaluated. feels better. tolerated po. pt aware of CT results. pt instructed to fill prior prescription for antibiotics for uti. stable for dc. Documented by Gabriel Steele acting as a scribe for Jasen Barnes MD. All medical record entries made by the Scribe were at my direction and personally dictated by me. I have reviewed the chart and agree that the record accurately reflects my personal performance of the history, physical exam, medical decision making, and the department course for this patient. I have also personally directed, reviewed, and agree with the discharge instructions and disposition. Disposition - Clinical Impression Clinical Impression: Abdominal discomfort - Patient ED Disposition Is Patient to be Admitted: No Counseled Patient/Family Regarding: Studies Performed, Diagnosis, Need For Followup - Disposition Disposition: Routine/Home Disposition Time: 18:00 Condition: IMPROVED Additional Instructions: follow up with Dr Martinez in 2 days you need to fill prescription for antibiotic you have elevated liver tests and cirrhosis of the liver so you need to follow up return to the ED with any worsening o r concerning symptoms Instructions: Abdominal Pain (ED) Forms: [employer] (Korean)
== END 2017-04-29 21:19 | disposition home or self-care (01) ==
LOC: H.ER 15:36
DX: R10.9 Unspecified abdominal pain (principal); E11.9 Type 2 diabetes mellitus without complications; E78.00 Pure hypercholesterolemia, unspecified; I11.0 Hypertensive heart disease with heart failure; I48.91 Unspecified atrial fibrillation; K74.60 Unspecified cirrhosis of liver; Z79.4 Long term (current) use of insulin; Z79.01 Long term (current) use of anticoagulants

== ENCOUNTER 2017-06-15 14:20 | Observation (INO) | payer MEDICAID ==
[2017-06-15 14:20] VITALS: BMI 49.4
[2017-06-15] MEDS ORDERED: Albuterol-Ipratrop 3 mg / 0.5 (3 ml) UD IH STA ×2 (14:50→17:28)
[2017-06-15] MEDS ORDERED: Albuterol-Ipratrop 3 mg / 0.5 (3 ml) UD INH STA (14:50)
[2017-06-15] MEDS ORDERED: Sodium Chloride 0.9% 500 ML IV STA (14:50)
[2017-06-15] MEDS ORDERED: Morphine 4 MG/ML VIAL IV ONE (14:50)
[2017-06-15] MEDS ORDERED: Albuterol-Ipratrop 3 mg / 0.5 (3 ml) UD ONE ×2 (14:58→17:32)
[2017-06-15] MEDS ORDERED: Morphine 4 MG/ML VIAL ONE (14:59)
--- NOTE | 2017-06-15 14:59 | ED PDOC ---
HPI: SOB/CHF/COPD Time Seen by Provider: 06/15/17 14:37 Chief Complaint (Nursing): Shortness Of Breath Chief Complaint (Provider): Shortness Of Breath History Per: Patient History/Exam Limitations: no limitations Onset/Duration Of Symptoms: Days (x2) Current Symptoms Are (Timing): Still Present Additional Complaint(s): 57 year old female with medical history of COPD, AFIB, DM and HCL, presents to the emergency department with a complaint of shortness of breath ongoing for 2 days. Patient reported recent use of her air conditioner at home because she has been "feeling hot due to her menopause". She denied any chest pain, palpitations, nausea, vomiting, diarrhea or headaches. Patient also stated she has been using Albuterol at home with minimal relief and has been to ED on 02/19 for similar symptoms. Similar to her copd and air conditioner triggered it. No cough, congestion. PMD: Mario Lynn MD Past Medical History Reviewed: Historical Data, Nursing Documentation, Vital Signs Vital Signs: Last Vital Signs Temp 97.8 F 06/15/17 14:27 Pulse 102 H 06/15/17 14:27 Resp 22 06/15/17 15:15 BP 150/71 06/15/17 14:27 Pulse Ox 94 L 06/15/17 16:25 - Medical History PMH: Arthritis, Atrial Fibrillation (dx first week of august), Cardia Arrhythmia ( afib), CHF, COPD, Diabetes, Fractures (ribs), HTN, Hypercholesterolemia Denies: HIV, Chronic Kidney Disease Other PMH: stage 4 liver dz - Surgical History Surgical History: Carotid Endarterectomy, Hernia Repair, Tonsillectomy - Family History Family History: States: Unknown Family Hx, Diabetes, Hypertension - Social History Current smoker - smoking cessation education provided: No Alcohol: None Drugs: Denies - Immunization History Hx Tetanus Toxoid Vaccination: No Hx Influenza Vaccination: No Hx Pneumococcal Vaccination: No - Home Medications Home Medications: Ambulatory Orders Medication Instructions Recorded Insulin Lispro Protamin/Lispro 60 unit SC BID 09/04/16 [Humalog Mix 75-25 Kwikpen] Digoxin [Lanoxin] 0.25 mg PO DAILY #30 tab 09/16/16 diltiaZEM CD [Cardizem CD] 240 mg PO DAILY #30 cap 09/16/16 Albuterol 0.083% [Albuterol 0.083% 2.5 mg IH Q8 #1 neb 02/19/17 Inhal Katrina (2.5 mg/3 ml) UD] Furosemide [Lasix] 20 mg PO DAILY 02/19/17 Milk Thistle [Milk Thistle] 1 cap PO DAILY 02/19/17 Warfarin [Coumadin] 5 mg PO QPM 02/19/17 - Allergies Allergies/Adverse Reactions: Allergies Allergy/AdvReac Type Severity Reaction Status Date / Time zolpidem tartrate Allergy Mild RASH Verified 04/29/17 15:44 [From Jessi] Review of Systems ROS Statement: Except As Marked, All Systems Reviewed And Found Negative Cardiovascular: Negative for: Chest Pain, Palpitations Respiratory: Positive for: Shortness of Breath Gastrointestinal: Negative for: Nausea, Vomiting, Diarrhea Neurological: Negative for: Headache Physical Exam - Reviewed Nursing Documentation Reviewed: Yes Vital Signs Reviewed: Yes - Physical Exam Appears: Positive for: Non-toxic, No Acute Distress Head Exam: Positive for: ATRAUMATIC, NORMAL INSPECTION, NORMOCEPHALIC Skin: Positive for: Normal Color Eye Exam: Positive for: Normal appearance, EOMI, PERRL ENT: Positive for: Normal ENT Inspection Neck: Positive for: Normal, Painless ROM, Supple Cardiovascular/Chest: Positive for: Regular Rate, Rhythm, Chest Non Tender Respiratory: Positive for: Decreased Breath Sounds, Wheezing (expiratory mildly) . Negative for: Normal Breath Sounds, Respiratory Distress Gastrointestinal/Abdominal: Positive for: Normal Exam, Soft. Negative for: Tenderness Back: Positive for: Normal Inspection. Negative for: L CVA Tenderness, R CVA Tenderness Extremity: Negative for: Normal ROM (limited secondary to pain at knees), Tenderness (lower), Pedal Edema (bilateral), Calf Tenderness (bilateral) Neurologic/Psych: Positive for: Alert, Oriented - Laboratory Results Result Diagrams: 06/15/17 15:28 06/15/17 15:28 Interpretation Of Abn Labs: 1160 probnp - ECG ECG: Positive for: Interpreted By Me, Viewed By Me ECG Rhythm: Positive for: Atrial Fibrillation (rate controlled) O2 Sat by Pulse Oximetry: 94 (RA) Pulse Ox Interpretation: Normal - Radiology X-Ray: Read By Radiologist X-Ray Interpretation: No Acute Disease - Progress ED Course And Treament: 1632: Pt. on coumadin. Will hold ASA. Pt. with chf exac. Admits to skipping last few days. Spoke with [facility] resident. Will admit. AAOx3. Feels better. Medical Decision Making Medical Decision Making: Initial Impression: COPD exacerbation Initial Plan: * EKG * BNP * CMP * Troponin I * CBC * PTT * PT * CXR * Duoneb 3ml INH * Morphine 4mg IV * NS 500ml IV per 100mls/hr * Solu-Medrol 125mg IVP * Peak flow pre/post TX Time: 1906 --CXR FINDINGS: LUNGS: No active pulmonary disease. PLEURA: No significant pleural effusion identified, no pneumothorax apparent. CARDIOVASCULAR: Cardiomegaly. No evidence of acute, significant cardiovascular disease. Prominent left heart border likely represents dilated pulmonary artery. OSSEOUS STRUCTURES: No significant abnormalities. VISUALIZED UPPER ABDOMEN: Normal. OTHER FINDINGS: None. IMPRESSION: No active disease. No significant interval change compared to the prior examination(s). Scribe Attestation: Documented by Michelle Naylor, acting as a scribe for Tang Hernandez MD. Provider Scribe Attestation: All medical record entries made by the Scribe were at my direction and personally dictated by me. I have reviewed the chart and agree that the record accurately reflects my personal performance of the history, physical exam, medical decision making, and the department course for this patient. I have also personally directed, reviewed, and agree with the discharge instructions and disposition. Disposition - Clinical Impression Clinical Impression: CHF exacerbation - Patient ED Disposition Is Patient to be Admitted: No Counseled Patient/Family Regarding: Studies Performed, Diagnosis - Disposition Disposition Time: 16:45 Condition: FAIR - Pt Status Changed To: Hospital Disposition Of: Observation - POA Present On Arrival: None
--- NOTE | 2017-06-15 15:20 | RAD ---
HISTORY: Dyspnea. COMPARISON: 12/01/2016 FINDINGS: LUNGS: No active pulmonary disease. PLEURA: No significant pleural effusion identified, no pneumothorax apparent. CARDIOVASCULAR: Cardiomegaly. No evidence of acute, significant cardiovascular disease. Prominent left heart border likely represents dilated pulmonary artery. OSSEOUS STRUCTURES: No significant abnormalities. VISUALIZED UPPER ABDOMEN: Normal. OTHER FINDINGS: None. IMPRESSION: No active disease. No significant interval change compared to the prior examination(s).
[2017-06-15 15:32] LABS: BASO % 0.5 % (0.0-2.0); EOS # 0.1 K/uL (0.0-0.7); EOS % 1.2 % (0.0-4.0); HEMOGLOBIN 14.1 g/dL (12.0-16.0); LYMPH # 0.8 K/uL (1.0-4.3); LYMPH % 11.4 % (20.0-40.0); MEAN CELL VOLUME 83.5 fl (81.0-99.0); MEAN CORPUSCULAR HEMOGLOBIN 27.2 pg (27.0-31.0); MEAN CORPUSCULAR HGB CONC 32.6 g/dL (33.0-37.0); MEAN PLATELET VOLUME 9.8 fl (7.2-11.7); MONO # 0.4 K/uL (0.0-0.8); MONO % 5.3 % (0.0-10.0); NEUT # 5.9 K/uL (1.8-7.0); NEUT % 81.6 % (50.0-75.0); RBC 5.18 Mil/uL (3.80-5.20); RED CELL DISTRIBUTION WIDTH 15.6 % (11.5-14.5); WHITE BLOOD COUNT 7.2 K/uL (4.8-10.8)
[2017-06-15 15:40] LABS: INR 1.4 (0.9-1.2); PARTIAL THROMBOPLASTIN TIME 35.5 Seconds (25.6-37.1); PROTHROMBIN TIME 15.4 Seconds (9.8-13.1)
[2017-06-15 15:46] LABS: ALBUMIN 3.8 g/dL (3.5-5.0); ALT/SGPT 61 U/L (9-52); AST/SGOT 37 U/L (14-36); BLOOD UREA NITROGEN 17 mg/dl (7-17); CALCIUM 9.1 mg/dL (8.4-10.2); GFR AFRICAN-AMERICAN > 60; GFR NON-AFRICAN AMERICAN > 60
[2017-06-15 15:57] LABS: B-TYPE NATRIURETIC PEPTIDE 1160 pg/ml (0-900)
[2017-06-15] MEDS ORDERED: Glucagon Recombinant 1 mg Inj IM PRN (18:57)
[2017-06-15] MEDS ORDERED: Dextrose 50% SYRINGE Inj (50 ml) IV PRN (18:57)
[2017-06-15] MEDS ORDERED: [UNRECOGNIZED DRUG - OTHER] SC SCH (19:00)
[2017-06-15] MEDS ORDERED: INSULIN LISPRO PROTAMINE SC SCH (19:00)
--- NOTE | 2017-06-15 19:44 | CP.PCM.HP ---
History of Present Illness - History of Present Illness History of Present Illness: 57 y/o obese F with PMHx of HTN, A fib, COPD, DM type 2, Liver Cirrhosis with severe splenomegaly presents to ED complaining of gradually increasing short of breath since yesterday. Patient reports that she has not taken her prescribed lasix of 20 mg PO for the last 2-3 days because she thinks " is making me forgetful". Denies fevers, chills, cough, nasal congestion, runny nose. Reports she has noticed mild swelling of her legs since yesterday. Denies chest pain, N/V, epigastric/abdominal pain. As per patient she has been f/u with Dr. Martinez as outpatient, who has been refilling her medications. Patient reports good adherence to the rest of her medications. PMD: Dr. Martinez. Last visit at [facility] was in 2016. Cardiology: a doctor in [place] has been managing her A fib, states she had an echo done 2-3 months ago, which was normal. Full code Allergies: Ambien: rash PMHx: HTN, COPD, Afib on coumadin, liver cirrhosis ( as per patient secondary to alcohol and pain medications abuse in the past) FHx: Father: HTN, Mother : /HTN/DM SocialHx: Former smoker/quit 8 years ago, denies current alcohol intake, denies illicit drugs. Shx: Tonsillectomy, Umbilical hernia x 2, tubal ligation meds: as per records in [facility] ER course: VS: HR: irregular/90s-100, BP: 150/70, O2 sat 95 in room air, RR:20 EKG Labs CXR treatment in ER: Duoneb x 3, furosemide 40 mg once, IV fluid, solumedrol 125 mg once, nitro SL 0.4 mg once, morphine 4 mg IV once Present on Admission - Present on Admission Any Indicators Present on Admission: No History of DVT/PE: No History of Uncontrolled Diabetes: No Urinary Catheter: No Decubitus Ulcer Present: No Review of Systems - Review of Systems All systems: reviewed and no additional remarkable complaints except (as per HPI ) Past Patient History - Infectious Disease Hx of Infectious Diseases: None - Past Medical History & Family History Past Medical History?: Yes - Past Social History Alcohol: None Drugs: Denies - CARDIAC Hx Atrial Fibrillation: Yes (dx first week of august) Hx Cardia Arrhythmia: Yes (afib) Hx Congestive Heart Failure: Yes Hx Hypercholesterolemia: Yes Hx Hypertension: Yes - PULMONARY Hx Chronic Obstructive Pulmonary Disease (COPD): Yes - NEUROLOGICAL Hx Neurological Disorder: No - HEENT Hx HEENT Problems: Yes Other/Comment: wears glasses - RENAL Hx Chronic Kidney Disease: No - ENDOCRINE/METABOLIC Hx Endocrine Disorders: Yes Hx Diabetes Mellitus Type 2: Yes Other/Comment: Morbid Obesity - HEMATOLOGICAL/ONCOLOGICAL Hx Human Immunodeficiency Virus (HIV): No - INTEGUMENTARY Hx Dermatological Problems: No - MUSCULOSKELETAL/RHEUMATOLOGICAL Hx Arthritis: Yes Hx Fractures: Yes (ribs) - GASTROINTESTINAL Hx Gastrointestinal Disorders: Yes (Hernia) - GENITOURINARY/GYNECOLOGICAL Hx Genitourinary Disorders: No - PSYCHIATRIC Hx Psychophysiologic Disorder: No Hx Substance Use: No - SURGICAL HISTORY Hx Carotid Endarterectomy: Yes Hx Tonsillectomy: Yes - ANESTHESIA Hx Anesthesia: Yes Hx Anesthesia Reactions: No Hx Malignant Hyperthermia: No Meds Allergies/Adverse Reactions: Allergies Allergy/AdvReac Type Severity Reaction Status Date / Time zolpidem tartrate Allergy Mild RASH Verified 04/29/17 15:44 [From Ambien] Physical Exam - Constitutional Appears: Non-toxic, No Acute Distress - Eye Exam Eye Exam: Normal appearance - ENT Exam ENT Exam: Mucous Membranes Moist - Respiratory Exam Respiratory Exam: Decreased Breath Sounds (both lung bases), Clear to Auscultation Bilateral (upper/middle lobes), NORMAL BREATHING PATTERN. absent: Accessory Muscle Use, Chest Wall Tenderness, Rales, Rhonchi, Wheezes, Stridor - Cardiovascular Exam Cardiovascular Exam: Tachycardia, Irregular Rhythm, +S1, +S2 - GI/Abdominal Exam GI & Abdominal Exam: Normal Bowel Sounds, Organomegaly, Soft. absent: Distended , Guarding, Rigid, Tenderness Additional comments: obese - Extremities Exam Extremities exam: Negative for: calf tenderness Additional comments: very mild bilateral edema in [place] - Neurological Exam Neurological exam: Alert, Oriented x3 - Psychiatric Exam Psychiatric exam: Normal Affect, Normal Mood - Skin Skin Exam: Dry, Intact, Normal Color Results - Vital Signs Recent Vital Signs: Last Vital Signs Temp 98.0 F 06/15/17 17:12 Pulse 94 H 06/15/17 19:22 Resp 20 06/15/17 19:22 BP 146/88 06/15/17 19:22 Pulse Ox 96 06/15/17 19:22 - Labs Result Diagrams: 06/15/17 15:28 06/15/17 15:28 Labs: Laboratory Results - last 24 hr 06/15/17 06/15/17 06/15/17 15:28 15:28 15:28 WBC 7.2 RBC 5.18 Hgb 14.1 Hct 43.2 MCV 83.5 MCH 27.2 MCHC 32.6 L RDW 15.6 H Plt Count 71 L MPV 9.8 Neut % (Auto) 81.6 H Lymph % (Auto) 11.4 L [place] % (Auto) 5.3 Eos % (Auto) 1.2 Baso % (Auto) 0.5 Neut # (Auto) 5.9 Lymph # (Auto) 0.8 L [place] # (Auto) 0.4 Eos # (Auto) 0.1 Baso # (Auto) 0.0 PT 15.4 H INR 1.4 H APTT 35.5 Sodium 141 Potassium 4.2 Chloride 102 Carbon Dioxide 27 Anion Gap 16 BUN 17 Creatinine 0.5 L Est GFR ( Amer) > 60 Est GFR (Non-Af Amer) > 60 Random Glucose 174 H Calcium 9.1 Total Bilirubin 1.1 AST 37 H D ALT 61 H D Alkaline Phosphatase 179 H Troponin I 0.0320 NT-Pro-B Natriuret Pep 1160 H Total Protein 7.8 Albumin 3.8 Globulin 3.9 Albumin/Globulin Ratio 1.0 Assessment & Plan - Assessment and Plan (Free Text) Assessment: 57 y/o obese F with PMHx of HTN, A fib, COPD, DM type 2, Liver Cirrhosis with severe splenomegaly admitted with worsening SOB, and new onset bilateral lower extremities edema. Plan: Short of breath -Telemetry unit -Continues color television console monitor -cardiology vs respiratory etiology vs a combination -associated with LE edema -risk factors for CHF -Oxygen by NC 2 LPM as needed -measure weight daily -measure I & O daily -limit fluid/sodium intake -elevated pro-BNP on admission: 1160. last tested pro-BNP on 09/07/16 was 557/WNL -repeat Echocardiogram. Last echo on 08/06/16 reported as normal systolic function, EF:55 %, and concentric LVH -normal Troponin I x 1 on admission. F/U troponin I Q8 x 2 -s/p Furosemide 40 mg IV once in ER. Give Furosemide 20 mg IV once -resume home Furosemide in AM -renal function WNL: GFR >60, BUN/Cr: wnl -EKG in ER showed rate controlled A fib/ 87 bpm -CXR showed cardiomegaly, with dilated pulmonary artery A fibrillation -EKG in ER showed rate controlled A fib/ 87 bpm -On coumadin 5 mg PO daily -c/w Cardizem 240 mg PO daily -resume home coumadin -on Digoxin 0.25 mg PO daily/will consider check levels, but no evidence of toxicity on admission -INR: 1.4/ below therapeutic range -consider increase dose, Cardiology referral -check INR in AM COPD -does not seem to be in exacerbation -denies cough, sputum production -no wheezing or rhonchi in PExam -Xopenex and Ipratropium neb Q8 PRN for SOB -start Spiriva scheduled for COPD control. Patient is not in current COPD control therapy HTN -on cardizem Diabetes Mellitus type 2 -Accucheck ACHS -resume home insulin -diabetic/heart healthy diet -hypoglycemic protocol Liver Cirrhosis with Splenomegaly -reported on abdominal CT on 04/29/17 -as per patient she was seen by GI -possible 2/2 alcohol abuse -no evidence of active GI bleeding -no evidence of gross ascitis at PExam -pt is oriented x 3, not evidence of confusion -will monitor for elevated levels of ammonia Thrombocytopenia -71 -likely 2/2 splenomegaly 2/2 liver cirrhosis -no evidence of active GI bleeding -f/u CBC in AM DVT prophylaxis -on coumadin -low platelets :71 - Date & Time Date: 06/15/17 Time: 19:30
[2017-06-15] MEDS ORDERED: Albuterol-Ipratrop 3 mg / 0.5 (3 ml) UD INH PRN (22:14)
[2017-06-15] MEDS ORDERED: Levalbuterol 0.63 MG/3 ML Inhal Soln UD INH PRN (22:27)
[2017-06-15] MEDS ORDERED: Ipratropium 0.02% Inhal Soln (0.5 mg/2.5 ml) UD IH PRN (22:27)
[2017-06-15] MEDS: Insulin Regular 100 units/ml SC SCH (23:00)
[2017-06-16] MEDS: Levalbuterol 0.63 MG/3 ML Inhal Soln UD INH SCH ×2 (00:02→07:49)
[2017-06-16] MEDS: Ipratropium 0.02% Inhal Soln (0.5 mg/2.5 ml) UD IH SCH ×2 (00:03→07:49)
[2017-06-16 00:27] VITALS: RESP 18
[2017-06-16 06:13] LABS: BASO % 0.1 % (0.0-2.0); HEMOGLOBIN 14.5 g/dL (12.0-16.0); LYMPH # 0.5 K/uL (1.0-4.3); LYMPH % 9.9 % (20.0-40.0); MEAN CELL VOLUME 83.7 fl (81.0-99.0); MEAN CORPUSCULAR HEMOGLOBIN 27.4 pg (27.0-31.0); MEAN CORPUSCULAR HGB CONC 32.7 g/dL (33.0-37.0); MEAN PLATELET VOLUME 10.4 fl (7.2-11.7); MONO # 0.1 K/uL (0.0-0.8); MONO % 1.2 % (0.0-10.0); NEUT # 4.9 K/uL (1.8-7.0); NEUT % 88.8 % (50.0-75.0); NRBC % 0.1 % (0.0-0.0); PLATELET COUNT 73 K/uL (130-400); RBC 5.28 Mil/uL (3.80-5.20); RED CELL DISTRIBUTION WIDTH 15.8 % (11.5-14.5); WHITE BLOOD COUNT 5.5 K/uL (4.8-10.8)
[2017-06-16 06:17] LABS: INR 1.3 (0.9-1.2); PARTIAL THROMBOPLASTIN TIME 32.2 Seconds (25.6-37.1); PROTHROMBIN TIME 14.9 Seconds (9.8-13.1)
[2017-06-16 06:25] LABS: BLOOD UREA NITROGEN 23 mg/dl (7-17); CALCIUM 9.2 mg/dL (8.4-10.2); GFR AFRICAN-AMERICAN > 60; GFR NON-AFRICAN AMERICAN > 60
[2017-06-16] MEDS: Insulin Regular 100 units/ml SC SCH (08:41)
[2017-06-16] MEDS ORDERED: Digoxin 250 mcg (0.25 mg) Tab PO SCH (09:00)
[2017-06-16] MEDS ORDERED: Insulin Lispro Mix 75/25 100 units/ml (HumaLog) 10ml SC SCH (09:00)
[2017-06-16] MEDS ORDERED: Tiotropium 18 mcg Cap For Inhalation INH SCH (09:00)
[2017-06-16] MEDS ORDERED: diltiaZEM 240 mg/24 Hours CD Cap PO SCH (09:00)
[2017-06-16 09:47] VITALS: PULSE 78
--- NOTE | 2017-06-16 11:45 | CARD ---
APPROVED REPORT EKG Measurement Heart [id number] <Conclusion> Atrial fibrillation Nonspecific ST and T wave abnormality Abnormal ECG
[2017-06-16 12:17] VITALS: BP 149/85; PULSE 85; TEMP 97.5; O2SAT 96
[2017-06-16 12:24] LABS: LYMPHOCYTE 6 % (20-50); MONOCYTE 1 % (0-10); NEUTROPHIL 93 % (42-75); PLATELET ESTIMATE DECREASED (NORMAL); TOTAL CELLS COUNTED 100
[2017-06-16 12:25] LABS: ANISOCYTOSIS SLIGHT; LARGE PLATELETS PRESENT
--- NOTE | 2017-06-16 16:10 | CP.PCM.DIS ---
Provider - Provider Date of Admission: 06/15/17 16:31 Attending physician: Shakira Robles MD Time Spent in preparation of Discharge (in minutes): 20 Diagnosis - Discharge Diagnosis (1) Shortness of breath Status: Acute Hospital Course - Lab Results Lab Results: Most Recent Lab Values WBC 5.5 K/uL (4.8-10.8) 06/16/17 04:20 RBC 5.28 Mil/uL (3.80-5.20) H 06/16/17 04:20 Hgb 14.5 g/dL (12.0-16.0) 06/16/17 04:20 Hct 44.1 % (34.0-47.0) 06/16/17 04:20 MCV 83.7 fl (81.0-99.0) 06/16/17 04:20 MCH 27.4 pg (27.0-31.0) 06/16/17 04:20 MCHC 32.7 g/dL (33.0-37.0) L 06/16/17 04:20 RDW 15.8 % (11.5-14.5) H 06/16/17 04:20 Plt Count 73 K/uL (130-400) L 06/16/17 04:20 MPV 10.4 fl (7.2-11.7) 06/16/17 04:20 Neut % (Auto) 88.8 % (50.0-75.0) H 06/16/17 04:20 Lymph % (Auto) 9.9 % (20.0-40.0) L 06/16/17 04:20 [place] % (Auto) 1.2 % (0.0-10.0) 06/16/17 04:20 Eos % (Auto) 0.0 % (0.0-4.0) 06/16/17 04:20 Baso % (Auto) 0.1 % (0.0-2.0) 06/16/17 04:20 Neut # (Auto) 4.9 K/uL (1.8-7.0) 06/16/17 04:20 Lymph # (Auto) 0.5 K/uL (1.0-4.3) L 06/16/17 04:20 [place] # (Auto) 0.1 K/uL (0.0-0.8) 06/16/17 04:20 Eos # (Auto) 0.0 K/uL (0.0-0.7) 06/16/17 04:20 Baso # (Auto) 0.0 K/uL (0.0-0.2) 06/16/17 04:20 Neutrophils % (Manual) 93 % (42-75) H 06/16/17 04:20 Lymphocytes % (Manual) 6 % (20-50) L 06/16/17 04:20 Monocytes % (Manual) 1 % (0-10) 06/16/17 04:20 Platelet Estimate Decreased (NORMAL) L 06/16/17 04:20 Large Platelets Present 06/16/17 04:20 Anisocytosis (manual) Slight 06/16/17 04:20 PT 14.9 Seconds (9.8-13.1) H 06/16/17 04:20 INR 1.3 (0.9-1.2) H 06/16/17 04:20 APTT 32.2 Seconds (25.6-37.1) 06/16/17 04:20 Sodium 137 mmol/l (132-148) 06/16/17 04:20 Potassium 4.2 MMOL/L (3.6-5.0) 06/16/17 04:20 Chloride 98 mmol/L (98-107) 06/16/17 04:20 Carbon Dioxide 25 mmol/L (22-30) 06/16/17 04:20 Anion Gap 18 (10-20) 06/16/17 04:20 BUN 23 mg/dl (7-17) H 06/16/17 04:20 Creatinine 0.6 mg/dl (0.7-1.2) L 06/16/17 04:20 Est GFR ( Amer) > 60 06/16/17 04:20 Est GFR (Non-Af Amer) > 60 06/16/17 04:20 POC Glucose (mg/dL) 348 mg/dL (65-110) H 06/16/17 11:03 Random Glucose 344 mg/dL (65-105) H 06/16/17 04:20 Calcium 9.2 mg/dL (8.4-10.2) 06/16/17 04:20 Total Bilirubin 1.1 mg/dl (0.2-1.3) 06/15/17 15:28 AST 37 U/L (14-36) H D 06/15/17 15:28 ALT 61 U/L (9-52) H D 06/15/17 15:28 Alkaline Phosphatase 179 U/L (38-126) H 06/15/17 15:28 Troponin I 0.0300 ng/mL (0.00-0.120) 06/16/17 04:20 NT-Pro-B Natriuret Pep 1160 pg/ml (0-900) H 06/15/17 15:28 Total Protein 7.8 G/DL (6.3-8.2) 06/15/17 15:28 Albumin 3.8 g/dL (3.5-5.0) 06/15/17 15:28 Globulin 3.9 gm/dL (2.2-3.9) 06/15/17 15:28 Albumin/Globulin Ratio 1.0 (1.0-2.1) 06/15/17 15:28 - Hospital Course Hospital Course: 57 y/o obese F with PMHx of HTN, A fib, COPD, DM type 2, Liver Cirrhosis with severe splenomegaly admitted with worsening SOB, and new onset bilateral lower extremities edema. SOB resolved. r/o acs. Stable. Follow up with form coverer on june 18 2017 at 3:45pm. Discharge Exam - Head Exam Head Exam: ATRAUMATIC, NORMAL INSPECTION, NORMOCEPHALIC Discharge Plan - Discharge Medications Prescriptions: Furosemide [Lasix] 20 mg PO DAILY #30 tab - Follow Up Plan Condition: FAIR Disposition: HOME/ ROUTINE Instructions: Heart Failure, Adult (DC), Dyspnea (GEN) Additional Instructions: follow up with form coverer on june 18 2017 at 3:45pm Referrals: Arron Martinez MD [Staff Provider] -
== END 2017-06-16 14:00 | disposition home or self-care (01) ==
LOC: H.ER 14:20 → H.ERHOLD 16:31 → H.TEL 22:38
PROVIDERS: ADMIT Family Medicine Geriatric Medicine; ATTEND Family Medicine Geriatric Medicine
DX: R06.02 Shortness of breath (principal); J44.9 Chronic obstructive pulmonary disease, unspecified; I48.91 Unspecified atrial fibrillation; E11.9 Type 2 diabetes mellitus without complications; M19.90 Unspecified osteoarthritis, unspecified site; I11.0 Hypertensive heart disease with heart failure; I50.9 Heart failure, unspecified; E78.00 Pure hypercholesterolemia, unspecified; K74.60 Unspecified cirrhosis of liver; R16.1 Splenomegaly, not elsewhere classified; E66.01 Morbid (severe) obesity due to excess calories; Z68.42 Body mass index [BMI] 45.0-49.9, adult; Z87.891 Personal history of nicotine dependence; D69.59 Other secondary thrombocytopenia; Z91.14 Patient's other noncompliance with medication regimen; Z79.01 Long term (current) use of anticoagulants
CPT/HCPCS: 36415; 71045; 80048; 80053; 82948; 83880; 84484; 85025; 85610; 85730; 93005; 94150; 94640; 96374; 99285; G0378; J1940; J2270; J2930; J7040

== ENCOUNTER 2017-08-21 17:13 | Emergency (ER) | payer MEDICAID ==
[2017-08-21 17:14] VITALS: PULSE 78; BMI 49.4
[2017-08-21] MEDS ORDERED: Albuterol-Ipratrop 3 mg / 0.5 (3 ml) UD INH STA (17:53)
[2017-08-21] MEDS ORDERED: Morphine 4 MG/ML VIAL ONE (18:06)
--- NOTE | 2017-08-21 18:12 | ED PDOC ---
HPI: SOB/CHF/COPD Time Seen by Provider: 08/21/17 17:31 Chief Complaint (Nursing): Shortness Of Breath Chief Complaint (Provider): Shortness Of Breath History Per: Patient History/Exam Limitations: no limitations Onset/Duration Of Symptoms: Days (x2) Current Symptoms Are (Timing): Still Present Current Respiratory Medications: Albuterol Additional Complaint(s): 57 year old obese female with a past medical history of HTN, COPD, AFIB , DM, and Liver cirrhosis presents to the ED with complaints of shortness of breath for two days after accidentally inhaling cleaning irritant in elevators of apartment building. Patient reports of using albuterol at home with no relief. Patient states symptoms are worsening, thus prompting today's visit. Additionally, patient is complaining of acute on chronic bilateral knee pain. Patient state she needs a bilateral knee replacement but is unable to schedule one due to difficulty to follow up with orthopedic physician. Patient is now requesting morphine for pain and states she is usually given this in ER for knee pain. Denies cough, chest pain, and leg swelling. PMD: Arron Martinez Past Medical History Reviewed: Historical Data, Nursing Documentation, Vital Signs Vital Signs: Last Vital Signs Temp 98.5 F 08/21/17 21:06 Pulse 77 08/21/17 21:06 Resp 17 08/21/17 21:06 BP 137/68 08/21/17 21:06 Pulse Ox 97 08/21/17 21:06 - Medical History PMH: Arthritis, Atrial Fibrillation (dx first week of august), Cardia Arrhythmia ( afib), CHF, COPD, Diabetes, Fractures (ribs), HTN, Hypercholesterolemia Denies: HIV, Chronic Kidney Disease - Surgical History Surgical History: Carotid Endarterectomy, Hernia Repair, Tonsillectomy - Family History Family History: States: Unknown Family Hx, Diabetes, Hypertension - Immunization History Hx Tetanus Toxoid Vaccination: No Hx Influenza Vaccination: No Hx Pneumococcal Vaccination: No - Home Medications Home Medications: Ambulatory Orders Medication Instructions Recorded Insulin Lispro Protamin/Lispro 60 unit SC BID 09/04/16 [Humalog Mix 75-25 Kwikpen] Digoxin [Lanoxin] 0.25 mg PO DAILY #30 tab 09/16/16 Warfarin [Coumadin] 5 mg PO QPM 02/19/17 Albuterol 0.083% [Albuterol 0.083% 2.5 mg IH Q6 PRN 06/15/17 Inhal Katrina (2.5 mg/3 ml) UD] Ascorbic Acid [Vitamin C 500 mg 1 tab PO DAILY 06/15/17 Tab] Chromium Amino Acid Chelate 1 tab PO DAILY 06/15/17 [Chromium] Vitamin E [Vitamin E 400 Units Cap] 1 cap PO DAILY 06/15/17 [id number] CD [Cardizem CD] 240 mg PO DAILY 06/15/17 Furosemide [Lasix] 20 mg PO DAILY #30 tab 06/16/17 Furosemide [Lasix] 40 mg IVP BID vial 06/16/17 Albuterol 0.083% [Albuterol 3 ml IH Q4 PRN #50 neb 08/21/17 Sulfate 3 Ml] Furosemide [Lasix] 40 mg PO BID #30 tab 08/21/17 - Allergies Allergies/Adverse Reactions: Allergies Allergy/AdvReac Type Severity Reaction Status Date / Time zolpidem tartrate Allergy Mild RASH Verified 08/21/17 17:22 [From Jessi] Review of Systems ROS Statement: Except As Marked, All Systems Reviewed And Found Negative (As per HPI) Cardiovascular: Negative for: Chest Pain Respiratory: Positive for: Shortness of Breath. Negative for: Cough Musculoskeletal: Positive for: Other (bilateral knee pain). Negative for: Leg Pain (no leg swelling) Physical Exam - Reviewed Nursing Documentation Reviewed: Yes Vital Signs Reviewed: Yes - Physical Exam Appears: Positive for: Non-toxic, In Acute Distress (mild respiratory distress) Head Exam: Positive for: ATRAUMATIC, NORMOCEPHALIC Skin: Positive for: Warm, Dry Eye Exam: Positive for: EOMI, PERRL ENT: Negative for: Pharyngeal Erythema, Tonsillar Exudate Neck: Positive for: Painless ROM, Supple Cardiovascular/Chest: Positive for: Irregularly Irregular. Negative for: Murmur Respiratory: Positive for: Wheezing (scattered diffuse expiratory wheezing), Respiratory Distress (mild), Other (Good air moement). Negative for: Accessory Muscle Use Gastrointestinal/Abdominal: Positive for: Soft. Negative for: Tenderness Back: Positive for: Normal Inspection. Negative for: Decreased ROM Extremity: Positive for: Normal ROM, Swelling (bilateral knee swelling, appears chronic, no pitting. Edema limited to knees). Negative for: Pedal Edema Lymphatic: Negative for: Adenopathy Neurologic/Psych: Positive for: Alert. Negative for: Motor/Sensory Deficits - Laboratory Results Result Diagrams: 08/21/17 18:00 08/21/17 18:00 - ECG ECG Rhythm: Positive for: Atrial Fibrillation (Controlled), Nonspecific Changes (T wave abnormalities) O2 Sat by Pulse Oximetry: 94 (RA) Pulse Ox Interpretation: Normal (low normal) Medical Decision Making Medical Decision Making: Time: 1800 Impression: shortness of breath Differentials include but not limited to COPD exacerbation, CHF, Pneumonia, and ACS Plan: -- Type and Screen -- EKG -- B-Type Natriuretic -- CMP -- Magnesium -- Phosphorus -- Troponin I -- ED Urine Dipstick -- CBC with differentials -- PTT -- Prothrombin Time -- CXR Portable -- Duoneb [3 mg/0.5 mg (3ml) UD] 9 ml INH -- Morphine 4 mg IVP -- SOLU-Medrol 125 mg IVP -- Blood Culture -- process control tech -- IV Insertion -- Glucose, Blood, POC -- Peak Flow Pre/Post CXR No acute findings Labs with elevated probnp (improved c/w previous). No emergently significant abnormalities. 1930 Pt feels better. No wheeze on reexamination of lungs. No respiratory distress. Stable for discharge with outpatient followup. Pt requests refills of albuterol and lasix. Scribe Attestation: Documented by Alonso Hilton, acting as a scribe for Dr. Hermila Rios. Provider Scribe Attestation: All medical record entries made by the Scribe were at my direction and personally dictated by me. I have reviewed the chart and agree that the record accurately reflects my personal performance of the history, physical exam, medical decision making, and the department course for this patient. I have also personally directed, reviewed, and agree with the discharge instructions and disposition. Disposition - Clinical Impression Clinical Impression: COPD exacerbation Counseled Patient/Family Regarding: Studies Performed, Diagnosis, Need For Followup, Rx Given - Disposition Referrals: Arron Martinez MD [Family Provider] - 08/24/17 Disposition: Routine/Home Disposition Time: 20:14 Condition: IMPROVED Prescriptions: Albuterol 0.083% [Albuterol Sulfate 3 Ml] 3 ml IH Q4 PRN #50 neb PRN Reason: asthma Furosemide [Lasix] 40 mg PO BID #30 tab Instructions: Exacerbation of COPD
[2017-08-21] MEDS ORDERED: Albuterol-Ipratrop 3 mg / 0.5 (3 ml) UD ONE (18:59)
[2017-08-21 19:12] LABS: BASO % 0.4 % (0.0-2.0); EOS # 0.1 K/uL (0.0-0.7); EOS % 1.6 % (0.0-4.0); HEMOGLOBIN 15.2 g/dL (12.0-16.0); LYMPH # 1.1 K/uL (1.0-4.3); LYMPH % 16.8 % (20.0-40.0); MEAN CELL VOLUME 82.9 fl (81.0-99.0); MEAN CORPUSCULAR HEMOGLOBIN 27.4 pg (27.0-31.0); MEAN PLATELET VOLUME 10.4 fl (7.2-11.7); MONO # 0.4 K/uL (0.0-0.8); MONO % 6.4 % (0.0-10.0); NEUT # 5.1 K/uL (1.8-7.0); NEUT % 74.8 % (50.0-75.0); NRBC % 0.1 % (0.0-0.0); RBC 5.57 Mil/uL (3.80-5.20); RED CELL DISTRIBUTION WIDTH 15.5 % (11.5-14.5); WHITE BLOOD COUNT 6.8 K/uL (4.8-10.8)
[2017-08-21 19:23] LABS: ALBUMIN 4.1 g/dL (3.5-5.0); CALCIUM 8.9 mg/dL (8.4-10.2); GFR AFRICAN-AMERICAN > 60; GFR NON-AFRICAN AMERICAN > 60
[2017-08-21 19:25] LABS: ALT/SGPT 47 U/L (9-52); AST/SGOT 47 U/L (14-36); BLOOD UREA NITROGEN 17 mg/dl (7-17)
[2017-08-21 19:26] LABS: INR 1.4 (0.9-1.2); PARTIAL THROMBOPLASTIN TIME 35.9 Seconds (25.6-37.1)
[2017-08-21 19:34] LABS: B-TYPE NATRIURETIC PEPTIDE 1030 pg/ml (0-900)
[2017-08-21 21:07] VITALS: BP 137/68; PULSE 77; RESP 17; TEMP 98.5
[2017-08-21 22:33] VITALS: O2SAT 94
--- NOTE | 2017-08-22 09:20 | RAD ---
HISTORY: sob COMPARISON: Chest radiograph 06/15/2017. FINDINGS: LUNGS: No active pulmonary disease. PLEURA: No significant pleural effusion identified, no pneumothorax apparent. CARDIOVASCULAR: Reiteration cardiomegaly and prominence of the pulmonary artery outflow tract. OSSEOUS STRUCTURES: No significant abnormalities. VISUALIZED UPPER ABDOMEN: Normal. OTHER FINDINGS: None. IMPRESSION: Stable cardiomegaly and prominence of the pulmonary artery outflow tract. No acute infiltrate, pleural effusion or pneumothorax bilaterally.
--- NOTE | 2017-08-22 15:27 | CARD ---
APPROVED REPORT EKG Measurement Heart [id number] <Conclusion> Atrial fibrillation ST & T wave abnormality, consider lateral ischemia Abnormal ECG
== END 2017-08-21 21:07 | disposition home or self-care (01) ==
LOC: H.ER 17:13
DX: J44.1 Chronic obstructive pulmonary disease with (acute) exacerbation (principal); E11.9 Type 2 diabetes mellitus without complications; E66.9 Obesity, unspecified; E78.00 Pure hypercholesterolemia, unspecified; I11.0 Hypertensive heart disease with heart failure; I50.9 Heart failure, unspecified; Z79.01 Long term (current) use of anticoagulants; Z79.4 Long term (current) use of insulin
CPT/HCPCS: 71045; 80053; 81025; 82948; 83735; 83880; 84100; 84484; 85025; 85610; 85730; 86850; 86900; 87040; 93005; 94640; 96374; 96375; 99284; J2270; J2930

== ENCOUNTER 2017-09-06 10:12 | Observation (INO) | payer MEDICAID ==
[2017-09-06 10:47] VITALS: BMI 27.5
[2017-09-06] MEDS ORDERED: Albuterol-Ipratrop 3 mg / 0.5 (3 ml) UD INH STA (10:47)
[2017-09-06] MEDS ORDERED: Albuterol-Ipratrop 3 mg / 0.5 (3 ml) UD IH STA ×2 (10:47→15:06)
[2017-09-06] MEDS ORDERED: Sodium Chloride 0.9% 500 ML IV STA (10:47)
--- NOTE | 2017-09-06 10:53 | ED PDOC ---
HPI: SOB/CHF/COPD Time Seen by Provider: 09/06/17 10:27 Chief Complaint (Nursing): Dizziness/Lightheaded Chief Complaint (Provider): Dizziness and dyspnea History Per: Patient History/Exam Limitations: no limitations Onset/Duration Of Symptoms: Days Current Symptoms Are (Timing): Still Present Additional Complaint(s): Pt. woke up and was doing well. Then she sat down and stood up again and felt dizzy. Coleman she was going to fall from the dizziness. Also has shortness of breath like her asthma. Tried her inhaler with no relief. No chest pain, headaches, leg pain, numbness, tingles, weakness, cough, congestion. No back pain. Here multiple times for the same and states last week she got steroids and albuterol which helped. Past Medical History Reviewed: Nursing Documentation, Vital Signs Vital Signs: Last Vital Signs Temp Pulse 69 09/06/17 15:00 Resp 19 09/06/17 15:00 BP 149/85 09/06/17 15:00 Pulse Ox 92 L 09/06/17 15:00 - Medical History PMH: Arthritis, Atrial Fibrillation (dx first week of august), Cardia Arrhythmia ( afib), CHF, COPD, Diabetes, Fractures (ribs), HTN, Hypercholesterolemia Denies: HIV, Chronic Kidney Disease - Surgical History Surgical History: Carotid Endarterectomy, Hernia Repair, Tonsillectomy - Family History Family History: States: Unknown Family Hx, Diabetes, Hypertension - Immunization History Hx Tetanus Toxoid Vaccination: No Hx Influenza Vaccination: No Hx Pneumococcal Vaccination: No - Home Medications Home Medications: Ambulatory Orders Medication Instructions Recorded Insulin Lispro Protamin/Lispro 60 unit SC BID 09/04/16 [Humalog Mix 75-25 Kwikpen] Digoxin [Lanoxin] 0.25 mg PO DAILY #30 tab 09/16/16 Warfarin [Coumadin] 5 mg PO QPM 02/19/17 Albuterol 0.083% [Albuterol 0.083% 2.5 mg IH Q6 PRN 06/15/17 Inhal Katrina (2.5 mg/3 ml) UD] Ascorbic Acid [Vitamin C 500 mg 1 tab PO DAILY 06/15/17 Tab] Chromium Amino Acid Chelate 1 tab PO DAILY 06/15/17 [Chromium] Vitamin E [Vitamin E 400 Units Cap] 1 cap PO DAILY 06/15/17 diltiaZEM CD [Cardizem CD] 240 mg PO DAILY 06/15/17 Furosemide [Lasix] 20 mg PO DAILY #30 tab 06/16/17 Furosemide [Lasix] 40 mg IVP BID vial 06/16/17 Albuterol 0.083% [Albuterol 3 ml IH Q4 PRN #50 neb 08/21/17 Sulfate 3 Ml] Furosemide [Lasix] 40 mg PO BID #30 tab 08/21/17 - Allergies Allergies/Adverse Reactions: Allergies Allergy/AdvReac Type Severity Reaction Status Date / Time zolpidem tartrate Allergy Mild RASH Verified 08/21/17 17:22 [From Jessi] Review of Systems ROS Statement: Except As Marked, All Systems Reviewed And Found Negative Respiratory: Positive for: Shortness of Breath, Wheezing Neurological: Positive for: Dizziness Physical Exam - Reviewed Nursing Documentation Reviewed: Yes Vital Signs Reviewed: Yes - Physical Exam Appears: Positive for: Uncomfortable Head Exam: Positive for: ATRAUMATIC, NORMAL INSPECTION, NORMOCEPHALIC Skin: Positive for: Normal Color, Warm, DRY Eye Exam: Positive for: EOMI, Normal appearance, PERRL ENT: Positive for: Normal ENT Inspection Neck: Positive for: Normal, Painless ROM Cardiovascular/Chest: Positive for: Irregularly Irregular (controlled rate). Negative for: Edema Respiratory: Positive for: Decreased Breath Sounds, Wheezing (mild end expiratory b/l) Gastrointestinal/Abdominal: Positive for: Normal Exam, Soft. Negative for: Tenderness Back: Positive for: Normal Inspection. Negative for: L CVA Tenderness, R CVA Tenderness Extremity: Positive for: Normal ROM. Negative for: Tenderness, Pedal Edema Neurologic/Psych: Positive for: Alert, Oriented - Laboratory Results Result Diagrams: 09/06/17 10:45 09/06/17 10:45 Interpretation Of Abn Labs: 356 glucose; 24 bun - ECG ECG: Positive for: Interpreted By Me, Viewed By Me (afib rate controlled and similar pattern to old) - Radiology X-Ray: Interpreted by Me, Viewed By Me X-Ray Interpretation: No Acute Disease - CT Scan/US ct Other Rad Studies (CT/US): Read By Radiologist Other Rad Interpretation: no acute - Progress ED Course And Treament: 1523: Still feels dizzy and sats 92% with oxygen. Will need admit as she failed treatment with improvement. Spoke with Dr. Bradley. Made aware that pt. PCP currently is Dr. Martinez. She reviewed history and states that since the pt. was recently with the [facility] practice team for her car, she should be admitted to their service. 1533: Stable. Spoke with Dr. Martinez. He is well aware of pt. Is noncompliant. Aware pt. needs admit. He is aware that hospitalist would like the [facility] residents to admit. He is agreeable to whatever we need to do. 1540: Spoke with [facility] resident. Will admit. Aware hospitalist would like them to admit. - Critical Care Total Time (In Min): 30 Documented Critical Care: Time excludes all time spent performint seperately billable procedures Disposition - Clinical Impression Clinical Impression: Dizziness, COPD exacerbation, Hyperglycemia - Patient ED Disposition Is Patient to be Admitted: Yes Counseled Patient/Family Regarding: Studies Performed, Diagnosis - Disposition Disposition Time: 15:35 Condition: FAIR - Pt Status Changed To: Hospital Disposition Of: Observation - POA Present On Arrival: Poor Glycemic Control
[2017-09-06] MEDS ORDERED: Albuterol-Ipratrop 3 mg / 0.5 (3 ml) UD ONE ×2 (11:00→17:05)
--- NOTE | 2017-09-06 11:16 | CARD ---
APPROVED REPORT EKG Measurement Heart [id number] <Conclusion> Atrial fibrillation with premature ventricular or aberrantly conducted complexes ST & T wave abnormality, consider inferior ischemia Abnormal ECG
[2017-09-06 11:22] LABS: BASO % 0.5 % (0.0-2.0); EOS # 0.1 K/uL (0.0-0.7); EOS % 2.1 % (0.0-4.0); HEMOGLOBIN 15.4 g/dL (12.0-16.0); LYMPH # 1.2 K/uL (1.0-4.3); LYMPH % 17.9 % (20.0-40.0); MEAN CORPUSCULAR HEMOGLOBIN 27.3 pg (27.0-31.0); MEAN CORPUSCULAR HGB CONC 32.9 g/dL (33.0-37.0); MEAN PLATELET VOLUME 10.5 fl (7.2-11.7); MONO # 0.4 K/uL (0.0-0.8); MONO % 5.7 % (0.0-10.0); NEUT % 73.8 % (50.0-75.0); NRBC % 0.1 % (0.0-0.0); RBC 5.64 Mil/uL (3.80-5.20); RED CELL DISTRIBUTION WIDTH 15.6 % (11.5-14.5); WHITE BLOOD COUNT 6.8 K/uL (4.8-10.8)
[2017-09-06 11:27] LABS: B-TYPE NATRIURETIC PEPTIDE 799 pg/ml (0-900)
[2017-09-06 11:28] LABS: ALBUMIN 3.8 g/dL (3.5-5.0); ALT/SGPT 54 U/L (9-52); AST/SGOT 42 U/L (14-36); BLOOD UREA NITROGEN 24 mg/dl (7-17); CALCIUM 9.2 mg/dL (8.4-10.2); GFR AFRICAN-AMERICAN > 60; GFR NON-AFRICAN AMERICAN > 60
[2017-09-06 11:43] LABS: INR 1.9 (0.9-1.2); PARTIAL THROMBOPLASTIN TIME 42.4 Seconds (25.6-37.1); PROTHROMBIN TIME 21.8 Seconds (9.8-13.1)
--- NOTE | 2017-09-06 12:15 | CT ---
PROCEDURE: CT HEAD WITHOUT CONTRAST. HISTORY: headache COMPARISON: Noncontrast head CT 09/16/2014. TECHNIQUE: Axial computed tomography images were obtained through the head/brain without intravenous contrast. Radiation dose: Total exam DLP = 744.31 mGy-cm. This CT exam was performed using one or more of the following dose reduction techniques: Automated exposure control, adjustment of the mA and/or kV according to patient size, and/or use of iterative reconstruction technique. FINDINGS: HEMORRHAGE: No intracranial hemorrhage. BRAIN: Good corticomedullary differentiation is seen. Proportional, diffuse expansion of the ventriculosulcal and cisternal spaces is appreciated with white matter lucency compatible with diffuse cerebral atrophy and chronic microangiopathy. No suspicious extra-axial fluid collection is identified and the midline brain anatomy appears grossly nonfocal as imaged. There is no mass effect throughout. VENTRICLES: Unremarkable. No hydrocephalus. CALVARIUM: Unremarkable. PARANASAL SINUSES: Unremarkable as visualized. No significant inflammatory changes. MASTOID AIR CELLS: Unremarkable as visualized. No inflammatory changes. OTHER FINDINGS: None. IMPRESSION: No acute intracranial findings. Age-appropriate age related neuro degenerative changes appear stable compared to prior CT 09/16/2014.
[2017-09-06] MEDS ORDERED: Magnesium Sulfate 2 gm/50 ml 2 GM/50 ML BAG IVPB ONE (15:30)
--- NOTE | 2017-09-06 16:22 | RAD ---
HISTORY: dyspnea COMPARISON: Frontal chest radiograph 08/21/2017. FINDINGS: LUNGS: No active pulmonary disease. PLEURA: No significant pleural effusion identified, no pneumothorax apparent. CARDIOVASCULAR: Stable cardiomegaly. No pulmonary vascular congestion although pulmonary artery outflow tract prominence may indicate pulmonic valvular stenosis. OSSEOUS STRUCTURES: No significant abnormalities. VISUALIZED UPPER ABDOMEN: Normal. OTHER FINDINGS: None. IMPRESSION: No acute cardiopulmonary disease. Cardiomegaly appears stable as well as prominent pulmonary artery outflow tract as discussed above.
[2017-09-06] MEDS ORDERED: Dextrose 50% SYRINGE Inj (50 ml) IV PRN (17:04)
[2017-09-06] MEDS ORDERED: Glucagon Recombinant 1 mg Inj IM PRN (17:04)
[2017-09-06] MEDS ORDERED: Magnesium Sulfate 2 gm/50 ml 2 GM/50 ML BAG ONE (17:05)
[2017-09-06] MEDS: Insulin Lispro Mix 75/25 100 units/ml (HumaLog) 10ml SC SCH (17:09)
--- NOTE | 2017-09-06 17:46 | CP.PCM.HP ---
History of Present Illness - History of Present Illness History of Present Illness: 57 y/o obese F with PMHx of HTN, A fib, COPD, DM type 2, Liver Cirrhosis with splenomegaly presents to ED complaining increased SOB for one week, which got worse after she had inhalation of a chemical which was used in her elevator at home. She had came to the ER on 08/21/17 and was given nebulizer treatments and IV steroids and discharged when she felt better. At that time her home lasix dose was increased from 20 mg to 40 mg BID. Patient states that yesterday she felt as if her breathing was getting worse. She was using her nebulizer treatment every 4 hours at home yesterday. - Patient also complains of light headedness and unsteady, however denies any falls or head trauma. Denies any cough, fever, chills nausea or vomiting. - She was admitted in June a COPD exacerbation as well and had been discharged on Spiriva. However she did not continue it afterwores. She went and saw a ball maker ( Dr. Velasco), and he did an x ray on her but she never followed up. Patients states she was recommended to get a sleep study done however she never went to get it done. She has been taking her medication and following up with her PMD and yard associate. - Her PMD also had advised her to take 4 teaspoons of lactulose daily for her increased levels of ammonia, however she has not taken it in the last 2 weeks because she ran out. PMD: Dr. Martinez. Last visit at [facility] was in 2016. Blasting Worker: Dr. Ghosh , Echo done 5 months ago as per patient and was normal Pulmonary: Dr. Velasco Allergies: Ambien: rash PMHx: HTN, COPD, Afib on coumadin, liver cirrhosis ( as per patient secondary to alcohol and pain medications abuse in the past) FHx: Father: HTN, Mother : /HTN/DM SocialHx: Former smoker: 32 pack year smoking history: (Admits to eating cig ashes and matches)/quit 8 years ago, denies current alcohol intake, denies illicit drugs. Shx: Tonsillectomy, Umbilical hernia x 2, tubal ligation FULL CODE Present on Admission - Present on Admission Any Indicators Present on Admission: Yes History of Uncontrolled Diabetes: Yes Review of Systems - Review of Systems All systems: reviewed and no additional remarkable complaints except Past Patient History - Infectious Disease Hx of Infectious Diseases: None - Past Medical History & Family History Past Medical History?: Yes - Past Social History Smoking Status: Former Smoker - CARDIAC Hx Atrial Fibrillation: Yes (dx first week of august) Hx Cardia Arrhythmia: Yes (afib) Hx Congestive Heart Failure: Yes Hx Hypercholesterolemia: Yes Hx Hypertension: Yes - PULMONARY Hx Chronic Obstructive Pulmonary Disease (COPD): Yes - NEUROLOGICAL Hx Neurological Disorder: No - HEENT Hx HEENT Problems: Yes Other/Comment: wears glasses - RENAL Hx Chronic Kidney Disease: No - ENDOCRINE/METABOLIC Hx Endocrine Disorders: Yes Hx Diabetes Mellitus Type 2: Yes Other/Comment: Morbid Obesity - HEMATOLOGICAL/ONCOLOGICAL Hx Human Immunodeficiency Virus (HIV): No - INTEGUMENTARY Hx Dermatological Problems: No - MUSCULOSKELETAL/RHEUMATOLOGICAL Hx Arthritis: Yes Hx Fractures: Yes (ribs) - GASTROINTESTINAL Hx Gastrointestinal Disorders: Yes (Hernia) - GENITOURINARY/GYNECOLOGICAL Hx Genitourinary Disorders: No - PSYCHIATRIC Hx Psychophysiologic Disorder: No Hx Substance Use: No - SURGICAL HISTORY Hx Carotid Endarterectomy: Yes Hx Tonsillectomy: Yes - ANESTHESIA Hx Anesthesia: Yes Hx Anesthesia Reactions: No Hx Malignant Hyperthermia: No Meds Allergies/Adverse Reactions: Allergies Allergy/AdvReac Type Severity Reaction Status Date / Time zolpidem tartrate Allergy Mild RASH Verified 08/21/17 17:22 [From Ambien] Physical Exam - Constitutional Appears: No Acute Distress - Head Exam Head Exam: NORMAL INSPECTION, NORMOCEPHALIC - Eye Exam Eye Exam: Normal appearance - Respiratory Exam Respiratory Exam: Decreased Breath Sounds, Wheezes (slight scattered wheezes heard) - Cardiovascular Exam Cardiovascular Exam: Irregular Rhythm, +S1, +S2 - GI/Abdominal Exam GI & Abdominal Exam: Soft. absent: Guarding, Tenderness Additional comments: obese - Extremities Exam Extremities exam: Negative for: calf tenderness, pedal edema - Neurological Exam Neurological exam: Alert, CN II-XII Intact, Normal Gait, Oriented x3 Additional comments: AAOx3 No flapping tremmers noted DTR 2+ - Skin Skin Exam: Dry, Normal Color, Warm Results - Vital Signs Recent Vital Signs: Last Vital Signs Temp 97.9 F 09/06/17 17: Pulse 79 09/06/17 17:18 Resp 21 09/06/17 17:18 BP 154/87 H 09/06/17 17:18 Pulse Ox 97 09/06/17 17:18 - Labs Result Diagrams: 09/06/17 10:45 09/06/17 10:45 Labs: Laboratory Results - last 24 hr 09/06/17 09/06/17 09/06/17 10:38 10:45 10:45 WBC 6.8 RBC 5.64 H Hgb 15.4 Hct 46.9 MCV 83.0 MCH 27.3 MCHC 32.9 L RDW 15.6 H Plt Count 68 L MPV 10.5 Neut % (Auto) 73.8 Lymph % (Auto) 17.9 L [place] % (Auto) 5.7 Eos % (Auto) 2.1 Baso % (Auto) 0.5 Neut # (Auto) 5.0 Lymph # (Auto) 1.2 [place] # (Auto) 0.4 Eos # (Auto) 0.1 Baso # (Auto) 0.0 PT INR APTT Sodium 137 Potassium 3.8 Chloride 98 Carbon Dioxide 29 Anion Gap 14 BUN 24 H Creatinine 0.8 Est GFR ( Amer) > 60 Est GFR (Non-Af Amer) > 60 POC Glucose (mg/dL) 313 H Random Glucose 356 H Calcium 9.2 Total Bilirubin 0.9 AST 42 H ALT 54 H Alkaline Phosphatase 281 H D Troponin I 0.0400 NT-Pro-B Natriuret Pep 799 Total Protein 7.6 Albumin 3.8 Globulin 3.9 Albumin/Globulin Ratio 1.0 Digoxin 09/06/17 09/06/17 10:45 10:45 WBC RBC Hgb Hct MCV MCH MCHC RDW Plt Count MPV Neut % (Auto) Lymph % (Auto) [place] % (Auto) Eos % (Auto) Baso % (Auto) Neut # (Auto) Lymph # (Auto) [place] # (Auto) Eos # (Auto) Baso # (Auto) PT 21.8 H INR 1.9 H APTT 42.4 H Sodium Potassium Chloride Carbon Dioxide Anion Gap BUN Creatinine Est GFR ( Amer) Est GFR (Non-Af Amer) POC Glucose (mg/dL) Random Glucose Calcium Total Bilirubin AST ALT Alkaline Phosphatase Troponin I NT-Pro-B Natriuret Pep Total Protein Albumin Globulin Albumin/Globulin Ratio Digoxin 1.1 Assessment & Plan - Assessment and Plan (Free Text) Assessment: 57 y/o obese F with PMHx of HTN, A fib, COPD, DM type 2, Liver Cirrhosis with severe splenomegaly admitted with worsening SOB, and new onset bilateral lower extremities edema. Plan: 1) Short of breath secondary to most likely COPD exacerbation - No antibioic indicated: Only dyspnea, no productive cough -Oxygen by NC 2 LPM as needed -measure weight daily - BNP: 799, previously was 1030 -Last echo on 08/06/16 reported as normal systolic function, EF:55 %, and concentric LVH ( As per previous note) - Patients Lasix dose was recently increased from 20 mg to 40 mg. Since patient appears dry. Will hold medication and will latter resume patients medication at original dosage of 20 mg. -CXR showed cardiomegaly, with dilated pulmonary artery: No active disease - Duoneb Q4 - Solumedrol loading dose given in ER. C/W Prednisone 40 mg BID 2) Lightheadedness - Most likely secondary to dehydration. Hold lasix for now. - BUN:24, Creatining:.8 - NS @ 75 for gentle hydration - Will Continue monitoring BUN/Creatinine - Fall precautions 3) A fibrillation -EKG in ER showed a fib similar to previous EKG -On coumadin 5 mg PO daily -c/w Cardizem 240 mg PO daily -on Digoxin 0.25 mg PO daily -INR: 1.9: Subtherapeutic. Will check am INR and possibly increase dose 4) HTN -on cardizem 5) Diabetes Mellitus type 2 -Accucheck ACHS -resume home insulin -diabetic/heart healthy diet -hypoglycemic protocol 6) Liver Cirrhosis with Splenomegaly -reported on abdominal CT on 04/29/17 -no evidence of gross ascitis at PExam - F/U with AM ammonia levels and start Lactulose - Platelet : 68 7) Thrombocytopenia -68 -likely 2/2 splenomegaly 2/2 liver cirrhosis -no evidence of active GI bleeding: Bruising on arms noted -f/u CBC in AM 8) DVT prophylaxis -on coumadin -low platelets : 68
[2017-09-06] MEDS ORDERED: Sodium Chloride 0.9% 1,000 ML IV SCH (18:45)
[2017-09-06] MEDS ORDERED: Albuterol-Ipratrop 3 mg / 0.5 (3 ml) UD INH SCH (20:00)
[2017-09-06 21:08] LABS: ABG ALLEN TEST YES; ARTERIAL BLOOD GAS HCO3 29.3 mmol/L (21-28); ARTERIAL BLOOD GAS HEMOGLOBIN 16.1 g/dL (11.7-17.4); ARTERIAL BLOOD GAS O2 CAPACITY 21.8 mL/dL (16-24); ARTERIAL BLOOD GAS O2 CONTENT 21.3 ML/dL (15-23); ARTERIAL BLOOD GAS O2 SAT 97.6 % (95-98); ARTERIAL BLOOD GAS PCO2 35 mm/Hg (35-45); ARTERIAL BLOOD GAS PH 7.52 (7.35-7.45); ARTERIAL BLOOD GAS PO2 73 mm/Hg (80-100); ARTERIAL BLOOD GAS TCO2 29.7 mmol/L (22-28)
[2017-09-06] MEDS: Insulin Regular 100 units/ml SC SCH (22:00)
[2017-09-07] MEDS: Albuterol-Ipratrop 3 mg / 0.5 (3 ml) UD INH SCH ×5 (01:00→19:29)
[2017-09-07 05:44] LABS: BASO % 0.1 % (0.0-2.0); HEMOGLOBIN 15.1 g/dL (12.0-16.0); LYMPH # 0.6 K/uL (1.0-4.3); LYMPH % 11.4 % (20.0-40.0); MEAN CELL VOLUME 83.5 fl (81.0-99.0); MEAN CORPUSCULAR HEMOGLOBIN 27.6 pg (27.0-31.0); MEAN PLATELET VOLUME 10.5 fl (7.2-11.7); MONO # 0.1 K/uL (0.0-0.8); MONO % 2.5 % (0.0-10.0); NEUT # 4.8 K/uL (1.8-7.0); NRBC % 0.2 % (0.0-0.0); RBC 5.46 Mil/uL (3.80-5.20); RED CELL DISTRIBUTION WIDTH 15.7 % (11.5-14.5); WHITE BLOOD COUNT 5.6 K/uL (4.8-10.8)
[2017-09-07 05:51] LABS: ALB/GLOB RATIO 0.9 (1.0-2.1); ALBUMIN 3.6 g/dL (3.5-5.0); ALT/SGPT 56 U/L (9-52); AST/SGOT 31 U/L (14-36); BLOOD UREA NITROGEN 21 mg/dl (7-17); CALCIUM 8.9 mg/dL (8.4-10.2); GFR AFRICAN-AMERICAN > 60; GFR NON-AFRICAN AMERICAN > 60
[2017-09-07 06:01] LABS: PROTHROMBIN TIME 22.5 Seconds (9.8-13.1)
[2017-09-07] MEDS: Insulin Regular 100 units/ml SC SCH ×4 (06:41→23:10)
[2017-09-07] MEDS: diltiaZEM 240 mg/24 Hours CD Cap PO SCH (08:57)
[2017-09-07] MEDS: Digoxin 250 mcg (0.25 mg) Tab PO SCH (09:00)
[2017-09-07] MEDS: Insulin Lispro Mix 75/25 100 units/ml (HumaLog) 10ml SC SCH (09:01)
--- NOTE | 2017-09-07 14:12 | CP.PCM.PN ---
Addendum entered and electronically signed by June Mcgee MD 09/07/17 14:39: Patient's Insulin Lispro Mix changed from 60U to 65U for better control, will adjust the dose as needed. Original Note: Subjective - Date & Time of Evaluation Date of Evaluation: 09/07/17 Time of Evaluation: 07:30 - Subjective Subjective: Patient seen and examined this morning. NAD, no acute event overnight. Patient reports improved breathing today, still breathing with NC this morning. Patient denies any dizziness, chest pain, palpitations, abdominal pain, urinary symptoms or weakness. Objective - Vital Signs/Intake and Output Vital Signs (last 24 hours): Temp Pulse Resp BP Pulse Ox 98.1 F 72 20 137/67 98 09/07/17 11:50 09/07/17 11:50 09/07/17 11:50 09/07/17 11:50 09/07/17 11:50 - Medications Medications: Current Medications Albuterol/Ipratropium (Duoneb 3 Mg/0.5 Mg (3 Ml) Ud) 3 ml INH RQ4 [facility] Last Admin: 09/07/17 13:19 Dose: 3 ml Dextrose (Dextrose 50% Inj) 0 ml IV STAT PRN; Protocol PRN Reason: Hypoglycemia Protocol Dextrose (Glutose 15) 0 gm PO ONCE PRN; Protocol PRN Reason: Hypoglycemia Protocol Digoxin (Lanoxin) 0.25 mg PO DAILY [facility] Last Admin: 09/07/17 09:00 Dose: 0.25 mg Diltiazem HCl (Cardizem Cd) 240 mg PO DAILY [facility] Last Admin: 09/07/17 08:57 Dose: 240 mg Furosemide (Lasix) 20 mg PO DAILY [facility] Glucagon (Glucagen Diagnostic Kit) 0 mg IM STAT PRN; Protocol PRN Reason: Hypoglycemia Protocol Insulin Human Regular (Humulin R) 0 units SC ACHS [facility] PRN Reason: Protocol Last Admin: 09/07/17 06:41 Dose: 4 units Insulin Lispro Protam/Lispro Human (Humalog Mix 75/25) 60 units SC BID [facility] Last Admin: 09/07/17 09:01 Dose: 60 units Lactulose (Enulose) 10 gm PO DAILY PRN PRN Reason: Constipation Prednisone (Prednisone Tab) 40 mg PO DAILY [facility] - Labs Labs: 09/07/17 04:20 09/07/17 04:20 PT 22.5 Seconds (9.8-13.1) H 09/07/17 04:20 INR 2.0 (0.9-1.2) H 09/07/17 04:20 APTT 42.4 Seconds (25.6-37.1) H 09/06/17 10:45 - Constitutional Appears: No Acute Distress - Head Exam Head Exam: NORMAL INSPECTION - Eye Exam Eye Exam: Normal appearance - ENT Exam ENT Exam: Mucous Membranes Moist - Respiratory Exam Respiratory Exam: Decreased Breath Sounds, NORMAL BREATHING PATTERN. absent: Rhonchi, Wheezes - Cardiovascular Exam Cardiovascular Exam: Irregular Rhythm, +S1, +S2. absent: JVD - GI/Abdominal Exam GI & Abdominal Exam: Soft, Normal Bowel Sounds - Extremities Exam Extremities Exam: Normal Capillary Refill, Normal Inspection - Back Exam Back Exam: NORMAL INSPECTION. absent: CVA tenderness (L), CVA tenderness (R) - Neurological Exam Neurological Exam: Alert, Awake, CN II-XII Intact, Oriented x3 - Psychiatric Exam Psychiatric exam: Normal Affect - Skin Skin Exam: Normal Color Assessment and Plan - Assessment and Plan (Free Text) Assessment: A/57 y/o obese F with PMHx of HTN, A fib, COPD, DM type 2, Liver Cirrhosis with severe splenomegaly admitted with worsening SOB, and new onset bilateral lower extremities edema. Short of breath secondary to most likely COPD exacerbation -BNP: 799, previously was 1030 -Last echo on 08/06/16 reported as normal systolic function, EF:55 %, and concentric LVH ( As per previous note) -CXR showed cardiomegaly, with dilated pulmonary artery: No active disease - Duoneb Q4 - Solumedrol loading dose given in ER. C/W Prednisone 40 mg daily - C/w Lasix 20mg daily - Consult, Pulmonary, Dr. Dao, As per prior CT and ABG; seems restrictive lung disease , will follow Dr. Carballo recos' Lightheadedness - Most likely secondary to dehydration - Lasix was changes to 20mg daily from 40mg daily - Fall precautions A fibrillation -EKG in ER showed a fib similar to previous EKG -c/w coumadin 5 mg PO daily -c/w Cardizem 240 mg PO daily -c/w Digoxin 0.25 mg PO daily -F/u PT/INR tomorrow HTN -on cardizem Diabetes Mellitus type 2 -Accucheck ACHS -resume home insulin -diabetic/heart healthy diet -hypoglycemic protocol Liver Cirrhosis with Splenomegaly -Chronic, Stable -reported on abdominal CT on 04/29/17 -Normal ammonia -C/w Lactulose 20mg daily -MELD score 16, patient is on antiCoag -Out patient follow up Thrombocytopenia -62 -likely 2/2 splenomegaly 2/2 liver cirrhosis -no evidence of active GI bleeding: Bruising on arms noted -CBC reviewed, follow up daily CBC DVT prophylaxis -on coumadin -low platelets : 62
[2017-09-07] MEDS ORDERED: Lactulose 10 gm/15 ml Syrup PO PRN (14:15)
[2017-09-07] MEDS ORDERED: Albuterol 0.083% Inhal Sol (2.5 mg/3 mL) UD IH PRN (14:35)
[2017-09-07] MEDS ORDERED: Insulin Lispro Mix 75/25 100 units/ml (HumaLog) 10ml SC SCH (17:00)
[2017-09-08] MEDS: Albuterol-Ipratrop 3 mg / 0.5 (3 ml) UD INH SCH ×4 (00:06→11:55)
[2017-09-08 05:48] LABS: BASO % 0.3 % (0.0-2.0); HEMOGLOBIN 14.5 g/dL (12.0-16.0); LYMPH # 1.2 K/uL (1.0-4.3); LYMPH % 17.6 % (20.0-40.0); MEAN CELL VOLUME 84.4 fl (81.0-99.0); MEAN CORPUSCULAR HEMOGLOBIN 27.3 pg (27.0-31.0); MEAN CORPUSCULAR HGB CONC 32.3 g/dL (33.0-37.0); MEAN PLATELET VOLUME 9.9 fl (7.2-11.7); MONO # 0.4 K/uL (0.0-0.8); MONO % 6.2 % (0.0-10.0); NEUT # 5.2 K/uL (1.8-7.0); NEUT % 75.9 % (50.0-75.0); RBC 5.31 Mil/uL (3.80-5.20); RED CELL DISTRIBUTION WIDTH 15.9 % (11.5-14.5); WHITE BLOOD COUNT 6.8 K/uL (4.8-10.8)
[2017-09-08 06:05] LABS: ALBUMIN 3.6 g/dL (3.5-5.0); ALT/SGPT 51 U/L (9-52); AST/SGOT 31 U/L (14-36); BLOOD UREA NITROGEN 27 mg/dl (7-17); CALCIUM 8.9 mg/dL (8.4-10.2); GFR AFRICAN-AMERICAN > 60; GFR NON-AFRICAN AMERICAN > 60; PROTHROMBIN TIME 25.1 Seconds (9.8-13.1)
[2017-09-08 06:06] LABS: INR 2.2 (0.9-1.2); PARTIAL THROMBOPLASTIN TIME 35.6 Seconds (25.6-37.1)
[2017-09-08] MEDS: Insulin Regular 100 units/ml SC SCH ×2 (07:00→11:50)
[2017-09-08 08:02] VITALS: TEMP 98
[2017-09-08] MEDS: diltiaZEM 240 mg/24 Hours CD Cap PO SCH (08:32)
[2017-09-08] MEDS: Insulin Lispro Mix 75/25 100 units/ml (HumaLog) 10ml SC SCH ×2 (08:34→08:36)
[2017-09-08] MEDS: Digoxin 250 mcg (0.25 mg) Tab PO SCH (08:35)
[2017-09-08 08:38] VITALS: PULSE 60
--- NOTE | 2017-09-08 09:57 | CP.PCM.PN ---
Subjective - Date & Time of Evaluation Date of Evaluation: 09/08/17 Time of Evaluation: 07:00 Objective - Vital Signs/Intake and Output Vital Signs (last 24 hours): Temp Pulse Resp BP Pulse Ox 98 F 60 18 125/82 100 09/08/17 08:00 09/08/17 08:32 09/08/17 08:00 09/08/17 08:35 09/08/17 08:00 - Medications Medications: Current Medications Albuterol Sulfate (Albuterol 0.083% Inhal Katrina (2.5 Mg/3 Ml) Ud) 2.5 mg IH Q6 PRN PRN Reason: Shortness of Breath Albuterol/Ipratropium (Duoneb 3 Mg/0.5 Mg (3 Ml) Ud) 3 ml INH RQ4 [facility] Last Admin: 09/08/17 07:31 Dose: 3 ml Dextrose (Dextrose 50% Inj) 0 ml IV STAT PRN; Protocol PRN Reason: Hypoglycemia Protocol Dextrose (Glutose 15) 0 gm PO ONCE PRN; Protocol PRN Reason: Hypoglycemia Protocol Digoxin (Lanoxin) 0.25 mg PO DAILY [facility] Last Admin: 09/08/17 08:35 Dose: 0.25 mg Diltiazem HCl (Cardizem Cd) 240 mg PO DAILY [facility] Last Admin: 09/08/17 08:32 Dose: 240 mg Furosemide (Lasix) 20 mg PO DAILY [facility] Last Admin: 09/08/17 08:35 Dose: 20 mg Glucagon (Glucagen Diagnostic Kit) 0 mg IM STAT PRN; Protocol PRN Reason: Hypoglycemia Protocol Insulin Human Regular (Humulin R) 0 units SC ACHS [facility] PRN Reason: Protocol Last Admin: 09/08/17 07:00 Dose: 3 units Insulin Lispro Protam/Lispro Human (Humalog Mix 75/25) 70 units SC BID [facility] Last Admin: 09/08/17 08:36 Dose: Not Given Lactulose (Enulose) 10 gm PO DAILY PRN PRN Reason: Constipation Last Admin: 09/08/17 08:33 Dose: 10 gm Prednisone (Prednisone Tab) 40 mg PO DAILY [facility] Last Admin: 09/08/17 08:35 Dose: 40 mg - Labs Labs: 09/08/17 04:20 09/08/17 04:20 PT 25.1 Seconds (9.8-13.1) H 09/08/17 04:20 INR 2.2 (0.9-1.2) H 09/08/17 04:20 APTT 35.6 Seconds (25.6-37.1) D 09/08/17 04:20
[2017-09-08 11:36] VITALS: BP 140/65; PULSE 70; RESP 20; O2SAT 98
--- NOTE | 2017-09-08 14:17 | CP.PCM.CON ---
History of Present Illness - History of Present Illness History of Present Illness: Pulmonary consult for 57 Y/O F, with Hx of COPD, Sleep Apnea, CHF, A Fib, brought to [facility], [place], on 09/06/17 for evaluation of moderate SOB, on and off, no cough, after she woke up on DOA, symptom associated to wheezing, dizziness on exertion, PT using Nebulizer Tx at home with no relief. Worsening symptoms: Morbid Obese (MBI 41), Former smoker also found with Hyperglycemia (BS 365). Aggravated factor: Movements/exercise. Pt denied: Fever, chills, cough, CP, palpitations, numbness, headache, back pain, n/v/d, abdominal pain, sick contact, recent travel out of [facility]. CXR showed: No cardiopulmonary disease. EKG: A Fib. Review of Systems - Constitutional Constitutional: Sleep Apnea, Other (overweight) - EENT Eyes: Requires Corrective Lenses Ears: Other (negative) Nose/Mouth/Throat: Other (negative) - Cardiovascular Cardiovascular: Irregular Heart Rhythm - Respiratory Respiratory: Dyspnea, Wheezing - Gastrointestinal Gastrointestinal: Other (negative) - Genitourinary Genitourinary: Other (negative) - Musculoskeletal Musculoskeletal: Other (negative) - Integumentary Integumentary: Other (negative) - Neurological Neurological: Dizziness - Psychiatric Psychiatric: Other (negative) - Endocrine Endocrine: Other (Morbid obesity) - Hematologic/Lymphatic Hematologic: Other (negative) Past Patient History - Infectious Disease Hx of Infectious Diseases: None - Past Medical History & Family History Past Medical History?: Yes - Past Social History Smoking Status: Former Smoker Alcohol: Social Drugs: Denies Home Situation {Lives}: With Family - CARDIAC Hx Cardiac Disorders: Yes Hx Atrial Fibrillation: Yes (dx first week of august) Hx Cardia Arrhythmia: Yes (afib) Hx Congestive Heart Failure: Yes Hx Hypercholesterolemia: Yes Hx Hypertension: Yes - PULMONARY Hx Respiratory Disorders: Yes Hx Chronic Obstructive Pulmonary Disease (COPD): Yes Hx Sleep Apnea: Yes - NEUROLOGICAL Hx Neurological Disorder: No - HEENT Hx HEENT Problems: Yes (Use eyeglasess) Other/Comment: wears glasses - RENAL Hx Chronic Kidney Disease: No - ENDOCRINE/METABOLIC Hx Endocrine Disorders: Yes Hx Diabetes Mellitus Type 2: Yes Other/Comment: Morbid Obesity - HEMATOLOGICAL/ONCOLOGICAL Hx Blood Disorders: No Hx Cirrhosis: Yes Hx Human Immunodeficiency Virus (HIV): No Other/Comment: Thrombocytopenia - INTEGUMENTARY Hx Dermatological Problems: No - MUSCULOSKELETAL/RHEUMATOLOGICAL Hx Musculoskeletal Disorders: Yes Hx Arthritis: Yes Hx Fractures: Yes (ribs) - GASTROINTESTINAL Hx Gastrointestinal Disorders: Yes (Hernia) - GENITOURINARY/GYNECOLOGICAL Hx Genitourinary Disorders: No - PSYCHIATRIC Hx Psychophysiologic Disorder: No Hx Substance Use: No - SURGICAL HISTORY Hx Surgeries: Yes Hx Carotid Endarterectomy: Yes Hx Tonsillectomy: Yes - ANESTHESIA Hx Anesthesia: Yes Hx Anesthesia Reactions: No Hx Malignant Hyperthermia: No Meds Home Medications: Home Medication List Medication Instructions Recorded Confirmed Type Tiotropium [Spiriva] 18 mcg IH DAILY #30 cap 09/08/17 Rx predniSONE [predniSONE Tab] 40 mg PO DAILY #3 tab 09/08/17 Rx Allergies/Adverse Reactions: Allergies Allergy/AdvReac Type Severity Reaction Status Date / Time zolpidem tartrate Allergy Mild RASH Verified 08/21/17 17:22 [From Ambien] - Medications Medications: Current Medications Albuterol Sulfate (Albuterol 0.083% Inhal Katrina (2.5 Mg/3 Ml) Ud) 2.5 mg IH Q6 PRN PRN Reason: Shortness of Breath Albuterol/Ipratropium (Duoneb 3 Mg/0.5 Mg (3 Ml) Ud) 3 ml INH RQ4 [facility] Last Admin: 09/08/17 11:55 Dose: 3 ml Dextrose (Dextrose 50% Inj) 0 ml IV STAT PRN; Protocol PRN Reason: Hypoglycemia Protocol Dextrose (Glutose 15) 0 gm PO ONCE PRN; Protocol PRN Reason: Hypoglycemia Protocol Digoxin (Lanoxin) 0.25 mg PO DAILY [facility] Last Admin: 09/08/17 08:35 Dose: 0.25 mg Diltiazem HCl (Cardizem Cd) 240 mg PO DAILY [facility] Last Admin: 09/08/17 08:32 Dose: 240 mg Furosemide (Lasix) 20 mg PO DAILY [facility] Last Admin: 09/08/17 08:35 Dose: 20 mg Glucagon (Glucagen Diagnostic Kit) 0 mg IM STAT PRN; Protocol PRN Reason: Hypoglycemia Protocol Insulin Human Regular (Humulin R) 0 units SC ACHS [facility] PRN Reason: Protocol Last Admin: 09/08/17 11:50 Dose: 4 units Insulin Lispro Protam/Lispro Human (Humalog Mix 75/25) 70 units SC BID [facility] Last Admin: 09/08/17 08:36 Dose: Not Given Lactulose (Enulose) 10 gm PO DAILY PRN PRN Reason: Constipation Last Admin: 09/08/17 08:33 Dose: 10 gm Prednisone (Prednisone Tab) 40 mg PO DAILY [facility] Last Admin: 09/08/17 08:35 Dose: 40 mg Physical Exam - Constitutional Appears: No Acute Distress - Head Exam Head Exam: NORMAL INSPECTION - Eye Exam Eye Exam: PERRL - ENT Exam ENT Exam: Normal Exam - Neck Exam Neck exam: Positive for: Normal Inspection - Respiratory Exam Respiratory Exam: Decreased Breath Sounds (at bases) - Cardiovascular Exam Cardiovascular Exam: Irregular Rhythm - GI/Abdominal Exam GI & Abdominal Exam: Normal Bowel Sounds, Soft Additional comments: Obese - Extremities Exam Extremities exam: Positive for: pedal edema Additional comments: L/E edema - Back Exam Back exam: NORMAL INSPECTION - Neurological Exam Neurological exam: Alert, Oriented x3 Additional comments: No motor/sensory deficit. - Psychiatric Exam Psychiatric exam: Normal Mood - Skin Skin Exam: Warm Results - Vital Signs Recent Vital Signs: Last Vital Signs Temp 98 F 09/08/17 11:35 Pulse 70 09/08/17 11:35 Resp 20 09/08/17 11:35 BP 140/65 09/08/17 11:35 Pulse Ox 98 09/08/17 11:35 reviewed Varsha - Labs Result Diagrams: 09/08/17 04:20 09/08/17 04:20 Labs: Laboratory Results - last 24 hr 09/07/17 09/07/17 09/08/17 15:51 22:37 04:20 WBC 6.8 RBC 5.31 H Hgb 14.5 Hct 44.8 MCV 84.4 MCH 27.3 MCHC 32.3 L RDW 15.9 H Plt Count 69 L MPV 9.9 Neut % (Auto) 75.9 H Lymph % (Auto) 17.6 L Marin % (Auto) 6.2 Eos % (Auto) 0.0 Baso % (Auto) 0.3 Neut # (Auto) 5.2 Lymph # (Auto) 1.2 Marin # (Auto) 0.4 Eos # (Auto) 0.0 Baso # (Auto) 0.0 PT INR APTT Sodium Potassium Chloride Carbon Dioxide Anion Gap BUN Creatinine Est GFR ( Amer) Est GFR (Non-Af Amer) POC Glucose (mg/dL) 383 H 291 H Random Glucose Calcium Total Bilirubin AST ALT Alkaline Phosphatase Total Protein Albumin Globulin Albumin/Globulin Ratio 09/08/17 09/08/17 09/08/17 04:20 04:20 05:10 WBC RBC Hgb Hct MCV MCH MCHC RDW Plt Count MPV Neut % (Auto) Lymph % (Auto) Marin % (Auto) Eos % (Auto) Baso % (Auto) Neut # (Auto) Lymph # (Auto) Marin # (Auto) Eos # (Auto) Baso # (Auto) PT 25.1 H INR 2.2 H APTT 35.6 D Sodium 135 Potassium 4.1 Chloride 98 Carbon Dioxide 27 Anion Gap 14 BUN 27 H Creatinine 0.8 Est GFR ( Amer) > 60 Est GFR (Non-Af Amer) > 60 POC Glucose (mg/dL) 248 H Random Glucose 266 H Calcium 8.9 Total Bilirubin 1.0 AST 31 ALT 51 Alkaline Phosphatase 180 H Total Protein 7.1 Albumin 3.6 Globulin 3.5 Albumin/Globulin Ratio 1.0 09/08/17 09/08/17 10:58 11:34 WBC RBC Hgb Hct MCV MCH MCHC RDW Plt Count MPV Neut % (Auto) Lymph % (Auto) Marin % (Auto) Eos % (Auto) Baso % (Auto) Neut # (Auto) Lymph # (Auto) Marin # (Auto) Eos # (Auto) Baso # (Auto) PT INR APTT Sodium Potassium Chloride Carbon Dioxide Anion Gap BUN Creatinine Est GFR ( Amer) Est GFR (Non-Af Amer) POC Glucose (mg/dL) 285 H 232 H Random Glucose Calcium Total Bilirubin AST ALT Alkaline Phosphatase Total Protein Albumin Globulin Albumin/Globulin Ratio reviewed J.P. - EKG Data EKG comments: reviewed J.P. - Imaging and Cardiology Chest x-ray Status: Report reviewed by me (FelishaP.) CT scan - head Status: Report reviewed by me (FelishaPViktoria) Assessment & Plan (1) COPD exacerbation Status: Acute Priority: High (2) KM (obstructive sleep apnea) Status: Acute Priority: High - Assessment and Plan (Free Text) Plan: Continue O2 NC 2 L/M, O2 NC, Prednisone, Duoneb and rest of Tx, Pulmonary clear for discharge, F/U with PMD , Pulmonary doctor, Sleep study as out Pt. - Date & Time Date: 09/08/17 Time: 10:00
--- NOTE | 2017-09-08 17:49 | CP.PCM.DIS ---
<McgeeElíasnyla - Last Filed: 09/08/17 17:46> Provider - Provider Date of Admission: 09/06/17 15:36 Attending physician: Nuah Goff MD Primary care physician: Arron Martinez MD Consults: PulDr. Sylwia clayton Time Spent in preparation of Discharge (in minutes): 40 Diagnosis - Discharge Diagnosis (1) COPD exacerbation Status: Acute (2) Afib Status: Chronic (3) Lightheaded Status: Acute (4) HTN (hypertension) Status: Chronic (5) Diabetes Status: Chronic (6) Liver cirrhosis Status: Chronic Hospital Course - Lab Results Lab Results: Most Recent Lab Values WBC 6.8 K/uL (4.8-10.8) 09/08/17 04:20 RBC 5.31 Mil/uL (3.80-5.20) H 09/08/17 04:20 Hgb 14.5 g/dL (12.0-16.0) 09/08/17 04:20 Hct 44.8 % (34.0-47.0) 09/08/17 04:20 MCV 84.4 fl (81.0-99.0) 09/08/17 04:20 MCH 27.3 pg (27.0-31.0) 09/08/17 04:20 MCHC 32.3 g/dL (33.0-37.0) L 09/08/17 04:20 RDW 15.9 % (11.5-14.5) H 09/08/17 04:20 Plt Count 69 K/uL (130-400) L 09/08/17 04:20 MPV 9.9 fl (7.2-11.7) 09/08/17 04:20 Neut % (Auto) 75.9 % (50.0-75.0) H 09/08/17 04:20 Lymph % (Auto) 17.6 % (20.0-40.0) L 09/08/17 04:20 Johnson % (Auto) 6.2 % (0.0-10.0) 09/08/17 04:20 Eos % (Auto) 0.0 % (0.0-4.0) 09/08/17 04:20 Baso % (Auto) 0.3 % (0.0-2.0) 09/08/17 04:20 Neut # (Auto) 5.2 K/uL (1.8-7.0) 09/08/17 04:20 Lymph # (Auto) 1.2 K/uL (1.0-4.3) 09/08/17 04:20 Johnson # (Auto) 0.4 K/uL (0.0-0.8) 09/08/17 04:20 Eos # (Auto) 0.0 K/uL (0.0-0.7) 09/08/17 04:20 Baso # (Auto) 0.0 K/uL (0.0-0.2) 09/08/17 04:20 PT 25.1 Seconds (9.8-13.1) H 09/08/17 04:20 INR 2.2 (0.9-1.2) H 09/08/17 04:20 APTT 35.6 Seconds (25.6-37.1) D 09/08/17 04:20 pCO2 35 mm/Hg (35-45) 09/06/17 21:05 pO2 73 mm/Hg (80-100) L 09/06/17 21:05 HCO3 29.3 mmol/L (21-28) H 09/06/17 21:05 ABG pH 7.52 (7.35-7.45) H 09/06/17 21:05 ABG Total CO2 29.7 mmol/L (22-28) H 09/06/17 21:05 ABG O2 Saturation 97.6 % (95-98) 09/06/17 21:05 ABG O2 Content 21.3 ML/dL (15-23) 09/06/17 21:05 ABG Base Excess 5.8 mmol/L (-2.0-3.0) H 09/06/17 21:05 ABG Hemoglobin 16.1 g/dL (11.7-17.4) 09/06/17 21:05 ABG Carboxyhemoglobin 2.1 % (0.5-1.5) H 09/06/17 21:05 POC ABG HHb (Measured) 2.3 % (0.0-5.0) 09/06/17 21:05 ABG Methemoglobin 1.4 % (0.0-3.0) 09/06/17 21:05 ABG O2 Capacity 21.8 mL/dL (16-24) 09/06/17 21:05 Tuan Test Yes 09/06/17 21:05 A-a O2 Difference 33.0 mm/Hg 09/06/17 21:05 Hgb O2 Saturation 94.2 % (95.0-98.0) L 09/06/17 21:05 FiO2 21.0 % 09/06/17 21:05 Sodium 135 mmol/l (132-148) 09/08/17 04:20 Potassium 4.1 MMOL/L (3.6-5.0) 09/08/17 04:20 Chloride 98 mmol/L (98-107) 09/08/17 04:20 Carbon Dioxide 27 mmol/L (22-30) 09/08/17 04:20 Anion Gap 14 (10-20) 09/08/17 04:20 BUN 27 mg/dl (7-17) H 09/08/17 04:20 Creatinine 0.8 mg/dl (0.7-1.2) 09/08/17 04:20 Est GFR ( Amer) > 60 09/08/17 04:20 Est GFR (Non-Af Amer) > 60 09/08/17 04:20 POC Glucose (mg/dL) 232 mg/dL (65-110) H 09/08/17 11:34 Random Glucose 266 mg/dL (65-105) H 09/08/17 04:20 Hemoglobin A1c 10.0 % (4.2-6.5) H D 09/07/17 04:20 Calcium 8.9 mg/dL (8.4-10.2) 09/08/17 04:20 Total Bilirubin 1.0 mg/dl (0.2-1.3) 09/08/17 04:20 AST 31 U/L (14-36) 09/08/17 04:20 ALT 51 U/L (9-52) 09/08/17 04:20 Alkaline Phosphatase 180 U/L (38-126) H 09/08/17 04:20 Ammonia 26 umo/L (11-51) 09/07/17 04:20 Troponin I 0.0400 ng/mL (0.00-0.120) 09/06/17 10:45 NT-Pro-B Natriuret Pep 799 pg/ml (0-900) 09/06/17 10:45 Total Protein 7.1 G/DL (6.3-8.2) 09/08/17 04:20 Albumin 3.6 g/dL (3.5-5.0) 09/08/17 04:20 Globulin 3.5 gm/dL (2.2-3.9) 09/08/17 04:20 Albumin/Globulin Ratio 1.0 (1.0-2.1) 09/08/17 04:20 TSH 3rd Generation 0.23 mIU/ML (0.46-4.68) L 09/07/17 04:20 Digoxin 1.1 ng/mL (0.8-2.0) 09/06/17 10:45 - Hospital Course Hospital Course: A/57 y/o obese F with PMHx of HTN, A fib, COPD, DM type 2, Liver Cirrhosis with severe splenomegaly admitted for COPD exacerbation. CXR showed cardiomegaly, with dilated pulmonary artery: No active disease. S/p Solumedrol and Duoneb in ER. Patient was started on Prednisone 40mg and c/w Lasix 20mg. ABG was done and Pulm Dr. Dao consulted to r/o restrictive lung diseases who recommended out patient follow up. Patient discharged home with instructions to follow up with PMD and Pulm after discharge, C/w home medications, Prednisone 40mg daily given for next 3 days with Spiriva. Instructions: Follow up with PMD in 2 to 3 days Follow up out patient Pulmonary recommendations after discharge Rx for Prednisone 40mg daily for next 3 days sent to the pharmacy Lasix was changed from 40 mg to 20mg (C/w Lasix 20mg daily) C/w home medications Discharge Exam - Head Exam Head Exam: NORMAL INSPECTION - Eye Exam Eye Exam: Normal appearance - Respiratory Exam Respiratory Exam: Clear to PA & Lateral, NORMAL BREATHING PATTERN. absent: Wheezes, Respiratory Distress - Cardiovascular Exam Cardiovascular Exam: REGULAR RHYTHM, +S1, +S2 - GI/Abdominal Exam GI & Abdominal Exam: Normal Bowel Sounds - Extremities Exam Extremities exam: normal inspection - Back Exam Back exam: NORMAL INSPECTION. absent: CVA tenderness (L), CVA tenderness (R) - Neurological Exam Neurological exam: Alert, CN II-XII Intact, Oriented x3 - Psychiatric Exam Psychiatric exam: Normal Affect - Skin Skin Exam: Dry, Intact, Normal Color, Warm Discharge Plan - Discharge Medications Prescriptions: predniSONE [predniSONE Tab] 40 mg PO DAILY #3 tab Tiotropium [Spiriva] 18 mcg IH DAILY #30 cap - Follow Up Plan Condition: FAIR Disposition: HOME/ ROUTINE Additional Instructions: Follow up with PMD in 2 to 3 days Follow up out patient Pulmonary recommendations after discharge Rx for Prednisone 40mg daily for next 3 days sent to the pharmacy Lasix was changed from 40 mg to 20mg (C/w Lasix 20mg daily) C/w home medications Referrals: Arron Martinez MD [Primary Care Provider] - <Maria A Bearden - Last Filed: 09/09/17 08:13> Provider - Provider Date of Admission: 09/06/17 15:36 Attending physician: Nuha Goff MD Primary care physician: Arron Martinez MD Hospital Course - Lab Results Lab Results: Most Recent Lab Values WBC 6.8 K/uL (4.8-10.8) 09/08/17 04:20 RBC 5.31 Mil/uL (3.80-5.20) H 09/08/17 04:20 Hgb 14.5 g/dL (12.0-16.0) 09/08/17 04:20 Hct 44.8 % (34.0-47.0) 09/08/17 04:20 MCV 84.4 fl (81.0-99.0) 09/08/17 04:20 MCH 27.3 pg (27.0-31.0) 09/08/17 04:20 MCHC 32.3 g/dL (33.0-37.0) L 09/08/17 04:20 RDW 15.9 % (11.5-14.5) H 09/08/17 04:20 Plt Count 69 K/uL (130-400) L 09/08/17 04:20 MPV 9.9 fl (7.2-11.7) 09/08/17 04:20 Neut % (Auto) 75.9 % (50.0-75.0) H 09/08/17 04:20 Lymph % (Auto) 17.6 % (20.0-40.0) L 09/08/17 04:20 Johnson % (Auto) 6.2 % (0.0-10.0) 09/08/17 04:20 Eos % (Auto) 0.0 % (0.0-4.0) 09/08/17 04:20 Baso % (Auto) 0.3 % (0.0-2.0) 09/08/17 04:20 Neut # (Auto) 5.2 K/uL (1.8-7.0) 09/08/17 04:20 Lymph # (Auto) 1.2 K/uL (1.0-4.3) 09/08/17 04:20 Johnson # (Auto) 0.4 K/uL (0.0-0.8) 09/08/17 04:20 Eos # (Auto) 0.0 K/uL (0.0-0.7) 09/08/17 04:20 Baso # (Auto) 0.0 K/uL (0.0-0.2) 09/08/17 04:20 PT 25.1 Seconds (9.8-13.1) H 09/08/17 04:20 INR 2.2 (0.9-1.2) H 09/08/17 04:20 APTT 35.6 Seconds (25.6-37.1) D 09/08/17 04:20 pCO2 35 mm/Hg (35-45) 09/06/17 21:05 pO2 73 mm/Hg (80-100) L 09/06/17 21:05 HCO3 29.3 mmol/L (21-28) H 09/06/17 21:05 ABG pH 7.52 (7.35-7.45) H 09/06/17 21:05 ABG Total CO2 29.7 mmol/L (22-28) H 09/06/17 21:05 ABG O2 Saturation 97.6 % (95-98) 09/06/17 21:05 ABG O2 Content 21.3 ML/dL (15-23) 09/06/17 21:05 ABG Base Excess 5.8 mmol/L (-2.0-3.0) H 09/06/17 21:05 ABG Hemoglobin 16.1 g/dL (11.7-17.4) 09/06/17 21:05 ABG Carboxyhemoglobin 2.1 % (0.5-1.5) H 09/06/17 21:05 POC ABG HHb (Measured) 2.3 % (0.0-5.0) 09/06/17 21:05 ABG Methemoglobin 1.4 % (0.0-3.0) 09/06/17 21:05 ABG O2 Capacity 21.8 mL/dL (16-24) 09/06/17 21:05 Tuan Test Yes 09/06/17 21:05 A-a O2 Difference 33.0 mm/Hg 09/06/17 21:05 Hgb O2 Saturation 94.2 % (95.0-98.0) L 09/06/17 21:05 FiO2 21.0 % 09/06/17 21:05 Sodium 135 mmol/l (132-148) 09/08/17 04:20 Potassium 4.1 MMOL/L (3.6-5.0) 09/08/17 04:20 Chloride 98 mmol/L (98-107) 09/08/17 04:20 Carbon Dioxide 27 mmol/L (22-30) 09/08/17 04:20 Anion Gap 14 (10-20) 09/08/17 04:20 BUN 27 mg/dl (7-17) H 09/08/17 04:20 Creatinine 0.8 mg/dl (0.7-1.2) 09/08/17 04:20 Est GFR ( Amer) > 60 09/08/17 04:20 Est GFR (Non-Af Amer) > 60 09/08/17 04:20 POC Glucose (mg/dL) 232 mg/dL (65-110) H 09/08/17 11:34 Random Glucose 266 mg/dL (65-105) H 09/08/17 04:20 Hemoglobin A1c 10.0 % (4.2-6.5) H D 09/07/17 04:20 Calcium 8.9 mg/dL (8.4-10.2) 09/08/17 04:20 Total Bilirubin 1.0 mg/dl (0.2-1.3) 09/08/17 04:20 AST 31 U/L (14-36) 09/08/17 04:20 ALT 51 U/L (9-52) 09/08/17 04:20 Alkaline Phosphatase 180 U/L (38-126) H 09/08/17 04:20 Ammonia 26 umo/L (11-51) 09/07/17 04:20 Troponin I 0.0400 ng/mL (0.00-0.120) 09/06/17 10:45 NT-Pro-B Natriuret Pep 799 pg/ml (0-900) 09/06/17 10:45 Total Protein 7.1 G/DL (6.3-8.2) 09/08/17 04:20 Albumin 3.6 g/dL (3.5-5.0) 09/08/17 04:20 Globulin 3.5 gm/dL (2.2-3.9) 09/08/17 04:20 Albumin/Globulin Ratio 1.0 (1.0-2.1) 09/08/17 04:20 TSH 3rd Generation 0.23 mIU/ML (0.46-4.68) L 09/07/17 04:20 Digoxin 1.1 ng/mL (0.8-2.0) 09/06/17 10:45 - Hospital Course Hospital Course: Attending Note - ATTESTATION. Patient seen and examined. Case discussed with resident. Agree with findings and plan. Patient will be be discharge on Rx prednisone and albuterol inhaler. She will follow up with her PMD in 3-4 days.
== END 2017-09-08 15:40 | disposition home or self-care (01) ==
LOC: SUPCPDRO 10:12 → H.ER 10:12 → H.ERHOLD 15:36 → H.TEL 17:52
PROVIDERS: ADMIT Family Medicine; ATTEND Family Medicine
DX: J44.1 Chronic obstructive pulmonary disease with (acute) exacerbation (principal); I48.2 Chronic atrial fibrillation; Z79.01 Long term (current) use of anticoagulants; I11.0 Hypertensive heart disease with heart failure; I50.9 Heart failure, unspecified; K70.30 Alcoholic cirrhosis of liver without ascites; E66.01 Morbid (severe) obesity due to excess calories; R16.1 Splenomegaly, not elsewhere classified; M19.90 Unspecified osteoarthritis, unspecified site; E11.65 Type 2 diabetes mellitus with hyperglycemia; D69.6 Thrombocytopenia, unspecified; Z68.41 Body mass index [BMI] 40.0-44.9, adult; Z87.891 Personal history of nicotine dependence; G47.33 Obstructive sleep apnea (adult) (pediatric); E78.00 Pure hypercholesterolemia, unspecified; R42 Dizziness and giddiness
CPT/HCPCS: 36415; 70450; 71045; 80053; 80162; 82140; 82803; 82948; 83036; 83880; 84443; 84484; 85025; 85610; 85730; 93005; 94640; 96372; 96374; 99285; G0378; J2930; J7030; J7040

== ENCOUNTER 2017-10-05 15:47 | Emergency (ER) | payer MEDICAID ==
[2017-10-05 15:47] VITALS: PULSE 60; BMI 49.4
[2017-10-05 16:01] VITALS: TEMP 97.6; O2SAT 95
[2017-10-05] MEDS ORDERED: Albuterol-Ipratrop 3 mg / 0.5 (3 ml) UD INH STA ×3 (16:31→16:32)
--- NOTE | 2017-10-05 16:51 | ED PDOC ---
HPI: SOB/CHF/COPD Time Seen by Provider: 10/05/17 16:15 Chief Complaint (Nursing): Cough, Cold, Congestion Chief Complaint (Provider): Shortness of breath, cold symptoms History Per: Patient History/Exam Limitations: no limitations Onset/Duration Of Symptoms: Days Current Symptoms Are (Timing): Still Present Additional History Per: Patient Additional Complaint(s): 57yo female, with history of COPD, CHF, hypertnesion, A-fib, comes to ER for evaluation of cough and cold like symptoms x 3 days and shortness of breath since this morning. Patient states she is on home oxygen, 2L via [place] and is still feeling shortness of breath; she has taken multiple nebulizer treatments with no relief of symptoms. Patient states she is on Warfarin due to her history of AFib; she also states she took her dose of lasix today. Otherwise, patient denies any fever, chills, chest pain, pedal edema. She has no other medical complaints. PMD: Dr. Martinez Past Medical History Reviewed: Historical Data, Nursing Documentation, Vital Signs Vital Signs: Last Vital Signs Temp 97.6 F 10/05/17 15:57 Pulse 79 10/05/17 19:54 Resp 18 10/05/17 19:54 BP 141/73 10/05/17 19:54 Pulse Ox 95 10/05/17 19:54 - Medical History PMH: Arthritis, Atrial Fibrillation (dx first week of august), Cardia Arrhythmia ( afib), CHF, COPD, Diabetes, Fractures (ribs), HTN, Hypercholesterolemia, Sleep Apnea Denies: HIV, Chronic Kidney Disease - Surgical History Surgical History: Carotid Endarterectomy, Hernia Repair, Tonsillectomy - Family History Family History: States: Diabetes, Hypertension - Immunization History Hx Tetanus Toxoid Vaccination: No Hx Influenza Vaccination: No Hx Pneumococcal Vaccination: No - Home Medications Home Medications: Ambulatory Orders Medication Instructions Recorded Insulin Lispro Protamin/Lispro 60 unit SC BID 09/04/16 [Humalog Mix 75-25 Kwikpen] Digoxin [Lanoxin] 0.25 mg PO DAILY #30 tab 09/16/16 Warfarin [Coumadin] 5 mg PO QPM 02/19/17 Albuterol 0.083% [Albuterol 0.083% 2.5 mg IH Q6 PRN 06/15/17 Inhal Katrina (2.5 mg/3 ml) UD] Ascorbic Acid [Vitamin C 500 mg 1 tab PO DAILY 06/15/17 Tab] Chromium Amino Acid Chelate 1 tab PO DAILY 06/15/17 [Chromium] Vitamin E [Vitamin E 400 Units Cap] 1 cap PO DAILY 06/15/17 diltiaZEM CD [Cardizem CD] 240 mg PO DAILY 06/15/17 Furosemide [Lasix] 20 mg PO DAILY #30 tab 06/16/17 Albuterol 0.083% [Albuterol 0.083% 3 ml IH Q4 PRN #50 neb 08/21/17 Inhal Katrina (2.5 mg/3 ml) UD] Tiotropium [Spiriva] 18 mcg IH DAILY #30 cap 09/08/17 predniSONE [predniSONE Tab] 40 mg PO DAILY #3 tab 09/08/17 Albuterol 0.083% [Albuterol 3 ml IH Q4 PRN #50 neb 10/05/17 Sulfate 3 Ml] Prednisone 50 mg PO DAILY #4 tablet 10/05/17 levoFLOXacin [Levaquin] 750 mg PO DAILY #5 tab 10/05/17 - Allergies Allergies/Adverse Reactions: Allergies Allergy/AdvReac Type Severity Reaction Status Date / Time zolpidem tartrate Allergy Mild RASH Verified 08/21/17 17:22 [From Jessi] Review of Systems ROS Statement: Except As Marked, All Systems Reviewed And Found Negative Constitutional: Negative for: Fever, Chills Cardiovascular: Negative for: Chest Pain Respiratory: Positive for: Cough, Shortness of Breath Musculoskeletal: Negative for: Other (leg swelling) Physical Exam - Reviewed Nursing Documentation Reviewed: Yes Vital Signs Reviewed: Yes - Physical Exam Appears: Positive for: Uncomfortable Head Exam: Positive for: ATRAUMATIC, NORMAL INSPECTION, NORMOCEPHALIC Skin: Positive for: Normal Color Eye Exam: Positive for: Normal appearance, EOMI, PERRL Cardiovascular/Chest: Positive for: Irregularly Irregular. Negative for: Murmur Respiratory: Positive for: Decreased Breath Sounds, Respiratory Distress, Other (active coughing). Negative for: Rales, Rhonchi Pulses-Radial (L): 2+ Pulses-Radial (R): 2+ Gastrointestinal/Abdominal: Positive for: Normal Exam, Soft. Negative for: Tenderness Back: Positive for: Normal Inspection Extremity: Positive for: Normal ROM. Negative for: Pedal Edema, Calf Tenderness Neurologic/Psych: Positive for: Alert, Oriented - Laboratory Results Result Diagrams: 10/05/17 17:16 10/05/17 17:16 - ECG ECG: Positive for: Interpreted By Me, Viewed By Me ECG Rhythm: Positive for: Normal QRS, Atrial Fibrillation, ST/T Changes (non specific ST wave changes) Rate: 79 O2 Sat by Pulse Oximetry: 95 (RA) Pulse Ox Interpretation: Normal Medical Decision Making Medical Decision Making: Impression: Shortness of breath Differential: COPD exacerbation, CHF exacerbation, r/o Pleural effusion, pneumonia Plan: -- Labs -- Chest x-ray -- Duoneb 3ml INH x 3 -- Solumedrol 125mg IVP Time: 1700 Patient signed out to Dr Viktoria Rios pending labs, re-evaluation. Scribe Attestation: Documented by Lary Oliveira, acting as a scribe for Kayy Meléndez MD. Provider Scribe Attestation: All medical record entries made by the Scribe were at my direction and personally dictated by me. I have reviewed the chart and agree that the record accurately reflects my personal performance of the history, physical exam, medical decision making, and the department course for this patient. I have also personally directed, reviewed, and agree with the discharge instructions and disposition. Disposition - Clinical Impression Clinical Impression: COPD exacerbation - Patient ED Disposition Is Patient to be Admitted: Transfer of Care Counseled Patient/Family Regarding: Studies Performed, Diagnosis - Disposition Referrals: Arron Martinez MD [Primary Care Provider] - (SEE DR MARTINEZ TOMORROW FOR REEVALUATION) Disposition: Transfer of Care Disposition Time: 17:00 Condition: STABLE Additional Instructions: RETURN TO ER IMMEDIATELY IF: --SEVERE SHORTNESS OF BREATH OR CHEST PAIN --FAINTING OR NEAR FAINTING --ANY OTHER WORRISOME SYMPTOMS OTHERWISE SEE DR MARTINEZ TOMORROW MORNING [facility], thank you for letting us take care of you today. Your provider was Hermila Rios MD and you were treated for SOB. The emergency medical care you received today was directed at your acute symptoms. If you were prescribed any medication, please fill it and take as directed. It may take several days for your symptoms to resolve. Return to the Emergency Department if your symptoms worsen, do not improve, or if you have any other problems. Please contact your doctor or call one of the physicians/clinics you have been referred to that are listed on the Patient Visit Information form that is included in your discharge packet. Bring any paperwork you were given at discharge with you along with any medications you are taking to your follow up visit. Our treatment cannot replace ongoing medical care by a primary care provider outside of the emergency department. Thank you for allowing the [facility] team to be part of your care today. Prescriptions: Albuterol 0.083% [Albuterol Sulfate 3 Ml] 3 ml IH Q4 PRN #50 neb PRN Reason: asthma levoFLOXacin [Levaquin] 750 mg PO DAILY #5 tab Prednisone 50 mg PO DAILY #4 tablet Instructions: Exacerbation of COPD Patient Signed Over To: Hermila Rios Handoff Comments: labs, chest x-ray, reeval
[2017-10-05 16:54] LABS: ABG ALLEN TEST YES; ARTERIAL BLOOD GAS HCO3 31.1 mmol/L (21-28); ARTERIAL BLOOD GAS HEMOGLOBIN 15.1 g/dL (11.7-17.4); ARTERIAL BLOOD GAS O2 CAPACITY 20.2 mL/dL (16-24); ARTERIAL BLOOD GAS O2 CONTENT 19.2 ML/dL (15-23); ARTERIAL BLOOD GAS O2 SAT 95.2 % (95-98); ARTERIAL BLOOD GAS PCO2 44 mm/Hg (35-45); ARTERIAL BLOOD GAS PH 7.48 (7.35-7.45); ARTERIAL BLOOD GAS PO2 64 mm/Hg (80-100); ARTERIAL BLOOD GAS TCO2 34.2 mmol/L (22-28)
--- NOTE | 2017-10-05 17:08 | RAD ---
Date of service: 10/05/2017 PROCEDURE: CHEST RADIOGRAPH, 1 VIEW HISTORY: dyspnea COMPARISON: Chest radiograph dated 09/06/2017. FINDINGS: LUNGS: Clear. PLEURA: No pneumothorax or pleural fluid seen. CARDIOVASCULAR: Atherosclerotic aortic calcifications. Cardiomediastinal silhouette stably enlarged. OSSEOUS STRUCTURES: Unchanged. VISUALIZED UPPER ABDOMEN: Normal. OTHER FINDINGS: None. IMPRESSION: No active disease.
[2017-10-05] MEDS ORDERED: Albuterol-Ipratrop 3 mg / 0.5 (3 ml) UD ONE (17:15)
[2017-10-05 17:22] VITALS: PULSE 79
[2017-10-05 17:27] LABS: BASO % 0.5 % (0.0-2.0); EOS # 0.1 K/uL (0.0-0.7); EOS % 1.8 % (0.0-4.0); HEMOGLOBIN 14.2 g/dL (12.0-16.0); LYMPH # 0.9 K/uL (1.0-4.3); LYMPH % 14.6 % (20.0-40.0); MEAN CELL VOLUME 83.9 fl (81.0-99.0); MEAN CORPUSCULAR HEMOGLOBIN 27.1 pg (27.0-31.0); MEAN CORPUSCULAR HGB CONC 32.3 g/dL (33.0-37.0); MEAN PLATELET VOLUME 9.5 fl (7.2-11.7); MONO # 0.5 K/uL (0.0-0.8); MONO % 7.6 % (0.0-10.0); NEUT # 4.7 K/uL (1.8-7.0); NEUT % 75.5 % (50.0-75.0); NRBC % 0.1 % (0.0-0.0); RBC 5.25 Mil/uL (3.80-5.20); RED CELL DISTRIBUTION WIDTH 16.7 % (11.5-14.5); WHITE BLOOD COUNT 6.2 K/uL (4.8-10.8)
[2017-10-05 17:37] LABS: INR 1.6 (0.9-1.2); PARTIAL THROMBOPLASTIN TIME 36.2 Seconds (25.6-37.1); PROTHROMBIN TIME 17.5 Seconds (9.8-13.1)
[2017-10-05 17:45] LABS: B-TYPE NATRIURETIC PEPTIDE 965 pg/ml (0-900); BLOOD UREA NITROGEN 21 mg/dl (7-17); CALCIUM 8.8 mg/dL (8.4-10.2); GFR NON-AFRICAN AMERICAN > 60
--- NOTE | 2017-10-05 17:53 | ED PDOC ---
- Laboratory Results Result Diagrams: 10/05/17 17:16 10/05/17 17:16 - ECG O2 Sat by Pulse Oximetry: 95 (RA) Pulse Ox Interpretation: Normal Medical Decision Making Medical Decision Making: Time: 1700 Patient signed out to me by Dr. Meléndez pending labs, Chest x-ray, reassessment. Accession No. : [id number] Patient Name / ID : GEOVANNY LIMON / [id number] Exam Date : 10/05/2017 16:31:40 ( Approved ) Study Comment : Sex / Age : F / 57Y Creator : [place] gu Dictator : Ben Conklin MD Weapons Specialist : Case Management Assistant : Ben Conklin MD Approver2 : Report Date : 10/05/2017 16:41:38 My Comment : Date of service: 10/05/2017 PROCEDURE: CHEST RADIOGRAPH, 1 VIEW HISTORY: dyspnea COMPARISON: Chest radiograph dated 09/06/2017. FINDINGS: LUNGS: Clear. PLEURA: No pneumothorax or pleural fluid seen. CARDIOVASCULAR: Atherosclerotic aortic calcifications. Cardiomediastinal silhouette stably enlarged. OSSEOUS STRUCTURES: Unchanged. VISUALIZED UPPER ABDOMEN: Normal. OTHER FINDINGS: None. IMPRESSION: No active disease. Pt report her breathing has gotten markedly better. No wheeze or respiratory distress on exam Eager to be discharged. Labs demonstrate hyperglycemia and thrombocytopenia and elevated probnp. Chronic c/w previous Scribe Attestation: Documented by Lary Oliveira, acting as a scribe for Hermila Rios MD. Provider Scribe Attestation: All medical record entries made by the Scribe were at my direction and personally dictated by me. I have reviewed the chart and agree that the record accurately reflects my personal performance of the history, physical exam, medical decision making, and the department course for this patient. I have also personally directed, reviewed, and agree with the discharge instructions and disposition. Disposition Counseled Patient/Family Regarding: Studies Performed, Diagnosis - Clinical Impression Clinical Impression: COPD exacerbation - POA Present On Arrival: Poor Glycemic Control - Disposition Referrals: Arron Martinez MD [Primary Care Provider] - (SEE DR MARTINEZ TOMORROW FOR REEVALUATION) Disposition: Routine/Home Disposition Time: 19:15 Condition: IMPROVED Additional Instructions: RETURN TO ER IMMEDIATELY IF: --SEVERE SHORTNESS OF BREATH OR CHEST PAIN --FAINTING OR NEAR FAINTING --ANY OTHER WORRISOME SYMPTOMS OTHERWISE SEE DR MARTINEZ TOMORROW MORNING [place], thank you for letting us take care of you today. Your provider was Hermila Rios MD and you were treated for SOB. The emergency medical care you received today was directed at your acute symptoms. If you were prescribed any medication, please fill it and take as directed. It may take several days for your symptoms to resolve. Return to the Emergency Department if your symptoms worsen, do not improve, or if you have any other problems. Please contact your doctor or call one of the physicians/clinics you have been referred to that are listed on the Patient Visit Information form that is included in your discharge packet. Bring any paperwork you were given at discharge with you along with any medications you are taking to your follow up visit. Our treatment cannot replace ongoing medical care by a primary care provider outside of the emergency department. Thank you for allowing the [facility] team to be part of your care today. Prescriptions: Albuterol 0.083% [Albuterol Sulfate 3 Ml] 3 ml IH Q4 PRN #50 neb PRN Reason: asthma levoFLOXacin [Levaquin] 750 mg PO DAILY #5 tab Prednisone 50 mg PO DAILY #4 tablet Instructions: Exacerbation of COPD
[2017-10-05 18:13] VITALS: BP 141/73; RESP 18
--- NOTE | 2017-10-06 12:39 | CARD ---
APPROVED REPORT Date of service: 10/05/2017 EKG Measurement Heart [id number] <Conclusion> Atrial fibrillation ST & T wave abnormality, consider inferior lateral ischemia Septal wall TN age undetermined Abnormal ECG
== END 2017-10-05 19:54 | disposition home or self-care (01) ==
LOC: SUPCPDRO 15:47 → H.ER 15:47
DX: J44.1 Chronic obstructive pulmonary disease with (acute) exacerbation (principal); E11.65 Type 2 diabetes mellitus with hyperglycemia; E78.00 Pure hypercholesterolemia, unspecified; Z79.01 Long term (current) use of anticoagulants; Z79.4 Long term (current) use of insulin; Z99.81 Dependence on supplemental oxygen; I11.0 Hypertensive heart disease with heart failure
CPT/HCPCS: 36600; 71045; 80048; 82803; 82948; 83880; 84484; 85025; 85610; 85730; 93005; 94640; 96374; 99283; J2930

== ENCOUNTER 2017-10-18 16:33 | Emergency (ER) | payer MEDICAID ==
[2017-10-18 16:34] VITALS: PULSE 60; BMI 49.4
[2017-10-18 16:46] VITALS: TEMP 98.1
[2017-10-18] MEDS ORDERED: Albuterol-Ipratrop 3 mg / 0.5 (3 ml) UD INH STA ×2 (17:01→18:47)
[2017-10-18] MEDS ORDERED: Albuterol-Ipratrop 3 mg / 0.5 (3 ml) UD ONE (17:06)
--- NOTE | 2017-10-18 17:11 | ED PDOC ---
HPI: SOB/CHF/COPD Time Seen by Provider: 10/18/17 16:52 Chief Complaint (Nursing): Shortness Of Breath Chief Complaint (Provider): SOB History Per: Patient History/Exam Limitations: no limitations Additional Complaint(s): Pt reports SOB X 2 days. Denies fever, CP, palpitations, cough, sputum. No h/ o intubations. Past Medical History Reviewed: Nursing Documentation, Vital Signs Vital Signs: Last Vital Signs Temp 98.1 F 10/18/17 16:45 Pulse 88 10/18/17 21:04 Resp 17 10/18/17 21:04 BP 137/82 10/18/17 21:04 Pulse Ox 95 10/19/17 02:51 - Medical History PMH: Arthritis, Atrial Fibrillation (dx first week of august), Cardia Arrhythmia ( afib), CHF, COPD, Diabetes, Fractures (ribs), HTN, Hypercholesterolemia, Sleep Apnea Denies: HIV, Chronic Kidney Disease - Surgical History Surgical History: Carotid Endarterectomy, Hernia Repair, Tonsillectomy - Family History Family History: States: Unknown Family Hx, Diabetes, Hypertension - Social History Current smoker - smoking cessation education provided: No - Immunization History Hx Tetanus Toxoid Vaccination: No Hx Influenza Vaccination: No Hx Pneumococcal Vaccination: No - Home Medications Home Medications: Ambulatory Orders Medication Instructions Recorded Insulin Lispro Protamin/Lispro 60 unit SC BID 09/04/16 [Humalog Mix 75-25 Kwikpen] Digoxin [Lanoxin] 0.25 mg PO DAILY #30 tab 09/16/16 Warfarin [Coumadin] 5 mg PO QPM 02/19/17 Albuterol 0.083% [Albuterol 0.083% 2.5 mg IH Q6 PRN 06/15/17 Inhal Katrina (2.5 mg/3 ml) UD] Ascorbic Acid [Vitamin C 500 mg 1 tab PO DAILY 06/15/17 Tab] Chromium Amino Acid Chelate 1 tab PO DAILY 06/15/17 [Chromium] Vitamin E [Vitamin E 400 Units Cap] 1 cap PO DAILY 06/15/17 diltiaZEM CD [Cardizem CD] 240 mg PO DAILY 06/15/17 Furosemide [Lasix] 20 mg PO DAILY #30 tab 06/16/17 Albuterol 0.083% [Albuterol 0.083% 3 ml IH Q4 PRN #50 neb 08/21/17 Inhal Katrina (2.5 mg/3 ml) UD] Tiotropium [Spiriva] 18 mcg IH DAILY #30 cap 09/08/17 predniSONE [predniSONE Tab] 40 mg PO DAILY #3 tab 09/08/17 Albuterol 0.083% [Albuterol 3 ml IH Q4 PRN #50 neb 10/05/17 Sulfate 3 Ml] Prednisone 50 mg PO DAILY #4 tablet 10/05/17 levoFLOXacin [Levaquin] 750 mg PO DAILY #5 tab 10/05/17 Albuterol 0.083% [Albuterol 0.083% 3 ml IH Q4H PRN #30 neb 10/18/17 Inhal Katrina (2.5 mg/3 ml) UD] predniSONE [Prednisone] 40 mg PO DAILY #8 tab 10/18/17 - Allergies Allergies/Adverse Reactions: Allergies Allergy/AdvReac Type Severity Reaction Status Date / Time zolpidem tartrate Allergy Mild RASH Verified 08/21/17 17:22 [[facility]] Review of Systems Constitutional: Negative for: Fever, Chills Cardiovascular: Negative for: Chest Pain, Palpitations Respiratory: Positive for: Shortness of Breath. Negative for: Cough, Hemoptysis Neurological: Negative for: Weakness, Headache Physical Exam - Reviewed Nursing Documentation Reviewed: Yes Vital Signs Reviewed: Yes - Physical Exam Appears: Positive for: Well, No Acute Distress (Speaking full sentences) Skin: Positive for: Normal Color, Warm, Dry Eye Exam: Positive for: Normal appearance, EOMI, PERRL Cardiovascular/Chest: Positive for: Irregularly Irregular. Negative for: Tachycardia Respiratory: Positive for: Normal Breath Sounds. Negative for: Decreased Breath Sounds, Accessory Muscle Use, Rales, Rhonchi, Wheezing, Respiratory Distress Extremity: Positive for: Normal ROM Neurologic/Psych: Positive for: Alert, Oriented - Laboratory Results Result Diagrams: 10/18/17 17:15 10/18/17 17:15 - ECG Interpretation Of ECG: A fib @ 76 (old), nonspecific ST and T wave abnormality. O2 Sat by Pulse Oximetry: 95 Pulse Ox Interpretation: Normal - Radiology X-Ray: Interpreted by Al X-Ray Interpretation: No Acute Disease Medical Decision Making Medical Decision Makin yo female with COPD. - labs - EKG - CXR - Albuterol/atrovent nebs - Solumedrol 18:45 Pt feels better but still with SOB, requesting additional nebulizer tx. CBC reviewed, chronic thrombocytopenia. Disposition - Clinical Impression Clinical Impression: Acute exacerbation of chronic obstructive pulmonary disease (COPD) - Disposition Disposition: Transfer of Care Disposition Time: 19:00 Condition: IMPROVED Additional Instructions: follow up with your primary doctor in 1-2 days for reevaluation return to the ED with any worsening or concerning symptoms Prescriptions: Albuterol 0.083% [Albuterol 0.083% Inhal Katrina (2.5 mg/3 ml) UD] 3 ml IH Q4H PRN # 30 neb PRN Reason: Wheezing predniSONE [Prednisone] 40 mg PO DAILY #8 tab Instructions: Exacerbation of COPD (DC) Forms: [employer] (Swazi) Patient Signed Over To: Jasen Barnes
[2017-10-18 17:18] LABS: BASO % 0.4 % (0.0-2.0); EOS # 0.1 K/uL (0.0-0.7); EOS % 1.3 % (0.0-4.0); HEMOGLOBIN 14.4 g/dL (12.0-16.0); LYMPH # 0.7 K/uL (1.0-4.3); LYMPH % 10.3 % (20.0-40.0); MEAN CELL VOLUME 84.9 fl (81.0-99.0); MEAN CORPUSCULAR HEMOGLOBIN 27.6 pg (27.0-31.0); MEAN CORPUSCULAR HGB CONC 32.6 g/dL (33.0-37.0); MEAN PLATELET VOLUME 10.1 fl (7.2-11.7); MONO # 0.3 K/uL (0.0-0.8); MONO % 4.4 % (0.0-10.0); NEUT # 5.9 K/uL (1.8-7.0); NEUT % 83.6 % (50.0-75.0); NRBC % 0.1 % (0.0-0.0); RBC 5.2 Mil/uL (3.80-5.20); RED CELL DISTRIBUTION WIDTH 16.8 % (11.5-14.5)
[2017-10-18 17:26] LABS: ALB/GLOB RATIO 1.2 (1.0-2.1); ALT/SGPT 53 U/L (9-52); AST/SGOT 37 U/L (14-36); BLOOD UREA NITROGEN 17 mg/dl (7-17); CALCIUM 9.1 mg/dL (8.4-10.2); GFR AFRICAN-AMERICAN > 60; GFR NON-AFRICAN AMERICAN > 60
[2017-10-18] MEDS ORDERED: Sodium Chloride 0.9% 1,000 ML IV STA (18:56)
[2017-10-18] MEDS ORDERED: Insulin Regular 100 units/ml IV STA (18:56)
[2017-10-18] MEDS ORDERED: Insulin Regular 100 units/ml ONE (19:17)
--- NOTE | 2017-10-18 20:07 | ED PDOC ---
- Laboratory Results Result Diagrams: 10/18/17 17:15 10/18/17 17:15 - ECG O2 Sat by Pulse Oximetry: 95 Medical Decision Making Medical Decision Makin:00 Patient endorsed to me by Dr. Horan pending reevaluation and disposition. 21:28 Upon provider reevaluation, patient is feeling better and is medically stable for discharge. Patient advised to follow up with PCP, Dr. Martinez, in 1-2 days. given prescriptions. Scribe Attestation: Documented by Edward Chowdary, acting as a scribe for Jasen Barnes MD. Provider Scribe Attestation: All medical record entries made by the Scribe were at my direction and personally dictated by me. I have reviewed the chart and agree that the record accurately reflects my personal performance of the history, physical exam, medical decision making, and the department course for this patient. I have also personally directed, reviewed, and agree with the discharge instructions and disposition. Disposition Counseled Patient/Family Regarding: Studies Performed, Diagnosis, Need For Followup, Rx Given - Clinical Impression Clinical Impression: Acute exacerbation of chronic obstructive pulmonary disease (COPD) - POA Present On Arrival: None - Disposition Disposition: Routine/Home Disposition Time: 21:20 Condition: IMPROVED Additional Instructions: follow up with your primary doctor in 1-2 days for reevaluation return to the ED with any worsening or concerning symptoms Prescriptions: Albuterol 0.083% [Albuterol 0.083% Inhal Katrina (2.5 mg/3 ml) UD] 3 ml IH Q4H PRN # 30 neb PRN Reason: Wheezing predniSONE [Prednisone] 40 mg PO DAILY #8 tab Instructions: Exacerbation of COPD (DC) Forms: [employer] (Uzbek)
[2017-10-18 21:04] VITALS: BP 137/82; PULSE 88; RESP 17
[2017-10-18 21:35] VITALS: O2SAT 95
--- NOTE | 2017-10-19 07:58 | CARD ---
APPROVED REPORT Date of service: 10/18/2017 <Conclusion> Atrial fibrillation Nonspecific ST and T wave abnormality Abnormal ECG
--- NOTE | 2017-10-19 08:50 | RAD ---
Date of service: 10/18/2017 HISTORY: SOB COMPARISON: Portable chest 10/05/2017. FINDINGS: LUNGS: No active pulmonary disease. PLEURA: No significant pleural effusion identified, no pneumothorax apparent. CARDIOVASCULAR: Stable cardiomegaly. No pulmonary vascular congestion appreciable. OSSEOUS STRUCTURES: No significant abnormalities. VISUALIZED UPPER ABDOMEN: Mild left hemidiaphragm elevation identified. OTHER FINDINGS: None. IMPRESSION: No acute infiltrate, pleural effusion or pneumothorax. Mild left hemidiaphragm elevation. Stable cardiomegaly. No pulmonary vascular congestion.
== END 2017-10-18 21:28 | disposition home or self-care (01) ==
LOC: H.ER 16:33
DX: J44.1 Chronic obstructive pulmonary disease with (acute) exacerbation (principal); E11.65 Type 2 diabetes mellitus with hyperglycemia; E78.00 Pure hypercholesterolemia, unspecified; I11.0 Hypertensive heart disease with heart failure; I48.91 Unspecified atrial fibrillation; I50.9 Heart failure, unspecified; Z79.01 Long term (current) use of anticoagulants; Z79.4 Long term (current) use of insulin
CPT/HCPCS: 71045; 80053; 82948; 85025; 93005; 94640; 96374; 96375; 99284; J2930; J7030

== ENCOUNTER 2018-02-03 05:21 | Emergency (ER) | payer MEDICAID ==
[2018-02-03 05:21] VITALS: PULSE 60; BMI 49.4
[2018-02-03 05:53] VITALS: TEMP 98.9
[2018-02-03] MEDS ORDERED: Albuterol-Ipratrop 3 mg / 0.5 (3 ml) UD INH STA (05:58)
[2018-02-03] MEDS ORDERED: Albuterol-Ipratrop 3 mg / 0.5 (3 ml) UD ONE (06:05)
--- NOTE | 2018-02-03 06:05 | ED PDOC ---
HPI: SOB/CHF/COPD Time Seen by Provider: 02/03/18 05:45 Chief Complaint (Nursing): Shortness Of Breath Chief Complaint (Provider): Shortness Of Breath History Per: Patient History/Exam Limitations: no limitations Onset/Duration Of Symptoms: Days (x2) Current Symptoms Are (Timing): Still Present Quality: Tightness (chest) Current Respiratory Medications: Albuterol Associated Symptoms: Other (chest tightness). denies: Fever Additional Complaint(s): 57 year old female with a history of COPD, CHF, atrial fibrillation, liver hepatic insufficiency, diabetes, and hypertension presents to the ED complaining of shortness of breath onset x2 days associated sense of chest tightness. Patient used albuterol at home with no relief. She denies any fever, vomiting, diarrhea, or leg swelling. PMD: Dr. Martinez Past Medical History Reviewed: Historical Data, Nursing Documentation, Vital Signs Vital Signs: Last Vital Signs Temp 98.9 F 02/03/18 05:50 Pulse 83 02/03/18 05:50 Resp 16 02/03/18 05:50 BP 152/69 H 02/03/18 05:50 Pulse Ox 94 L 02/03/18 05:50 - Medical History PMH: Arthritis, Atrial Fibrillation (dx first week of august), Cardia Arrhythmia (afib), CHF, COPD, Diabetes, Fractures (ribs), HTN, Hypercholesterolemia, Sleep Apnea Denies: HIV, Chronic Kidney Disease Other PMH: liver hepatic insufficiency - Surgical History Surgical History: Carotid Endarterectomy, Hernia Repair, Tonsillectomy - Family History Family History: States: Unknown Family Hx, Diabetes, Hypertension - Social History Current smoker - smoking cessation education provided: No Ex-Smoker (has not smoked in the last 12 months): No Alcohol: None Drugs: Denies - Immunization History Hx Tetanus Toxoid Vaccination: No Hx Influenza Vaccination: No Hx Pneumococcal Vaccination: No - Home Medications Home Medications: Ambulatory Orders Medication Instructions Recorded Insulin Lispro Protamin/Lispro 60 unit SC BID 09/04/16 [Humalog Mix 75-25 Kwikpen] Digoxin [Lanoxin] 0.25 mg PO DAILY #30 tab 09/16/16 Warfarin [Coumadin] 5 mg PO QPM 02/19/17 Albuterol 0.083% [Albuterol 0.083% 2.5 mg IH Q6 PRN 06/15/17 Inhal Katrina (2.5 mg/3 ml) UD] Ascorbic Acid [Vitamin C 500 mg 1 tab PO DAILY 06/15/17 Tab] Chromium Amino Acid Chelate 1 tab PO DAILY 06/15/17 [Chromium] Vitamin E [Vitamin E 400 Units Cap] 1 cap PO DAILY 06/15/17 [id number] CD [Cardizem CD] 240 mg PO DAILY 06/15/17 Furosemide [Lasix] 20 mg PO DAILY #30 tab 06/16/17 Albuterol 0.083% [Albuterol 0.083% 3 ml IH Q4 PRN #50 neb 08/21/17 Inhal Katrina (2.5 mg/3 ml) UD] Tiotropium [Spiriva] 18 mcg IH DAILY #30 cap 09/08/17 predniSONE [predniSONE Tab] 40 mg PO DAILY #3 tab 09/08/17 Albuterol 0.083% [Albuterol 3 ml IH Q4 PRN #50 neb 10/05/17 Sulfate 3 Ml] Prednisone 50 mg PO DAILY #4 tablet 10/05/17 levoFLOXacin [Levaquin] 750 mg PO DAILY #5 tab 10/05/17 Albuterol 0.083% [Albuterol 0.083% 3 ml IH Q4H PRN #30 neb 10/18/17 Inhal Katrina (2.5 mg/3 ml) UD] predniSONE [Prednisone] 40 mg PO DAILY #8 tab 10/18/17 Methylprednisolone [Medrol Dosepak] 4 mg PO ASDIR #1 pkg 02/03/18 - Allergies Allergies/Adverse Reactions: Allergies Allergy/AdvReac Type Severity Reaction Status Date / Time zolpidem tartrate Allergy Mild RASH Verified 08/21/17 17:22 [From Jessi] Review of Systems ROS Statement: Except As Marked, All Systems Reviewed And Found Negative Cardiovascular: Positive for: Other (chest tightness) Respiratory: Positive for: Shortness of Breath Physical Exam - Reviewed Nursing Documentation Reviewed: Yes Vital Signs Reviewed: Yes - Physical Exam Appears: Positive for: Non-toxic, No Acute Distress Head Exam: Positive for: ATRAUMATIC, NORMOCEPHALIC Skin: Positive for: Normal Color, Warm, Dry Eye Exam: Positive for: EOMI, Normal appearance, PERRL Neck: Positive for: Normal, Painless ROM Cardiovascular/Chest: Positive for: Regular Rate, Rhythm. Negative for: Murmur Respiratory: Positive for: Wheezing (bilateral expiratory), Respiratory Distress (mild) Gastrointestinal/Abdominal: Positive for: Normal Exam, Soft. Negative for: Te nderness Back: Positive for: Normal Inspection Extremity: Positive for: Normal ROM (upper and lower). Negative for: Pedal Edema, Deformity Neurologic/Psych: Positive for: Alert, Oriented (x3) - Laboratory Results Result Diagrams: 02/03/18 06:17 02/03/18 06:17 - ECG O2 Sat by Pulse Oximetry: 94 (RA) Pulse Ox Interpretation: Normal Medical Decision Making Medical Decision Making: Time: 555 Initial Impression: Shortness of breath in setting of known COPD and CHF Initial Plan: --EKG --Labs --CXR --Duoneb --Solu-Medrol --Accucheck 0700 Chest x-ray reviewed and significant for COPD, CHF. Patient to be discharged home, and instructed to follow up with PMD in 2-3 days. -- Scribe Attestation: Documented by Dianna Nelson, acting as a scribe for Rahul Victor MD Provider Scribe Attestation: All medical record entries made by the Scribe were at my direction and personally dictated by me. I have reviewed the chart and agree that the record accurately reflects my personal performance of the history, physical exam, medical decision making, and the department course for this patient. I have also personally directed, reviewed, and agree with the discharge instructions and disposition. Disposition - Clinical Impression Clinical Impression: Chronic congestive heart failure, COPD exacerbation - Patient ED Disposition Is Patient to be Admitted: Transfer of Care - Disposition Disposition: Routine/Home Disposition Time: 07:00 Condition: STABLE Prescriptions: Methylprednisolone [Medrol Dosepak] 4 mg PO ASDIR #1 pkg Instructions: Chronic Obstructive Pulmonary Disease (COPD), Including Emphysema, Heart Failure, Adult Forms: [employer] (French)
[2018-02-03 06:34] LABS: BASO % 0.6 % (0.0-2.0); EOS # 0.2 K/uL (0.0-0.7); HEMOGLOBIN 14.3 g/dL (12.0-16.0); LYMPH # 1.1 K/uL (1.0-4.3); LYMPH % 19.3 % (20.0-40.0); MEAN CELL VOLUME 84.9 fl (81.0-99.0); MEAN CORPUSCULAR HEMOGLOBIN 27.5 pg (27.0-31.0); MEAN CORPUSCULAR HGB CONC 32.4 g/dL (33.0-37.0); MONO # 0.3 K/uL (0.0-0.8); MONO % 5.2 % (0.0-10.0); NEUT # 3.9 K/uL (1.8-7.0); NEUT % 71.9 % (50.0-75.0); NRBC % 0.1 % (0.0-0.0); RBC 5.22 Mil/uL (3.80-5.20); WHITE BLOOD COUNT 5.5 K/uL (4.8-10.8)
[2018-02-03 06:39] LABS: INR 1.3; PROTHROMBIN TIME 14.8 Seconds (9.8-13.1)
[2018-02-03 06:42] LABS: PARTIAL THROMBOPLASTIN TIME 37.8 Seconds (25.6-37.1)
[2018-02-03 06:43] LABS: ALBUMIN 3.7 g/dL (3.5-5.0); ALT/SGPT 65 U/L (9-52); AST/SGOT 59 U/L (14-36); BLOOD UREA NITROGEN 24 mg/dl (7-17); CALCIUM 9.1 mg/dL (8.4-10.2); GFR NON-AFRICAN AMERICAN > 60
[2018-02-03 06:55] LABS: B-TYPE NATRIURETIC PEPTIDE 1050 pg/ml (0-900)
[2018-02-03] MEDS ORDERED: Morphine 4 MG/ML VIAL ONE (07:04)
[2018-02-03 07:07] VITALS: BP 152/68; PULSE 90
[2018-02-03 07:21] VITALS: RESP 17
--- NOTE | 2018-02-03 07:27 | RAD ---
Date of service: 02/03/2018 HISTORY: chest pain COMPARISON: 10/18/2017 FINDINGS: LUNGS: No active pulmonary disease. PLEURA: No significant pleural effusion identified, no pneumothorax apparent. CARDIOVASCULAR: There is presence of aortic atherosclerotic calcification on x-ray. Cardiomegaly no pulmonary vascular congestion. Main pulmonary artery contour is prominent-can be seen with pulmonary hypertension. Mitral annular calcifications suggested-similar OSSEOUS STRUCTURES: No significant abnormalities. VISUALIZED UPPER ABDOMEN: Normal. OTHER FINDINGS: None. IMPRESSION: No interval pathology noted Other findings as above.
--- NOTE | 2018-02-03 07:44 | CARD ---
APPROVED REPORT Date of service: 02/03/2018 EKG Measurement Heart [id number] <Conclusion> Atrial fibrillation Nonspecific ST and T wave abnormality Abnormal ECG
[2018-02-10 02:48] VITALS: O2SAT 94
== END 2018-02-03 07:22 | disposition home or self-care (01) ==
LOC: H.ER 05:21
DX: I50.9 Heart failure, unspecified (principal); J44.1 Chronic obstructive pulmonary disease with (acute) exacerbation; Z87.891 Personal history of nicotine dependence; E11.9 Type 2 diabetes mellitus without complications; Z79.4 Long term (current) use of insulin
CPT/HCPCS: 71045; 80053; 80162; 83880; 84484; 85025; 85610; 85730; 93005; 94640; 96374; 96375; 99283; J1940; J2270; J2930

== ENCOUNTER 2018-03-15 08:53 | Emergency (ER) | payer MEDICAID ==
[2018-03-15 08:53] VITALS: PULSE 60
[2018-03-15 08:58] VITALS: BMI 44.8
[2018-03-15 09:00] VITALS: TEMP 98.4
[2018-03-15] MEDS ORDERED: Albuterol-Ipratrop 3 mg / 0.5 (3 ml) UD IH STA (09:38)
[2018-03-15] MEDS ORDERED: Albuterol-Ipratrop 3 mg / 0.5 (3 ml) UD INH STA (09:38)
[2018-03-15] MEDS ORDERED: Sodium Chloride 0.9% 500 ML IV STA (09:38)
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
[2018-03-15] MEDS ORDERED: Albuterol-Ipratrop 3 mg / 0.5 (3 ml) UD ONE (10:04)
[2018-03-15 10:23] LABS: BASO % 0.6 % (0.0-2.0); EOS # 0.1 K/uL (0.0-0.7); EOS % 1.8 % (0.0-4.0); HEMOGLOBIN 14.4 g/dL (12.0-16.0); LYMPH % 13.1 % (20.0-40.0); MEAN CELL VOLUME 84.2 fl (81.0-99.0); MEAN CORPUSCULAR HEMOGLOBIN 27.5 pg (27.0-31.0); MEAN CORPUSCULAR HGB CONC 32.7 g/dL (33.0-37.0); MEAN PLATELET VOLUME 10.5 fl (7.2-11.7); MONO # 0.5 K/uL (0.0-0.8); NEUT # 5.9 K/uL (1.8-7.0); NEUT % 78.5 % (50.0-75.0); NRBC % 0.1 % (0.0-0.0); RBC 5.23 Mil/uL (3.80-5.20); RED CELL DISTRIBUTION WIDTH 16.1 % (11.5-14.5); WHITE BLOOD COUNT 7.5 K/uL (4.8-10.8)
[2018-03-15 10:31] LABS: INR 1.4; PROTHROMBIN TIME 16.4 Seconds (9.8-13.1)
[2018-03-15 10:34] LABS: PARTIAL THROMBOPLASTIN TIME 35.1 Seconds (25.6-37.1)
[2018-03-15 10:36] LABS: ALB/GLOB RATIO 1.1 (1.0-2.1); ALBUMIN 3.7 g/dL (3.5-5.0); ALT/SGPT 60 U/L (9-52); AST/SGOT 48 U/L (14-36); BLOOD UREA NITROGEN 22 mg/dl (7-17); CALCIUM 9.1 mg/dL (8.4-10.2); GFR NON-AFRICAN AMERICAN > 60
[2018-03-15 10:48] LABS: B-TYPE NATRIURETIC PEPTIDE 822 pg/ml (0-900)
--- NOTE | 2018-03-15 11:31 | RAD ---
Date of service: 03/15/2018 HISTORY: dyspnea COMPARISON: 02/03/2018 FINDINGS: LUNGS: No active pulmonary disease. PLEURA: No significant pleural effusion identified, no pneumothorax apparent. CARDIOVASCULAR: Atherosclerotic calcifications identified primarily aortic arch. Cardiomegaly. No evidence of acute, significant cardiovascular disease. OSSEOUS STRUCTURES: No significant abnormalities. VISUALIZED UPPER ABDOMEN: Normal. OTHER FINDINGS: None. IMPRESSION: No active disease. No significant interval change compared to the prior examination(s).
[2018-03-15 13:29] VITALS: BP 170/85; PULSE 86; RESP 18; O2SAT 96
--- NOTE | 2018-03-16 03:05 | CARD ---
APPROVED REPORT Date of service: 03/15/2018 EKG Measurement Heart [id number] <Conclusion> Atrial fibrillation ST & T wave abnormality, consider lateral ischemia Abnormal ECG
== END 2018-03-15 13:00 | disposition home or self-care (01) ==
LOC: H.ER 08:53
DX: J44.1 Chronic obstructive pulmonary disease with (acute) exacerbation (principal); E11.9 Type 2 diabetes mellitus without complications; Z79.4 Long term (current) use of insulin; I11.0 Hypertensive heart disease with heart failure; I50.9 Heart failure, unspecified; Z79.899 Other long term (current) drug therapy; Z79.01 Long term (current) use of anticoagulants
CPT/HCPCS: 71045; 80053; 82948; 83880; 84484; 85025; 85610; 85730; 93005; 96374; 99284; J2930; J7040

== ENCOUNTER 2018-03-23 02:29 | Emergency (ER) | payer MEDICAID ==
[2018-03-23 02:29] VITALS: PULSE 60; BMI 44.8
[2018-03-23 03:46] LABS: BASO % 0.6 % (0.0-2.0); EOS # 0.2 K/uL (0.0-0.7); EOS % 2.2 % (0.0-4.0); HEMOGLOBIN 15.1 g/dL (12.0-16.0); LYMPH # 1.6 K/uL (1.0-4.3); LYMPH % 19.8 % (20.0-40.0); MEAN CELL VOLUME 86.3 fl (81.0-99.0); MEAN CORPUSCULAR HEMOGLOBIN 27.2 pg (27.0-31.0); MEAN CORPUSCULAR HGB CONC 31.5 g/dL (33.0-37.0); MEAN PLATELET VOLUME 9.9 fl (7.2-11.7); MONO # 0.6 K/uL (0.0-0.8); MONO % 7.2 % (0.0-10.0); NEUT # 5.5 K/uL (1.8-7.0); NEUT % 70.2 % (50.0-75.0); NRBC % 0.1 % (0.0-0.0); RBC 5.56 Mil/uL (3.80-5.20); RED CELL DISTRIBUTION WIDTH 16.1 % (11.5-14.5); WHITE BLOOD COUNT 7.9 K/uL (4.8-10.8)
[2018-03-23 03:52] LABS: INR 1.7; PROTHROMBIN TIME 19.7 Seconds (9.8-13.1)
[2018-03-23 03:55] LABS: PARTIAL THROMBOPLASTIN TIME 45.2 Seconds (25.6-37.1)
[2018-03-23 04:06] LABS: BLOOD UREA NITROGEN 15 mg/dl (7-17); CALCIUM 9.1 mg/dL (8.4-10.2); GFR NON-AFRICAN AMERICAN > 60
[2018-03-23 04:08] LABS: B-TYPE NATRIURETIC PEPTIDE 774 pg/ml (0-900)
--- NOTE | 2018-03-23 04:08 | ED PDOC ---
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 States that she has shortness of breath with minimal exertion, but denies chest pain. No fevers, cough, chills. States her legs were swollen today from being on her feet. PMD: Dr. Martinez Past Medical History Reviewed: Historical Data, Nursing Documentation, Vital Signs Vital Signs: Last Vital Signs Temp 98.4 F 03/23/18 02:48 Pulse 83 03/23/18 02:48 Resp 24 03/23/18 03:37 BP 133/68 03/23/18 03:25 Pulse Ox 93 L 03/23/18 03:37 - Medical History PMH: Arthritis, Atrial Fibrillation (dx first week of august), Cardia Arrhythmia (afib), CHF, COPD, Diabetes, Fractures (ribs), HTN, Hypercholesterolemia, Sleep Apnea Denies: HIV, Chronic Kidney Disease - Surgical History Surgical History: Carotid Endarterectomy, Hernia Repair, Tonsillectomy - Family History Family History: States: Unknown Family Hx, Diabetes, Hypertension - Immunization History Hx Tetanus Toxoid Vaccination: No Hx Influenza Vaccination: No Hx Pneumococcal Vaccination: No - Home Medications Home Medications: Ambulatory Orders Medication Instructions Recorded Insulin Lispro Protamin/Lispro 60 unit SC BID 09/04/16 [Humalog Mix 75-25 Kwikpen] Digoxin [Lanoxin] 0.25 mg PO DAILY #30 tab 09/16/16 Warfarin [Coumadin] 5 mg PO QPM 02/19/17 Albuterol 0.083% [Albuterol 0.083% 2.5 mg IH Q6 PRN 06/15/17 Inhal Katrina (2.5 mg/3 ml) UD] Ascorbic Acid [Vitamin C 500 mg 1 tab PO DAILY 06/15/17 Tab] Chromium Amino Acid Chelate 1 tab PO DAILY 06/15/17 [Chromium] Vitamin E [Vitamin E 400 Units Cap] 1 cap PO DAILY 04/02/18 [id number] CD [Cardizem CD] 240 mg PO DAILY 06/15/17 Furosemide [Lasix] 20 mg PO DAILY #30 tab 06/16/17 Albuterol 0.083% [Albuterol 0.083% 3 ml IH Q4 PRN #50 neb 08/21/17 Inhal Katrina (2.5 mg/3 ml) UD] Tiotropium [Spiriva] 18 mcg IH DAILY #30 cap 09/08/17 predniSONE [predniSONE Tab] 40 mg PO DAILY #3 tab 09/08/17 Albuterol 0.083% [Albuterol 3 ml IH Q4 PRN #50 neb 10/05/17 Sulfate 3 Ml] Prednisone 50 mg PO DAILY #4 tablet 10/05/17 levoFLOXacin [Levaquin] 750 mg PO DAILY #5 tab 10/05/17 Albuterol 0.083% [Albuterol 0.083% 3 ml IH Q4H PRN #30 neb 10/18/17 Inhal Katrina (2.5 mg/3 ml) UD] predniSONE [Prednisone] 40 mg PO DAILY #8 tab 10/18/17 Methylprednisolone [Medrol Dosepak] 4 mg PO ASDIR #1 pkg 02/03/18 Albuterol Sulfate [Proair Hfa] 0.09 mg IH Q6H PRN #2 inh 03/15/18 Furosemide [Lasix] 20 mg PO DAILY 10 Days tab 03/15/18 predniSONE [predniSONE Tab] 20 mg PO BID 5 Days tab 03/15/18 Albuterol 0.083% [Albuterol 0.083% 3 ml IH Q4 #50 neb 03/23/18 Inhal Katrina (2.5 mg/3 ml) UD] predniSONE [predniSONE Tab] 60 mg PO DAILY #9 tab 03/23/18 - Allergies Allergies/Adverse Reactions: Allergies Allergy/AdvReac Type Severity Reaction Status Date / Time zolpidem tartrate Allergy Mild RASH Verified 03/15/18 09:11 [From Jessi] Review of Systems ROS Statement: Except As Marked, All Systems Reviewed And Found Negative Respiratory: Positive for: Shortness of Breath. Negative for: Wheezing Physical Exam - Reviewed Nursing Documentation Reviewed: Yes - Physical Exam Appears: Positive for: Well, Non-toxic, No Acute Distress Head Exam: Positive for: ATRAUMATIC, NORMAL INSPECTION, NORMOCEPHALIC Skin: Positive for: Normal Color, Warm, DRY Eye Exam: Positive for: EOMI, Normal appearance, PERRL ENT: Positive for: Normal ENT Inspection Neck: Positive for: Normal, Painless ROM Cardiovascular/Chest: Positive for: Regular Rate, Rhythm Respiratory: Positive for: Crackles, Wheezing Gastrointestinal/Abdominal: Positive for: Normal Exam, Soft Back: Positive for: Normal Inspection Extremity: Positive for: Pedal Edema (1+ Pitting edema) Neurologic/Psych: Positive for: Alert, Oriented - Laboratory Results Result Diagrams: 03/23/18 03:35 03/23/18 03:35 Lab Results: PT 19.7 Seconds (9.8-13.1) H 03/23/18 03:35 INR 1.7 03/23/18 03:35 APTT 45.2 Seconds (25.6-37.1) H 03/23/18 03:35 - ECG ECG Rhythm: Positive for: Atrial Fibrillation Rate: 83 O2 Sat by Pulse Oximetry: 93 Pulse Ox Interpretation: Abnormal Medical Decision Making Medical Decision MakinAM Patient presenting with shortness of breath --Patient wheezing, has crackles --Patient likely having acute exacerbation of CHF due to med noncompliance or p ossibly COPD --Will treat with lasix and nebs, check labs, and re-eval 6AM --PAtient is no longer wheezing, no longer short of breath --Walking around ER without difficulty --Stable for discharge Disposition - Clinical Impression Clinical Impression: COPD exacerbation - Patient ED Disposition Is Patient to be Admitted: No - Disposition Referrals: Arron Martinez MD [Staff Provider] - Disposition: Routine/Home Disposition Time: 06:19 Condition: STABLE Prescriptions: Albuterol 0.083% [Albuterol 0.083% Inhal Katrina (2.5 mg/3 ml) UD] 3 ml IH Q4 #50 neb predniSONE [predniSONE Tab] 60 mg PO DAILY #9 tab Instructions: Chronic Obstructive Pulmonary Disease (COPD), Including Emphysema Forms: [employer] (Georgian)
[2018-03-23] MEDS ORDERED: Albuterol-Ipratrop 3 mg / 0.5 (3 ml) UD INH STA ×3 (04:12→05:31)
[2018-03-23] MEDS ORDERED: Albuterol-Ipratrop 3 mg / 0.5 (3 ml) UD ONE ×2 (04:20→05:24)
[2018-03-23 06:56] VITALS: BP 138/62; PULSE 79; RESP 18; TEMP 98.3; O2SAT 97
--- NOTE | 2018-03-23 08:19 | RAD ---
Date of service: 03/23/2018 HISTORY: SOB, CHF COMPARISON: None available. FINDINGS: LUNGS: No active pulmonary disease. PLEURA: No significant pleural effusion identified, no pneumothorax apparent. CARDIOVASCULAR: Calcific atherosclerotic changes are seen related to the thoracic aorta. Stable cardiomegaly. No pulmonary vascular congestion. OSSEOUS STRUCTURES: No significant abnormalities. VISUALIZED UPPER ABDOMEN: Normal. OTHER FINDINGS: None. IMPRESSION: No interval acute cardiopulmonary disease appreciated. Cardiomegaly unchanged.
== END 2018-03-23 06:40 | disposition home or self-care (01) ==
LOC: H.ER 02:29
DX: J44.1 Chronic obstructive pulmonary disease with (acute) exacerbation (principal); I48.91 Unspecified atrial fibrillation; E11.9 Type 2 diabetes mellitus without complications; E78.00 Pure hypercholesterolemia, unspecified; I11.0 Hypertensive heart disease with heart failure; Z79.01 Long term (current) use of anticoagulants; Z79.4 Long term (current) use of insulin; I50.9 Heart failure, unspecified
CPT/HCPCS: 71045; 80048; 82948; 83880; 84484; 85025; 85610; 85730; 94640; 96374; 96375; 99283; J1940; J2930

== ENCOUNTER 2018-04-19 05:49 | Emergency (ER) | payer MEDICAID ==
[2018-04-19 05:49] VITALS: PULSE 60
[2018-04-19 06:06] VITALS: BMI 44.2
[2018-04-19] MEDS ORDERED: Albuterol-Ipratrop 3 mg / 0.5 (3 ml) UD INH STA ×3 (06:06→09:37)
--- NOTE | 2018-04-19 06:20 | ED PDOC ---
HPI: SOB/CHF/COPD Time Seen by Provider: 04/19/18 05:50 Chief Complaint (Nursing): Shortness Of Breath Chief Complaint (Provider): Shortness Of Breath History Per: Patient History/Exam Limitations: no limitations Onset/Duration Of Symptoms: Days (x2) Additional Complaint(s): 58 y/o female with history of CHF, COPD, Afib, HTN, presents to the ED complaining of shortness of breath for x2 days. Patient states that she ran out of her Lasix about x2 days ago and has had increasingly worsening shortness of breath. Patient describes orthopnea and PND. Denies associated fever or cough. Past Medical History Reviewed: Historical Data, Nursing Documentation, Vital Signs Vital Signs: Last Vital Signs Temp 98.2 F 04/19/18 06:06 Pulse 92 H 04/19/18 06:06 Resp 22 04/19/18 06:06 BP 163/100 H 04/19/18 06:06 Pulse Ox 96 04/19/18 06:06 - Medical History PMH: Arthritis, Atrial Fibrillation (dx first week of august), Cardia Arrhythmia ( afib), CHF, COPD, Diabetes, Fractures (ribs), HTN, Hypercholesterolemia, Sleep Apnea Denies: HIV, Chronic Kidney Disease - Surgical History Surgical History: Carotid Endarterectomy, Hernia Repair, Tonsillectomy - Family History Family History: States: Unknown Family Hx, Diabetes, Hypertension - Social History Current smoker - smoking cessation education provided: No Alcohol: None Drugs: Denies - Immunization History Hx Tetanus Toxoid Vaccination: No Hx Influenza Vaccination: No Hx Pneumococcal Vaccination: No - Home Medications Home Medications: Ambulatory Orders Medication Instructions Recorded RX: Insulin Lispro Protamin/Lispro 60 unit SC BID 09/04/16 [Humalog Mix 75-25 Kwikpen] RX: Digoxin [Lanoxin] 0.25 mg PO DAILY #30 tab 09/16/16 RX: Warfarin [Coumadin] 5 mg PO QPM 02/19/17 RX: Albuterol 0.083% [Albuterol 2.5 mg IH Q6 PRN 06/15/17 0.083% Inhal Katrina (2.5 mg/3 ml) UD] RX: Ascorbic Acid [Vitamin C 500 1 tab PO DAILY 06/15/17 mg Tab] RX: Chromium Amino Acid Chelate 1 tab PO DAILY 04/02/18 [Chromium] RX: Vitamin E [Vitamin E 400 Units 1 cap PO DAILY 06/15/17 Cap] RX: diltiaZEM CD [Cardizem CD] 240 mg PO DAILY 06/15/17 RX: Furosemide [Lasix] 20 mg PO DAILY #30 tab 06/16/17 RX: Albuterol 0.083% [Albuterol 3 ml IH Q4 PRN #50 neb 08/21/17 0.083% Inhal Katrian (2.5 mg/3 ml) UD] RX: predniSONE [predniSONE Tab] 40 mg PO DAILY #3 tab 09/08/17 Tiotropium [Spiriva] 18 mcg IH DAILY #30 cap 09/08/17 Albuterol 0.083% [Albuterol 3 ml IH Q4 PRN #50 neb 10/05/17 Sulfate 3 Ml] RX: Prednisone 50 mg PO DAILY #4 tablet 10/05/17 levoFLOXacin [Levaquin] 750 mg PO DAILY #5 tab 10/05/17 Albuterol 0.083% [Albuterol 0.083% 3 ml IH Q4H PRN #30 neb 10/18/17 Inhal Katrina (2.5 mg/3 ml) UD] predniSONE [Prednisone] 40 mg PO DAILY #8 tab 10/18/17 Methylprednisolone [Medrol Dosepak] 4 mg PO ASDIR #1 pkg 02/03/18 Albuterol Sulfate [Proair Hfa] 0.09 mg IH Q6H PRN #2 inh 03/15/18 Furosemide [Lasix] 20 mg PO DAILY 10 Days tab 03/15/18 RX: predniSONE [predniSONE Tab] 20 mg PO BID 5 Days tab 03/15/18 RX: Albuterol 0.083% [Albuterol 3 ml IH Q4 #50 neb 03/23/18 0.083% Inhal Katrina (2.5 mg/3 ml) UD] RX: predniSONE [predniSONE Tab] 60 mg PO DAILY #9 tab 03/23/18 Furosemide [Lasix] 20 mg PO DAILY #14 tablet 04/19/18 RX: Albuterol HFA [Ventolin HFA 90 1 - 2 puff IH Q4H PRN #1 bottle 04/19/18 mcg/actuation (8 g)] - Allergies Allergies/Adverse Reactions: Allergies Allergy/AdvReac Type Severity Reaction Status Date / Time zolpidem tartrate Allergy Mild RASH Verified 04/19/18 06:06 [From Jessi] Review of Systems ROS Statement: Except As Marked, All Systems Reviewed And Found Negative Constitutional: Negative for: Fever Cardiovascular: Positive for: Orthopnea, Paroxysmal Noc. Dyspnea Respiratory: Positive for: Shortness of Breath. Negative for: Cough Physical Exam - Reviewed Nursing Documentation Reviewed: Yes Vital Signs Reviewed: Yes - Physical Exam Appears: Positive for: Well, Non-toxic, No Acute Distress Head Exam: Positive for: ATRAUMATIC, NORMAL INSPECTION, NORMOCEPHALIC Skin: Positive for: Normal Color, Warm, DRY Eye Exam: Positive for: EOMI, Normal appearance, PERRL Neck: Positive for: Normal, Painless ROM Cardiovascular/Chest: Positive for: Regular Rate, Rhythm. Negative for: Murmur Respiratory: Positive for: Decreased Breath Sounds, Respiratory Distress (mild) Extremity: Positive for: Normal ROM. Negative for: Pedal Edema, Deformity Neurologic/Psych: Positive for: Alert, Oriented. Negative for: Motor/Sensory Deficits - Laboratory Results Result Diagrams: 04/19/18 06:28 04/19/18 06:28 - ECG O2 Sat by Pulse Oximetry: 96 (RA) Pulse Ox Interpretation: Normal Medical Decision Making Medical Decision Making: Time: 06:06 Initial Impression: 58 y/o female with dyspnea in setting of known CHF and COPD Initial Plan: * EKG * BNP * CMP * Troponin * ED Urine * CBC w/ diff * PTT * Prothrombin time * CXR * Duoneb 3 ml * Lasix 40 mg * Solumedrol 125 mg 07:00 Patient care endorsed to Dr. Barnes pending labs, CXR, and reevaluation. Scribe Attestation: Documented by Iron Kirkpatrick acting as a scribe for Rahul Victor MD. Provider Scribe Attestation: All medical record entries made by the Scribe were at my direction and pers onally dictated by me. I have reviewed the chart and agree that the record accurately reflects my personal performance of the history, physical exam, medical decision making, and the department course for this patient. I have also personally directed, reviewed, and agree with the discharge instructions and disposition. Disposition - Clinical Impression Clinical Impression: Respiratory distress, COPD exacerbation - Patient ED Disposition Is Patient to be Admitted: Transfer of Care - Disposition Disposition: Transfer of Care Disposition Time: 07:00 Condition: STABLE Additional Instructions: follow up with you doctor dr bolivar in 1-2 days return to the ED with any worsening or concerning symptoms Prescriptions: RX: Albuterol HFA [Ventolin HFA 90 mcg/actuation (8 g)] 1 - 2 puff IH Q4H PRN #1 bottle PRN Reason: Wheezing Furosemide [Lasix] 20 mg PO DAILY #14 tablet Instructions: Exacerbation of COPD (DC) Forms: [employer] (Bahraini) Patient Signed Over To: Jasen Barnes (labs and CXR)
[2018-04-19] MEDS ORDERED: Albuterol-Ipratrop 3 mg / 0.5 (3 ml) UD ONE ×2 (06:34→08:33)
--- NOTE | 2018-04-19 07:28 | ED PDOC ---
- Laboratory Results Result Diagrams: 04/19/18 06:28 04/19/18 06:28 - ECG O2 Sat by Pulse Oximetry: 96 (RA) Medical Decision Making Medical Decision Makin am pt signed out from Dr Victor pending workup and reeval. cxr and labs reviewed cxr no infiltrates however pt consistently saying she is sob. likely copd exacerbation. ordered duoneb X2. admit to hospitalist (dr bolivar) spoke with dr goff pt aware of plan, agreeable Disposition - Clinical Impression Clinical Impression: Respiratory distress, COPD exacerbation - POA Present On Arrival: None - Disposition Disposition: Hospitalized as Observation Patient Disposition Time: 09:52 Condition: STABLE Forms: [employer] (Estonian)
[2018-04-19 07:52] LABS: BASO % 0.5 % (0.0-2.0); EOS # 0.1 K/uL (0.0-0.7); EOS % 2.5 % (0.0-4.0); HEMOGLOBIN 14.7 g/dL (12.0-16.0); LYMPH # 0.9 K/uL (1.0-4.3); LYMPH % 17.3 % (20.0-40.0); MEAN CELL VOLUME 84.7 fl (81.0-99.0); MEAN CORPUSCULAR HGB CONC 31.9 g/dL (33.0-37.0); MEAN PLATELET VOLUME 10.9 fl (7.2-11.7); MONO # 0.3 K/uL (0.0-0.8); MONO % 6.2 % (0.0-10.0); NEUT % 73.5 % (50.0-75.0); NRBC % 0.2 % (0.0-0.0); RBC 5.44 Mil/uL (3.80-5.20); RED CELL DISTRIBUTION WIDTH 16.7 % (11.5-14.5); WHITE BLOOD COUNT 5.5 K/uL (4.8-10.8)
[2018-04-19 07:58] LABS: INR 1.2; PROTHROMBIN TIME 14.1 Seconds (9.8-13.1)
--- NOTE | 2018-04-19 07:58 | RAD ---
Date of service: 04/19/2018 HISTORY: chest pain COMPARISON: Frontal chest radiograph 03/23/2018. FINDINGS: LUNGS: No active pulmonary disease. PLEURA: No significant pleural effusion identified, no pneumothorax apparent. CARDIOVASCULAR: No aortic atherosclerotic calcification present. Mild cardiomegaly not excluded. No significant interval change in cardiomediastinal silhouette. No pulmonary vascular congestion. OSSEOUS STRUCTURES: No significant abnormalities. VISUALIZED UPPER ABDOMEN: Normal. OTHER FINDINGS: None. IMPRESSION: Stable prominent cardiomediastinal silhouette. No pulmonary vascular congestion evident. No infiltrates or pleural effusion bilaterally.
[2018-04-19 08:00] LABS: PARTIAL THROMBOPLASTIN TIME 39.8 Seconds (25.6-37.1)
[2018-04-19 08:14] LABS: B-TYPE NATRIURETIC PEPTIDE 836 pg/ml (0-900)
[2018-04-19 08:18] LABS: ALB/GLOB RATIO 1.1 (1.0-2.1); ALBUMIN 3.9 g/dL (3.5-5.0); ALT/SGPT 65 U/L (9-52); AST/SGOT 66 U/L (14-36); BLOOD UREA NITROGEN 24 mg/dl (7-17); CALCIUM 9.5 mg/dL (8.4-10.2); GFR NON-AFRICAN AMERICAN > 60
[2018-04-19] MEDS ORDERED: Insulin Regular 100 units/ml SC STA (08:29)
--- NOTE | 2018-04-19 10:55 | CP.PCM.CON ---
History of Present Illness - History of Present Illness History of Present Illness: Patient seen and examined. She admitted feeling better and wished to go home. She said she lives nearby and promised to come back if she got worse. Her breathing was easy and not laboured. Past Patient History - Infectious Disease Hx of Infectious Diseases: None - Past Medical History & Family History Past Medical History?: Yes - Past Social History Alcohol: None Drugs: Denies - CARDIAC Hx Atrial Fibrillation: Yes (dx first week of august) Hx Cardia Arrhythmia: Yes (afib) Hx Congestive Heart Failure: Yes Hx Hypercholesterolemia: Yes Hx Hypertension: Yes - PULMONARY Hx Chronic Obstructive Pulmonary Disease (COPD): Yes Hx Sleep Apnea: Yes - NEUROLOGICAL Hx Neurological Disorder: No - HEENT Hx HEENT Problems: Yes (Use eyeglasess) Other/Comment: wears glasses - RENAL Hx Chronic Kidney Disease: No - ENDOCRINE/METABOLIC Hx Endocrine Disorders: Yes Hx Diabetes Mellitus Type 2: Yes Other/Comment: Morbid Obesity - HEMATOLOGICAL/ONCOLOGICAL Hx Human Immunodeficiency Virus (HIV): No - INTEGUMENTARY Hx Dermatological Problems: No - MUSCULOSKELETAL/RHEUMATOLOGICAL Hx Arthritis: Yes Hx Fractures: Yes (ribs) - GASTROINTESTINAL Hx Gastrointestinal Disorders: Yes (Hernia) - GENITOURINARY/GYNECOLOGICAL Hx Genitourinary Disorders: No - PSYCHIATRIC Hx Psychophysiologic Disorder: No Hx Substance Use: No - SURGICAL HISTORY Hx Carotid Endarterectomy: Yes Hx Tonsillectomy: Yes - ANESTHESIA Hx Anesthesia: Yes Hx Anesthesia Reactions: No Hx Malignant Hyperthermia: No Meds Home Medications: Home Medication List Medication Instructions Recorded Confirmed Type Albuterol HFA [Ventolin HFA 90 1 - 2 puff IH Q4H PRN #1 bottle 04/19/18 Rx mcg/actuation (8 g)] Furosemide [Lasix] 20 mg PO DAILY #14 tablet 04/19/18 Rx Allergies/Adverse Reactions: Allergies Allergy/AdvReac Type Severity Reaction Status Date / Time zolpidem tartrate Allergy Mild RASH Verified 04/19/18 06:06 [From Ambien] Physical Exam - Constitutional Appears: No Acute Distress - Respiratory Exam Respiratory Exam: absent: Rales, Rhonchi, Wheezes, Respiratory Distress - Cardiovascular Exam Cardiovascular Exam: REGULAR RHYTHM, +S1, +S2 - GI/Abdominal Exam GI & Abdominal Exam: Distended (globularly enlarged) - Extremities Exam Extremities exam: Negative for: pedal edema - Neurological Exam Neurological exam: Alert, Oriented x3 - Psychiatric Exam Psychiatric exam: Normal Affect - Skin Skin Exam: Dry, Intact Results - Vital Signs Recent Vital Signs: Last Vital Signs Temp 98.2 F 04/19/18 06:06 Pulse 92 H 04/19/18 06:06 Resp 26 H 04/19/18 06:15 BP 132/66 04/19/18 06:10 Pulse Ox 96 04/19/18 09:52 - Labs Result Diagrams: 04/19/18 06:28 04/19/18 06:28 Labs: Laboratory Results - last 24 hr 04/19/18 04/19/18 04/19/18 06:27 06:28 06:28 WBC 5.5 RBC 5.44 H Hgb 14.7 Hct 46.1 MCV 84.7 MCH 27.0 MCHC 31.9 L RDW 16.7 H Plt Count 77 L D MPV 10.9 Neut % (Auto) 73.5 Lymph % (Auto) 17.3 L Butts % (Auto) 6.2 Eos % (Auto) 2.5 Baso % (Auto) 0.5 Neut # (Auto) 4.0 Lymph # (Auto) 0.9 L Butts # (Auto) 0.3 Eos # (Auto) 0.1 Baso # (Auto) 0.0 PT INR APTT Sodium 140 Potassium 4.0 Chloride 95 L Carbon Dioxide 29 Anion Gap 20 BUN 24 H Creatinine 0.9 Est GFR ( Amer) > 60 Est GFR (Non-Af Amer) > 60 POC Glucose (mg/dL) 345 H Random Glucose 360 H Calcium 9.5 Total Bilirubin 1.0 AST 66 H D ALT 65 H Alkaline Phosphatase 307 H Troponin I 0.0580 NT-Pro-B Natriuret Pep 836 Total Protein 7.5 Albumin 3.9 Globulin 3.6 Albumin/Globulin Ratio 1.1 04/19/18 06:28 WBC RBC Hgb Hct MCV MCH MCHC RDW Plt Count MPV Neut % (Auto) Lymph % (Auto) Butts % (Auto) Eos % (Auto) Baso % (Auto) Neut # (Auto) Lymph # (Auto) Butts # (Auto) Eos # (Auto) Baso # (Auto) PT 14.1 H INR 1.2 APTT 39.8 H Sodium Potassium Chloride Carbon Dioxide Anion Gap BUN Creatinine Est GFR ( Amer) Est GFR (Non-Af Amer) POC Glucose (mg/dL) Random Glucose Calcium Total Bilirubin AST ALT Alkaline Phosphatase Troponin I NT-Pro-B Natriuret Pep Total Protein Albumin Globulin Albumin/Globulin Ratio Assessment & Plan - Assessment and Plan (Free Text) Assessment: Patient could be discharged from the ER and do not need hospital admission.
[2018-04-19 11:04] VITALS: BP 135/80; PULSE 85; RESP 20; TEMP 98.1
--- NOTE | 2018-04-19 12:09 | CARD ---
APPROVED REPORT Date of service: 04/19/2018 EKG Measurement Heart [id number] <Conclusion> Atrial fibrillation Septal infarct, age undetermined ST & T wave abnormality, consider infero-lateral ischemia Abnormal ECG
[2018-04-20 03:41] VITALS: O2SAT 96
== END 2018-04-19 11:04 | disposition home or self-care (01) ==
LOC: H.ER 05:49 → UNDOADMOB 09:54 → H.ERHOLD 09:54 → UNDODISOB 11:30
DX: J44.1 Chronic obstructive pulmonary disease with (acute) exacerbation (principal); R06.03 Acute respiratory distress; I11.0 Hypertensive heart disease with heart failure; I48.91 Unspecified atrial fibrillation; I50.9 Heart failure, unspecified; E78.00 Pure hypercholesterolemia, unspecified; E11.9 Type 2 diabetes mellitus without complications; Z79.01 Long term (current) use of anticoagulants; Z79.4 Long term (current) use of insulin; Z88.8 Allergy status to other drugs, medicaments and biological substances
CPT/HCPCS: 71045; 80053; 82948; 83880; 84484; 85025; 85610; 85730; 93005; 94640; 96372; 96374; 99284; J1940; J2930

== ENCOUNTER 2018-05-16 09:00 | Emergency (ER) | payer MEDICAID ==
[2018-05-16 09:00] VITALS: PULSE 60; BMI 44.8
--- NOTE | 2018-05-16 09:22 | ED PDOC ---
HPI: General Adult Time Seen by Provider: 05/16/18 09:20 Chief Complaint (Nursing): Shortness Of Breath Chief Complaint (Provider): sob History Per: Patient (58 y/o female h/o Afib/chf/copd here with complaint of sob today am. Patient states she has been out of lasix x 2 days. Also notes symptoms aggravated while smelling exhaust smoke. Attempted use of nebulizer today without relief.) Additional History Per: Patient (pmd dr martinez; cardiology dr phipps) Past Medical History Reviewed: Historical Data, Nursing Documentation, Vital Signs Vital Signs: Last Vital Signs Temp 97.8 F 05/16/18 09:06 Pulse 79 05/16/18 09:06 Resp 18 05/16/18 09:06 BP 155/102 H 05/16/18 09:06 Pulse Ox 99 05/16/18 09:06 - Medical History PMH: Arthritis, Atrial Fibrillation (dx first week of august), Cardia Arrhythmia (afib), CHF, COPD, Diabetes, Fractures (ribs), HTN, Hypercholesterolemia, Sleep Apnea Denies: HIV, Chronic Kidney Disease - Surgical History Surgical History: Carotid Endarterectomy, Hernia Repair, Tonsillectomy - Family History Family History: States: Unknown Family Hx, Diabetes, Hypertension - Immunization History Hx Tetanus Toxoid Vaccination: No Hx Influenza Vaccination: No Hx Pneumococcal Vaccination: No - Home Medications Home Medications: Ambulatory Orders Medication Instructions Recorded Insulin Lispro Protamin/Lispro 60 unit SC BID 09/04/16 [Humalog Mix 75-25 Kwikpen] Digoxin [Lanoxin] 0.25 mg PO DAILY #30 tab 09/16/16 Warfarin [Coumadin] 5 mg PO QPM 02/19/17 Vitamin E [Vitamin E 400 Units Cap] 1 cap PO DAILY 06/15/17 diltiaZEM CD [Cardizem CD] 240 mg PO DAILY 06/15/17 Albuterol 0.083% [Albuterol 0.083% 3 ml IH Q4 PRN #50 neb 08/21/17 Inhal Katrina (2.5 mg/3 ml) UD] Albuterol 0.083% [Albuterol 0.083% 2.5 mg IH Q8 PRN #100 neb 05/16/18 Inhal Katrina (2.5 mg/3 ml) UD] Furosemide [Lasix] 20 mg PO BID #28 tablet 05/16/18 Furosemide [Lasix] 40 mg PO DAILY 05/16/18 predniSONE [predniSONE Tab] 3 tab PO DAILY #12 tab 05/16/18 - Allergies Allergies/Adverse Reactions: Allergies Allergy/AdvReac Type Severity Reaction Status Date / Time zolpidem tartrate Allergy Mild RASH Verified 04/19/18 06:06 [From Jessi] Review of Systems ROS Statement: Except As Marked, All Systems Reviewed And Found Negative Physical Exam - Reviewed Nursing Documentation Reviewed: Yes Vital Signs Reviewed: Yes - Physical Exam Appears: Positive for: Well, Non-toxic, No Acute Distress Head Exam: Positive for: ATRAUMATIC, NORMAL INSPECTION, NORMOCEPHALIC Skin: Positive for: Normal Color, Warm, DRY Eye Exam: Positive for: EOMI, Normal appearance, PERRL ENT: Positive for: Normal ENT Inspection Neck: Positive for: Normal, Painless ROM Cardiovascular/Chest: Positive for: Regular Rate, Rhythm Respiratory: Positive for: Decreased Breath Sounds Gastrointestinal/Abdominal: Positive for: Normal Exam, Soft Back: Positive for: Normal Inspection Extremity: Positive for: Normal ROM. Negative for: Swelling Neurologic/Psych: Positive for: Alert, Oriented - Laboratory Results Result Diagrams: 05/16/18 10:10 05/16/18 10:10 - ECG ECG Rhythm: Positive for: Atrial Fibrillation O2 Sat by Pulse Oximetry: 99 - Progress ED Course And Treament: cxr: nad solumedrol 125mg iv Duoneb x 1 dose lasix 40 mg iv nitro 1 inch with improvement of symptoms. d/w Dr. Maravilla.Patient would like to be discharged home. Will follow up with Dr. Martinez tomorrow. Disposition - Clinical Impression Clinical Impression: COPD (chronic obstructive pulmonary disease) - Patient ED Disposition Is Patient to be Admitted: No - Disposition Disposition: Routine/Home Disposition Time: 12:27 Condition: FAIR Prescriptions: Albuterol 0.083% [Albuterol 0.083% Inhal Katrina (2.5 mg/3 ml) UD] 2.5 mg IH Q8 PRN #100 neb PRN Reason: Shortness Of Breath Furosemide [Lasix] 20 mg PO BID #28 tablet predniSONE [predniSONE Tab] 3 tab PO DAILY #12 tab Instructions: Chronic Obstructive Pulmonary Disease (COPD), Including Emphysema
[2018-05-16] MEDS ORDERED: Nitroglycerin 2% Ointment Foilpak UD TOP STA (09:29)
[2018-05-16] MEDS ORDERED: Albuterol-Ipratrop 3 mg / 0.5 (3 ml) UD INH STA ×2 (09:29)
[2018-05-16] MEDS ORDERED: Albuterol-Ipratrop 3 mg / 0.5 (3 ml) UD ONE (09:40)
[2018-05-16] MEDS ORDERED: Nitroglycerin 2% Ointment Foilpak UD TOP ONE (09:41)
[2018-05-16 10:24] LABS: BASO % 0.6 % (0.0-2.0); EOS # 0.1 K/uL (0.0-0.7); LYMPH % 20.9 % (20.0-40.0); MEAN CELL VOLUME 85.1 fl (81.0-99.0); MEAN CORPUSCULAR HEMOGLOBIN 26.9 pg (27.0-31.0); MEAN CORPUSCULAR HGB CONC 31.6 g/dL (33.0-37.0); MEAN PLATELET VOLUME 10.5 fl (7.2-11.7); MONO # 0.3 K/uL (0.0-0.8); MONO % 7.1 % (0.0-10.0); NEUT # 3.2 K/uL (1.8-7.0); NEUT % 68.4 % (50.0-75.0); NRBC % 0.2 % (0.0-0.0); RBC 5.21 Mil/uL (3.80-5.20); RED CELL DISTRIBUTION WIDTH 15.6 % (11.5-14.5); WHITE BLOOD COUNT 4.7 K/uL (4.8-10.8)
[2018-05-16 10:53] LABS: B-TYPE NATRIURETIC PEPTIDE 657 pg/ml (0-900)
[2018-05-16 11:45] LABS: ALB/GLOB RATIO 1.2 (1.0-2.1); ALBUMIN 3.9 g/dL (3.5-5.0); ALT/SGPT 64 U/L (9-52); AST/SGOT 54 U/L (14-36); BLOOD UREA NITROGEN 14 mg/dl (7-17); CALCIUM 9.3 mg/dL (8.4-10.2); GFR NON-AFRICAN AMERICAN > 60
--- NOTE | 2018-05-16 11:48 | RAD ---
Date of service: 05/16/2018 HISTORY: sob COMPARISON: Chest radiograph dated 04/19/2018. FINDINGS: LUNGS: No active pulmonary disease. PLEURA: No significant pleural effusion identified, no pneumothorax apparent. CARDIOVASCULAR: Aortic atherosclerotic calcifications. Cardiomediastinal silhouette stably enlarged. OSSEOUS STRUCTURES: Unchanged. VISUALIZED UPPER ABDOMEN: Normal. OTHER FINDINGS: None. IMPRESSION: No active disease.
[2018-05-16 12:28] VITALS: BP 164/83; PULSE 78; RESP 18; TEMP 98.3; O2SAT 99
== END 2018-05-16 12:48 | disposition home or self-care (01) ==
LOC: H.ER 09:00
DX: J44.9 Chronic obstructive pulmonary disease, unspecified (principal); E11.9 Type 2 diabetes mellitus without complications; Z79.4 Long term (current) use of insulin; Z88.8 Allergy status to other drugs, medicaments and biological substances; Z79.899 Other long term (current) drug therapy; I11.0 Hypertensive heart disease with heart failure; Z79.01 Long term (current) use of anticoagulants
CPT/HCPCS: 71045; 80053; 83735; 83880; 84484; 85025; 96374; 96375; 99284; J1940; J2930

== ENCOUNTER 2018-06-18 13:56 | Emergency (ER) | payer MEDICAID ==
[2018-06-18 13:56] VITALS: PULSE 60; BMI 44.8
--- NOTE | 2018-06-18 15:02 | ED PDOC ---
HPI: SOB/CHF/COPD Time Seen by Provider: 06/18/18 14:44 Chief Complaint (Nursing): Respiratory Distress Chief Complaint (Provider): Respiratory Distress History Per: Patient History/Exam Limitations: no limitations Onset/Duration Of Symptoms: Days (x2) Current Symptoms Are (Timing): Still Present Associated Symptoms: Ankle/Leg Swelling. denies: Chest Pain Additional Complaint(s): 58 year old female who is morbidly obese with a history of COPD, CHF, heart disease, and atrial fibrillation presents to the ED with difficulty breathing and shortness of breath onset x2 days. Patient reports wheezing when walking or lying down. She states her legs are swollen for the first time. Patient is currently on Lasix, last dose was 7 am. After which she only urinated twice. Patient took medication at 1pm with no relief of symptoms. Patient has no h istory of clots, stents, or myocardial infarction. She denies cough or chest pain. PMD: Juan Nursing Unit Clerk: none at present. Patient used to see Dr. Jade in [place] Past Medical History Reviewed: Historical Data, Nursing Documentation, Vital Signs Vital Signs: Last Vital Signs Temp 98.2 F 06/18/18 14:04 Pulse 74 06/18/18 14:04 Resp 22 06/18/18 14:04 BP 138/74 06/18/18 14:04 Pulse Ox 98 06/18/18 14:04 - Medical History PMH: Arthritis, Atrial Fibrillation (dx first week of august), Cardia Arrhythmia (afib), CHF, COPD, Diabetes, Fractures (ribs), HTN, Hypercholesterolemia, Sleep Apnea Denies: HIV, Chronic Kidney Disease - Surgical History Surgical History: Carotid Endarterectomy, Hernia Repair (x3), Tonsillectomy, C- Section Other surgeries: knee replacement - Family History Family History: States: Unknown Family Hx, Diabetes, Hypertension - Immunization History Hx Tetanus Toxoid Vaccination: No Hx Influenza Vaccination: No Hx Pneumococcal Vaccination: No - Home Medications Home Medications: Ambulatory Orders Medication Instructions Recorded Insulin Lispro Protamin/Lispro 60 unit SC BID 09/04/16 [Humalog Mix 75-25 Kwikpen] Digoxin [Lanoxin] 0.25 mg PO DAILY #30 tab 09/16/16 Warfarin [Coumadin] 5 mg PO [id number] 02/19/17 Vitamin E [Vitamin E 400 Units Cap] 1 cap PO DAILY 06/15/17 diltiaZEM CD [Cardizem CD] 240 mg PO DAILY 06/15/17 Albuterol 0.083% [Albuterol 0.083% 2.5 mg IH Q8 PRN #100 neb 05/16/18 Inhal Katrina (2.5 mg/3 ml) UD] Furosemide [Lasix] 40 mg PO BID 05/16/18 Albuterol 0.5% [Albuterol 0.5% 2.5 mg NEB Q6H PRN #3 neb 06/18/18 Inhal Katrina (2.5 mg/0.5 ml) UD] Albuterol Sulfate [Ventolin Hfa] 2 puff IH Q6 PRN 06/18/18 Ascorbic Acid [Vitamin C 500 mg 1 tab PO DAILY 06/18/18 Tab] Cholecalciferol [Vitamin D 1000 IU] 1 tab PO DAILY 06/18/18 Folic Acid 1 mg PO DAILY 06/18/18 Furosemide [Lasix] 40 mg PO BID 10 Days tab 06/18/18 Insulin Glargine,Hum.rec.anlog 20 unit SC QPM 06/18/18 [Basaglar Kwikpen U-100] Rogers-3 Fatty Acids/Fish Oil 1 cap PO DAILY 06/18/18 [Rogers-3 1,000 mg Softgel] Warfarin [Coumadin] 7.5 mg PO SUSA 06/18/18 predniSONE [predniSONE Tab] 20 mg PO BID 5 Days tab 06/18/18 - Allergies Allergies/Adverse Reactions: Allergies Allergy/AdvReac Type Severity Reaction Status Date / Time zolpidem tartrate Allergy Mild RASH Verified 04/19/18 06:06 [From Jessi] Review of Systems ROS Statement: Except As Marked, All Systems Reviewed And Found Negative Cardiovascular: Positive for: Orthopnea, Other (leg swelling). Negative for: Chest Pain Respiratory: Positive for: Shortness of Breath, Wheezing. Negative for: Cough Physical Exam - Reviewed Nursing Documentation Reviewed: Yes Vital Signs Reviewed: Yes - Physical Exam Appears: Positive for: No Acute Distress Head Exam: Positive for: ATRAUMATIC, NORMAL INSPECTION Skin: Positive for: Normal Color, Warm, Dry Eye Exam: Positive for: Normal appearance, EOMI, PERRL Neck: Positive for: Normal, Painless ROM, Supple Cardiovascular/Chest: Positive for: Regular Rate, Rhythm Respiratory: Positive for: Normal Breath Sounds Gastrointestinal/Abdominal: Positive for: Normal Exam, Soft, Other (morbidly obese). Negative for: Tenderness Extremity: Positive for: Swelling (mild swelling in lower legs ) Neurological/Psych: Positive for: Awake, Alert, Oriented - Laboratory Results Result Diagrams: 06/18/18 16:00 06/18/18 15:23 - ECG ECG Rhythm: Positive for: Atrial Fibrillation Rate: 74 O2 Sat by Pulse Oximetry: 98 (RA) Pulse Ox Interpretation: Normal Medical Decision Making Medical Decision Making: Time: 1407 Impression: shortness of breath and leg swelling Differentials include: CHF exacerbation Plan: --EKG --BNP --BMP --Digoxin --Troponin --CBC --PTT --PT/INR --CXR ScribeAttestation: Documented byDianna Nelson, acting as a scribe for Kayy Meléndez MD. Provider ScribeAttestation: All medical record entries made by the Scribe were at my direction and personally dictated by me. I have reviewed the chart and agree that the record accurately reflects my personal performance of the history, physical exam, medical decision making, and the department course for this patient. I have also personally directed, reviewed, and agree with the discharge instructions and disposition. Disposition - Clinical Impression Clinical Impression: COPD exacerbation, CHF (congestive heart failure) - Patient ED Disposition Is Patient to be Admitted: Transfer of Care Counseled Patient/Family Regarding: Studies Performed, Diagnosis - Disposition Referrals: [facility] [Outside] - 06/21/18 Disposition: Transfer of Care Disposition Time: 15:00 Condition: STABLE Additional Instructions: Return if not better in 3 days. Prescriptions: Albuterol 0.5% [Albuterol 0.5% Inhal Katrina (2.5 mg/0.5 ml) UD] 2.5 mg NEB Q6H PRN #3 neb PRN Reason: Shortness Of Breath Furosemide [Lasix] 40 mg PO BID 10 Days tab predniSONE [predniSONE Tab] 20 mg PO BID 5 Days tab Instructions: Exacerbation of COPD (DC) Forms: [employer] (L[place]uanian) Patient Signed Over To: Tang Hernandez
--- NOTE | 2018-06-18 15:15 | ED PDOC ---
- Laboratory Results Result Diagrams: 06/18/18 16:00 06/18/18 15:23 Interpretation Of Abn Labs: no acute - ECG ECG: Positive for: Interpreted By Me, Viewed By Me ECG Rhythm: Positive for: Atrial Fibrillation (rate controlled) O2 Sat by Pulse Oximetry: 98 (RA) Pulse Ox Interpretation: Normal - Radiology X-Ray: Read By Radiologist X-Ray Interpretation: No Acute Disease - Progress ED Course And Treament: 1715: Feels much better. No dyspnea. Wants to go home. AAOx3. Wants rx for lasix 40mg po bid as she is out and albuterol for her nebulizer. Ambulated with no issues. Medical Decision Making Medical Decision Making: Time: 1500 --58 year old female signed out to this provider by Dr. Meléndez, pending blood work. Possible CHF exacerbation. ----- ScribeAttestation: Documented byDianna Nelson, acting as a scribe for Tang Hernandez MD. Provider ScribeAttestation: All medical record entries made by the Scribe were at my direction and personally dictated by me. I have reviewed the chart and agree that the record accurately reflects my personal performance of the history, physical exam, medical decision making, and the department course for this patient. I have also personally directed, reviewed, and agree with the discharge instructions and di sposition. Disposition - Clinical Impression Clinical Impression: COPD exacerbation - POA Present On Arrival: None - Disposition Referrals: [facility] [Outside] - 06/21/18 Disposition: Routine/Home Disposition Time: 15:30 Condition: STABLE Additional Instructions: Return if not better in 3 days. Prescriptions: Albuterol 0.5% [Albuterol 0.5% Inhal Katrina (2.5 mg/0.5 ml) UD] 2.5 mg NEB Q6H PRN #3 neb PRN Reason: Shortness Of Breath Furosemide [Lasix] 40 mg PO BID 10 Days tab predniSONE [predniSONE Tab] 20 mg PO BID 5 Days tab Instructions: Exacerbation of COPD (DC) Forms: [employer] (Pashto)
[2018-06-18] MEDS ORDERED: Albuterol-Ipratrop 3 mg / 0.5 (3 ml) UD IH STA ×2 (16:08)
[2018-06-18] MEDS ORDERED: Albuterol-Ipratrop 3 mg / 0.5 (3 ml) UD ONE (16:25)
[2018-06-18 16:29] LABS: BASO % 0.3 % (0.0-2.0); EOS # 0.1 K/uL (0.0-0.7); EOS % 1.4 % (0.0-4.0); HEMOGLOBIN 14.7 g/dL (12.0-16.0); LYMPH % 14.3 % (20.0-40.0); MEAN CELL VOLUME 84.2 fl (81.0-99.0); MEAN CORPUSCULAR HEMOGLOBIN 27.3 pg (27.0-31.0); MEAN CORPUSCULAR HGB CONC 32.4 g/dL (33.0-37.0); MEAN PLATELET VOLUME 10.6 fl (7.2-11.7); MONO # 0.5 K/uL (0.0-0.8); NEUT # 5.4 K/uL (1.8-7.0); NRBC % 0.1 % (0.0-0.0); RBC 5.4 Mil/uL (3.80-5.20); RED CELL DISTRIBUTION WIDTH 15.7 % (11.5-14.5); WHITE BLOOD COUNT 7.1 K/uL (4.8-10.8)
[2018-06-18 16:29] LABS: BLOOD UREA NITROGEN 17 mg/dl (7-17); CALCIUM 9.2 mg/dL (8.4-10.2); GFR NON-AFRICAN AMERICAN > 60
[2018-06-18 16:30] LABS: INR 1.5; PROTHROMBIN TIME 16.7 Seconds (9.8-13.1)
[2018-06-18 16:33] LABS: PARTIAL THROMBOPLASTIN TIME 40.7 Seconds (25.6-37.1)
[2018-06-18 16:41] LABS: B-TYPE NATRIURETIC PEPTIDE 695 pg/ml (0-900)
--- NOTE | 2018-06-18 16:41 | RAD ---
Date of service: 06/18/2018 HISTORY: dyspnea COMPARISON: Comparison chest 05/16/2018. TECHNIQUE: 1 view obtained. FINDINGS: LUNGS: No suspect minor bibasilar atelectasis. PLEURA: No significant pleural effusion identified, no pneumothorax apparent. CARDIOVASCULAR: Mild aortic atherosclerotic calcification present. Heart is enlarged. No pulmonary vascular congestion. OSSEOUS STRUCTURES: No significant abnormalities. VISUALIZED UPPER ABDOMEN: Normal. OTHER FINDINGS: None. IMPRESSION: Mild bibasilar atelectasis.
[2018-06-18 17:35] VITALS: BP 130/74; RESP 18; TEMP 98.5
[2018-06-19 10:33] VITALS: PULSE 74; O2SAT 98
--- NOTE | 2018-06-19 15:17 | CARD ---
APPROVED REPORT Date of service: 06/18/2018 EKG Measurement Heart [id number] <Conclusion> Atrial fibrillation Nonspecific ST and T wave abnormality Abnormal ECG
== END 2018-06-18 17:33 | disposition home or self-care (01) ==
LOC: H.ER 13:56
DX: J44.1 Chronic obstructive pulmonary disease with (acute) exacerbation (principal); E11.9 Type 2 diabetes mellitus without complications; E78.00 Pure hypercholesterolemia, unspecified; I11.0 Hypertensive heart disease with heart failure; I50.9 Heart failure, unspecified; Z79.01 Long term (current) use of anticoagulants; Z79.4 Long term (current) use of insulin; Z88.8 Allergy status to other drugs, medicaments and biological substances
CPT/HCPCS: 71045; 80048; 80162; 83880; 84484; 85025; 85610; 85730; 93005; 94150; 94640; 96374; 96375; 99284; J1940; J2930

== ENCOUNTER 2018-07-09 14:44 | Emergency (ER) | payer MEDICAID ==
[2018-07-09 14:44] VITALS: PULSE 60; BMI 44.8
[2018-07-09 15:08] VITALS: RESP 20; TEMP 98.3
--- NOTE | 2018-07-09 16:03 | ED PDOC ---
HPI: SOB/CHF/COPD Time Seen by Provider: 07/09/18 15:10 Chief Complaint (Nursing): Shortness Of Breath Chief Complaint (Provider): Shortness Of Breath History Per: Patient History/Exam Limitations: no limitations Onset/Duration Of Symptoms: Days (4) Additional Complaint(s): 58 y/o female presents to the ED complaining of nonproductive cough associated with sore throat and shortness of breath since 4 days ago. Patient states she had a subjective fever 3 days ago not including today. She reports taking Chloric and Mucinex with no relief and regular asthma medication is not helping either. Patient reports similar symptoms in the past and at the time was found to have pneumonia. Patient denies chest pain or any leg swelling. PMD: Arron Ardon Past Medical History Reviewed: Historical Data, Nursing Documentation, Vital Signs Vital Signs: Last Vital Signs Temp 98.3 F 07/09/18 15:06 Pulse 75 07/09/18 15:06 Resp 20 07/09/18 15:06 BP 144/70 07/09/18 15:06 Pulse Ox 94 L 07/09/18 15:06 Primary Care Physician: rAron Martinez MD - Medical History PMH: Arthritis, Atrial Fibrillation (dx first week of august), Cardia Arrhythmia (afib), CHF, COPD, Diabetes, Fractures (ribs), HTN, Hypercholesterolemia, Sleep Apnea Denies: HIV, Chronic Kidney Disease - Surgical History Surgical History: Carotid Endarterectomy, Hernia Repair (x3), Tonsillectomy, C-S ection - Family History Family History: States: Unknown Family Hx, Diabetes, Hypertension - Immunization History Hx Tetanus Toxoid Vaccination: No Hx Influenza Vaccination: No Hx Pneumococcal Vaccination: No - Home Medications Home Medications: Ambulatory Orders Medication Instructions Recorded Insulin Lispro Protamin/Lispro 60 unit SC BID 09/04/16 [Humalog Mix 75-25 Kwikpen] Digoxin [Lanoxin] 0.25 mg PO DAILY #30 tab 09/16/16 Warfarin [Coumadin] 5 mg PO [id number] 02/19/17 Vitamin E [Vitamin E 400 Units Cap] 1 cap PO DAILY 06/15/17 [id number] CD [Cardizem CD] 240 mg PO DAILY 06/15/17 Albuterol 0.083% [Albuterol 0.083% 2.5 mg IH Q8 PRN #100 neb 05/16/18 Inhal Katrina (2.5 mg/3 ml) UD] Furosemide [Lasix] 40 mg PO BID 05/16/18 Albuterol 0.5% [Albuterol 0.5% 2.5 mg NEB Q6H PRN #3 neb 06/18/18 Inhal Katrina (2.5 mg/0.5 ml) UD] Albuterol Sulfate [Ventolin Hfa] 2 puff IH Q6 PRN 06/18/18 Ascorbic Acid [Vitamin C 500 mg 1 tab PO DAILY 06/18/18 Tab] Cholecalciferol [Vitamin D 1000 IU] 1 tab PO DAILY 06/18/18 Folic Acid 1 mg PO DAILY 06/18/18 Furosemide [Lasix] 40 mg PO BID 10 Days tab 06/18/18 Insulin Glargine,Hum.rec.anlog 20 unit SC QPM 06/18/18 [Basaglar Kwikpen U-100] [place]-3 Fatty Acids/Fish Oil 1 cap PO DAILY 06/18/18 [[place]-3 1,000 mg Softgel] Warfarin [Coumadin] 7.5 mg PO SUSA 06/18/18 predniSONE [predniSONE Tab] 20 mg PO BID 5 Days tab 06/18/18 Azithromycin [Zithromax] 250 mg PO DAILY #6 dose 07/09/18 Prednisone 50 mg PO DAILY #4 tablet 07/09/18 - Allergies Allergies/Adverse Reactions: Allergies Allergy/AdvReac Type Severity Reaction Status Date / Time zolpidem tartrate Allergy Mild RASH Verified 04/19/18 06:06 [From Jessi] Review of Systems ROS Statement: Except As Marked, All Systems Reviewed And Found Negative ENT: Positive for: Throat Pain Cardiovascular: Negative for: Chest Pain Respiratory: Positive for: Cough, Shortness of Breath Physical Exam - Reviewed Nursing Documentation Reviewed: Yes Vital Signs Reviewed: Yes - Physical Exam Appears: Positive for: Non-toxic, No Acute Distress Head Exam: Positive for: ATRAUMATIC, NORMOCEPHALIC Skin: Positive for: Normal Color, Warm, Dry Eye Exam: Positive for: EOMI, Normal appearance, PERRL ENT: Positive for: Normal ENT Inspection. Negative for: Pharyngeal Erythema, Tonsillar Exudate Neck: Positive for: Normal, Painless ROM, Supple Cardiovascular/Chest: Positive for: Regular Rate, Rhythm, Irregularly Irregular. Negative for: Murmur Respiratory: Positive for: Normal Breath Sounds (7). Negative for: Rales, Rhonchi, Wheezing Gastrointestinal/Abdominal: Positive for: Normal Exam, Soft. Negative for: Tenderness Back: Positive for: Normal Inspection. Negative for: L CVA Tenderness, R CVA Tenderness Extremity: Positive for: Normal ROM. Negative for: Pedal Edema, Calf Tenderness Neurological/Psych: Positive for: Awake, Alert, Normal Tone, Oriented (x3). Negative for: Motor/Sensory Deficits - Laboratory Results Result Diagrams: 07/09/18 16:19 07/09/18 16:19 - ECG O2 Sat by Pulse Oximetry: 94 Medical Decision Making Medical Decision Making: Time: 1531 Initial Impression: Cough with differential including but not limit bronchitis, influenza, pneumonia, CHF, COPD, and viral. Initial Plan: -EKG -CMP -B-type natriuretic peptide -Magnesium -Phosphorous -Thyroid stimulating hormone -Troponin -CBC -Partial thromboplastin time -Prothrombin time -Chest x-ray -Blood culture -IV insertion -Influenza Time: 1648 Chest x-ray FINDINGS: LUNGS: No active pulmonary disease. PLEURA: No significant pleural effusion identified. No pneumothorax apparent. CARDIOVASCULAR: Atherosclerotic calcifications identified primarily aortic arch. Cardiomegaly. No evidence of acute, significant cardiovascular disease. OSSEOUS STRUCTURES: No significant abnormalities. VISUALIZED UPPER ABDOMEN: Normal. OTHER FINDINGS: None. IMPRESSION: No active disease. No significant interval change compared to the prior examination(s). Time: 1750 --Labs reviewed no clinically significant abnormalities. On reevaluation, patient report feeling better and is eager to go home Scribe Attestation: Documented by Gladys Rogers, acting as a scribe for Hermila Rios. Provider Scribe Attestation: All medical record entries made by the Scribe were at my direction and personally dictated by me. I have reviewed the chart and agree that the record accurately reflects my personal performance of the history, physical exam, medical decision making, and the department course for this patient. I have also personally directed, reviewed, and agree with the discharge instructions and disposition. Disposition - Clinical Impression Clinical Impression: Bronchitis, COPD exacerbation - Disposition Referrals: Hakan Velasco MD [Staff Provider] - Arron Martinez MD [Primary Care Provider] - Disposition: Routine/Home Disposition Time: 17:45 Condition: IMPROVED Additional Instructions: FOLLOWUP WITH DR MARTINEZ AND DR VELASCO NEXT WEEK FOR FURTHER EVALUATION Prescriptions: Azithromycin [Zithromax] 250 mg PO DAILY #6 dose Prednisone 50 mg PO DAILY #4 tablet Instructions: Acute Bronchitis, Adult (DC), Exacerbation of COPD (DC)
[2018-07-09] MEDS ORDERED: Albuterol-Ipratrop 3 mg / 0.5 (3 ml) UD INH STA (16:14)
[2018-07-09] MEDS ORDERED: Albuterol-Ipratrop 3 mg / 0.5 (3 ml) UD ONE (16:17)
[2018-07-09 16:24] LABS: BASO % 0.4 % (0.0-2.0); EOS # 0.1 K/uL (0.0-0.7); EOS % 2.2 % (0.0-4.0); HEMOGLOBIN 14.6 g/dL (12.0-16.0); LYMPH % 18.3 % (20.0-40.0); MEAN CELL VOLUME 83.2 fl (81.0-99.0); MEAN CORPUSCULAR HEMOGLOBIN 27.1 pg (27.0-31.0); MEAN CORPUSCULAR HGB CONC 32.6 g/dL (33.0-37.0); MEAN PLATELET VOLUME 11.2 fl (7.2-11.7); MONO # 0.6 K/uL (0.0-0.8); MONO % 10.5 % (0.0-10.0); NEUT # 3.8 K/uL (1.8-7.0); NEUT % 68.6 % (50.0-75.0); NRBC % 0.3 % (0.0-0.0); RBC 5.4 Mil/uL (3.80-5.20); RED CELL DISTRIBUTION WIDTH 15.7 % (11.5-14.5); WHITE BLOOD COUNT 5.5 K/uL (4.8-10.8)
[2018-07-09 16:35] LABS: INR 1.4; PROTHROMBIN TIME 15.7 Seconds (9.8-13.1)
[2018-07-09 16:52] LABS: B-TYPE NATRIURETIC PEPTIDE 689 pg/ml (0-900)
[2018-07-09 16:58] LABS: ALB/GLOB RATIO 1.2 (1.0-2.1); ALBUMIN 3.9 g/dL (3.5-5.0); ALT/SGPT 69 U/L (9-52); AST/SGOT 68 U/L (14-36); BLOOD UREA NITROGEN 19 mg/dl (7-17); CALCIUM 8.8 mg/dL (8.4-10.2); GFR NON-AFRICAN AMERICAN > 60
--- NOTE | 2018-07-09 17:20 | RAD ---
Date of service: 07/09/2018 HISTORY: Shortness of breath, fever and cough COMPARISON: 06/18/2018. TECHNIQUE: Chest PA and lateral views FINDINGS: LUNGS: No active pulmonary disease. PLEURA: No significant pleural effusion identified. No pneumothorax apparent. CARDIOVASCULAR: Atherosclerotic calcifications identified primarily aortic arch. Cardiomegaly. No evidence of acute, significant cardiovascular disease. OSSEOUS STRUCTURES: No significant abnormalities. VISUALIZED UPPER ABDOMEN: Normal. OTHER FINDINGS: None. IMPRESSION: No active disease. No significant interval change compared to the prior examination(s). Concordant results with the preliminary interpretation rendered by the emergency department physician procedure.
[2018-07-09 18:18] VITALS: BP 145/82; PULSE 73; O2SAT 97
--- NOTE | 2018-07-10 17:37 | CARD ---
APPROVED REPORT Date of service: 07/09/2018 EKG Measurement Heart [id number] <Conclusion> Atrial fibrillation Nonspecific ST and T wave abnormality Abnormal ECG
== END 2018-07-09 17:58 | disposition home or self-care (01) ==
LOC: SUPCPDRO 14:44 → H.ER 14:44
DX: J44.1 Chronic obstructive pulmonary disease with (acute) exacerbation (principal); E11.9 Type 2 diabetes mellitus without complications; E78.00 Pure hypercholesterolemia, unspecified; I11.0 Hypertensive heart disease with heart failure; Z79.01 Long term (current) use of anticoagulants; Z79.4 Long term (current) use of insulin; Z88.8 Allergy status to other drugs, medicaments and biological substances; I50.9 Heart failure, unspecified
CPT/HCPCS: 71046; 80053; 83735; 83880; 84100; 84443; 84484; 85025; 85610; 85730; 87040; 87804; 93005; 94640; 96374; 99283; J2930